=== PATIENT | male | born 1940 | race African-American/Black ===

== ENCOUNTER 2019-12-08 10:40 | Inpatient (IN) | payer MEDICARE, MEDICAID ==
[~2019-12-08] VITALS: Ht 175.3 cm; Wt 87.6 kg
[~2019-12-08 10:40] MED LIST: ACETAMINOPHEN325 M1 ORAL; ASPIR 8181 MG ORAL; CATAPRES0.2 MG ORAL; CYMBALTA60 MG ORAL; DOCUSATE SODIU100 MG ORAL; FUROSEMIDE20 M1 ORAL; GABAPENTIN300 MG ORAL; HYDRALAZINE HCL50 MG ORAL; LACTULOSE20 GM/301 ORAL; LISINOPRIL5 MG ORAL; LOSARTAN POTASS50 MG ORAL; PANTOPRAZOLE SO40 MG ORAL; TRAMADOL HCL50 MG ORAL
[2019-12-08 10:55] VITALS: BP 180/94
--- NOTE | 2019-12-08 11:00 | NUR ---
ED Nurse Note: Pt BIBA from assisted living d/t vomiting of blood started couple of days ago. Pt is AOx3, GCS 15, calm and cooperative. Per report pt has hx of kidney failure. Placed on bed and gown, will continue to monitor. VSS, on 2 liters of O2 via NC. No signs of acute distress noted as of now. Will continue to monitor.
--- NOTE | 2019-12-08 11:03 | Emergency Room Report ---
History of Present Illness General Chief Complaint: Vomiting Source: Patient Present Illness HPI Disclaimer: Please note that this report is being documented using DRAGON technology. This can lead to erroneous entry secondary to incorrect interpretation by the dictating instrument. HPI: 79-year-old male presents for evaluation of hematemesis. The patient was recently discharged after an extensive work-up of hematemesis including an EGD. He was sent in for after one episode of coffee-ground emesis witnessed by staff at his nursing facility this morning. The patient himself feels well. Denies nausea, vomiting, abdominal distention or pain. Denies diarrhea or constipation. He denies pain or discomfort of any kind at this time aside from some nonproductive cough over the past few days. Denies fevers or chills. His paperwork states he has been taking Protonix. EGD report showed gastritis and diverticulosis but no evidence of varices or other significant lesions. Presents with a Jaquez for obstructive uropathy PMH: PAULINE, hematemesis, gastritis, diverticulosis, hernia, obstructive uropathy PSH: Reviewed Allergies: Reviewed Social Hx: Reviewed Allergies: Coded Allergies: PROCHLORPERAZINE (Verified Allergy, Unknown, 11/30/19) Nursing Documentation-PMH Past Medical History: No History, Except For Hx Hypertension: Yes - GERD, ANEMIA Hx Cancer: No Hx Gastrointestinal Problems: No Hx Neurological Problems: Yes Hx Dementia: Yes Review of Systems All Other Systems: negative except mentioned in HPI Physical Exam Vital Signs Date Time Temp Pulse Resp B/P (MAP) Pulse Ox O2 Delivery O2 Flow Rate FiO2 12/08/19 10:35 84 16 180/94 (122) 94 Nasal Cannula 2.0 General: Awake and alert, no acute distress HEENT: NC/AT. EOMI. Neck: Supple, trachea midline Chest Wall: No tenderness, no deformity Cardiovascular: RRR. S1 and S2 normal. No murmur appreciated Resp: Normal work of breathing. No cough, wheezing or crackles appreciated Abdomen: Abdomen is soft, nondistended. Nontender Skin: Intact. No abrasions, laceration or rash over the exposed skin MSK: Normal tone and bulk. Moving all extremities. No obvious deformity. Neuro: Awake and alert. Mentating appropriately. Procedures Critical Care Time Critical Care Time Total critical care time: Approximately 45 minutes Due to a high probability of clinically significant, life threatening deterioration, the patient required the highest level of preparedness to intervene emergently and I personally spent this critical care time directly and personally managing the patient. This critical care time included obtaining a history, examining the patient, pulse oximetry, ordering and reviewing studies , ordering treatments, evaluating response to treatment and updating management plan as needed, frequent reassessment and discussion with other providers as well as arranging for ultimate disposition. This critical to care time was performed to assess and manage the high probability of life-threatening deterioration that could result in multiorgan failure. This critical care time is separate from the separately billable procedures and treating other patients. Medical Decision Making Diagnostic Impression: Primary Impression: Elevated troponin Additional Impressions: Upper GI bleed Anemia Prolonged QT interval Intraventricular conduction delay ER Course 79-year-old male recently discharged after evaluation of upper GI bleed presents for evaluation of coffee-ground emesis. Patient has no active complaints at this time. Belly is slightly distended though nontender. No evidence of emesis and he denies any nausea or vomiting recently. We will start broad work-up with labs, type and screen in preparation for possible transfusion, start IV fluids and antiemetics. Laboratory Tests Test 12/08/19 11:00 White Blood Count 11.0 K/UL (4.8-10.8) H Red Blood Count 3.29 M/UL (4.70-6.10) L Hemoglobin 9.9 G/DL (14.2-18.0) L Hematocrit 30.6 % (42.0-52.0) L Mean Corpuscular Volume 93 FL (80-99) Mean Corpuscular Hemoglobin 30.2 PG (27.0-31.0) Mean Corpuscular Hemoglobin Concent 32.5 G/DL (32.0-36.0) Red Cell Distribution Width 13.7 % (11.6-14.8) Platelet Count 292 K/UL (150-450) Mean Platelet Volume 5.0 FL (6.5-10.1) L Neutrophils (%) (Auto) % (45.0-75.0) Lymphocytes (%) (Auto) % (20.0-45.0) Monocytes (%) (Auto) % (1.0-10.0) Eosinophils (%) (Auto) % (0.0-3.0) Basophils (%) (Auto) % (0.0-2.0) Differential Total Cells Counted 100 Neutrophils % (Manual) 89 % (45-75) H Lymphocytes % (Manual) 4 % (20-45) L Monocytes % (Manual) 7 % (1-10) Eosinophils % (Manual) 0 % (0-3) Basophils % (Manual) 0 % (0-2) Band Neutrophils 0 % (0-8) Platelet Estimate Adequate Platelet Morphology Normal Hypochromasia 1+ Prothrombin Time 10.9 SEC (9.30-11.50) Prothrombin Time INR 1.0 (0.9-1.1) Activated Partial Thromboplast Time 30 SEC (23-33) Sodium Level 148 MMOL/L (136-145) H Potassium Level 5.0 MMOL/L (3.5-5.1) Chloride Level 112 MMOL/L (98-107) H Carbon Dioxide Level 22 MMOL/L (21-32) Anion Gap 14 mmol/L (5-15) Blood Urea Nitrogen 17 mg/dL (7-18) Creatinine 1.4 MG/DL (0.55-1.30) H Estimate Glomerular Filtration Rate mL/min (>60) Glucose Level 147 MG/DL (74-106) H Calcium Level 8.5 MG/DL (8.5-10.1) Total Bilirubin 0.3 MG/DL (0.2-1.0) Aspartate Amino Transferase (AST) 29 U/L (15-37) Alanine Aminotransferase (ALT) 17 U/L (12-78) Alkaline Phosphatase 135 U/L (46-116) H Troponin I 2.290 ng/mL (0.000-0.056) Total Protein 6.8 G/DL (6.4-8.2) Albumin 2.2 G/DL (3.4-5.0) L Globulin 4.6 g/dL Albumin/Globulin Ratio 0.5 (1.0-2.7) L Lipase 179 U/L (73-393) EKG Diagnostic Results EKG Time: 12:30 Rate: normal Rhythm: NSR Other Impression Wide QRS, right axis deviation, nonspecific ST and T wave changes. Irregular make baseline makes it difficult to interpret. Prolonged QTC Rhythm Strip Diag. Results Rhythm Strip Time: 12:30 EP Interpretation: yes Rate: 90s Rhythm: NSR Other X-Ray Diagnostic Results Other X-Ray Diagnostic Results : X-Ray ordered: Abdomen # of Views/Limited Vs Complete: 1 View Indication: Pain Interpretation: nonspecific bowel gas, no sbo, other - Nephrostomy tube Impression: No acute disease Electronically Signed by: Electronically signed by Dr. Michael Zapien Reevaluation Time: 14:14 Last Vital Signs Date Time Temp Pulse Resp B/P (MAP) Pulse Ox O2 Delivery O2 Flow Rate FiO2 12/08/19 10:35 84 16 180/94 (122) 94 Nasal Cannula 2.0 Reevaluation Impression Labs show hemoglobin of 9.9 with an MCV of 93 and largely unchanged from the patient's discharge labs. Slight elevation in white count at 11.0 with a neutrophil predominance of 89%. Chemistry shows an elevated creatinine of 1.4 with a normal BUN of 17. Potassium within normal limits though on the upper end at 5.0. Sodium slightly elevated 148. Troponin returned significantly elevated at 2.290. The patient does denies any complaints at this time. His EKG is nonspecific though shows a right axis with a intraventricular conduction delay nonspecific ST wave changes. Given the patient's recent admission for upper GI bleed and complaints of coffee-ground emesis earlier today we will not anticoagulate the patient at this time. I discussed this with his admitting team who agrees. He will be admitted to the stepdown unit for close monitoring and further management. Disposition: ADMITTED INPATIENT Condition: Serious Michael Zapien MD Dec 08, 2019 11:03
[2019-12-08 11:23] LABS: HEMATOCRIT 30.6 % (42.0-52.0); HEMOGLOBIN 9.9 G/DL (14.2-18.0); MEAN CORPUSCULAR VOLUME 93 FL (80-99); PLATELET COUNT 292 K/UL (150-450); RED BLOOD COUNT 3.29 M/UL (4.70-6.10); RED CELL DISTRIBUTION WIDTH 13.7 % (11.6-14.8)
--- NOTE | 2019-12-08 11:58 | Diagnostic Imaging Report ---
Indication: Abdominal distention, abdominal pain Technique: Supine view of the abdomen Comparison: [employer] image from CT scan dated 11/29/2019 Findings: Large amount of gas is seen in upper limits of normal caliber ascending and transverse colon, similar to the prior study. The remainder the bowel gas is unremarkable. There is a right nephroureteral stent in apparent good position, new since previous CT scan. Surgical clips are seen in the epigastric region. Impression: Nonspecific prominent colon gas No definite acute process Nephroureteral stent in place
[2019-12-08 12:24] LABS: ANION GAP 14 mmol/L (5-15); BLOOD UREA NITROGEN 17 mg/dL (7-18); CALCIUM 8.5 MG/DL (8.5-10.1); CARBON DIOXIDE 22 MMOL/L (21-32); CHLORIDE 112 MMOL/L (98-107); CREATININE 1.4 MG/DL (0.55-1.30); SODIUM 148 MMOL/L (136-145)
[2019-12-08 12:29] LABS: ALANINE AMINOTRANSFERASE 17 U/L (12-78); ALBUMIN 2.2 G/DL (3.4-5.0); ALBUMIN/GLOBULIN RATIO 0.5 (1.0-2.7); ALKALINE PHOSPHATASE 135 U/L (46-116); ASPARTATE AMINO TRANSFERASE 29 U/L (15-37); BILIRUBIN,TOTAL 0.3 MG/DL (0.2-1.0)
[2019-12-08 13:00] VITALS: BP 139/70
--- NOTE | 2019-12-08 14:00 | NUR ---
ED Nurse Note: Son on bedside.
--- NOTE | 2019-12-08 15:00 | NUR ---
ED Nurse Note: Noted skin tear on LT ankle and foot. Per son (on bedside) pt had an injury at the facility, he stated: "my dad had that because he was placed down, he was on a cast certain period of time too."
--- NOTE | 2019-12-08 15:07 | Diagnostic Imaging Report ---
Indication: Chest pain Technique: One view of the chest Comparison: 12/06/2019 Findings: There is a right infrahilar infiltrate. There is increased retrocardiac infiltrate and likely pleural fluid on the left. There is generalized mild interstitial congestion, slightly increased from the prior exam. The heart is enlarged Impression: Increased retrocardiac consolidation and likely pleural fluid New/increased right infrahilar infiltrate
[2019-12-08 15:41] LABS: APPEARANCE,URINE VERY CLOUDY; BILIRUBIN, URINE NEGATIVE (NEGATIVE); GLUCOSE, URINE (UA) NEGATIVE (NEGATIVE); KETONES,URINE 2+ (NEGATIVE); LEUKOCYTE ESTERASE ,URINE 3+ (NEGATIVE); NITRITE,URINE NEGATIVE (NEGATIVE); PH,URINE 5 (4.5-8.0); PROTEIN,URINE 3+ (NEGATIVE); UROBILINOGEN,URINE NORMAL MG/DL (0.0-1.0)
[2019-12-08 15:47] LABS: COLOR,URINE YELLOW
--- NOTE | 2019-12-08 16:00 | NUR ---
ED Nurse Note: Obtained another specimen for repeat troponin.
--- NOTE | 2019-12-08 18:05 | NUR ---
TRANSFER TO [facility]: Patient transferred to [facility] as ordered, per Dr. Sharma. Report given to WANDER Velasquez. Belongings and medications given to primary RN. Family and or S/O informed of transfer.
--- NOTE | 2019-12-08 18:06 | NUR ---
NURSE NOTES: Received patient from ER with RN Moira, patient alert oriented,conversant,thankful,on 2 liters nasal cannula,occasional short of breath,when repositioned,with diaper,with BM, cleaned skin care done,repositioned to comfort head elevated,made comfortable
[2019-12-08 18:30] VITALS: BP 146/74
--- NOTE | 2019-12-08 19:28 | NUR ---
NURSE NOTES: Received pt from WANDER Velasquez. pt is observed resting in bed. Pt is alert and oriented x4 and able to follow simple commands. Pt denies pain and SOB at this time. Pt is currently on 2L NC, tolerating well with an O2 saturation of 96% noted; no s/sx of respiratory distress noted at this time. cat sitter shows ST with HR of 102 noted; No acute cardiac distress noted. F/C is patent and intact, draining lakeisha urine to gravity. Skin alterations noted. LH 22g and LAC 20g IV catheter sites patent, intact and asymptomatic. Bed remains in lowest position and locked, side rails up X3, call light within reach and bed alarm activated. Will continue to monitor.
--- NOTE | 2019-12-08 19:30 | NUR ---
NURSE NOTES: Dr Bowers present at bedside to assess pt. Dr Samuel present at bedside to assess patient. Will continue to monitor and implement orders.
--- NOTE | 2019-12-08 19:30 | NUR ---
HAND-OFF: Report given to RN Thereasa at bedside,comfortable on 2 liters nasal cannula,head elevated,mcgowan dark lakeisha urine
--- NOTE | 2019-12-08 19:42 | NUR ---
NURSE NOTES: Pt had large soft/liquid BM. Pt provided with bed bath, linen change and oral care. Pt tolerated care well. Pt remains resting in bed; bed remains in lowest position with safety wheels engaged, side rails up x3, bed alarm activated and call light within reach. Will continue to monitor. Family remains present at bedside.
--- NOTE | 2019-12-08 19:43 | Cardiology Progress Note ---
Assessment/Plan Assessment/Plan [id number] repeat ekg echo trop dc ivf will need kirill bx per pulm / med Ecotrin for mi diuretics lwo sdoe bp meds repeat echo for tamponade surveillance Objective Last 24 Hour Vital Signs Date Time Temp Pulse Resp B/P (MAP) Pulse Ox O2 Delivery O2 Flow Rate FiO2 12/08/19 18:05 98.2 100 22 139/70 100 Nasal Cannula 2.0 12/08/19 13:00 98.2 100 22 139/70 100 Nasal Cannula 2.0 12/08/19 10:55 84 16 Nasal Cannula 2.0 12/08/19 10:55 98.2 68 16 180/94 94 Nasal Cannula 2.0 12/08/19 10:35 84 16 180/94 (122) 94 Nasal Cannula 2.0 Laboratory Tests Test 12/08/19 10:42 12/08/19 11:00 12/08/19 16:00 Urine Color Yellow Urine Appearance Very cloudy Urine pH 5 (4.5-8.0) Urine Specific [place] 1.020 (1.005-1.035) Urine Protein 3+ (NEGATIVE) H Urine Glucose (UA) Negative (NEGATIVE) Urine Ketones 2+ (NEGATIVE) H Urine Blood 5+ (NEGATIVE) H Urine Nitrite Negative (NEGATIVE) Urine Bilirubin Negative (NEGATIVE) Urine Urobilinogen Normal MG/DL (0.0-1.0) Urine Leukocyte Esterase 3+ (NEGATIVE) H Urine RBC Tntc /HPF (0 - 0) H Urine WBC 60-80 /HPF (0 - 0) H Urine Squamous Epithelial Cells None /LPF (NONE/OCC) Urine Bacteria Moderate /HPF (NONE) H White Blood Count 11.0 K/UL (4.8-10.8) H Red Blood Count 3.29 M/UL (4.70-6.10) L Hemoglobin 9.9 G/DL (14.2-18.0) L Hematocrit 30.6 % (42.0-52.0) L Mean Corpuscular Volume 93 FL (80-99) Mean Corpuscular Hemoglobin 30.2 PG (27.0-31.0) Mean Corpuscular Hemoglobin Concent 32.5 G/DL (32.0-36.0) Red Cell Distribution Width 13.7 % (11.6-14.8) Platelet Count 292 K/UL (150-450) Mean Platelet Volume 5.0 FL (6.5-10.1) L Neutrophils (%) (Auto) % (45.0-75.0) Lymphocytes (%) (Auto) % (20.0-45.0) Monocytes (%) (Auto) % (1.0-10.0) Eosinophils (%) (Auto) % (0.0-3.0) Basophils (%) (Auto) % (0.0-2.0) Differential Total Cells Counted 100 Neutrophils % (Manual) 89 % (45-75) H Lymphocytes % (Manual) 4 % (20-45) L Monocytes % (Manual) 7 % (1-10) Eosinophils % (Manual) 0 % (0-3) Basophils % (Manual) 0 % (0-2) Band Neutrophils 0 % (0-8) Platelet Estimate Adequate Platelet Morphology Normal Hypochromasia 1+ Prothrombin Time 10.9 SEC (9.30-11.50) Prothromb Time International Ratio 1.0 (0.9-1.1) Activated Partial Thromboplast Time 30 SEC (23-33) Sodium Level 148 MMOL/L (136-145) H Potassium Level 5.0 MMOL/L (3.5-5.1) Chloride Level 112 MMOL/L (98-107) H Carbon Dioxide Level 22 MMOL/L (21-32) Anion Gap 14 mmol/L (5-15) Blood Urea Nitrogen 17 mg/dL (7-18) Creatinine 1.4 MG/DL (0.55-1.30) H Estimat Glomerular Filtration Rate mL/min (>60) Glucose Level 147 MG/DL (74-106) H Calcium Level 8.5 MG/DL (8.5-10.1) Total Bilirubin 0.3 MG/DL (0.2-1.0) Aspartate Amino Transf (AST/SGOT) 29 U/L (15-37) Alanine Aminotransferase (ALT/SGPT) 17 U/L (12-78) Alkaline Phosphatase 135 U/L (46-116) H Troponin I 2.290 ng/mL (0.000-0.056) 2.322 ng/mL (0.000-0.056) Total Protein 6.8 G/DL (6.4-8.2) Albumin 2.2 G/DL (3.4-5.0) L Globulin 4.6 g/dL Albumin/Globulin Ratio 0.5 (1.0-2.7) L Lipase 179 U/L (73-393) Bob Samuel MD Dec 08, 2019 19:43
[2019-12-08 20:00] VITALS: BP 167/96
[2019-12-08] MEDS: HydrALAZINE 50mg tab ORAL SCH (21:32)
[2019-12-09] VITALS: BP 105/61
--- NOTE | 2019-12-09 00:30 | Consultation ---
DATE OF CONSULTATION: 12/08/2019 CARDIOLOGY CONSULTATION CONSULTING PHYSICIAN: Bob Samuel M.D. REFERRING PHYSICIAN: Chris Bowers M.D. REASON FOR REFERRAL: Abnormal cardiac enzymes. HISTORY OF PRESENT ILLNESS: This is an 79-year-old gentleman, who was recently hospitalized and discharged from this facility. He has had some renal insufficiency secondary to obstructive uropathy, underwent urological procedure by Dr. Flores. Renal function improved. In the interim, the patient had a CT scan that showed some pericardial effusion. Echocardiogram was performed, a large pericardial effusion was noted. The patient was ordered to have a repeat echocardiogram several days later to evaluate the size of the pericardial effusion. Unfortunately, he was discharged back to the convalescent facility and that never occurred. He presented to the hospital again because of cough and congestion and wheezing and shortness of breath, but absolutely denies any pain in the chest. No discomfort of any kind in the chest except for what he experienced when he coughs. His cough is productive of brown sputum. He is really not ambulatory. He is not very active. He is basically most of the time in the bed and very minimal time in the chair if he is put in a chair. PAST MEDICAL HISTORY: Positive for history of pericardial effusion as mentioned in the past hospitalization, acute on chronic renal failure, hydroureteronephrosis, GI bleeding, leukemoid reaction, urinary tract infection, obstructive uropathy, osteoarthritis, hypertension, deep venous thromboses, anemia, coronary artery disease unknown nature, history of heart failure, major depression, gastroesophageal reflux disease, and leg fracture. ALLERGIES: To Compazine. 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 No drug use. He is a resident of convalescent facility. REVIEW OF SYSTEMS: GASTROINTESTINAL: He does have some nausea, but no vomiting. No diarrhea or constipation. GENITOURINARY: He has a Jaquez catheter in place. PULMONARY: Coughing and wheezing. CONSTITUTIONAL: Denies any fever, chills, or night sweats. NEUROLOGIC: Denies any numbness or tingling in his arms or his legs or face. PHYSICAL EXAMINATION: GENERAL: Shows to be elderly gentleman, lying down with head of bed elevation. NECK: Supple. There is some jugular venous distention noted. LUNGS: Show expiratory wheezes and some rhonchi. CARDIAC: Regular rate and rhythm. No heaves or thrills are noted. There is no pericardial or friction rub noted. ABDOMEN: Soft, nontender. Positive bowel sounds. EXTREMITIES: There is 1+ to 2+ edema of the lower extremities bilaterally. DIAGNOSTIC AND LABORATORY DATA: The patient's electrocardiogram shows what appears to be sinus. The quality of the EKG is very poor. Intraventricular conduction delay is noted, possibly left bundle. There is delay in R-wave progression. White blood cell count is 11,000 up from 7.3, hemoglobin 9.9, and platelet count of 292. Sodium is 148, potassium is 5.0, chloride 112, bicarb of 22, BUN 17, creatinine 1.4, glucose of 147. Calcium is 8.5. Alkaline phosphatase is 133. Troponin of 2.29 and subsequent 2.33. Albumin of 2.2. Lipase of 179. Coags INR of 1, PTT of 30. Urinalysis, too numerous to count wbc's and rbc's. A chest x-ray performed in the emergency room is interpreted by the radiologist as showing there is right infrahilar infiltrate. There is increased retrocardiac infiltrate and likely pleural fluid on the left side. There is increased mild interstitial congestion, slightly increased from the prior examination. ASSESSMENT AND PLAN: 1. Non ST-elevation myocardial infarction. 2. Pericardial effusion noted on prior echocardiography. 3. Renal failure. 4. Coughing and congestion, possible pneumonia. 5. Occult positive stools. 6. Hypernatremia. 7. GI bleed. 8. Obstructive uropathy. Dr. Bowers, this patient was seen in cardiac consultation. The patient's cardiac enzymes are abnormal. They seemed to be flat. It is possible that whatever injury happened occurred a few days ago. The patient was discharged on 12/07/2019 and it is possible that whatever happened in that hospitalization, but at least became evident at this time. The patient's EKG is unchanged since the prior EKG that was performed here, conduction delay was present on the older EKG. He does have some vascular congestion. His blood pressure is somewhat high. His medications were increased during the last hospitalization with addition of hydralazine with increasing doses as well as Norvasc 5 mg twice a day as well as clonidine 0.2 mg p.r.n. He was receiving hydralazine 50 mg every 8 hours as well as Flomax. An echocardiogram will be ordered to evaluate the size of the pericardial effusion as clinically . He has got significant elevated blood pressure in the 130s to 180s over 70s to 94. He is not that tachycardic 84 to 100. He does have a cough and congestion and should be treated for possibly underlying pneumonia as well as possible likely underlying urinary tract infection although that may be because of the stents and the Jaquez catheter that he has indwelling. I will follow the patient along with you and repeat echo will be ordered. He should be on some aspirin if he is able to tolerate and we will discontinue the IV fluids if possible because of the vascular congestion noted on the chest x-ray. In fact, he may require some diuretics down the line. Bob Samuel M.D. DR: REBECCA JOB#: [id number] CC:
[2019-12-09] MEDS: Albuterol/Ipratropium 3ml neb HHN PRN ×3 (02:47→14:37)
--- NOTE | 2019-12-09 03:02 | History and Physical Report ---
DATE OF ADMISSION: 12/08/2019 HISTORY OF PRESENT ILLNESS: This is an elderly 79-year-old male, came to the emergency room where he was found to have episodes of nausea, vomiting, and was found to have positive troponin in the ER. Also, has swelling on both legs. The patient is alert, awake, mild short of breath, and looks congested. PAST MEDICAL HISTORY: Significant for obstructive uropathy, hypertension, history of pericardial effusion, and upper GI bleed. MEDICATIONS: See the list. ALLERGIES: NKA. FAMILY HISTORY: Noncontributory. SOCIAL HISTORY: Lives at halfway. Mostly bedbound. REVIEW OF SYSTEMS: Generalized weakness, tired, fatigue. PHYSICAL EXAMINATION: VITAL SIGNS: Blood pressure 139/70, pulse 100, respirations 22, temperature 98.2. HEENT: Eyes are open. NECK: Supple. CHEST: Bilateral few crackles. CARDIOVASCULAR: Regular rhythm. ABDOMEN: Soft. EXTREMITIES: Trace edema. GENITOURINARY: Deferred. LABORATORY AND DIAGNOSTIC DATA: White counts are 11,000, hemoglobin 10, hematocrit 31, platelets are 292,000. Chemistry panel, sodium 148, potassium 5, BUN 17, creatinine 1.4. Troponins are 2.290 to 2.322. His alkaline phosphate is 135. Albumin is 2.2. His chest x-ray is showing increased retrocardiac consolidation likely pleural fluid, new increased right infrahilar infiltrate. His abdomen x-ray, nonspecific prominent colon gas. No definite acute process. ASSESSMENT: 1. Nausea, vomiting. 2. Positive . 3. History of obstructive uropathy. 4. Leg edema. PLAN: We will admit on telemetry bed, oxygen, IV fluid, IV Lasix. Consider Cardiology consult and we will order echo tomorrow to rule out pericardial effusion or pericardial tamponade. Discussed with Dr. Samuel, Cardiology consult. Jacky Bowers M.D. DR: ARNOLDO JOB#: [id number] CC:
[2019-12-09 04:00] VITALS: BP 150/72
--- NOTE | 2019-12-09 04:21 | NUR ---
NURSE NOTES: Unable to upload wound care pictures due to IT issues; called IT and placed work order, spoke with Lamonte. Photos taken and remain in workstation camera as backup. Will await call back and notified primer charger
[2019-12-09] MEDS: HydrALAZINE 50mg tab ORAL SCH ×3 (05:07→21:02)
[2019-12-09 05:40] LABS: HEMATOCRIT 28.8 % (42.0-52.0); HEMOGLOBIN 9.7 G/DL (14.2-18.0); MEAN CORPUSCULAR VOLUME 93 FL (80-99); PLATELET COUNT 253 K/UL (150-450); RED BLOOD COUNT 3.09 M/UL (4.70-6.10); RED CELL DISTRIBUTION WIDTH 14.1 % (11.6-14.8); WHITE BLOOD COUNT 14.3 K/UL (4.8-10.8)
[2019-12-09] MEDS: cloNIDine 0.2mg Tab ORAL SCH ×4 (05:55→18:36)
[2019-12-09 06:33] LABS: ANION GAP 13 mmol/L (5-15); BLOOD UREA NITROGEN 17 mg/dL (7-18); CALCIUM 8.3 MG/DL (8.5-10.1); CARBON DIOXIDE 21 MMOL/L (21-32); CHLORIDE 112 MMOL/L (98-107); CHOLESTEROL 101 MG/DL (< 200); CREATININE 1.4 MG/DL (0.55-1.30); HDL CHOLESTEROL 42 MG/DL (40-60); POTASSIUM 4.4 MMOL/L (3.5-5.1); SODIUM 146 MMOL/L (136-145); TRIGLYCERIDES 56 MG/DL (30-150)
--- NOTE | 2019-12-09 06:49 | NUR ---
NURSE NOTES: Called Dr Quiñones regarding elevated Trop and Mag 1.7 Replace 1gm Mag IV X1, no further orders at this time.
--- NOTE | 2019-12-09 07:18 | NUR ---
HAND-OFF: Report given to WANDER Ramey. Pt remains stable at this time.
--- NOTE | 2019-12-09 07:19 | NUR ---
NURSE NOTES: Received patient from Barry VIRAMONTES. Patient is asleep, receiving oxygen via nasal cannula at 2L/min. IV site is Right AC 20g, receiving 1/2NS at 75cc/hr. Jaquez catheter is intact and draining. Bed is locked, placed in lowest position, side rails up x3, bed alarm on, head of bed elevated, call light within reach. Will continue to monitor.
[2019-12-09 08:00] VITALS: BP 131/65
[2019-12-09] MEDS: Aspirin EC 81mg tab ORAL SCH (08:16)
[2019-12-09] MEDS ORDERED: Pantoprazole Inj IVP SCH (09:00)
--- NOTE | 2019-12-09 10:13 | NUR ---
NURSE NOTES: Patient complained of respiratory distress, O2 Saturation 100%. Called RT for breathing treatment. Will continue to monitor.
--- NOTE | 2019-12-09 11:35 | GI Initial Consult Note ---
History of Present Illness General Date patient seen: Dec 09, 2019 Time patient seen: 11:29 Reason for Hospitalization: Vomiting Referring physician: TERI Reason for Consultation: COFFEE GROUND EMESIS Present Illness HPI 79-year-old male presents for evaluation of hematemesis. The patient was recently discharged after an extensive work-up of hematemesis including an EGD. He was sent in for after one episode of coffee-ground emesis witnessed by staff at his nursing facility this morning. The patient himself feels well. Denies nausea, vomiting, abdominal distention or pain. Denies diarrhea or constipation. He denies pain or discomfort of any kind at this time aside from some nonproductive cough over the past few days. Denies fevers or chills. His paperwork states he has been taking Protonix. EGD report showed gastritis and diverticulosis but no evidence of varices or other significant lesions. Presents with a Jaquez for obstructive uropathy. GI consulted for reported episode of coffee-ground emesis. Patient was seen, awake alert oriented x4 no apparent distress. The patient did not initially recall of his episode of coffee-ground emesis, states that it has resolved at this time and has had no recurrent episode. The patient denies any nausea, abdominal pain, diarrhea or constipation. The patient recalls having a history of endoscopy done, but unsure of the exact time. Laboratory reviewed, hemoglobin 9.7, hematocrit 28.8, INR 1.0, magnesium 1.7, troponin 2.348. The patient was recently admitted here at [facility] approximately 1 week ago noted with some constipation and moderate pericardial effusion based on the CT scan. During that time admission, fecal occult blood stool was positive. Home Meds Reported Medications Acetaminophen* (ACETAMINOPHEN 325MG TABLET*) 325 Mg Tablet, 650 MG ORAL Q4H PRN for For Pain, TAB 12/08/19 Pantoprazole* (PANTOPRAZOLE*) 40 Mg Tablet.dr, 40 MG ORAL DAILY for GERD, TAB 11/29/19 Lisinopril (LISINOPRIL*) 5 Mg Tablet, 10 MG ORAL DAILY for hypertension, TAB 11/29/19 Lactulose (LACTULOSE*) 20 Gm/30 Ml Solution, 45 ML ORAL BID for constipation, ML 0 Refills 11/29/19 Hydralazine Hcl* (HYDRALAZINE HCL*) 50 Mg Tablet, 50 MG ORAL EVERY 8 HOURS for hypertension, TAB 11/29/19 Gabapentin* (GABAPENTIN*) 300 Mg Capsule, 300 MG ORAL BID for joint pain, CAP 11/29/19 Furosemide* (LASIX*) 20 Mg Tablet, 20 MG ORAL DAILY for hypertension, TAB 11/29/19 Docusate Sodium* (DOCUSATE SODIUM*) 100 Mg Capsule, 200 MG ORAL DAILY for BM management, CAP 11/29/19 Duloxetine Hcl* (CYMBALTA*) 60 Mg Capsule.dr, 60 MG ORAL DAILY for depression, CAP 11/29/19 Losartan Potassium* (LOSARTAN POTASSIUM*) 50 Mg Tablet, 100 MG ORAL DAILY for hypertension, TAB 11/29/19 Clonidine Hcl* (CATAPRES*) 0.2 Mg Tablet, 0.2 MG ORAL Q6HR for hypertension, TAB 11/28/19 Aspirin* (ASPIR 81*) 81 Mg Tablet.dr, 81 MG ORAL DAILY for CVA PPX, TAB 11/28/19 Acetaminophen* (ACETAMINOPHEN 325MG TABLET*) 325 Mg Tablet, 650 MG ORAL Q4H PRN for For Pain, TAB 11/28/19 Discontinued Reported Medications Tramadol Hcl* (ULTRAM*) 50 Mg Tablet, 50 MG ORAL Q4HR PRN for For Pain, #12 TAB 0 Refills 11/29/19 Med list reviewed/reconciled: Yes Allergies: Coded Allergies: PROCHLORPERAZINE (Verified Allergy, Unknown, 11/30/19) Patient History Limited by: medical condition History Provided By: Patient, Medical Record PMH Narrative PMH: PAULINE, hematemesis, gastritis, diverticulosis, hernia, obstructive uropathy PSH: Reviewed Allergies: Reviewed Social Hx: Reviewed Allergies: Coded Allergies: PROCHLORPERAZINE (Verified Allergy, Unknown, 11/30/19) Nursing Documentation-PMH Past Medical History: No History, Except For Hx Hypertension: Yes - GERD, ANEMIA Hx Cancer: No Hx Gastrointestinal Problems: No Hx Neurological Problems: Yes Hx Dementia: Yes Social History: Denies: smoking, alcohol use, drug use, other Review of Systems All Other Systems: negative except mentioned in HPI Physical Exam Vital Signs Date Time Temp Pulse Resp B/P (MAP) Pulse Ox O2 Delivery O2 Flow Rate FiO2 12/08/19 10:35 84 16 180/94 (122) 94 Nasal Cannula 2.0 12/08/19 10:55 98.2 12/09/19 02:49 28 Sp02 EP Interpretation: reviewed, normal Labs Laboratory Tests Test 12/08/19 16:00 12/09/19 05:00 Troponin I 2.322 ng/mL (0.000-0.056) 2.348 ng/mL (0.000-0.056) White Blood Count 14.3 K/UL (4.8-10.8) H Red Blood Count 3.09 M/UL (4.70-6.10) L Hemoglobin 9.7 G/DL (14.2-18.0) L Hematocrit 28.8 % (42.0-52.0) L Mean Corpuscular Volume 93 FL (80-99) Mean Corpuscular Hemoglobin 31.3 PG (27.0-31.0) H Mean Corpuscular Hemoglobin Concent 33.5 G/DL (32.0-36.0) Red Cell Distribution Width 14.1 % (11.6-14.8) Platelet Count 253 K/UL (150-450) Mean Platelet Volume 4.8 FL (6.5-10.1) L Neutrophils (%) (Auto) % (45.0-75.0) Lymphocytes (%) (Auto) % (20.0-45.0) Monocytes (%) (Auto) % (1.0-10.0) Eosinophils (%) (Auto) % (0.0-3.0) Basophils (%) (Auto) % (0.0-2.0) Differential Total Cells Counted 100 Neutrophils % (Manual) 88 % (45-75) H Lymphocytes % (Manual) 5 % (20-45) L Monocytes % (Manual) 6 % (1-10) Eosinophils % (Manual) 1 % (0-3) Basophils % (Manual) 0 % (0-2) Band Neutrophils 0 % (0-8) Platelet Estimate Adequate Platelet Morphology Normal Hypochromasia 2+ Anisocytosis 1+ Sodium Level 146 MMOL/L (136-145) H Potassium Level 4.4 MMOL/L (3.5-5.1) Chloride Level 112 MMOL/L (98-107) H Carbon Dioxide Level 21 MMOL/L (21-32) Anion Gap 13 mmol/L (5-15) Blood Urea Nitrogen 17 mg/dL (7-18) Creatinine 1.4 MG/DL (0.55-1.30) H Estimat Glomerular Filtration Rate mL/min (>60) Glucose Level 106 MG/DL (74-106) Calcium Level 8.3 MG/DL (8.5-10.1) L Magnesium Level 1.7 MG/DL (1.8-2.4) L Pro-B-Type Natriuretic Peptide > 48809 pg/mL (0-125) H Triglycerides Level 56 MG/DL (30-150) Cholesterol Level 101 MG/DL (< 200) LDL Cholesterol 42 mg/dL (<100) HDL Cholesterol 42 MG/DL (40-60) Cholesterol/HDL Ratio 2.4 (3.3-4.4) L General Appearance: well appearing, no apparent distress, alert Head: normocephalic EENT: PERRL/EOMI, normal ENT inspection Neck: supple Respiratory: normal breath sounds, no respiratory distress Cardiovascular: normal rate Gastrointestinal: normal inspection, non tender, soft, normal bowel sounds, non -distended Rectal: deferred Genitourinary: deferred Musculoskeletal: other - Decreased range of motion to left lower extremity Neurologic: alert, oriented x3, responsive, normal inspection Psychiatric: normal inspection, judgement/insight normal, memory normal Skin: normal inspection, normal color, no rash, warm/dry, palpation normal, well hydrated Lymphatic: normal inspection, no adenopathy Current Medications Current Medications Medications (Trade) Dose Ordered Sig/En Route PRN Reason Start Time Stop Time Status Last Admin Dose Admin Acetaminophen (Tylenol) 650 mg Q4H PRN ORAL Mild Pain/Temp > 100.5 12/08/19 20:00 01/07/20 19:59 12/08/19 20:40 Albuterol/ Ipratropium (Albuterol/ Ipratropium) 3 ml Q4H PRN HHN Shortness of Breath 12/08/19 20:00 12/13/19 19:59 12/09/19 10:12 Amlodipine Besylate (Norvasc) 5 mg Q12H PRN ORAL sbp greater tahtn 160 12/08/19 19:45 01/07/20 19:44 Aspirin (Ecotrin) 81 mg DAILY ORAL 12/09/19 09:00 01/08/20 08:59 12/09/19 08:16 Clonidine HCl (Catapres tab) 0.2 mg Q6HR ORAL 12/09/19 00:00 01/08/20 00:00 12/09/19 05:55 Finasteride (Proscar) 5 mg DAILY ORAL 12/09/19 09:00 01/08/20 08:59 12/09/19 10:05 Furosemide (Lasix) 20 mg DAILY IV 12/09/19 09:00 01/08/20 08:59 12/09/19 08:16 Hydralazine HCl (Apresoline) 50 mg EVERY 8 HOURS ORAL 12/08/19 22:00 01/07/20 21:59 12/09/19 05:07 Pantoprazole (Protonix) 40 mg DAILY IVP 12/09/19 09:00 01/08/20 08:59 12/09/19 08:16 Sodium Chloride 1,000 ml @ 75 mls/hr [id number] IV 12/08/19 20:00 01/07/20 19:59 12/09/19 10:07 Tamsulosin HCl (Flomax) 0.4 mg BEDTIME ORAL 12/09/19 21:00 01/08/20 20:59 GI: Plan Problems: (1) Upper GI bleed (2) Anemia (3) Elevated troponin Plan Recent EGD/Colonoscopy SUMMARY OF FINDINGS: 1. Gastritis, status post biopsy. 2. Small hiatal hernia with a small ulceration in the hernia sac. 3. Poor colonic prep and incomplete, only up to ascending colon was examined. 4. Diverticulosis. 5. One colonic polyp removed. 6. Internal hemorrhoids. H. Pylori negative No plans for GI procedures given recent history We will place patient on PPI twice daily Clear liquid, advance as tolerated Monitor H&H, as needed transfusions to maintain hemoglobin above 7 Bowel regimen We will follow along on a daily basis with any additional recommendations Discussed with Dr. Fitzgerald. Thank you for this patient referral, we will follow. The patient was seen and examined at bedside and all new and available data was reviewed in the patients chart. I agree with the above findings, impression and plan. (Patient seen earlier today. Signature stamp does not reflect patient encounter time.). - MD Trang [facility]Di[facility] Dec 09, 2019 11:35
--- NOTE | 2019-12-09 11:44 | NUR ---
NURSE NOTES: Patient is resting comfortably in bed, denies any pain, two visitors currently in the room. 1200 prescribed clonidine was given, blood pressure was 151/74. Will continue to monitor.
[2019-12-09 12:00] VITALS: BP 138/77
--- NOTE | 2019-12-09 12:04 | NUR ---
CASE MANAGEMENT:INITIAL REVIEW 79 YR OLD MALE BIBA FROM [facility] CC;VOMITING SI;ELEVATED TROPONIN. UPPER GI BLEED. ANEMIA 98.4 102 22 180/94 94% 2L NC WBC 11.0 H/H 9.9/30.6 NA 145 CL 112 CR 1.4 TROP 1 2.290 ABD XRAY - No definite acute process CXR - Increased retrocardiac consolidation and likely pleural fluid IS;IVF BOLUS X2 ZOFRAN IV X1 ADMITTED TO SDU SDU STATUS DCP;FROM [facility]
--- NOTE | 2019-12-09 15:15 | Consultation ---
DATE OF CONSULTATION: 12/09/2019 CONSULTING PHYSICIAN: Neil Flores M.D. REFERRING PHYSICIAN: Bob Samuel M.D. REASON FOR EVALUATION: For evaluation and followup of multiple urology issues. HISTORY OF PRESENT ILLNESS: This is an 79-year-old gentleman. He is known to me from recent evaluation. I saw the patient last week on an urgent basis when he was found to be in acute kidney injury and sepsis secondary to multiple obstructive stones of the right kidney. He has an atrophic left kidney. The patient was taken to the operating room on an urgent basis for stent placement after which, his acute kidney injury did improve and he also had improvement of his leukocytosis. He has had a Jaquez catheter indwelling. He was subsequently sent back to alf and then came back to the emergency room yesterday because of nausea and vomiting and was noted to have elevated troponins. Followup urology evaluation is requested. PAST MEDICAL HISTORY: Significant for above. Also history of coronary artery disease, chronic kidney disease, history of osteoarthritis, hypertension, DVT, gastroesophageal reflux disease. PAST SURGICAL HISTORY: As above. CURRENT MEDICATIONS: Here in the hospital, the patient is on aspirin, Protonix, Lasix, Catapres, Apresoline, Tylenol, Norvasc. ALLERGIES: To prochlorperazine. SOCIAL HISTORY: He is from a alf. REVIEW OF SYSTEMS: As above. FAMILY HISTORY: Noncontributory. PHYSICAL EXAMINATION: GENERAL: Elderly male, no acute distress. VITAL SIGNS: Temperature is 97.2, blood pressure is 145/74. HEENT: Normocephalic. NECK: Supple. ABDOMEN: Soft. GENITOURINARY: No CVA tenderness. Jaquez catheter is in place, 20-Slovak. Urine is yellowish lakeisha. LABORATORY DATA: BUN 70, creatinine 1.4, potassium 4.4. He did again have acute kidney injury during the last visit, which is better. His white blood cell count is 14.3, hemoglobin 9.7, platelets of 253. INR is 1.0. UA showed 3+ protein, too numerous to count rbc's, 6 to 8 wbc's, moderate bacteria. Urine culture from yesterday is negative so far. DIAGNOSTIC IMAGING STUDIES: The patient had an abdominal x-ray, which showed right ureteral stent in good position. Old imaging reviewed. IMPRESSION: 1. History of right-sided renal and ureteral calculi. 2. Hydronephrosis history, status post stent placement. 3. History of renal insufficiency, acute on chronic, which is better. 4. BPH. 5. Urinary retention. 6. Neurogenic bladder. 7. Pyuria. 8. Hematuria. 9. Proteinuria. 10. Renal atrophy. 11. Renal cyst. PLAN AND DISCUSSION: Again as noted above, the patient has an indwelling ureteral stent on the right side, which was placed last week. His renal function is currently at baseline. He does have a positive UA, which is presumably secondary to the stent and Jaquez. He is currently not on any antibiotics. At this time, I will resume his Flomax and Proscar and his renal function will be monitored as well as his white count and we can consider voiding trial soon. At some point once he is medically stabilized, electively he can have the stones treated. Thank you, Dr. Samuel, for asking me to see this patient in consultation. Neil Flores M.D. DR: BEVERLEY JOB#: [id number] CC: Jacky Bowers M.D.; Fax#: [phone]
[2019-12-09 16:00] VITALS: BP 112/59
--- NOTE | 2019-12-09 16:45 | Progress Note ---
DATE: 12/09/2019 SUBJECTIVE: This is an elderly male. Currently in the bed. Mild short of breath and he is in a step-down unit. OBJECTIVE: GENERAL: The patient is awake, alert, oriented x3. VITAL SIGNS: Blood pressure 131/65, pulse 82, no fever. HEENT: NAD. CHEST: Bilateral decreased breath sounds. CARDIOVASCULAR: Regular rhythm. ABDOMEN: Soft. Positive bowel sounds. Nontender. EXTREMITIES: No edema. LABORATORY DATA: White counts are 14,000, hemoglobin 9.7, hematocrit 28, platelets are 253. Chemistry panel, BUN 17, creatinine 1.4. His BNP was 35,000. Troponin is 2348. ASSESSMENT: 1. Acute coronary syndrome. 2. CHF. 3. Hypertension. 4. History of obstructive uropathy. PLAN: 1. Cardiology is on consult. Discussed with Dr. Samuel. 2. We will continue Flomax, aspirin. 3. Continue finasteride, Lasix, clonidine, hydralazine, bronchodilator treatments. 4. Pulmonary, Cardiology is on consult. 5. We are ordering 2D echo. Jacky Bowers M.D. DR: LORIE JOB#: [id number] CC:
--- NOTE | 2019-12-09 18:09 | Cardiology Progress Note ---
Assessment/Plan Assessment/Plan 1. Non ST-elevation myocardial infarction. 2. Pericardial effusion mod to large 3. Renal failure. 4. pneumonia. 5. Occult positive stools. 6. Hypernatremia. 7. GI bleed. 8. Obstructive uropathy. echo personally reviewed no pericardial tamponade he has sig rhonchi need hhn abx pulm eval the effusion is not any smaller will likey need pericardiocentesis adn cardiac cath at a a cath facility but in light of renal insuf is at risk for contrast induced renal failure will also need gi clearance to get dapt if needed Ecotrin (if ok wih gi) bb statin watch on tlel will have tamp surveillance echo in a few days Subjective Cardiovascular: Denies: chest pain, lightheadedness, palpitations Respiratory: Reports: cough, shortness of breath, wheezing; Denies: sputum Gastrointestinal/Abdominal: Denies: abdominal pain Genitourinary: Denies: burning Objective Last 24 Hour Vital Signs Date Time Temp Pulse Resp B/P (MAP) Pulse Ox O2 Delivery O2 Flow Rate FiO2 12/09/19 16:00 Nasal Cannula 2.0 12/09/19 16:00 98.6 70 19 112/59 (76) 99 12/09/19 16:00 2.0 12/09/19 15:26 72 12/09/19 14:37 88 22 99 Nasal Cannula 2.0 28 74 20 98 12/09/19 14:10 142/75 12/09/19 12:00 97.8 94 19 138/77 (97) 95 12/09/19 12:00 2.0 12/09/19 12:00 Nasal Cannula 2.0 12/09/19 11:42 87 12/09/19 11:35 151/74 12/09/19 10:12 96 22 100 Nasal Cannula 2.0 28 91 22 98 12/09/19 09:00 Nasal Cannula 2.0 12/09/19 08:00 97.5 82 18 131/65 (87) 100 12/09/19 08:00 2.0 12/09/19 07:55 100 Nasal Cannula 2.0 28 12/09/19 07:48 93 12/09/19 05:55 145/74 12/09/19 05:07 150/72 12/09/19 04:00 97.3 94 20 150/72 (98) 100 1/30/20 04:00 Nasal Cannula 2.0 12/09/19 04:00 2.0 12/09/19 03:41 90 12/09/19 02:49 99 18 99 Nasal Cannula 2.0 28 95 18 97 12/09/19 00:00 Nasal Cannula 2.0 12/09/19 00:00 97.5 84 22 105/61 (76) 97 12/09/19 00:00 2.0 12/08/19 23:23 92 12/08/19 21:32 167/95 12/08/19 21:20 Nasal Cannula 2.0 12/08/19 20:00 Nasal Cannula 2.0 12/08/19 20:00 98.4 102 20 167/96 (119) 96 12/08/19 19:05 95 12/08/19 18:30 97.5 91 22 146/74 (98) 97 12/08/19 18:05 98.2 100 22 139/70 100 Nasal Cannula 2.0 General Appearance: no apparent distress, alert Neck: supple Cardiovascular: normal rate, regular rhythm Respiratory/Chest: rhonchi - bilaterally, expiratory wheezing Abdomen: normal bowel sounds, non tender, soft Extremities: moderate edema Intake and Output 12/08/19 12/09/19 19:00 07:00 Intake Total 500 ml 1077.5 ml Output Total 1 ml 600 ml Balance 499 ml 477.5 ml Intake Oral 300 ml IV Total 500 ml 777.5 ml Output Urine Total 600 ml Stool Total 1 ml # Bowel Movements 4 Laboratory Tests Test 12/09/19 05:00 White Blood Count 14.3 K/UL (4.8-10.8) H Red Blood Count 3.09 M/UL (4.70-6.10) L Hemoglobin 9.7 G/DL (14.2-18.0) L Hematocrit 28.8 % (42.0-52.0) L Mean Corpuscular Volume 93 FL (80-99) Mean Corpuscular Hemoglobin 31.3 PG (27.0-31.0) H Mean Corpuscular Hemoglobin Concent 33.5 G/DL (32.0-36.0) Red Cell Distribution Width 14.1 % (11.6-14.8) Platelet Count 253 K/UL (150-450) Mean Platelet Volume 4.8 FL (6.5-10.1) L Neutrophils (%) (Auto) % (45.0-75.0) Lymphocytes (%) (Auto) % (20.0-45.0) Monocytes (%) (Auto) % (1.0-10.0) Eosinophils (%) (Auto) % (0.0-3.0) Basophils (%) (Auto) % (0.0-2.0) Differential Total Cells Counted 100 Neutrophils % (Manual) 88 % (45-75) H Lymphocytes % (Manual) 5 % (20-45) L Monocytes % (Manual) 6 % (1-10) Eosinophils % (Manual) 1 % (0-3) Basophils % (Manual) 0 % (0-2) Band Neutrophils 0 % (0-8) Platelet Estimate Adequate Platelet Morphology Normal Hypochromasia 2+ Anisocytosis 1+ Sodium Level 146 MMOL/L (136-145) H Potassium Level 4.4 MMOL/L (3.5-5.1) Chloride Level 112 MMOL/L (98-107) H Carbon Dioxide Level 21 MMOL/L (21-32) Anion Gap 13 mmol/L (5-15) Blood Urea Nitrogen 17 mg/dL (7-18) Creatinine 1.4 MG/DL (0.55-1.30) H Estimat Glomerular Filtration Rate mL/min (>60) Glucose Level 106 MG/DL (74-106) Calcium Level 8.3 MG/DL (8.5-10.1) L Magnesium Level 1.7 MG/DL (1.8-2.4) L Troponin I 2.348 ng/mL (0.000-0.056) Pro-B-Type Natriuretic Peptide > 98797 pg/mL (0-125) H Triglycerides Level 56 MG/DL (30-150) Cholesterol Level 101 MG/DL (< 200) LDL Cholesterol 42 mg/dL (<100) HDL Cholesterol 42 MG/DL (40-60) Cholesterol/HDL Ratio 2.4 (3.3-4.4) L Microbiology Date/Time Source Procedure Growth Status 12/08/19 10:42 Urine,Clean Catch Urine Culture - Preliminary NO GROWTH Resulted Bob Samuel MD Dec 09, 2019 18:09
--- NOTE | 2019-12-09 19:11 | NUR ---
HAND-OFF: Report given to Michael VIRAMONTES.
--- NOTE | 2019-12-09 19:25 | NUR ---
NURSE NOTES: Received report from WANDER Byrd, pt. in bed awake- A/O x's 3-4- able to make needs known, no signs or symptoms of acute cardiac or respiratory distress noted, bed alarm on, side rails up x's3 and safety brakes engaged,Jaquez intact and draining to gravity, pt. appears to be resting comfortably watching television, pt. appears to be tolerating 2L NC- no distress noted, Left AC 20G IV intact and patent- saline locked, safety measures continued, will continue with plan of care. Addendum: 12/09/19 at 1949 by IRMA CRAWFORD RN RN call light within easy reach and bed in lowest position
[2019-12-09 20:00] VITALS: BP 154/75
[2019-12-09] MEDS: Pantoprazole Inj IVP SCH (20:07)
[2019-12-09] MEDS: Tamsulosin 0.4mg cap ORAL SCH (20:07)
[2019-12-10] VITALS (7 sets, daily range): BP systolic 100–151; BP diastolic 59–72
[2019-12-10 04:50] LABS: HEMATOCRIT 22.7 % (42.0-52.0); HEMOGLOBIN 7.5 G/DL (14.2-18.0); MEAN CORPUSCULAR VOLUME 93 FL (80-99); PLATELET COUNT 253 K/UL (150-450); RED BLOOD COUNT 2.43 M/UL (4.70-6.10); RED CELL DISTRIBUTION WIDTH 13.9 % (11.6-14.8); WHITE BLOOD COUNT 12.8 K/UL (4.8-10.8)
[2019-12-10] MEDS: HydrALAZINE 50mg tab ORAL SCH ×3 (05:00→21:00)
[2019-12-10 05:04] LABS: ANION GAP 11 mmol/L (5-15); BLOOD UREA NITROGEN 16 mg/dL (7-18); CARBON DIOXIDE 23 MMOL/L (21-32); CHLORIDE 110 MMOL/L (98-107); CREATININE 1.3 MG/DL (0.55-1.30); POTASSIUM 4.2 MMOL/L (3.5-5.1); SODIUM 144 MMOL/L (136-145)
[2019-12-10] MEDS: cloNIDine 0.2mg Tab ORAL SCH ×5 (06:08→23:08)
--- NOTE | 2019-12-10 06:59 | NUR ---
NURSE NOTES: left message with DR. Bowers's exchange with Michelle- regarding hgb trending down now 7.5- she will have doctor f/u- awaiting for call back from doctor.
--- NOTE | 2019-12-10 07:00 | NUR ---
HAND-OFF: Report given to quinton Barreto, pt. remains stable and no signs of distress noted- aware to f/u on hgb trending down.
--- NOTE | 2019-12-10 07:40 | NUR ---
NURSE NOTES: LATE ENTRY: RECEIVED REPORT FROM DHARMITA. Delatorre PT IN BED. A/OX3-4. PUPILS RADHA. ABLE TO MAKE NEEDS KNOWN. VS HR 85, RR 20, 117/59, 02 SAT 100%, AX TEMP 98.6. ABDOMEN SOFT ROUND, DISTENDED, NO BM AT THIS TIME. PT OLGUIN, DRAINING DARK SANDRA URINE. PITTING EDEMA OF LOWER EXTREMITIES. SKIN- SEE ASSESSMENT. CONTACT PRECAUTIONS IN PLACE. BED LOCKED IN LOW POSITION. CALL LIGHT IN REACH. EDUCATION PROVIDED ABOUT PLAN OF CARE.
[2019-12-10] MEDS: Aspirin EC 81mg tab ORAL SCH (09:34)
[2019-12-10] MEDS: Pantoprazole Inj IVP SCH ×2 (09:34→20:00)
--- NOTE | 2019-12-10 11:23 | GI Progress Note ---
Assessment/Plan Problems: (1) Upper GI bleed ICD Codes: K92.2 - Gastrointestinal hemorrhage, unspecified SNOMED: 91441839 (2) Anemia ICD Codes: D64.9 - Anemia, unspecified SNOMED: 531563286 (3) Elevated troponin ICD Codes: R79.89 - Other specified abnormal findings of blood chemistry SNOMED: 738381407, 986261576, 860313624 Status: unchanged Status Narrative Discussed with Dr. Fitzgerald. Assessment/Plan Recent EGD/Colonoscopy 12/06/19 SUMMARY OF FINDINGS: 1. Gastritis, status post biopsy. 2. Small hiatal hernia with a small ulceration in the hernia sac. 3. Poor colonic prep and incomplete, only up to ascending colon was examined. 4. Diverticulosis. 5. One colonic polyp removed. 6. Internal hemorrhoids. H. Pylori negative No plans for GI procedures given recent history We will place patient on PPI twice daily Clear liquid, advance as tolerated Monitor H&H, as needed transfusions to maintain hemoglobin above 7 Occult Blood stool evaluate GI bleed, if positive will need capsule endoscopy given todays Hgb drop. check iron and ferritin Bowel regimen We will follow along on a daily basis with any additional recommendations The patient was seen and examined at bedside and all new and available data was reviewed in the patients chart. I agree with the above findings, impression and plan. (Patient seen earlier today. Signature stamp does not reflect patient encounter time.). - Alo Fitzgerald MD Subjective Gastrointestinal/Abdominal: Reports: no symptoms Objective Last 24 Hour Vital Signs Date Time Temp Pulse Resp B/P (MAP) Pulse Ox O2 Delivery O2 Flow Rate FiO2 12/10/19 06:08 153/70 12/10/19 05:31 97.5 12/10/19 05:00 149/77 12/10/19 04:00 2.0 12/10/19 04:00 97.9 81 20 141/72 (95) 99 12/10/19 04:00 Nasal Cannula 2.0 12/10/19 03:37 64 12/10/19 00:00 97.5 67 22 100/60 (73) 99 12/10/19 00:00 Nasal Cannula 2.0 12/10/19 00:00 100/60 12/10/19 00:00 2.0 12/09/19 23:58 76 12/09/19 21:02 154/75 12/09/19 20:00 2.0 12/09/19 20:00 Nasal Cannula 2.0 12/09/19 20:00 97.6 66 20 154/75 (101) 97 12/09/19 19:58 97 Nasal Cannula 2.0 28 12/09/19 19:43 77 12/09/19 18:36 131/63 12/09/19 16:00 Nasal Cannula 2.0 12/09/19 16:00 98.6 70 19 112/59 (76) 99 12/09/19 16:00 2.0 12/09/19 15:26 72 12/09/19 14:37 88 22 99 Nasal Cannula 2.0 28 74 20 98 12/09/19 14:10 142/75 12/09/19 12:00 97.8 94 19 138/77 (97) 95 12/09/19 12:00 2.0 12/09/19 12:00 Nasal Cannula 2.0 12/09/19 11:42 87 12/09/19 11:35 151/74 Intake and Output 12/09/19 12/10/19 18:59 06:59 Intake Total 1153.75 ml Output Total 500 ml 600 ml Balance 653.75 ml -600 ml Intake Oral 240 ml IV Total 913.75 ml Output Urine Total 500 ml 600 ml # Bowel Movements 1 Laboratory Tests Test 12/10/19 03:10 White Blood Count 12.8 K/UL (4.8-10.8) H Red Blood Count 2.43 M/UL (4.70-6.10) L Hemoglobin 7.5 G/DL (14.2-18.0) L Hematocrit 22.7 % (42.0-52.0) L Mean Corpuscular Volume 93 FL (80-99) Mean Corpuscular Hemoglobin 31.0 PG (27.0-31.0) Mean Corpuscular Hemoglobin Concent 33.3 G/DL (32.0-36.0) Red Cell Distribution Width 13.9 % (11.6-14.8) Platelet Count 253 K/UL (150-450) Mean Platelet Volume 4.7 FL (6.5-10.1) L Neutrophils (%) (Auto) % (45.0-75.0) Lymphocytes (%) (Auto) % (20.0-45.0) Monocytes (%) (Auto) % (1.0-10.0) Eosinophils (%) (Auto) % (0.0-3.0) Basophils (%) (Auto) % (0.0-2.0) Differential Total Cells Counted 100 Neutrophils % (Manual) 83 % (45-75) H Lymphocytes % (Manual) 9 % (20-45) L Monocytes % (Manual) 7 % (1-10) Eosinophils % (Manual) 1 % (0-3) Basophils % (Manual) 0 % (0-2) Band Neutrophils 0 % (0-8) Platelet Estimate Adequate Platelet Morphology Normal Polychromasia 1+ Hypochromasia 1+ Sodium Level 144 MMOL/L (136-145) Potassium Level 4.2 MMOL/L (3.5-5.1) Chloride Level 110 MMOL/L (98-107) H Carbon Dioxide Level 23 MMOL/L (21-32) Anion Gap 11 mmol/L (5-15) Blood Urea Nitrogen 16 mg/dL (7-18) Creatinine 1.3 MG/DL (0.55-1.30) Estimat Glomerular Filtration Rate mL/min (>60) Glucose Level 105 MG/DL (74-106) Calcium Level 8.0 MG/DL (8.5-10.1) L Troponin I 2.461 ng/mL (0.000-0.056) Height (Feet): 5 Height (Inches): 9.00 Weight (Pounds): 198 General Appearance: WD/WN, no apparent distress, alert Cardiovascular: normal rate Respiratory/Chest: normal breath sounds, no respiratory distress Abdominal Exam: normal bowel sounds, non tender, soft Extremities: normal range of motion, non-tender Hany Costello FI[employer]ATE Dec 10, 2019 11:23
--- NOTE | 2019-12-10 11:51 | Urology Progress Note ---
Assessment/Plan Status: unchanged Assessment/Plan: 1. History of right-sided renal and ureteral calculi. 2. Hydronephrosis history, status post stent placement. 3. History of renal insufficiency, acute on chronic, which is better. 4. BPH. 5. Urinary retention. 6. Neurogenic bladder. 7. Pyuria. 8. Hematuria. 9. Proteinuria. 10. Renal atrophy. 11. Renal cyst. 12. POD # 8 right ureteral stent. monitor clinically maintain mcgowan for now cath hand irrigated and do PRN flomax and proscar f/u on urine cx tx of stones later Subjective Allergies: Coded Allergies: PROCHLORPERAZINE (Verified Allergy, Unknown, 11/30/19) Subjective all noted, feels fair Objective Last 24 Hour Vital Signs Date Time Temp Pulse Resp B/P (MAP) Pulse Ox O2 Delivery O2 Flow Rate FiO2 12/10/19 06:08 153/70 12/10/19 05:31 97.5 12/10/19 05:00 149/77 12/10/19 04:00 2.0 12/10/19 04:00 97.9 81 20 141/72 (95) 99 12/10/19 04:00 Nasal Cannula 2.0 12/10/19 03:37 64 12/10/19 00:00 97.5 67 22 100/60 (73) 99 12/10/19 00:00 Nasal Cannula 2.0 12/10/19 00:00 100/60 12/10/19 00:00 2.0 12/09/19 23:58 76 12/09/19 21:02 154/75 12/09/19 20:00 2.0 12/09/19 20:00 Nasal Cannula 2.0 12/09/19 20:00 97.6 66 20 154/75 (101) 97 12/09/19 19:58 97 Nasal Cannula 2.0 28 12/09/19 19:43 77 12/09/19 18:36 131/63 12/09/19 16:00 Nasal Cannula 2.0 12/09/19 16:00 98.6 70 19 112/59 (76) 99 12/09/19 16:00 2.0 12/09/19 15:26 72 12/09/19 14:37 88 22 99 Nasal Cannula 2.0 28 74 20 98 12/09/19 14:10 142/75 12/09/19 12:00 97.8 94 19 138/77 (97) 95 12/09/19 12:00 2.0 12/09/19 12:00 Nasal Cannula 2.0 Intake and Output 12/09/19 12/10/19 19:00 07:00 Intake Total 1078.75 ml Output Total 500 ml 600 ml Balance 578.75 ml -600 ml Intake Oral 240 ml IV Total 838.75 ml Output Urine Total 500 ml 600 ml # Bowel Movements 1 Microbiology Date/Time Source Procedure Growth Status 12/08/19 17:00 Nasal Nares MRSA Culture - Final NO METHICILLIN RESISTANT STAPH AUREUS... Complete 12/08/19 10:42 Urine,Clean Catch Urine Culture - Preliminary NO GROWTH AFTER 24 HOURS Resulted 12/08/19 17:00 Rectum VRE Culture - Final NO VANCOMYCIN RESISTANT ENTEROCOCCUS ... Complete Current Medications Medications (Trade) Dose Ordered Sig/En Route PRN Reason Start Time Stop Time Status Last Admin Dose Admin Acetaminophen (Tylenol) 650 mg Q4H PRN ORAL Mild Pain/Temp > 100.5 12/08/19 20:00 01/07/20 19:59 12/10/19 05:01 Albuterol/ Ipratropium (Albuterol/ Ipratropium) 3 ml Q4H PRN HHN Shortness of Breath 12/08/19 20:00 12/13/19 19:59 12/09/19 14:37 Amlodipine Besylate (Norvasc) 5 mg Q12H PRN ORAL sbp greater tahtn 160 12/08/19 19:45 01/07/20 19:44 Aspirin (Ecotrin) 81 mg DAILY ORAL 12/09/19 09:00 01/08/20 08:59 12/10/19 09:34 Clonidine HCl (Catapres tab) 0.2 mg Q6HR ORAL 12/09/19 00:00 01/08/20 00:00 12/10/19 06:08 Finasteride (Proscar) 5 mg DAILY ORAL 12/09/19 09:00 01/08/20 08:59 12/10/19 09:34 Folic Acid (Folate) 1 mg DAILY ORAL 12/11/19 09:00 01/10/20 08:59 Furosemide (Lasix) 20 mg DAILY IV 12/09/19 09:00 01/08/20 08:59 12/10/19 09:34 Hydralazine HCl (Apresoline) 50 mg EVERY 8 HOURS ORAL 12/08/19 22:00 01/07/20 21:59 12/10/19 05:00 Pantoprazole (Protonix) 40 mg EVERY 12 HOURS IVP 12/09/19 21:00 01/08/20 20:59 12/10/19 09:34 Tamsulosin HCl (Flomax) 0.4 mg BEDTIME ORAL 12/09/19 21:00 01/08/20 20:59 12/09/19 20:07 Laboratory Tests 12/10/19 03:10: White Blood Count 12.8H, Red Blood Count 2.43L, Hemoglobin 7.5L, Hematocrit 22.7L, Mean Corpuscular Volume 93, Mean Corpuscular Hemoglobin 31.0, Mean Corpuscular Hemoglobin Concent 33.3, Red Cell Distribution Width 13.9, Platelet Count 253, Mean Platelet Volume 4.7L, Neutrophils (%) (Auto) , Lymphocytes (%) ( Auto) , Monocytes (%) (Auto) , Eosinophils (%) (Auto) , Basophils (%) (Auto) , Differential Total Cells Counted 100, Neutrophils % (Manual) 83H, Lymphocytes % (Manual) 9L, Monocytes % (Manual) 7, Eosinophils % (Manual) 1, Basophils % ( Manual) 0, Band Neutrophils 0, Platelet Estimate Adequate, Platelet Morphology Normal, Polychromasia 1+, Hypochromasia 1+, Sodium Level 144, Potassium Level 4.2, Chloride Level 110H, Carbon Dioxide Level 23, Anion Gap 11, Blood Urea Nitrogen 16, Creatinine 1.3, Estimat Glomerular Filtration Rate , Glucose Level 105, Calcium Level 8.0L, Troponin I 2.461H Height (Feet): 5 Height (Inches): 9.00 Weight (Pounds): 198 Objective exam stable mcgowan indwelling urine lakeisha with some debris Neil Flores MD Dec 10, 2019 11:51
--- NOTE | 2019-12-10 12:02 | NUR ---
NURSE NOTES: LATE ENTRY: PT IN BED. EATING LUNCH, WATCHING TV. NO C/O PAIN OR SOB. SATING 100% 2L NC. PT WILL NOT CONSENT TO 1 UNIT OF PRBC'S. H/H 7.5. AWARE.
--- NOTE | 2019-12-10 12:14 | Consultation ---
History of Present Illness General Chief Complaint: Vomiting Referring physician: TERI Reason for Consultation: COFFEE GROUND EMESIS Present Illness Allergies: Coded Allergies: PROCHLORPERAZINE (Verified Allergy, Unknown, 11/30/19) Medication History Scheduled Aspirin* (Aspir 81*), 81 MG ORAL DAILY, (Reported) Clonidine Hcl* (Catapres*), 0.2 MG ORAL Q6HR, (Reported) Docusate Sodium* (Docusate Sodium*), 100 MG ORAL DAILY, (Reported) Duloxetine Hcl* (Cymbalta*), 60 MG ORAL DAILY, (Reported) Furosemide* (Lasix*), 20 MG ORAL DAILY, (Reported) Gabapentin* (Gabapentin*), 300 MG ORAL DAILY, (Reported) Hydralazine Hcl* (Hydralazine Hcl*), 50 MG ORAL EVERY 8 HOURS, (Reported) Lactulose (Lactulose*), 45 ML ORAL BID, (Reported) Lisinopril (Lisinopril*), 10 MG ORAL DAILY, (Reported) Losartan Potassium* (Losartan Potassium*), 100 MG ORAL DAILY, (Reported) Pantoprazole* (Pantoprazole*), 40 MG ORAL DAILY, (Reported) Scheduled PRN Acetaminophen* (Acetaminophen 325MG Tablet*), 650 MG ORAL Q4H PRN for For Pain, (Reported) Discontinued Medications Tramadol Hcl* (Ultram*), 50 MG ORAL Q4HR PRN for For Pain, (Reported) Discontinued Reason: Pt stopped taking med Patient History Healthcare decision maker Bryan Resuscitation status Full Code Advanced Directive on File No Physical Exam Last 24 Hour Vital Signs Date Time Temp Pulse Resp B/P (MAP) Pulse Ox O2 Delivery O2 Flow Rate FiO2 12/10/19 12:00 Nasal Cannula 2.0 12/10/19 12:00 2.0 12/10/19 08:06 62 12/10/19 08:00 Nasal Cannula 2.0 12/10/19 08:00 2.0 12/10/19 06:08 153/70 12/10/19 05:31 97.5 12/10/19 05:00 149/77 12/10/19 04:00 2.0 12/10/19 04:00 97.9 81 20 141/72 (95) 99 12/10/19 04:00 Nasal Cannula 2.0 12/10/19 03:37 64 12/10/19 00:00 97.5 67 22 100/60 (73) 99 12/10/19 00:00 Nasal Cannula 2.0 12/10/19 00:00 100/60 12/10/19 00:00 2.0 12/09/19 23:58 76 12/09/19 21:02 154/75 12/09/19 20:00 2.0 12/09/19 20:00 Nasal Cannula 2.0 12/09/19 20:00 97.6 66 20 154/75 (101) 97 12/09/19 19:58 97 Nasal Cannula 2.0 28 12/09/19 19:43 77 12/09/19 18:36 131/63 12/09/19 16:00 Nasal Cannula 2.0 12/09/19 16:00 98.6 70 19 112/59 (76) 99 12/09/19 16:00 2.0 12/09/19 15:26 72 12/09/19 14:37 88 22 99 Nasal Cannula 2.0 28 74 20 98 12/09/19 14:10 142/75 Intake and Output 12/09/19 12/10/19 18:59 06:59 Intake Total 1153.75 ml Output Total 500 ml 600 ml Balance 653.75 ml -600 ml Intake Oral 240 ml IV Total 913.75 ml Output Urine Total 500 ml 600 ml # Bowel Movements 1 Laboratory Tests Test 12/10/19 03:10 White Blood Count 12.8 K/UL (4.8-10.8) H Red Blood Count 2.43 M/UL (4.70-6.10) L Hemoglobin 7.5 G/DL (14.2-18.0) L Hematocrit 22.7 % (42.0-52.0) L Mean Corpuscular Volume 93 FL (80-99) Mean Corpuscular Hemoglobin 31.0 PG (27.0-31.0) Mean Corpuscular Hemoglobin Concent 33.3 G/DL (32.0-36.0) Red Cell Distribution Width 13.9 % (11.6-14.8) Platelet Count 253 K/UL (150-450) Mean Platelet Volume 4.7 FL (6.5-10.1) L Neutrophils (%) (Auto) % (45.0-75.0) Lymphocytes (%) (Auto) % (20.0-45.0) Monocytes (%) (Auto) % (1.0-10.0) Eosinophils (%) (Auto) % (0.0-3.0) Basophils (%) (Auto) % (0.0-2.0) Differential Total Cells Counted 100 Neutrophils % (Manual) 83 % (45-75) H Lymphocytes % (Manual) 9 % (20-45) L Monocytes % (Manual) 7 % (1-10) Eosinophils % (Manual) 1 % (0-3) Basophils % (Manual) 0 % (0-2) Band Neutrophils 0 % (0-8) Platelet Estimate Adequate Platelet Morphology Normal Polychromasia 1+ Hypochromasia 1+ Sodium Level 144 MMOL/L (136-145) Potassium Level 4.2 MMOL/L (3.5-5.1) Chloride Level 110 MMOL/L (98-107) H Carbon Dioxide Level 23 MMOL/L (21-32) Anion Gap 11 mmol/L (5-15) Blood Urea Nitrogen 16 mg/dL (7-18) Creatinine 1.3 MG/DL (0.55-1.30) Estimat Glomerular Filtration Rate mL/min (>60) Glucose Level 105 MG/DL (74-106) Calcium Level 8.0 MG/DL (8.5-10.1) L Troponin I 2.461 ng/mL (0.000-0.056) Height (Feet): 5 Height (Inches): 9.00 Weight (Pounds): 198 Medications Current Medications Medications (Trade) Dose Ordered Sig/En Route PRN Reason Start Time Stop Time Status Last Admin Dose Admin Acetaminophen (Tylenol) 650 mg Q4H PRN ORAL Mild Pain/Temp > 100.5 12/08/19 20:00 01/07/20 19:59 12/10/19 05:01 Albuterol/ Ipratropium (Albuterol/ Ipratropium) 3 ml Q4H PRN HHN Shortness of Breath 12/08/19 20:00 12/13/19 19:59 12/09/19 14:37 Amlodipine Besylate (Norvasc) 5 mg Q12H PRN ORAL sbp greater tahtn 160 12/08/19 19:45 01/07/20 19:44 Aspirin (Ecotrin) 81 mg DAILY ORAL 12/09/19 09:00 01/08/20 08:59 12/10/19 09:34 Clonidine HCl (Catapres tab) 0.2 mg Q6HR ORAL 12/09/19 00:00 01/08/20 00:00 12/10/19 06:08 Finasteride (Proscar) 5 mg DAILY ORAL 12/09/19 09:00 01/08/20 08:59 12/10/19 09:34 Folic Acid (Folate) 1 mg DAILY ORAL 12/11/19 09:00 01/10/20 08:59 Furosemide (Lasix) 20 mg DAILY IV 12/09/19 09:00 01/08/20 08:59 12/10/19 09:34 Hydralazine HCl (Apresoline) 50 mg EVERY 8 HOURS ORAL 12/08/19 22:00 01/07/20 21:59 12/10/19 05:00 Pantoprazole (Protonix) 40 mg EVERY 12 HOURS IVP 12/09/19 21:00 01/08/20 20:59 12/10/19 09:34 Tamsulosin HCl (Flomax) 0.4 mg BEDTIME ORAL 12/09/19 21:00 01/08/20 20:59 12/09/19 20:07 Assessment/Plan Assessment/Plan: Hematology Consultation REQ : Mirosalva Bowers RFC: High WBC, Anemia eval DOS: 12/10/2019 HPI 79-year-old male well known to me, with a history of high blood pressure, dementia with psychosis, multiple other medical problems presents with complaint of nausea vomiting and possible upper GI bleed, has been seen by gi and uro, and cards, with nstemi. He has several episode of vomiting and initially it was very dark with questionable coffee-ground emesis. Later on it cleared up. He complaining of epigastric pain and chest pain after vomiting. No fever chills but no diarrhea. He felt better now. Denies any other complaint. Pain was 7 out of 10. No radiation. No diaphoresis. No shortness of breath. Seen by Gi and at this time s/p egd from 12/06/19. Allergies: Uncoded Allergies: COMPAXINE (Allergy, Unknown, 11/28/19) Patient History Past Medical History: see triage record, old chart reviewed, HTN Past Surgical History: other Pertinent Family History: none Social History: Denies: smoking Immunizations: other Reviewed Nursing Documentation: PMH: Agreed; PSxH: Agreed Nursing Documentation-PMH Hx Hypertension: Yes ROS General: Denies fatigue, fever, chills, weight loss; + weight gain as above HENT: Denies oral sores, neck masses, nasal d/c, hearing problems Vison: Denies change in vision, eye pain, redness, discharge Cardiac: As above Pulmonary: As above GI: Denies heart burn, swallowing difficulty, abdominal pain, diarrhea, constipation : As per HPI Neuro: Denies seizure, weakness, numbness Endo: Denies heat/cold intolerance, weight changes, polyuria, polydipsia Heme/Onc: Denies unusual bleeding, bruising, clotting MSK: Denies join pain, swelling, muscle aches Mental Health: Denies anxiety, depression, mood changes PE: Vitals: reviewed General Appearance: NAD HEENT: normocephalic, atraumatic Neck: non-tender, normal alignment Respiratory/Chest: normal breath sounds bilaterally Cardiovascular/Chest: normal peripheral pulses, normal rate Abdomen: normal bowel sounds, soft, nontender Extremities: normal range of motion Labs: noted Imaging: reviewed Assessment and Recs: # Anemia of upper gi bleed, with hematemesis prior to admission, with a decreased h/h --> Anemia workup has been ordered, rule out gi bleed --> No evidence of hemolysis is noted, peripheral smear has been reviewed. --> Hgb goal >7. Transfuse prn. --> IRON IV has been started x 5 days --> Medications have been reviewed --> low threshold for gi evaluation in case has occult + --> bone marrow biopsy is not indicated given the other more likely causes --> hgb trend 13-->10-->10.5-->8.3-->7.4 # Leukocytosis likely reactive due to bleed, acute hx of recent stent placement gu system --> trend as needed, r/o infection, id recs to be reviewed --> wbc 42k->14-->12 --> smear to be reviewed # Upper GI bleed --> as per gi --> may need pill endoscopy # NSTEMI and pericardial effusion --> recs noted by cards # Nausea/Vomiting --> zofran prn basis # UTI (urinary tract infection) -_> s/p abx # PAULINE (acute kidney injury) --> per renal care # Proteinuria --> r/o dm # Right ureteral calculus with hydronephrosis --> per uro has had a stent placement recently The timing of this note does not necessarily reflect the time of the patient was seen. Greatly appreciate consultation. Jason Simon MD Dec 10, 2019 12:14
--- NOTE | 2019-12-10 16:45 | Progress Note ---
DATE: 12/10/2019 SUBJECTIVE: The patient is sitting in the bed. Mild short of breath is improving. OBJECTIVE: VITAL SIGNS: Blood pressure 153/74, pulse 81. No fever. CHEST: Bilaterally clear. CARDIOVASCULAR: Regular rhythm. ABDOMEN: Soft. EXTREMITIES: CCE. NEUROLOGICAL: Generalized weakness. ASSESSMENT: 1. Anemia. 2. CHF. 3. Cardiomyopathy. 4. Hypertension. 5. Pericardial effusion. PLAN: Cardiology is on case. Thinking the patient may need to have angiogram at [facility]. The patient is currently unstable. We will also type and cross, transfuse 1 unit of PRBC. Continue current treatment. The patient is on Flomax. We will discontinue aspirin. Consider Hematology/Oncology consult and GI consult. Jacky Bowers M.D. DR: LORIE JOB#: [id number] CC:
--- NOTE | 2019-12-10 17:00 | NUR ---
NURSE NOTES: LATE ENTRY: MD MCKEON HERE TO SEE PT. WILL NEED TO TRANSFER TO [facility] FOR PERICARDIOCENTESIS. WILL FAX OVER PAPERWORK.. C.N AWARE.
--- NOTE | 2019-12-10 18:15 | Consultation ---
DATE OF CONSULTATION: 12/10/2019 CONSULTING PHYSICIAN: John Granados M.D. HISTORY OF PRESENT ILLNESS: This is an 79-year-old male with a history of multiple medical issues including hypertension, obstructive uropathy, GI bleed who has been admitted to the hospital for medical stabilization. The patient has been having episodes of confusion. Today, he is more with it and coherent. PAST PSYCHIATRIC HISTORY: Question depression as well as dementia, mild. PAST MEDICAL HISTORY: As above. ALLERGIES: No known drug allergies. SUBSTANCE ABUSE HISTORY: No known history of illicit drug use or alcohol. MENTAL STATUS EXAMINATION: The patient is alert, oriented times self, place. Mood is dysphoric. Affect is constricted, congruent with mood. Thought process is concrete. Thought content, no suicidal or homicidal ideation. Cognition is impaired. Insight and judgment is impaired. ASSESSMENT: [place] I Major depressive disorder. Cognitive impairment [place] II Deferred. [place] III As above. [place] IV Low. [place] V 20. PLAN: 1. We will restart his Cymbalta. 2. The patient is well known to me from [facility]. Discussed with his fci. John Granados M.D. DR: MICH JOB#: [id number] CC:
--- NOTE | 2019-12-10 18:37 | Cardiology Progress Note ---
Assessment/Plan Assessment/Plan 1. Non ST-elevation myocardial infarction. 2. Pericardial effusion mod to large 3. Renal failure. 4. pneumonia. 5. Occult positive stools. 6. Hypernatremia. 7. GI bleed. 8. Obstructive uropathy. echo personally reviewed no pericardial tamponade he has sig rhonchi need hhn abx pulm eval the effusion is not any smaller will likey need pericardiocentesis adn cardiac cath at a a cath facility but in light of renal insuf is at risk for contrast induced renal failure (i did discuss this with pt ) Ecotrin ok wih g bb statin watch on tlel will have tamp surveillance echo in a few days [facility] transfer for pericardiocentesis and cath Subjective Cardiovascular: Denies: chest pain, lightheadedness, palpitations Respiratory: Reports: cough, shortness of breath; Denies: sputum Gastrointestinal/Abdominal: Denies: abdominal pain Genitourinary: Reports: burning Objective Last 24 Hour Vital Signs Date Time Temp Pulse Resp B/P (MAP) Pulse Ox O2 Delivery O2 Flow Rate FiO2 12/10/19 17:29 144/67 12/10/19 16:00 Nasal Cannula 2.0 12/10/19 16:00 2.0 12/10/19 14:44 144/74 12/10/19 12:18 149/68 12/10/19 12:00 98.7 90 20 149/68 (95) 96 12/10/19 12:00 Nasal Cannula 2.0 12/10/19 12:00 90 12/10/19 12:00 2.0 12/10/19 12:00 97 Nasal Cannula 2.0 28 12/10/19 08:06 62 12/10/19 08:00 98.6 81 20 117/59 (78) 100 12/10/19 08:00 Nasal Cannula 2.0 12/10/19 08:00 2.0 12/10/19 06:08 153/70 12/10/19 05:31 97.5 12/10/19 05:00 149/77 12/10/19 04:00 2.0 12/10/19 04:00 97.9 81 20 141/72 (95) 99 12/10/19 04:00 Nasal Cannula 2.0 12/10/19 03:37 64 12/10/19 00:00 97.5 67 22 100/60 (73) 99 12/10/19 00:00 Nasal Cannula 2.0 12/10/19 00:00 100/60 12/10/19 00:00 2.0 12/09/19 23:58 76 12/09/19 21:02 154/75 12/09/19 20:00 2.0 12/09/19 20:00 Nasal Cannula 2.0 12/09/19 20:00 97.6 66 20 154/75 (101) 97 12/09/19 19:58 97 Nasal Cannula 2.0 28 12/09/19 19:43 77 12/09/19 18:36 131/63 General Appearance: no apparent distress, alert Neck: supple, JVD Cardiovascular: normal rate, regular rhythm Respiratory/Chest: rhonchi - bilaterally Abdomen: normal bowel sounds, non tender, soft Extremities: no swelling Intake and Output 12/09/19 12/10/19 19:00 07:00 Intake Total 1078.75 ml Output Total 500 ml 600 ml Balance 578.75 ml -600 ml Intake Oral 240 ml IV Total 838.75 ml Output Urine Total 500 ml 600 ml # Bowel Movements 1 Laboratory Tests Test 12/10/19 03:10 White Blood Count 12.8 K/UL (4.8-10.8) H Red Blood Count 2.43 M/UL (4.70-6.10) L Hemoglobin 7.5 G/DL (14.2-18.0) L Hematocrit 22.7 % (42.0-52.0) L Mean Corpuscular Volume 93 FL (80-99) Mean Corpuscular Hemoglobin 31.0 PG (27.0-31.0) Mean Corpuscular Hemoglobin Concent 33.3 G/DL (32.0-36.0) Red Cell Distribution Width 13.9 % (11.6-14.8) Platelet Count 253 K/UL (150-450) Mean Platelet Volume 4.7 FL (6.5-10.1) L Neutrophils (%) (Auto) % (45.0-75.0) Lymphocytes (%) (Auto) % (20.0-45.0) Monocytes (%) (Auto) % (1.0-10.0) Eosinophils (%) (Auto) % (0.0-3.0) Basophils (%) (Auto) % (0.0-2.0) Differential Total Cells Counted 100 Neutrophils % (Manual) 83 % (45-75) H Lymphocytes % (Manual) 9 % (20-45) L Monocytes % (Manual) 7 % (1-10) Eosinophils % (Manual) 1 % (0-3) Basophils % (Manual) 0 % (0-2) Band Neutrophils 0 % (0-8) Platelet Estimate Adequate Platelet Morphology Normal Polychromasia 1+ Hypochromasia 1+ Sodium Level 144 MMOL/L (136-145) Potassium Level 4.2 MMOL/L (3.5-5.1) Chloride Level 110 MMOL/L (98-107) H Carbon Dioxide Level 23 MMOL/L (21-32) Anion Gap 11 mmol/L (5-15) Blood Urea Nitrogen 16 mg/dL (7-18) Creatinine 1.3 MG/DL (0.55-1.30) Estimat Glomerular Filtration Rate mL/min (>60) Glucose Level 105 MG/DL (74-106) Calcium Level 8.0 MG/DL (8.5-10.1) L Troponin I 2.461 ng/mL (0.000-0.056) Microbiology Date/Time Source Procedure Growth Status 12/08/19 17:00 Nasal Nares MRSA Culture - Final NO METHICILLIN RESISTANT STAPH AUREUS... Complete 12/08/19 10:42 Urine,Clean Catch Urine Culture - Preliminary NO GROWTH AFTER 24 HOURS Resulted 12/08/19 17:00 Rectum VRE Culture - Final NO VANCOMYCIN RESISTANT ENTEROCOCCUS ... Complete Bob Samuel MD Dec 10, 2019 18:37
--- NOTE | 2019-12-10 19:23 | NUR ---
NURSE NOTES: Received report from WANDER Mckeon, pt. in bed awake- A/O x's 3-4- able to make needs known, no signs or symptoms of acute cardiac or respiratory distress noted, pt. on continuous pulse ox monitoring sating at 97%, bed alarm on, side rails up x's3 and safety brakes engaged, Jaquez intact and draining to gravity, pt. appears to be resting comfortably watching television, pt. appears to be tolerating 2L NC- no distress noted, right AC 20G IV intact and patent- saline locked, safety measures continued, will continue with plan of care.
[2019-12-10] MEDS: Tamsulosin 0.4mg cap ORAL SCH (20:00)
[2019-12-10] MEDS ORDERED: Iron Sucrose 100 MG in NS 55 ML IV SCH (21:00)
[2019-12-11] VITALS (8 sets, daily range): BP systolic 143–178; BP diastolic 69–93
[2019-12-11] MEDS: HydrALAZINE 50mg tab ORAL SCH ×2 (05:00→13:55)
[2019-12-11] MEDS: cloNIDine 0.2mg Tab ORAL SCH ×3 (05:00→17:17)
[2019-12-11 06:05] LABS: BASOPHILS % (AUTO) 0.6 % (0.0-2.0); HEMATOCRIT 27.1 % (42.0-52.0); HEMOGLOBIN 9.1 G/DL (14.2-18.0); LYMPHOCYTES % (AUTO) 9.7 % (20.0-45.0); MEAN CORPUSCULAR VOLUME 91 FL (80-99); MONOCYTES % (AUTO) 7.9 % (1.0-10.0); NEUTROPHILS % (AUTO) 80.8 % (45.0-75.0); PLATELET COUNT 244 K/UL (150-450); RED BLOOD COUNT 2.97 M/UL (4.70-6.10); RED CELL DISTRIBUTION WIDTH 13.6 % (11.6-14.8); WHITE BLOOD COUNT 11.7 K/UL (4.8-10.8)
[2019-12-11 06:24] LABS: % IRON SATURATION 91 % (15-50); IRON 143 ug/dL (50-175); TOTAL IRON BINDING CAPACITY 157 ug/dL (250-450)
[2019-12-11 06:35] LABS: ALANINE AMINOTRANSFERASE 14 U/L (12-78); ALBUMIN 2.2 G/DL (3.4-5.0); ALBUMIN/GLOBULIN RATIO 0.5 (1.0-2.7); ALKALINE PHOSPHATASE 118 U/L (46-116); ANION GAP 13 mmol/L (5-15); ASPARTATE AMINO TRANSFERASE 19 U/L (15-37); BILIRUBIN,TOTAL 0.4 MG/DL (0.2-1.0); BLOOD UREA NITROGEN 13 mg/dL (7-18); CALCIUM 8.3 MG/DL (8.5-10.1); CARBON DIOXIDE 24 MMOL/L (21-32); CHLORIDE 108 MMOL/L (98-107); CREATININE 1.3 MG/DL (0.55-1.30); FERRITIN 142 NG/ML (8-388); POTASSIUM 3.7 MMOL/L (3.5-5.1); SODIUM 145 MMOL/L (136-145)
--- NOTE | 2019-12-11 06:56 | NUR ---
HAND-OFF: Report given to WANDER Avalos, pt. remains stable and no signs of distress noted.
--- NOTE | 2019-12-11 08:00 | NUR ---
NURSE NOTES: Received change of shift report from Michael VIRAMONTES. Pt is awake, alert, oriented x3, on room air at 100% O2Sat. SR per Tele monitor. Pt is able to eat breakfast by himself. Denies any pain or discomfort. Jaquez catheter is in place, draining clear/yellow urine. Peripheral IV access is noted on right AC #20G, saline locked, patent/intact. Pt has sacral mild erythema and bilateral ankle skin abrasion. HOB at [facility] bed locked, in lowest position, three side rails up and call light is placed within reach. Will continue with plan of care.
[2019-12-11] MEDS: Aspirin EC 81mg tab ORAL SCH (08:49)
[2019-12-11] MEDS: Pantoprazole Inj IVP SCH ×2 (08:49→20:34)
--- NOTE | 2019-12-11 09:04 | Urology Progress Note ---
Assessment/Plan Status: unchanged Assessment/Plan: 1. History of right-sided renal and ureteral calculi. 2. Hydronephrosis history, status post stent placement. 3. History of renal insufficiency, acute on chronic, which is better. 4. BPH. 5. Urinary retention. 6. Neurogenic bladder. 7. Pyuria. 8. Hematuria. 9. Proteinuria. 10. Renal atrophy. 11. Renal cyst. 12. POD # 9, right ureteral stent. monitor clinically maintain mcgowan for now cath hand irrigated and do PRN flomax and proscar tx of stones later plan for voiding trial soon Subjective Allergies: Coded Allergies: PROCHLORPERAZINE (Verified Allergy, Unknown, 11/30/19) Subjective all noted, feels fair Objective Last 24 Hour Vital Signs Date Time Temp Pulse Resp B/P (MAP) Pulse Ox O2 Delivery O2 Flow Rate FiO2 12/11/19 05:00 178/86 12/11/19 05:00 178/86 12/11/19 04:56 90 178/86 (116) 12/11/19 04:00 2.0 12/11/19 04:00 97.7 84 20 155/79 (104) 100 12/11/19 04:00 Nasal Cannula 2.0 12/11/19 03:41 95 12/11/19 01:48 98.6 12/11/19 01:00 151/72 (98) 12/11/19 00:00 98.6 81 20 170/88 (115) 100 12/11/19 00:00 2.0 12/11/19 00:00 Nasal Cannula 2.0 12/10/19 23:45 81 12/10/19 23:08 170/83 12/10/19 23:05 98.9 89 20 151/69 (96) 97 12/10/19 21:00 151/69 12/10/19 20:00 Nasal Cannula 2.0 12/10/19 20:00 98.9 89 20 151/69 (96) 97 12/10/19 20:00 2.0 12/10/19 19:38 87 12/10/19 19:18 98 Nasal Cannula 2.0 28 12/10/19 17:29 144/67 12/10/19 16:00 Nasal Cannula 2.0 12/10/19 16:00 67 12/10/19 16:00 2.0 12/10/19 16:00 98.0 62 20 144/67 (92) 98 12/10/19 14:44 144/74 12/10/19 12:18 149/68 12/10/19 12:00 98.7 90 20 149/68 (95) 96 12/10/19 12:00 Nasal Cannula 2.0 12/10/19 12:00 90 12/10/19 12:00 2.0 12/10/19 12:00 97 Nasal Cannula 2.0 28 Intake and Output 12/10/19 12/11/19 19:00 07:00 Intake Total 135 ml 60 ml Output Total 500 ml 450 ml Balance -365 ml -390 ml Intake Oral 135 ml IV Total 60 ml Output Urine Total 500 ml 450 ml Microbiology Date/Time Source Procedure Growth Status 12/08/19 17:00 Nasal Nares MRSA Culture - Final NO METHICILLIN RESISTANT STAPH AUREUS... Complete 12/08/19 10:42 Urine,Clean Catch Urine Culture - Final NO GROWTH AFTER 48 HOURS Complete 12/08/19 17:00 Rectum VRE Culture - Final NO VANCOMYCIN RESISTANT ENTEROCOCCUS ... Complete Current Medications Medications (Trade) Dose Ordered Sig/En Route PRN Reason Start Time Stop Time Status Last Admin Dose Admin Acetaminophen (Tylenol) 650 mg Q4H PRN ORAL Mild Pain/Temp > 100.5 12/08/19 20:00 01/07/20 19:59 12/11/19 01:18 Albuterol/ Ipratropium (Albuterol/ Ipratropium) 3 ml Q4H PRN HHN Shortness of Breath 12/08/19 20:00 12/13/19 19:59 12/09/19 14:37 Amlodipine Besylate (Norvasc) 5 mg Q12H PRN ORAL sbp greater tahtn 160 12/08/19 19:45 01/07/20 19:44 Aspirin (Ecotrin) 81 mg DAILY ORAL 12/09/19 09:00 01/08/20 08:59 12/11/19 08:49 Clonidine HCl (Catapres tab) 0.2 mg Q6HR ORAL 12/09/19 00:00 01/08/20 00:00 12/11/19 05:00 Duloxetine HCl (Cymbalta) 60 mg DAILY ORAL 12/11/19 09:00 01/10/20 08:59 12/11/19 08:49 Finasteride (Proscar) 5 mg DAILY ORAL 12/09/19 09:00 01/08/20 08:59 12/11/19 08:50 Folic Acid (Folate) 1 mg DAILY ORAL 12/11/19 09:00 01/10/20 08:59 12/11/19 08:49 Furosemide (Lasix) 20 mg DAILY IV 12/09/19 09:00 01/08/20 08:59 12/11/19 08:50 Hydralazine HCl (Apresoline) 50 mg EVERY 8 HOURS ORAL 12/08/19 22:00 01/07/20 21:59 12/11/19 05:00 Iron Sucrose 100 mg/Sodium Chloride 60 ml @ 240 mls/hr BEDTIME IV 12/10/19 21:00 12/14/19 21:14 12/10/19 20:00 Pantoprazole (Protonix) 40 mg EVERY 12 HOURS IVP 12/09/19 21:00 01/08/20 20:59 12/11/19 08:49 Tamsulosin HCl (Flomax) 0.4 mg BEDTIME ORAL 12/09/19 21:00 01/08/20 20:59 12/10/19 20:00 Laboratory Tests 12/11/19 04:01: White Blood Count 11.7H, Red Blood Count 2.97L, Hemoglobin 9.1L, Hematocrit 27.1L, Mean Corpuscular Volume 91, Mean Corpuscular Hemoglobin 30.7, Mean Corpuscular Hemoglobin Concent 33.6, Red Cell Distribution Width 13.6, Platelet Count 244, Mean Platelet Volume 4.7L, Neutrophils (%) (Auto) 80.8H, Lymphocytes (%) (Auto) 9.7L, Monocytes (%) (Auto) 7.9, Eosinophils (%) (Auto) 1.0, Basophils (%) (Auto) 0.6, Sodium Level 145, Potassium Level 3.7, Chloride Level 108H, Carbon Dioxide Level 24, Anion Gap 13, Blood Urea Nitrogen 13, Creatinine 1.3, Estimat Glomerular Filtration Rate , Glucose Level 99, Calcium Level 8.3L, Iron Level 143, Total Iron Binding Capacity 157L, Percent Iron Saturation 91H, Unsaturated Iron Binding 14L, Ferritin 142, Total Bilirubin 0.4, Aspartate Amino Transf (AST/SGOT) 19, Alanine Aminotransferase (ALT/SGPT) 14, Alkaline Phosphatase 118H, Total Protein 6.9, Albumin 2.2L, Globulin 4.7, Albumin/ Globulin Ratio 0.5L Height (Feet): 5 Height (Inches): 9.00 Weight (Pounds): 198 Objective exam stable mcgowan indwelling urine lakeisha with some debris Neil Flores MD Dec 11, 2019 09:04
--- NOTE | 2019-12-11 10:00 | NUR ---
NURSE NOTES: AM meds were administered. VS remain stable. Pt was seen by Sandra. No new orders at this time.
--- NOTE | 2019-12-11 11:00 | NUR ---
NURSE NOTES: Pt was seen by Dr Bowers. Order was received to transfer pt to med surg. Per MD, ask Dr Samuel if pt can be dc'd back to SNF tomorrow.
[2019-12-11] MEDS ORDERED: 1/2 NS 1000ml IV ONE (14:11)
[2019-12-11] MEDS ORDERED: NS 275ml ONE (14:11)
[2019-12-11] MEDS ORDERED: Tubing IV Secondary IV ONE (14:11)
--- NOTE | 2019-12-11 14:30 | NUR ---
NURSE NOTES: Pt was cleaned, gown/bed linens were changed. Pt was seen by Dr Viera covering for Dr Samuel. Per Dr Viera, will speak with Dr Samuel regarding if ok to dc pt back to SNF tomorrow.
--- NOTE | 2019-12-11 15:45 | NUR ---
TRANSFER TO FLOOR: Patient transferred to [facility] via hospital bed, per Dr Bowers's order. Transfer/hand off report was given to Shital MOTOR EXPERT. Pt's belonging's list was checked and signed with the receiving nurse in front of the pt. Pt was transferred in stable condition. Tele box was returned back to monitor and storage bin tender. Endorsed plan of care.
[2019-12-11] MEDS ORDERED: Albuterol/Ipratropium 3ml neb HHN PRN (15:55)
--- NOTE | 2019-12-11 15:59 | NUR ---
NURSE NOTES: RECEIVED PATIENT A/A/OX4 IN BED. ABLE TO MAKE THINGS KNOWN. SKIN IS INTACT. DRY SCABS ON LEFT LE. OPEN TO AIR. OLGUIN CATH INTACT AND DRAINING WELL WITH YELLOW COLOR URINE. PERSONAL BELONGINGS NOTED. HOB ELEVATED. BED IS IN THE LOWEST POSITION, SIDERAILS ARE UPX3, BED ALARM ENGAGED AND LOCKED. WILL CONT TO MONITOR.
--- NOTE | 2019-12-11 19:57 | NUR ---
NURSE NOTES: RECEIVED PATIENT FROM ANDRES ABRAHAM. PT IS AWAKE, AAOX4, ON ROOM AIR, NO ACUTE DISTRESS NOTED. IV ON RIGHT AC IS INTACT AND PATENT. OLGUIN CATH NOTED INTACT AND DRAINING WELL. OLGUIN ANCHOR IN PLACE. BED IS LOCKED AND LOW, BED ALARMS ACTIVE, SIDE RAILS UP X2 AND CALL LIGHT IS WITHIN REACH. WILL CONTINUE TO MONITOR.
--- NOTE | 2019-12-11 20:29 | General Progress Note ---
Assessment/Plan Status: unchanged Assessment/Plan: Assessment/Plan Problems: (1) Upper GI bleed ICD Codes: K92.2 - Gastrointestinal hemorrhage, unspecified SNOMED: 41443316 (2) Anemia ICD Codes: D64.9 - Anemia, unspecified SNOMED: 193663478 (3) Elevated troponin ICD Codes: R79.89 - Other specified abnormal findings of blood chemistry SNOMED: 650607880, 957107142, 743004422 Status: unchanged Assessment/Plan EGD/Colonoscopy 12/06/19 SUMMARY OF FINDINGS: 1. Gastritis, status post biopsy. 2. Small hiatal hernia with a small ulceration in the hernia sac. 3. Poor colonic prep and incomplete, only up to ascending colon was examined. 4. Diverticulosis. 5. One colonic polyp removed. 6. Internal hemorrhoids. H. Pylori negative PPI twice daily PO as tolerated Monitor H&H, as needed transfusions to maintain hemoglobin above 7 Occult Blood stool evaluate GI bleed, if positive will need capsule endoscopy check iron and ferritin Bowel regimen We will follow along on a daily basis with any additional recommendation Subjective Allergies: Coded Allergies: PROCHLORPERAZINE (Verified Allergy, Unknown, 11/30/19) Subjective Feels "OK" no abdominal complaints Objective Last 24 Hour Vital Signs Date Time Temp Pulse Resp B/P (MAP) Pulse Ox O2 Delivery O2 Flow Rate FiO2 12/11/19 17:17 145/69 12/11/19 16:07 98.7 79 20 145/69 (94) 95 12/11/19 13:55 146/81 12/11/19 12:40 146/81 12/11/19 12:00 65 12/11/19 12:00 2.0 12/11/19 12:00 97.9 92 20 146/81 (102) 100 12/11/19 12:00 Nasal Cannula 2.0 12/11/19 08:00 93 12/11/19 08:00 98.1 93 22 158/93 (114) 96 12/11/19 08:00 Nasal Cannula 2.0 12/11/19 08:00 2.0 12/11/19 05:00 178/86 12/11/19 05:00 178/86 12/11/19 04:56 90 178/ (116) 12/11/19 04:00 2.0 12/11/19 04:00 97.7 84 20 155/79 (104) 100 12/11/19 04:00 Nasal Cannula 2.0 12/11/19 03:41 95 12/11/19 01:48 98.6 12/11/19 01:00 151/72 (98) 12/11/19 00:00 98.6 81 20 170/88 (115) 100 12/11/19 00:00 2.0 12/11/19 00:00 Nasal Cannula 2.0 12/10/19 23:45 81 12/10/19 23:08 170/83 12/10/19 23:05 98.9 89 20 151/69 (96) 97 12/10/19 21:00 151/69 Intake and Output 12/10/19 12/11/19 19:00 07:00 Intake Total 135 ml 60 ml Output Total 500 ml 450 ml Balance -365 ml -390 ml Intake Oral 135 ml IV Total 60 ml Output Urine Total 500 ml 450 ml Laboratory Tests 12/11/19 04:01: White Blood Count 11.7H, Red Blood Count 2.97L, Hemoglobin 9.1L, Hematocrit 27.1L, Mean Corpuscular Volume 91, Mean Corpuscular Hemoglobin 30.7, Mean Corpuscular Hemoglobin Concent 33.6, Red Cell Distribution Width 13.6, Platelet Count 244, Mean Platelet Volume 4.7L, Neutrophils (%) (Auto) 80.8H, Lymphocytes (%) (Auto) 9.7L, Monocytes (%) (Auto) 7.9, Eosinophils (%) (Auto) 1.0, Basophils (%) (Auto) 0.6, Sodium Level 145, Potassium Level 3.7, Chloride Level 108H, Carbon Dioxide Level 24, Anion Gap 13, Blood Urea Nitrogen 13, Creatinine 1.3, Estimat Glomerular Filtration Rate , Glucose Level 99, Calcium Level 8.3L, Iron Level 143, Total Iron Binding Capacity 157L, Percent Iron Saturation 91H, Unsaturated Iron Binding 14L, Ferritin 142, Total Bilirubin 0.4, Aspartate Amino Transf (AST/SGOT) 19, Alanine Aminotransferase (ALT/SGPT) 14, Alkaline Phosphatase 118H, Total Protein 6.9, Albumin 2.2L, Globulin 4.7, Albumin/ Globulin Ratio 0.5L Height (Feet): 5 Height (Inches): 9.00 Weight (Pounds): 198 Objective Elderly man NAD NCAT supple CTA RRR abd soft ND NT no edema non focal Rich Mcnulty MD Dec 11, 2019 20:29
[2019-12-11] MEDS ORDERED: Iron Sucrose 100 MG in NS 55 ML IV SCH (21:00)
[2019-12-11] MEDS ORDERED: Tamsulosin 0.4mg cap ORAL SCH (21:00)
[2019-12-11] MEDS ORDERED: HydrALAZINE 50mg tab ORAL SCH (22:00)
--- NOTE | 2019-12-11 22:17 | Cardiology Progress Note ---
Assessment/Plan Assessment/Plan paricardial effusion, elevated troponin acute IA needs pericardiocentesis, according to Dr Samuel, and cardiac cath, the plan is to transfer to [facility], keep on telemetry Subjective Subjective The patient is resting in bed, was seen on 2W, denies chest pain atpresent time Objective Last 24 Hour Vital Signs Date Time Temp Pulse Resp B/P (MAP) Pulse Ox O2 Delivery O2 Flow Rate FiO2 12/11/19 20:39 97 Nasal Cannula 2.0 28 12/11/19 20:34 71 143/69 12/11/19 20:00 98.5 71 20 143/69 (93) 94 12/11/19 20:00 Nasal Cannula 2.0 12/11/19 17:17 145/69 12/11/19 16:07 98.7 79 20 145/69 (94) 95 12/11/19 13:55 146/81 12/11/19 12:40 146/81 12/11/19 12:00 65 12/11/19 12:00 2.0 12/11/19 12:00 97.9 92 20 146/81 (102) 100 12/11/19 12:00 Nasal Cannula 2.0 12/11/19 08:00 93 12/11/19 08:00 98.1 93 22 158/93 (114) 96 12/11/19 08:00 Nasal Cannula 2.0 12/11/19 08:00 2.0 12/11/19 05:00 178/86 12/11/19 05:00 178/86 12/11/19 04:56 90 178/86 (116) 12/11/19 04:00 2.0 12/11/19 04:00 97.7 84 20 155/79 (104) 100 12/11/19 04:00 Nasal Cannula 2.0 12/11/19 03:41 95 12/11/19 01:48 98.6 12/11/19 01:00 151/72 (98) 12/11/19 00:00 98.6 81 20 170/88 (115) 100 12/11/19 00:00 2.0 12/11/19 00:00 Nasal Cannula 2.0 12/10/19 23:45 81 12/10/19 23:08 170/83 12/10/19 23:05 98.9 89 20 151/69 (96) 97 General Appearance: no apparent distress EENT: PERRL/EOMI Neck: JVD Rhythm: NSR Cardiovascular: normal rate, other - no rub, distant sounds Respiratory/Chest: crackles/rales Abdomen: soft Extremities: trace edema Intake and Output 12/10/19 12/11/19 19:00 07:00 Intake Total 135 ml 60 ml Output Total 500 ml 450 ml Balance -365 ml -390 ml Intake Oral 135 ml IV Total 60 ml Output Urine Total 500 ml 450 ml Laboratory Tests Test 12/11/19 04:01 White Blood Count 11.7 K/UL (4.8-10.8) H Red Blood Count 2.97 M/UL (4.70-6.10) L Hemoglobin 9.1 G/DL (14.2-18.0) L Hematocrit 27.1 % (42.0-52.0) L Mean Corpuscular Volume 91 FL (80-99) Mean Corpuscular Hemoglobin 30.7 PG (27.0-31.0) Mean Corpuscular Hemoglobin Concent 33.6 G/DL (32.0-36.0) Red Cell Distribution Width 13.6 % (11.6-14.8) Platelet Count 244 K/UL (150-450) Mean Platelet Volume 4.7 FL (6.5-10.1) L Neutrophils (%) (Auto) 80.8 % (45.0-75.0) H Lymphocytes (%) (Auto) 9.7 % (20.0-45.0) L Monocytes (%) (Auto) 7.9 % (1.0-10.0) Eosinophils (%) (Auto) 1.0 % (0.0-3.0) Basophils (%) (Auto) 0.6 % (0.0-2.0) Sodium Level 145 MMOL/L (136-145) Potassium Level 3.7 MMOL/L (3.5-5.1) Chloride Level 108 MMOL/L (98-107) H Carbon Dioxide Level 24 MMOL/L (21-32) Anion Gap 13 mmol/L (5-15) Blood Urea Nitrogen 13 mg/dL (7-18) Creatinine 1.3 MG/DL (0.55-1.30) Estimat Glomerular Filtration Rate mL/min (>60) Glucose Level 99 MG/DL (74-106) Calcium Level 8.3 MG/DL (8.5-10.1) L Iron Level 143 ug/dL (50-175) Total Iron Binding Capacity 157 ug/dL (250-450) L Percent Iron Saturation 91 % (15-50) H Unsaturated Iron Binding 14 ug/dL (112-346) L Ferritin 142 NG/ML (8-388) Total Bilirubin 0.4 MG/DL (0.2-1.0) Aspartate Amino Transf (AST/SGOT) 19 U/L (15-37) Alanine Aminotransferase (ALT/SGPT) 14 U/L (12-78) Alkaline Phosphatase 118 U/L (46-116) H Total Protein 6.9 G/DL (6.4-8.2) Albumin 2.2 G/DL (3.4-5.0) L Globulin 4.7 g/dL Albumin/Globulin Ratio 0.5 (1.0-2.7) L Sylvie Viera MD Dec 11, 2019 22:17
[2019-12-12] VITALS (7 sets, daily range): BP systolic 105–155; BP diastolic 59–72
[2019-12-12] MEDS: cloNIDine 0.2mg Tab ORAL SCH ×4 (00:26→17:18)
[2019-12-12] MEDS ORDERED: Zolpidem 5mg tab ORAL PRN ×3 (05:45→17:00)
--- NOTE | 2019-12-12 07:49 | NUR ---
HAND-OFF: Report given to WANDER Baker.
--- NOTE | 2019-12-12 07:50 | NUR ---
NURSE NOTES: Received patient in bed, awake, alert and oriented x3. Not in respiratory/cardiac distress. Breathing is even and unlabored. Denies any pain or discomfort @ this time. Bed is in lowest position and locked. Call light within reach. Will continue plan of care.
[2019-12-12] MEDS ORDERED: Aspirin EC 81mg tab ORAL SCH (09:00)
[2019-12-12] MEDS ORDERED: HydrALAZINE 50mg tab ORAL SCH ×2 (09:00→17:00)
[2019-12-12] MEDS: Pantoprazole Inj IVP SCH ×2 (09:15→20:28)
--- NOTE | 2019-12-12 09:45 | Urology Progress Note ---
Assessment/Plan Status: unchanged Assessment/Plan: 1. History of right-sided renal and ureteral calculi. 2. Hydronephrosis history, status post stent placement. 3. History of renal insufficiency, acute on chronic, which is better. 4. BPH. 5. Urinary retention. 6. Neurogenic bladder. 7. Pyuria. 8. Hematuria. 9. Proteinuria. 10. Renal atrophy. 11. Renal cyst. 12. POD # 10, right ureteral stent. monitor clinically maintain mcgowan for now cath hand irrigated and do PRN flomax and proscar tx of stones later plan for voiding trial soon Subjective Allergies: Coded Allergies: PROCHLORPERAZINE (Verified Allergy, Unknown, 11/30/19) Subjective all noted, feels fair Objective Last 24 Hour Vital Signs Date Time Temp Pulse Resp B/P (MAP) Pulse Ox O2 Delivery O2 Flow Rate FiO2 12/12/19 09:15 125/68 12/12/19 08:00 98.2 74 22 125/68 (87) 95 12/12/19 05:46 143/67 12/12/19 04:00 98.3 74 22 139/59 (85) 95 12/12/19 04:00 Room Air 12/12/19 00:26 140/63 12/12/19 00:00 Room Air 12/12/19 00:00 98.0 70 21 140/63 (88) 95 12/11/19 22:42 149/68 12/11/19 20:39 97 Nasal Cannula 2.0 28 12/11/19 20:34 71 143/69 12/11/19 20:00 98.5 71 20 143/69 (93) 94 12/11/19 20:00 Room Air 12/11/19 17:17 145/69 12/11/19 16:07 98.7 79 20 145/69 (94) 95 12/11/19 13:55 146/81 12/11/19 12:40 146/81 12/11/19 12:00 65 12/11/19 12:00 2.0 12/11/19 12:00 97.9 92 20 146/81 (102) 100 12/11/19 12:00 Nasal Cannula 2.0 Intake and Output 12/11/19 12/12/19 19:00 07:00 Intake Total 120 ml 360 ml Output Total 601 ml Balance 120 ml -241 ml Intake Oral 120 ml 120 ml IV Total 240 ml Output Urine Total 600 ml Stool Total 1 ml # Voids 2 # Bowel Movements 1 Microbiology Date/Time Source Procedure Growth Status 12/08/19 17:00 Nasal Nares MRSA Culture - Final NO METHICILLIN RESISTANT STAPH AUREUS... Complete 12/08/19 10:42 Urine,Clean Catch Urine Culture - Final NO GROWTH AFTER 48 HOURS Complete 12/08/19 17:00 Rectum VRE Culture - Final NO VANCOMYCIN RESISTANT ENTEROCOCCUS ... Complete Current Medications Medications (Trade) Dose Ordered Sig/En Route PRN Reason Start Time Stop Time Status Last Admin Dose Admin Acetaminophen (Tylenol) 650 mg Q4H PRN ORAL Mild Pain/Temp > 100.5 12/11/19 15:54 01/10/20 15:53 Albuterol/ Ipratropium (Albuterol/ Ipratropium) 3 ml Q4H PRN HHN Shortness of Breath 12/11/19 15:55 12/16/19 15:54 Amlodipine Besylate (Norvasc) 5 mg Q12H PRN ORAL sbp greater than 160 12/11/19 15:54 01/10/20 15:53 Amlodipine Besylate (Norvasc) 10 mg QHS ORAL 12/11/19 21:00 01/10/20 20:59 12/11/19 20:34 Aspirin (Ecotrin) 81 mg DAILY ORAL 12/12/19 09:00 01/08/20 08:59 12/12/19 09:14 Clonidine HCl (Catapres tab) 0.2 mg Q6HR ORAL 12/11/19 18:00 01/08/20 00:00 12/12/19 05:46 Duloxetine HCl (Cymbalta) 60 mg DAILY ORAL 12/12/19 09:00 01/10/20 08:59 12/12/19 09:15 Finasteride (Proscar) 5 mg DAILY ORAL 12/12/19 09:00 01/08/20 08:59 12/12/19 09:15 Folic Acid (Folate) 1 mg DAILY ORAL 12/12/19 09:00 01/10/20 08:59 12/12/19 09:15 Furosemide (Lasix) 20 mg DAILY IV 12/12/19 09:00 01/08/20 08:59 12/12/19 09:15 Hydralazine HCl (Apresoline) 50 mg Q8H ORAL 12/12/19 09:00 01/11/20 08:59 12/12/19 09:15 Iron Sucrose 100 mg/Sodium Chloride 60 ml @ 240 mls/hr BEDTIME IV 12/11/19 21:00 12/14/19 21:14 12/11/19 21:48 Pantoprazole (Protonix) 40 mg EVERY 12 HOURS IVP 12/11/19 21:00 01/08/20 20:59 12/12/19 09:15 Tamsulosin HCl (Flomax) 0.4 mg BEDTIME ORAL 12/11/19 21:00 01/08/20 20:59 12/11/19 20:34 Zolpidem Tartrate (Ambien) 5 mg HSPRN PRN ORAL Insomnia 12/12/19 05:45 12/19/19 05:44 Height (Feet): 5 Height (Inches): 9.00 Weight (Pounds): 198 Objective exam stable mcgowan indwelling urine lakeisha with some debris Neil Flores MD Dec 12, 2019 09:45
--- NOTE | 2019-12-12 14:39 | NUR ---
NURSE NOTES: Patient was seen by Dr. Viera. She told RN that she discussed with Dr. Samuel about patient and he wants patient needs to go to tele. RN made charge nurse aware.
--- NOTE | 2019-12-12 16:00 | NUR ---
NURSE NOTES: Received report from WANDER Baker. The patient transferred from [facility]1 to [address] Viera's order. The patient has NSTEMI and ACS with elevated Troponin and awaiting to be transferred to [facility] for pericardiocentesis and cardiac cath. No status update regarding [facility] transfer yet. The patient's bed in the lowest position, call light in reach, and fall and aspiration precaution reinforced. IV site intact and patent. Jaquez draining well. The patient is on continuous tele monitoring. Will continue plan of care.
--- NOTE | 2019-12-12 16:00 | NUR ---
NURSE NOTES: Transferred patient to tele room 203-2 and report given to Clarice. Endorsed plan of care. Prior to transfer,patient condition was stable. flushed IV on right AC, intact, no s/s of infiltration. Jaquez was draining well to gravity with yellowish urine, no blood, urine output was 800cc. No new skin issue, still with lower bilateral ex's edema. All belongings were checked by 2 RN's and accounted for.
--- NOTE | 2019-12-12 16:33 | General Progress Note ---
Assessment/Plan Status: unchanged Assessment/Plan: Assessment/Plan Problems: (1) Upper GI bleed ICD Codes: K92.2 - Gastrointestinal hemorrhage, unspecified SNOMED: 26344808 (2) Anemia ICD Codes: D64.9 - Anemia, unspecified SNOMED: 258513370 (3) Elevated troponin ICD Codes: R79.89 - Other specified abnormal findings of blood chemistry SNOMED: 214389959, 314920225, 862550584 Status: unchanged Assessment/Plan EGD/Colonoscopy 12/06/19 SUMMARY OF FINDINGS: 1. Gastritis, status post biopsy. 2. Small hiatal hernia with a small ulceration in the hernia sac. 3. Poor colonic prep and incomplete, only up to ascending colon was examined. 4. Diverticulosis. 5. One colonic polyp removed. 6. Internal hemorrhoids. H. Pylori negative PPI twice daily PO as tolerated Monitor H&H, as needed transfusions to maintain hemoglobin above 7 Occult Blood stool evaluate GI bleed, if positive will need capsule endoscopy check iron and ferritin Bowel regimen We will follow along on a daily basis with any additional recommendation Subjective Allergies: Coded Allergies: PROCHLORPERAZINE (Verified Allergy, Unknown, 11/30/19) Subjective Feels "OK" no abdominal complaints Objective Last 24 Hour Vital Signs Date Time Temp Pulse Resp B/P (MAP) Pulse Ox O2 Delivery O2 Flow Rate FiO2 12/12/19 16:00 98.9 88 20 148/72 (97) 95 12/12/19 12:00 98.8 76 22 119/66 (83) 95 12/12/19 12:00 119/66 12/12/19 09:15 125/68 12/12/19 09:00 Room Air 12/12/19 08:06 96 Nasal Cannula 2.0 28 12/12/19 08:00 98.2 74 22 125/68 (87) 12/12/19 05:46 143/67 12/12/19 04:00 98.3 74 22 139/59 (85) 95 12/12/19 04:00 Room Air 12/12/19 00:26 140/63 12/12/19 00:00 Room Air 12/12/19 00:00 98.0 70 21 140/63 (88) 95 12/11/19 22:42 149/68 12/11/19 20:39 97 Nasal Cannula 2.0 28 12/11/19 20:34 71 143/69 12/11/19 20:00 98.5 71 20 143/69 (93) 94 12/11/19 20:00 Room Air 12/11/19 17:17 145/69 Intake and Output 12/11/19 12/12/19 19:00 07:00 Intake Total 120 ml 360 ml Output Total 601 ml Balance 120 ml -241 ml Intake Oral 120 ml 120 ml IV Total 240 ml Output Urine Total 600 ml Stool Total 1 ml # Voids 2 # Bowel Movements 1 Height (Feet): 5 Height (Inches): 9.00 Weight (Pounds): 198 Objective Elderly man NAD NCAT supple CTA RRR abd soft ND NT no edema non focal Rich Mcnulty MD Dec 12, 2019 16:33
[2019-12-12] MEDS ORDERED: Albuterol/Ipratropium 3ml neb HHN PRN ×2 (16:45→17:00)
[2019-12-12] MEDS: HydrALAZINE 50mg tab ORAL SCH (17:18)
--- NOTE | 2019-12-12 17:48 | Cardiology Progress Note ---
Assessment/Plan Assessment/Plan d/w Dr Samuel, the patient is on the list for cardiac cath and pericardiocentesis, will transfer back to telemetry Subjective Subjective The patient is sleeping, he feels Ok, denies dyspnea or chest pain Objective Last 24 Hour Vital Signs Date Time Temp Pulse Resp B/P (MAP) Pulse Ox O2 Delivery O2 Flow Rate FiO2 12/12/19 17:18 150/72 12/12/19 17:18 150/72 12/12/19 16:05 98.4 85 20 150/72 (98) 95 12/12/19 16:00 98.9 88 20 148/72 (97) 95 12/12/19 12:00 98.8 76 22 119/66 (83) 95 12/12/19 12:00 119/66 12/12/19 09:15 125/68 12/12/19 09:00 Room Air 12/12/19 08:06 96 Nasal Cannula 2.0 28 12/12/19 08:00 98.2 74 22 125/68 (87) 95 12/12/19 05:46 143/67 12/12/19 04:00 98.3 74 22 139/59 (85) 95 12/12/19 04:00 Room Air 12/12/19 00:26 140/63 12/12/19 00:00 Room Air 12/12/19 00:00 98.0 70 21 140/63 (88) 95 12/11/19 22:42 149/68 12/11/19 20:39 97 Nasal Cannula 2.0 28 12/11/19 20:34 71 143/69 12/11/19 20:00 98.5 71 20 143/69 (93) 94 12/11/19 20:00 Room Air General Appearance: other - chronically ill apearing Neck: JVD Rhythm: NSR Cardiovascular: regular rhythm Respiratory/Chest: crackles/rales - at bases Abdomen: soft Extremities: normal range of motion Intake and Output 12/11/19 12/12/19 19:00 07:00 Intake Total 120 ml 360 ml Output Total 601 ml Balance 120 ml -241 ml Intake Oral 120 ml 120 ml IV Total 240 ml Output Urine Total 600 ml Stool Total 1 ml # Voids 2 # Bowel Movements 1 Sylvie Viera MD Dec 12, 2019 17:48
[2019-12-12] MEDS ORDERED: cloNIDine 0.2mg Tab ORAL SCH (18:00)
--- NOTE | 2019-12-12 18:00 | NUR ---
NURSE NOTES: The patient is stable without acute distress or shortness of breath. Will continue plan of care.
--- NOTE | 2019-12-12 19:20 | NUR ---
HAND-OFF: Report given to WANDER Alvarado. The patient is resting on the bed without acute distress or shortness of breath. The patient's bed in the lowest position, call light in reach, and fall and aspiration precaution reinforced. IV site intact and patent. Jaquez intact. Endorsed plan of care.
--- NOTE | 2019-12-12 19:32 | NUR ---
NURSE NOTES: Received report from WANDER Oneil. The patient has NSTEMI and ACS with very elevated Troponin and is awaiting to be transferred to [facility] for pericardiocentesis and cardiac cath there. Discharge planning to be arranged regarding [facility] transfer tomorrow 12/13. No notes written about transfer as of yet. The patient's bed is in the lowest position, call light within reach, and fall and aspiration precautions reinforced, bed alarm on. IV site intact, patent. Jaquez, patent, draining to gravity. Will continue plan of care.
[2019-12-12] MEDS: Tamsulosin 0.4mg cap ORAL SCH (20:28)
[2019-12-12] MEDS: Iron Sucrose 100 MG in NS 55 ML IV SCH (20:28)
--- NOTE | 2019-12-12 20:31 | Hematology/Onc Progress Note ---
Assessment/Plan Assessment/Plan Assessment and Recs: # Anemia of upper gi bleed, with hematemesis prior to admission, with a decreased h/h --> Anemia workup has been ordered, rule out gi bleed --> No evidence of hemolysis is noted, peripheral smear has been reviewed. --> Hgb goal >7. Transfuse prn. --> IRON IV has been started x 5 days --> Medications have been reviewed --> low threshold for gi evaluation in case has occult + --> bone marrow biopsy is not indicated given the other more likely causes --> hgb trend 13-->10-->10.5-->8.3-->7.4 # Leukocytosis likely reactive due to bleed, acute hx of recent stent placement gu system --> trend as needed, r/o infection, id recs to be reviewed --> wbc 42k->14-->12 --> smear to be reviewed # Upper GI bleed --> as per gi --> may need pill endoscopy # NSTEMI and pericardial effusion --> recs noted by cards # Nausea/Vomiting --> zofran prn basis # UTI (urinary tract infection) -_> s/p abx # PAULINE (acute kidney injury) --> per renal care # Proteinuria --> r/o dm # Right ureteral calculus with hydronephrosis --> per uro has had a stent placement recently The timing of this note does not necessarily reflect the time of the patient was seen. Greatly appreciate consultation. Subjective Allergies: Coded Allergies: PROCHLORPERAZINE (Verified Allergy, Unknown, 11/30/19) Subjective 2/2: awake and alert, no acute events, on iv iron Objective Objective Current Medications Medications (Trade) Dose Ordered Sig/En Route PRN Reason Start Time Stop Time Status Last Admin Dose Admin Acetaminophen (Tylenol) 650 mg Q4H PRN ORAL Mild Pain/Temp > 100.5 12/12/19 17:00 01/10/20 16:59 Albuterol/ Ipratropium (Albuterol/ Ipratropium) 3 ml Q4H PRN HHN Shortness of Breath 12/12/19 17:00 12/16/19 16:59 Amlodipine Besylate (Norvasc) 5 mg Q12H PRN ORAL sbp greater than 160 12/12/19 17:00 01/11/20 16:59 Amlodipine Besylate (Norvasc) 10 mg QHS ORAL 12/12/19 21:00 01/10/20 20:59 Aspirin (Ecotrin) 81 mg DAILY ORAL 12/13/19 09:00 01/08/20 08:59 Clonidine HCl (Catapres tab) 0.2 mg Q6HR ORAL 12/12/19 18:00 01/08/20 00:00 12/12/19 17:18 Duloxetine HCl (Cymbalta) 60 mg DAILY ORAL 12/13/19 09:00 01/10/20 08:59 Finasteride (Proscar) 5 mg DAILY ORAL 12/13/19 09:00 01/08/20 08:59 Folic Acid (Folate) 1 mg DAILY ORAL 12/13/19 09:00 01/10/20 08:59 Furosemide (Lasix) 20 mg DAILY IV 12/13/19 09:00 01/08/20 08:59 Hydralazine HCl (Apresoline) 50 mg Q8H ORAL 12/12/19 17:00 01/11/20 08:59 12/12/19 17:18 Iron Sucrose 100 mg/Sodium Chloride 60 ml @ 240 mls/hr BEDTIME IV 12/12/19 21:00 12/14/19 21:14 Pantoprazole (Protonix) 40 mg EVERY 12 HOURS IVP 12/12/19 21:00 01/08/20 20:59 Tamsulosin HCl (Flomax) 0.4 mg BEDTIME ORAL 12/12/19 21:00 01/08/20 20:59 Zolpidem Tartrate (Ambien) 5 mg HSPRN PRN ORAL Insomnia 12/12/19 17:00 12/19/19 16:59 Last 24 Hour Vital Signs Date Time Temp Pulse Resp B/P (MAP) Pulse Ox O2 Delivery O2 Flow Rate FiO2 12/12/19 17:18 150/72 12/12/19 17:18 150/72 12/12/19 16:05 98.4 85 20 150/72 (98) 95 12/12/19 16:00 98.9 88 20 148/72 (97) 95 12/12/19 16:00 Room Air 12/12/19 16:00 83 12/12/19 12:00 98.8 76 22 119/66 (83) 95 12/12/19 12:00 119/66 12/12/19 09:15 125/68 12/12/19 09:00 Room Air 12/12/19 08:06 96 Nasal Cannula 2.0 28 12/12/19 08:00 98.2 74 22 125/68 (87) 95 12/12/19 05:46 143/67 12/12/19 04:00 98.3 74 22 139/59 (85) 95 12/12/19 04:00 Room Air 12/12/19 00:26 140/63 12/12/19 00:00 Room Air 12/12/19 00:00 98.0 70 21 140/63 (88) 95 12/11/19 22:42 149/68 12/11/19 20:39 97 Nasal Cannula 2.0 28 12/11/19 20:34 71 143/69 12/11/19 20:00 98.5 71 20 143/69 (93) 94 12/11/19 20:00 Room Air 12/11/19 17:17 145/69 12/11/19 16:07 98.7 79 20 145/69 (94) 95 12/11/19 13:55 146/81 12/11/19 12:40 146/81 12/11/19 12:00 65 12/11/19 12:00 2.0 12/11/19 12:00 97.9 92 20 146/81 (102) 100 12/11/19 12:00 Nasal Cannula 2.0 12/11/19 08:00 93 12/11/19 08:00 98.1 93 22 158/93 (114) 96 12/11/19 08:00 Nasal Cannula 2.0 12/11/19 08:00 2.0 12/11/19 05:00 178/86 12/11/19 05:00 178/86 12/11/19 04:56 90 178/86 (116) 12/11/19 04:00 2.0 12/11/19 04:00 97.7 84 20 155/79 (104) 100 12/11/19 04:00 Nasal Cannula 2.0 12/11/19 03:41 95 12/11/19 01:48 98.6 12/11/19 01:00 151/72 (98) 12/11/19 00:00 98.6 81 20 170/88 (115) 100 12/11/19 00:00 2.0 12/11/19 00:00 Nasal Cannula 2.0 12/10/19 23:45 81 12/10/19 23:08 170/83 12/10/19 23:05 98.9 89 20 151/69 (96) 97 12/10/19 21:00 151/69 Intake and Output 12/11/19 12/12/19 19:00 07:00 Intake Total 120 ml 360 ml Output Total 601 ml Balance 120 ml -241 ml Intake Oral 120 ml 120 ml IV Total 240 ml Output Urine Total 600 ml Stool Total 1 ml # Voids 2 # Bowel Movements 1 Labs Test 12/10/19 03:10 12/11/19 04:01 White Blood Count 12.8 K/UL (4.8-10.8) 11.7 K/UL (4.8-10.8) Red Blood Count 2.43 M/UL (4.70-6.10) 2.97 M/UL (4.70-6.10) Hemoglobin 7.5 G/DL (14.2-18.0) 9.1 G/DL (14.2-18.0) Hematocrit 22.7 % (42.0-52.0) 27.1 % (42.0-52.0) Mean Corpuscular Volume 93 FL (80-99) 91 FL (80-99) Mean Corpuscular Hemoglobin 31.0 PG (27.0-31.0) 30.7 PG (27.0-31.0) Mean Corpuscular Hemoglobin Concent 33.3 G/DL (32.0-36.0) 33.6 G/DL (32.0-36.0) Red Cell Distribution Width 13.9 % (11.6-14.8) 13.6 % (11.6-14.8) Platelet Count 253 K/UL (150-450) 244 K/UL (150-450) Mean Platelet Volume 4.7 FL (6.5-10.1) 4.7 FL (6.5-10.1) Neutrophils (%) (Auto) % (45.0-75.0) 80.8 % (45.0-75.0) Lymphocytes (%) (Auto) % (20.0-45.0) 9.7 % (20.0-45.0) Monocytes (%) (Auto) % (1.0-10.0) 7.9 % (1.0-10.0) Eosinophils (%) (Auto) % (0.0-3.0) 1.0 % (0.0-3.0) Basophils (%) (Auto) % (0.0-2.0) 0.6 % (0.0-2.0) Differential Total Cells Counted 100 Neutrophils % (Manual) 83 % (45-75) Lymphocytes % (Manual) 9 % (20-45) Monocytes % (Manual) 7 % (1-10) Eosinophils % (Manual) 1 % (0-3) Basophils % (Manual) 0 % (0-2) Band Neutrophils 0 % (0-8) Platelet Estimate Adequate Platelet Morphology Normal Polychromasia 1+ Hypochromasia 1+ Sodium Level 144 MMOL/L (136-145) 145 MMOL/L (136-145) Potassium Level 4.2 MMOL/L (3.5-5.1) 3.7 MMOL/L (3.5-5.1) Chloride Level 110 MMOL/L (98-107) 108 MMOL/L (98-107) Carbon Dioxide Level 23 MMOL/L (21-32) 24 MMOL/L (21-32) Anion Gap 11 mmol/L (5-15) 13 mmol/L (5-15) Blood Urea Nitrogen 16 mg/dL (7-18) 13 mg/dL (7-18) Creatinine 1.3 MG/DL (0.55-1.30) 1.3 MG/DL (0.55-1.30) Estimat Glomerular Filtration Rate mL/min (>60) mL/min (>60) Glucose Level 105 MG/DL (74-106) 99 MG/DL (74-106) Calcium Level 8.0 MG/DL (8.5-10.1) 8.3 MG/DL (8.5-10.1) Troponin I 2.461 ng/mL (0.000-0.056) Iron Level 143 ug/dL (50-175) Total Iron Binding Capacity 157 ug/dL (250-450) Percent Iron Saturation 91 % (15-50) Unsaturated Iron Binding 14 ug/dL (112-346) Ferritin 142 NG/ML (8-388) Total Bilirubin 0.4 MG/DL (0.2-1.0) Aspartate Amino Transf (AST/SGOT) 19 U/L (15-37) Alanine Aminotransferase (ALT/SGPT) 14 U/L (12-78) Alkaline Phosphatase 118 U/L (46-116) Total Protein 6.9 G/DL (6.4-8.2) Albumin 2.2 G/DL (3.4-5.0) Globulin 4.7 g/dL Albumin/Globulin Ratio 0.5 (1.0-2.7) Height (Feet): 5 Height (Inches): 9.00 Weight (Pounds): 198 Objective PE: Vitals: reviewed General Appearance: NAD HEENT: normocephalic, atraumatic Neck: non-tender, normal alignment Respiratory/Chest: normal breath sounds bilaterally Cardiovascular/Chest: normal peripheral pulses, normal rate Abdomen: normal bowel sounds, soft, nontender Extremities: normal range of motion Jason Simon MD Dec 12, 2019 20:31
[2019-12-12] MEDS ORDERED: Iron Sucrose 100 MG in NS 55 ML IV SCH (21:00)
[2019-12-12] MEDS ORDERED: Tamsulosin 0.4mg cap ORAL SCH (21:00)
[2019-12-12] MEDS ORDERED: Pantoprazole Inj IVP SCH (21:00)
--- NOTE | 2019-12-12 23:15 | Progress Note ---
DATE: 12/12/2019 SUBJECTIVE: This is an elderly male, who came to the emergency room for shortness of breath and hypoxia, was found in CHF and pulmonary edema. Also, troponins are positive. He has pericardial effusion. The patient is waiting for transfer to [facility]. Physically, he is doing better. He was given treatment. He was given Lasix. Cardiology consult was obtained. Physically, the patient is improving. Waiting for transfer to [facility] for angiogram and angioplasty. Discussed with Dr. Samuel. Jacky Bowers M.D. DR: RISHI JOB#: [id number] CC:
[2019-12-13] VITALS: BP 149/71
[2019-12-13] MEDS: cloNIDine 0.2mg Tab ORAL SCH ×4 (00:42→17:07)
[2019-12-13] MEDS: HydrALAZINE 50mg tab ORAL SCH ×3 (00:42→17:07)
[2019-12-13 04:00] VITALS: BP 147/66
--- NOTE | 2019-12-13 07:30 | NUR ---
NURSE NOTES: Received pt from JAYA VIRAMONTES. Pt is alert and awake. Pt is in RA, No SOB or acute respiratory distress noted. Pt has intact iv acces RAC 20G SL. No complain of pain at this moment. pt is on continues heart monitoring. all needs attended, bed is locked and is in the lowest position, call light within easy reach. will continue to monitor. Addendum: 12/13/19 at 0844 by Bill Boyd RN ERROR: Received pt from JESSY VIRAMONTES.
--- NOTE | 2019-12-13 07:51 | NUR ---
HAND-OFF: Report given to WANDER Khan.
[2019-12-13 08:00] VITALS: BP 135/70
--- NOTE | 2019-12-13 08:33 | Hematology/Onc Progress Note ---
Assessment/Plan Assessment/Plan Assessment and Recs: # Anemia of upper gi bleed, with hematemesis prior to admission, with a decreased h/h --> Anemia workup has been ordered, rule out gi bleed --> No evidence of hemolysis is noted, peripheral smear has been reviewed. --> Hgb goal >7. Transfuse prn. --> IRON IV has been started x 5 days --> Medications have been reviewed --> low threshold for gi evaluation in case has occult + --> bone marrow biopsy is not indicated given the other more likely causes --> hgb trend 13-->10-->10.5-->8.3-->7.4-->9.1 # Leukocytosis likely reactive due to bleed, acute hx of recent stent placement gu system --> trend as needed, r/o infection, id recs to be reviewed --> wbc 42k->14-->12 --> smear to be reviewed # Upper GI bleed --> as per gi --> may need pill endoscopy # NSTEMI and pericardial effusion --> recs noted by cards # Nausea/Vomiting --> zofran prn basis --> monitor po intake # UTI (urinary tract infection) --> s/p abx # PAULINE (acute kidney injury) --> per renal care # Proteinuria --> r/o dm # Right ureteral calculus with hydronephrosis --> per uro has had a stent placement recently The timing of this note does not necessarily reflect the time of the patient was seen. Greatly appreciate consultation. Subjective Constitutional: Denies: no symptoms, chills, fever, malaise, weakness, other HEENT: Denies: no symptoms, eye pain, blurred vision, tearing, double vision, ear pain, ear discharge, nose pain, nose congestion, throat pain, throat swelling, mouth pain, mouth swelling, other Cardiovascular: Denies: no symptoms, chest pain, edema, irregular heart rate, lightheadedness, palpitations, syncope, other Respiratory: Denies: no symptoms, cough, shortness of breath, SOB with excertion, SOB at rest, sputum, wheezing, other Genitourinary: Denies: no symptoms, burning, discharge, frequency, flank pain, hematuria, incontinence, pain, urgency, other Neurologic/Psychiatric: Denies: no symptoms, anxiety, depressed, emotional problems, headache, numbness, paresthesia, pre-existing deficit, seizure, tingling, tremors, weakness, other Endocrine: Denies: no symptoms, excessive sweating, flushing, intolerance to cold, intolerance to heat, increased hunger, increased thirst, increased urine, unexplained weight gain, unexplained weight loss, other Hematologic/Lymphatic: Denies: no symptoms, anemia, easy bleeding, easy bruising, adenopathy, other Allergies: Coded Allergies: PROCHLORPERAZINE (Verified Allergy, Unknown, 11/30/19) Subjective 12/12: awake and alert, no acute events, on iv iron 12/13: no bleeding, no chills, labs reviewed, awaiting transf [facility] Objective Objective Current Medications Medications (Trade) Dose Ordered Sig/En Route PRN Reason Start Time Stop Time Status Last Admin Dose Admin Acetaminophen (Tylenol) 650 mg Q4H PRN ORAL Mild Pain/Temp > 100.5 12/12/19 17:00 01/10/20 16:59 12/13/19 00:43 Albuterol/ Ipratropium (Albuterol/ Ipratropium) 3 ml Q4H PRN HHN Shortness of Breath 12/12/19 17:00 12/16/19 16:59 Amlodipine Besylate (Norvasc) 5 mg Q12H PRN ORAL sbp greater than 160 12/12/19 17:00 01/11/20 16:59 Amlodipine Besylate (Norvasc) 10 mg QHS ORAL 12/12/19 21:00 01/10/20 20:59 12/12/19 20:29 Aspirin (Ecotrin) 81 mg DAILY ORAL 12/13/19 09:00 01/08/20 08:59 Clonidine HCl (Catapres tab) 0.2 mg Q6HR ORAL 12/12/19 18:00 01/08/20 00:00 12/13/19 06:09 Duloxetine HCl (Cymbalta) 60 mg DAILY ORAL 12/13/19 09:00 01/10/20 08:59 Finasteride (Proscar) 5 mg DAILY ORAL 12/13/19 09:00 01/08/20 08:59 Folic Acid (Folate) 1 mg DAILY ORAL 12/13/19 09:00 01/10/20 08:59 Furosemide (Lasix) 20 mg DAILY IV 12/13/19 09:00 01/08/20 08:59 Hydralazine HCl (Apresoline) 50 mg Q8H ORAL 12/12/19 17:00 01/11/20 08:59 12/13/19 00:42 Iron Sucrose 100 mg/Sodium Chloride 60 ml @ 240 mls/hr BEDTIME IV 12/12/19 21:00 12/14/19 21:14 12/12/19 20:28 Pantoprazole (Protonix) 40 mg EVERY 12 HOURS IVP 12/12/19 21:00 01/08/20 20:59 12/12/19 20:28 Tamsulosin HCl (Flomax) 0.4 mg BEDTIME ORAL 12/12/19 21:00 01/08/20 20:59 12/12/19 20:28 Zolpidem Tartrate (Ambien) 5 mg HSPRN PRN ORAL Insomnia 12/12/19 17:00 12/19/19 16:59 Last 24 Hour Vital Signs Date Time Temp Pulse Resp B/P (MAP) Pulse Ox O2 Delivery O2 Flow Rate FiO2 12/13/19 08:00 98.1 94 20 135/70 (91) 94 12/13/19 06:09 147/66 12/13/19 04:42 84 12/13/19 04:00 98.9 84 17 147/66 (93) 94 12/13/19 00:57 84 18 95 Room Air 12/13/19 00:42 149/71 12/13/19 00:42 149/71 12/13/19 00:00 98.8 86 18 149/71 (97) 93 12/13/19 00:00 80 12/12/19 21:00 Room Air 12/12/19 20:55 95 Room Air 21 12/12/19 20:29 81 140/74 12/12/19 20:00 77 12/12/19 20:00 99.4 79 17 155/60 (91) 94 12/12/19 17:18 150/72 12/12/19 17:18 150/72 12/12/19 16:05 98.4 85 20 150/72 (98) 95 12/12/19 16:00 98.9 88 20 148/72 (97) 95 12/12/19 16:00 Room Air 12/12/19 16:00 83 12/12/19 12:00 98.8 76 22 119/66 (83) 95 12/12/19 12:00 119/66 12/12/19 09:15 125/68 12/12/19 09:00 Room Air 12/12/19 08:06 96 Nasal Cannula 2.0 28 12/12/19 08:00 98.2 74 22 125/68 (87) 95 12/12/19 05:46 143/67 12/12/19 04:00 98.3 74 22 139/59 (85) 95 12/12/19 04:00 Room Air 12/12/19 00:26 140/63 12/12/19 00:00 Room Air 12/12/19 00:00 98.0 70 21 140/63 (88) 95 12/11/19 22:42 149/68 12/11/19 20:39 97 Nasal Cannula 2.0 28 12/11/19 20:34 71 143/69 12/11/19 20:00 98.5 71 20 143/69 (93) 94 12/11/19 20:00 Room Air 12/11/19 17:17 145/69 12/11/19 16:07 98.7 79 20 145/69 (94) 95 12/11/19 13:55 146/81 12/11/19 12:40 146/81 12/11/19 12:00 65 12/11/19 12:00 2.0 12/11/19 12:00 97.9 92 20 146/81 (102) 100 12/11/19 12:00 Nasal Cannula 2.0 Intake and Output 12/12/19 12/13/19 19:00 07:00 Intake Total 400 ml Output Total 1200 ml 650 ml Balance -800 ml -650 ml Intake Oral 400 ml Output Urine Total 1200 ml 650 ml # Voids 1 Labs Test 12/11/19 04:01 White Blood Count 11.7 K/UL (4.8-10.8) Red Blood Count 2.97 M/UL (4.70-6.10) Hemoglobin 9.1 G/DL (14.2-18.0) Hematocrit 27.1 % (42.0-52.0) Mean Corpuscular Volume 91 FL (80-99) Mean Corpuscular Hemoglobin 30.7 PG (27.0-31.0) Mean Corpuscular Hemoglobin Concent 33.6 G/DL (32.0-36.0) Red Cell Distribution Width 13.6 % (11.6-14.8) Platelet Count 244 K/UL (150-450) Mean Platelet Volume 4.7 FL (6.5-10.1) Neutrophils (%) (Auto) 80.8 % (45.0-75.0) Lymphocytes (%) (Auto) 9.7 % (20.0-45.0) Monocytes (%) (Auto) 7.9 % (1.0-10.0) Eosinophils (%) (Auto) 1.0 % (0.0-3.0) Basophils (%) (Auto) 0.6 % (0.0-2.0) Sodium Level 145 MMOL/L (136-145) Potassium Level 3.7 MMOL/L (3.5-5.1) Chloride Level 108 MMOL/L (98-107) Carbon Dioxide Level 24 MMOL/L (21-32) Anion Gap 13 mmol/L (5-15) Blood Urea Nitrogen 13 mg/dL (7-18) Creatinine 1.3 MG/DL (0.55-1.30) Estimat Glomerular Filtration Rate mL/min (>60) Glucose Level 99 MG/DL (74-106) Calcium Level 8.3 MG/DL (8.5-10.1) Iron Level 143 ug/dL (50-175) Total Iron Binding Capacity 157 ug/dL (250-450) Percent Iron Saturation 91 % (15-50) Unsaturated Iron Binding 14 ug/dL (112-346) Ferritin 142 NG/ML (8-388) Total Bilirubin 0.4 MG/DL (0.2-1.0) Aspartate Amino Transf (AST/SGOT) 19 U/L (15-37) Alanine Aminotransferase (ALT/SGPT) 14 U/L (12-78) Alkaline Phosphatase 118 U/L (46-116) Total Protein 6.9 G/DL (6.4-8.2) Albumin 2.2 G/DL (3.4-5.0) Globulin 4.7 g/dL Albumin/Globulin Ratio 0.5 (1.0-2.7) Height (Feet): 5 Height (Inches): 9.00 Weight (Pounds): 198 Objective PE: Vitals: reviewed General Appearance: NAD HEENT: normocephalic, atraumatic Neck: non-tender, normal alignment Respiratory/Chest: normal breath sounds bilaterally Cardiovascular/Chest: normal peripheral pulses, normal rate Abdomen: normal bowel sounds, soft, nontender Extremities: normal range of motion Jason Simon MD Dec 13, 2019 08:33
--- NOTE | 2019-12-13 08:38 | NUR ---
TRANSFER UPDATE TRANSFER TO [facility] ORDER NOTED CALLED [facility] AND SPOKE WITH MAKENZIE MORAN, PATIENT IS ON THE LIST TO TRANSFER, PATIENT HAS CLEARED FINANCIALLY, THEY ARE JUST WAITING FOR A BED SHOAIB MORAN ~ SOON BED IS AVAILABLE THEY WILL CALL US TO TRANSFER
--- NOTE | 2019-12-13 08:48 | NUR ---
CASE MANAGEMENT:REVIEW 12/13/19 SI: PNA. NSTEMI AND PERICARDIAL EFFUSION 98.1 94 20 135/70 94% ON RA IS: ASA PO QD IV LASIX QD IV VENOFER QHS NORVASC PO QHS FLOMAX PO QHS HYDRALAZINE PO Q8HRS : TELEMETRY STATUS DCP: FROM [facility] PLAN: TRANSFER TO [facility] FOR PERICARDIOCENTESIS
[2019-12-13] MEDS ORDERED: Aspirin EC 81mg tab ORAL SCH (09:00)
[2019-12-13] MEDS: Pantoprazole Inj IVP SCH ×2 (09:56→21:04)
[2019-12-13] MEDS: Aspirin EC 81mg tab ORAL SCH (09:57)
--- NOTE | 2019-12-13 10:25 | GI Progress Note ---
Assessment/Plan Problems: (1) Upper GI bleed ICD Codes: K92.2 - Gastrointestinal hemorrhage, unspecified SNOMED: 30015487 (2) Anemia ICD Codes: D64.9 - Anemia, unspecified SNOMED: 574819653 (3) Elevated troponin ICD Codes: R79.89 - Other specified abnormal findings of blood chemistry SNOMED: 737226934, 698374707, 817859710 Status: stable, unchanged Status Narrative Discussed with Dr. Fitzgerald. Assessment/Plan EGD/Colonoscopy 12/06/19 SUMMARY OF FINDINGS: 1. Gastritis, status post biopsy. 2. Small hiatal hernia with a small ulceration in the hernia sac. 3. Poor colonic prep and incomplete, only up to ascending colon was examined. 4. Diverticulosis. 5. One colonic polyp removed. 6. Internal hemorrhoids. H. Pylori negative PPI twice daily PO as tolerated Monitor H&H, as needed transfusions to maintain hemoglobin above 7 Occult Blood stool evaluate GI bleed, if positive will need capsule endoscopy check iron and ferritin Bowel regimen We will follow along on a daily basis with any additional recommendation The patient was seen and examined at bedside and all new and available data was reviewed in the patients chart. I agree with the above findings, impression and plan. (Patient seen earlier today. Signature stamp does not reflect patient encounter time.). - Alo Fitzgerald MD Subjective Gastrointestinal/Abdominal: Reports: no symptoms Objective Last 24 Hour Vital Signs Date Time Temp Pulse Resp B/P (MAP) Pulse Ox O2 Delivery O2 Flow Rate FiO2 12/13/19 09:57 135/70 12/13/19 08:00 98.1 94 20 135/70 (91) 94 12/13/19 07:00 84 18 94 Room Air 21 12/13/19 07:00 94 Room Air 21 12/13/19 06:09 147/66 12/13/19 04:42 84 12/13/19 04:00 98.9 84 17 147/66 (93) 94 12/13/19 00:57 84 18 95 Room Air 21 12/13/19 00:42 149/71 12/13/19 00:42 149/71 12/13/19 00:00 98.8 86 18 149/71 (97) 93 12/13/19 00:00 80 12/12/19 21:00 Room Air 12/12/19 20:55 95 Room Air 21 12/12/19 20:29 81 140/74 12/12/19 20:00 77 12/12/19 20:00 99.4 79 17 155/60 (91) 94 12/12/19 17:18 150/72 12/12/19 17:18 150/72 12/12/19 16:05 98.4 85 20 150/72 (98) 95 12/12/19 16:00 98.9 88 20 148/72 (97) 95 12/12/19 16:00 Room Air 12/12/19 16:00 83 12/12/19 12:00 98.8 76 22 119/66 (83) 95 12/12/19 12:00 119/66 Intake and Output 12/12/19 12/13/19 19:00 07:00 Intake Total 400 ml Output Total 1200 ml 650 ml Balance -800 ml -650 ml Intake Oral 400 ml Output Urine Total 1200 ml 650 ml # Voids 1 Height (Feet): 5 Height (Inches): 9.00 Weight (Pounds): 198 General Appearance: WD/WN, no apparent distress, alert Cardiovascular: normal rate Respiratory/Chest: normal breath sounds, no respiratory distress Abdominal Exam: normal bowel sounds, non tender, soft Extremities: normal range of motion, non-tender Hany Costello [employer] Dec 13, 2019 10:25
[2019-12-13 12:00] VITALS: BP 151/73
--- NOTE | 2019-12-13 12:59 | Urology Progress Note ---
Assessment/Plan Status: stable, unchanged Assessment/Plan: 1. History of right-sided renal and ureteral calculi. 2. Hydronephrosis history, status post stent placement. 3. History of renal insufficiency, acute on chronic, which is better. 4. BPH. 5. Urinary retention. 6. Neurogenic bladder. 7. Pyuria. 8. Hematuria. 9. Proteinuria. 10. Renal atrophy. 11. Renal cyst. 12. POD # 11, right ureteral stent. monitor clinically maintain mcgowan for now hand irrigate PRN flomax and proscar tx of stones later, once medically cleared plan for voiding trial soon, hopefully this week check urine cx/abx PRN Subjective Allergies: Coded Allergies: PROCHLORPERAZINE (Verified Allergy, Unknown, 11/30/19) Subjective all noted, feels fair Objective Last 24 Hour Vital Signs Date Time Temp Pulse Resp B/P (MAP) Pulse Ox O2 Delivery O2 Flow Rate FiO2 12/13/19 12:56 151/73 12/13/19 12:00 98.2 87 20 151/73 (99) 100 12/13/19 09:57 135/70 12/13/19 09:00 Room Air 12/13/19 08:09 86 12/13/19 08:00 98.1 94 20 135/70 (91) 94 12/13/19 07:00 84 18 94 Room Air 21 12/13/19 07:00 94 Room Air 21 12/13/19 06:09 147/66 12/13/19 04:42 84 12/13/19 04:00 98.9 84 17 147/66 (93) 94 12/13/19 00:57 84 18 95 Room Air 21 12/13/19 00:42 149/71 12/13/19 00:42 149/71 12/13/19 00:00 98.8 86 18 149/71 (97) 93 12/13/19 00:00 80 12/12/19 21:00 Room Air 12/12/19 20:55 95 Room Air 21 12/12/19 20:29 81 140/74 12/12/19 20:00 77 12/12/19 20:00 99.4 79 17 155/60 (91) 94 12/12/19 17:18 150/72 12/12/19 17:18 150/72 12/12/19 16:05 98.4 85 20 150/72 (98) 95 12/12/19 16:00 98.9 88 20 148/72 (97) 95 12/12/19 16:00 Room Air 12/12/19 16:00 83 Intake and Output 12/12/19 12/13/19 19:00 07:00 Intake Total 400 ml Output Total 1200 ml 650 ml Balance -800 ml -650 ml Intake Oral 400 ml Output Urine Total 1200 ml 650 ml # Voids 1 Microbiology Date/Time Source Procedure Growth Status 12/08/19 17:00 Nasal Nares MRSA Culture - Final NO METHICILLIN RESISTANT STAPH AUREUS... Complete 12/08/19 10:42 Urine,Clean Catch Urine Culture - Final NO GROWTH AFTER 48 HOURS Complete 12/08/19 17:00 Rectum VRE Culture - Final NO VANCOMYCIN RESISTANT ENTEROCOCCUS ... Complete Current Medications Medications (Trade) Dose Ordered Sig/En Route PRN Reason Start Time Stop Time Status Last Admin Dose Admin Acetaminophen (Tylenol) 650 mg Q4H PRN ORAL Mild Pain/Temp > 100.5 12/12/19 17:00 01/10/20 16:59 12/13/19 00:43 Albuterol/ Ipratropium (Albuterol/ Ipratropium) 3 ml Q4H PRN HHN Shortness of Breath 12/12/19 17:00 12/16/19 16:59 Amlodipine Besylate (Norvasc) 5 mg Q12H PRN ORAL sbp greater than 160 12/12/19 17:00 01/11/20 16:59 Amlodipine Besylate (Norvasc) 10 mg QHS ORAL 12/12/19 21:00 01/10/20 20:59 12/12/19 20:29 Aspirin (Ecotrin) 81 mg DAILY ORAL 12/13/19 09:00 01/08/20 08:59 12/13/19 09:57 Clonidine HCl (Catapres tab) 0.2 mg Q6HR ORAL 12/12/19 18:00 01/08/20 00:00 12/13/19 12:56 Duloxetine HCl (Cymbalta) 60 mg DAILY ORAL 12/13/19 09:00 01/10/20 08:59 12/13/19 09:56 Finasteride (Proscar) 5 mg DAILY ORAL 12/13/19 09:00 01/08/20 08:59 12/13/19 09:57 Folic Acid (Folate) 1 mg DAILY ORAL 12/13/19 09:00 01/10/20 08:59 12/13/19 09:57 Furosemide (Lasix) 20 mg DAILY IV 12/13/19 09:00 01/08/20 08:59 12/13/19 09:56 Hydralazine HCl (Apresoline) 50 mg Q8H ORAL 12/12/19 17:00 01/11/20 08:59 12/13/19 09:57 Iron Sucrose 100 mg/Sodium Chloride 60 ml @ 240 mls/hr BEDTIME IV 12/12/19 21:00 12/14/19 21:14 12/12/19 20:28 Pantoprazole (Protonix) 40 mg EVERY 12 HOURS IVP 12/12/19 21:00 01/08/20 20:59 12/13/19 09:56 Tamsulosin HCl (Flomax) 0.4 mg BEDTIME ORAL 12/12/19 21:00 01/08/20 20:59 12/12/19 20:28 Zolpidem Tartrate (Ambien) 5 mg HSPRN PRN ORAL Insomnia 12/12/19 17:00 12/19/19 16:59 Height (Feet): 5 Height (Inches): 9.00 Weight (Pounds): 198 Objective exam stable mcgowan indwelling urine lakeisha with some debris Neil Flores MD Dec 13, 2019 12:59
[2019-12-13 16:00] VITALS: BP 154/72
--- NOTE | 2019-12-13 18:42 | NUR ---
NURSE NOTES: Dr WILLIAMSON is aware about constipation, order noted and carried out. will continue to monitor.
[2019-12-13] MEDS ORDERED: Milk of Magnesia 30ml Ud ORAL PRN (18:45)
--- NOTE | 2019-12-13 19:30 | Progress Note ---
DATE: 12/13/2019 SUBJECTIVE: This is an elderly 79 years old male, currently awake, comfortable, doing better. Son is on bedside. Discussed with the son and father. Both are doing okay. The son requesting to transfer him another retirement. I gave a choice to the patient and family. OBJECTIVE: VITAL SIGNS: His blood pressure 154/72, pulse 86, no fever. No short of breath. HEENT: NAD. CHEST: Bilateral decreased breath sounds. CARDIOVASCULAR: Regular rhythm. ABDOMEN: Soft. Positive bowel sounds. Nontender. EXTREMITIES: No edema. GENITOURINARY: Deferred. LABORATORY DATA: The patient has no labs today. ASSESSMENT AND PLAN: 1. Congestive heart failure. 2. Coronary artery disease. 3. Pericardial effusion. 4. History of renal failure. We will currently continue current treatment. Continue and continue medical treatment. Waiting for [facility] transferred for a cardiac workup. Jacky Bowers M.D. DR: EREN JOB#: [id number] CC:
--- NOTE | 2019-12-13 19:31 | NUR ---
HAND-OFF: Report given to JESSY VIRAMONTES. Pt is awake and stable. No BM during shift, endorsed to F/U for OB.
--- NOTE | 2019-12-13 19:33 | NUR ---
NURSE NOTES: The patient has NSTEMI and ACS with very elevated Troponin and is awaiting to be transferred to [facility] for pericardiocentesis and cardiac cath there. Discharge planning to be arranged regarding [facility] transfer - discharge planning in process- on transfer list and awaiting a bed at [facility].The patient's bed is in the lowest position, call light within reach, and fall and aspiration precautions reinforced, bed alarm on. IV site intact, patent. Jaquez, patent, draining to gravity. Will continue plan of care.
[2019-12-13 20:00] VITALS: BP 134/71
--- NOTE | 2019-12-13 20:39 | Cardiology Progress Note ---
Assessment/Plan Assessment/Plan 1. Non ST-elevation myocardial infarction. 2. Pericardial effusion mod to large 3. Renal failure. 4. pneumonia. 5. Occult positive stools. 6. Hypernatremia. 7. GI bleed. 8. Obstructive uropathy. echo personally reviewed no pericardial tamponade he has sig rhonchi need hhn abx pulm eval the effusion is not any smaller will likey need pericardiocentesis adn cardiac cath at a a cath facility but in light of renal insuf is at risk for contrast induced renal failure (i did discuss this with pt ) Ecotrin ok wih g bb statin watch on tele will have tamp surveillance echo in a few days [facility] Subjective Cardiovascular: Denies: chest pain, lightheadedness, palpitations Respiratory: Denies: shortness of breath Gastrointestinal/Abdominal: Denies: abdominal pain Genitourinary: Denies: burning Objective Last 24 Hour Vital Signs Date Time Temp Pulse Resp B/P (MAP) Pulse Ox O2 Delivery O2 Flow Rate FiO2 12/13/19 20:08 95 Room Air 21 12/13/19 20:08 82 18 95 Room Air 21 12/13/19 20:00 98.2 82 18 134/71 (92) 93 12/13/19 17:07 154/72 12/13/19 17:07 154/72 12/13/19 16:00 98.1 86 20 154/72 (99) 95 12/13/19 15:20 82 12/13/19 12:56 151/73 12/13/19 12:00 98.2 87 20 151/73 (99) 100 12/13/19 11:36 87 12/13/19 09:57 135/70 12/13/19 09:00 Room Air 12/13/19 08:09 86 12/13/19 08:00 98.1 94 20 135/70 (91) 94 12/13/19 07:00 84 18 94 Room Air 12/13/19 07:00 94 Room Air 12/13/19 06:09 147/66 12/13/19 04:42 84 12/13/19 04:00 98.9 84 17 147/66 (93) 94 12/13/19 00:57 84 18 95 Room Air 12/13/19 00:42 149/71 12/13/19 00:42 149/71 12/13/19 00:00 98.8 86 18 149/71 (97) 93 12/13/19 00:00 80 12/12/19 21:00 Room Air 12/12/19 20:55 95 Room Air 21 General Appearance: no apparent distress, alert Neck: supple Cardiovascular: normal rate Respiratory/Chest: chest wall non-tender, lungs clear Abdomen: normal bowel sounds, non tender, soft Extremities: trace edema Intake and Output 12/12/19 12/13/19 19:00 07:00 Intake Total 400 ml Output Total 1200 ml 650 ml Balance -800 ml -650 ml Intake Oral 400 ml Output Urine Total 1200 ml 650 ml # Voids 1 Bob Samuel MD Dec 13, 2019 20:39
[2019-12-13] MEDS: Tamsulosin 0.4mg cap ORAL SCH (21:04)
[2019-12-13] MEDS: Iron Sucrose 100 MG in NS 55 ML IV SCH (21:05)
[2019-12-14] VITALS: BP 130/70
[2019-12-14] MEDS: HydrALAZINE 50mg tab ORAL SCH ×3 (00:33→17:03)
[2019-12-14] MEDS: cloNIDine 0.2mg Tab ORAL SCH ×4 (00:33→17:03)
--- NOTE | 2019-12-14 03:07 | NUR ---
NURSE NOTES: Nasra from [facility] called and said they do not have a bed yet and will update as soon as a bed is available
[2019-12-14 04:00] VITALS: BP 114/63
--- NOTE | 2019-12-14 06:30 | Progress Note ---
DATE: 12/13/2019 SUBJECTIVE: The patient is awake, able to answer questions. Much improved, less agitated. Answering simple questions. MENTAL STATUS EXAMINATION: Alert and oriented times self, place. Did not know the date. Mood is anxious. Affect is flat. Thought process is concrete. Thought content, no suicidal or homicidal ideation. Cognition is impaired . Insight and judgment is fair. ASSESSMENT: 1. Major depressive disorder. 2. Cognitive impairment. PLAN: 1. Cymbalta. 2. Provide the patient with reality orientation and supportive therapy. John Granados M.D. DR: OZZIE JOB#: [id number] CC:
--- NOTE | 2019-12-14 06:37 | Hematology/Onc Progress Note ---
Assessment/Plan Assessment/Plan Assessment and Recs: # Anemia of upper gi bleed, with hematemesis prior to admission, with a decreased h/h --> Anemia workup has been ordered, rule out gi bleed --> No evidence of hemolysis is noted, peripheral smear has been reviewed. --> Hgb goal >7. Transfuse prn. --> IRON IV has been started x 5 days --> Medications have been reviewed --> low threshold for gi evaluation in case has occult + --> bone marrow biopsy is not indicated given the other more likely causes --> hgb trend 13-->10-->10.5-->8.3-->7.4-->9.1 --> FOLIC ACID 1mg po daily started # Leukocytosis likely reactive due to bleed, acute hx of recent stent placement gu system --> trend as needed, r/o infection, id recs to be reviewed --> wbc 42k->14-->12 --> smear to be reviewed # Upper GI bleed --> as per gi --> may need pill endoscopy # NSTEMI and pericardial effusion --> recs noted by cards --> may need transfer for potential pericardiocentesis # Nausea/Vomiting --> zofran prn basis --> monitor po intake # UTI (urinary tract infection) --> s/p abx # PAULINE (acute kidney injury) --> per renal care # Proteinuria --> r/o dm # Right ureteral calculus with hydronephrosis --> per uro has had a stent placement recently The timing of this note does not necessarily reflect the time of the patient was seen. Greatly appreciate consultation. Subjective Constitutional: Denies: no symptoms, chills, fever, malaise, weakness, other Cardiovascular: Denies: no symptoms, chest pain, edema, irregular heart rate, lightheadedness, palpitations, syncope, other Respiratory: Denies: no symptoms, cough, shortness of breath, SOB with excertion, SOB at rest, sputum, wheezing, other Gastrointestinal/Abdominal: Denies: no symptoms, abdomen distended, abdominal pain, black stools, tarry stools, blood in stool, constipated, diarrhea, difficulty swallowing, nausea, poor appetite, poor fluid intake, rectal bleeding , vomiting, other Genitourinary: Denies: no symptoms, burning, discharge, frequency, flank pain, hematuria, incontinence, pain, urgency, other Endocrine: Denies: no symptoms, excessive sweating, flushing, intolerance to cold, intolerance to heat, increased hunger, increased thirst, increased urine, unexplained weight gain, unexplained weight loss, other Hematologic/Lymphatic: Denies: no symptoms, anemia, easy bleeding, easy bruising, adenopathy, other Allergies: Coded Allergies: PROCHLORPERAZINE (Verified Allergy, Unknown, 11/30/19) Subjective 12/12: awake and alert, no acute events, on iv iron 12/13: no bleeding, no chills, labs reviewed, awaiting transf [facility] 12/14: still awaiting potential tx to higher level of care for pericardiocentesis , no bleeding or chills Objective Objective Current Medications Medications (Trade) Dose Ordered Sig/En Route PRN Reason Start Time Stop Time Status Last Admin Dose Admin Acetaminophen (Tylenol) 650 mg Q4H PRN ORAL Mild Pain/Temp > 100.5 12/12/19 17:00 01/10/20 16:59 12/13/19 00:43 Albuterol/ Ipratropium (Albuterol/ Ipratropium) 3 ml Q4H PRN HHN Shortness of Breath 12/12/19 17:00 12/16/19 16:59 Amlodipine Besylate (Norvasc) 5 mg Q12H PRN ORAL sbp greater than 160 12/12/19 17:00 01/11/20 16:59 Amlodipine Besylate (Norvasc) 10 mg QHS ORAL 12/12/19 21:00 01/10/20 20:59 12/13/19 21:05 Aspirin (Ecotrin) 81 mg DAILY ORAL 12/13/19 09:00 01/08/20 08:59 12/13/19 09:57 Clonidine HCl (Catapres tab) 0.2 mg Q6HR ORAL 12/12/19 18:00 01/08/20 00:00 12/14/19 05:37 Docusate Sodium (Colace) 100 mg TWICE A DAY ORAL 12/14/19 09:00 01/13/20 08:59 Duloxetine HCl (Cymbalta) 60 mg DAILY ORAL 12/13/19 09:00 01/10/20 08:59 12/13/19 09:56 Finasteride (Proscar) 5 mg DAILY ORAL 12/13/19 09:00 01/08/20 08:59 12/13/19 09:57 Folic Acid (Folate) 1 mg DAILY ORAL 12/13/19 09:00 01/10/20 08:59 12/13/19 09:57 Furosemide (Lasix) 20 mg DAILY IV 12/13/19 09:00 01/08/20 08:59 12/13/19 09:56 Hydralazine HCl (Apresoline) 50 mg Q8H ORAL 12/12/19 17:00 01/11/20 08:59 12/14/19 00:33 Iron Sucrose 100 mg/Sodium Chloride 60 ml @ 240 mls/hr BEDTIME IV 12/12/19 21:00 12/14/19 21:14 12/13/19 21:05 Magnesium Hydroxide (Mom) 30 ml BIDPRN PRN ORAL Constipation 12/13/19 18:45 01/12/20 18:44 12/13/19 18:48 Pantoprazole (Protonix) 40 mg EVERY 12 HOURS IVP 12/12/19 21:00 01/08/20 20:59 12/13/19 21:04 Tamsulosin HCl (Flomax) 0.4 mg BEDTIME ORAL 12/12/19 21:00 01/08/20 20:59 12/13/19 21:04 Zolpidem Tartrate (Ambien) 5 mg HSPRN PRN ORAL Insomnia 12/12/19 17:00 12/19/19 16:59 Last 24 Hour Vital Signs Date Time Temp Pulse Resp B/P (MAP) Pulse Ox O2 Delivery O2 Flow Rate FiO2 12/14/19 05:37 120/63 12/14/19 04:05 83 12/14/19 04:00 97.7 85 18 114/63 (80) 94 12/14/19 00:33 130/70 12/14/19 00:33 130/70 12/14/19 00:00 98.0 86 18 130/70 (90) 94 12/14/19 00:00 79 12/13/19 21:05 82 134/71 12/13/19 21:00 Room Air 12/13/19 20:08 95 Room Air 21 12/13/19 20:08 82 18 95 Room Air 21 12/13/19 20:00 81 12/13/19 20:00 98.2 82 18 134/71 (92) 93 12/13/19 17:07 154/72 12/13/19 17:07 154/72 12/13/19 16:00 98.1 86 20 154/72 (99) 95 12/13/19 15:20 82 12/13/19 12:56 151/73 12/13/19 12:00 98.2 87 20 151/73 (99) 100 12/13/19 11:36 87 12/13/19 09:57 135/70 12/13/19 09:00 Room Air 12/13/19 08:09 86 12/13/19 08:00 98.1 94 20 135/70 (91) 94 12/13/19 07:00 84 18 94 Room Air 12/13/19 07:00 94 Room Air 12/13/19 06:09 147/66 12/13/19 04:42 84 12/13/19 04:00 98.9 84 17 147/66 (93) 94 12/13/19 00:57 84 18 95 Room Air 12/13/19 00:42 149/71 12/13/19 00:42 149/71 12/13/19 00:00 98.8 86 18 149/71 (97) 93 12/13/19 00:00 80 12/12/19 21:00 Room Air 12/12/19 20:55 95 Room Air 12/12/19 20:29 81 140/74 12/12/19 20:00 77 12/12/19 20:00 99.4 79 17 155/60 (91) 94 12/12/19 17:18 150/72 12/12/19 17:18 150/72 12/12/19 16:05 98.4 85 20 150/72 (98) 95 12/12/19 16:00 98.9 88 20 148/72 (97) 95 12/12/19 16:00 Room Air 12/12/19 16:00 83 12/12/19 12:00 98.8 76 22 119/66 (83) 95 12/12/19 12:00 119/66 12/12/19 09:15 125/68 12/12/19 09:00 Room Air 12/12/19 08:06 96 Nasal Cannula 2.0 28 12/12/19 08:00 98.2 74 22 125/68 (87) 95 Intake and Output 12/13/19 12/14/19 19:00 07:00 Intake Total 390 ml 200 ml Output Total 1400 ml 400 ml Balance -1010 ml -200 ml Intake Oral 390 ml 200 ml Output Urine Total 1400 ml 400 ml Height (Feet): 5 Height (Inches): 9.00 Weight (Pounds): 198 Objective PE: Vitals: reviewed General Appearance: NAD HEENT: normocephalic, atraumatic Neck: non-tender, normal alignment Respiratory/Chest: normal breath sounds bilaterally Cardiovascular/Chest: normal peripheral pulses, normal rate Abdomen: normal bowel sounds, soft, nontender Extremities: normal range of motion Jason Simon MD Dec 14, 2019 06:37
[2019-12-14 07:20] LABS: BASOPHILS % (AUTO) 0.5 % (0.0-2.0); EOSINOPHILS % (AUTO) 1.9 % (0.0-3.0); HEMATOCRIT 25.7 % (42.0-52.0); HEMOGLOBIN 8.9 G/DL (14.2-18.0); LYMPHOCYTES % (AUTO) 19.2 % (20.0-45.0); MEAN CORPUSCULAR VOLUME 88 FL (80-99); MONOCYTES % (AUTO) 11.5 % (1.0-10.0); NEUTROPHILS % (AUTO) 66.8 % (45.0-75.0); PLATELET COUNT 280 K/UL (150-450); RED BLOOD COUNT 2.92 M/UL (4.70-6.10); RED CELL DISTRIBUTION WIDTH 13.4 % (11.6-14.8); WHITE BLOOD COUNT 7.3 K/UL (4.8-10.8)
--- NOTE | 2019-12-14 07:29 | NUR ---
HAND-OFF: Report given to WANDER Zamora.
--- NOTE | 2019-12-14 07:44 | NUR ---
NURSE NOTES: Received report from WANDER Jacinto. Pt in bed, awake, talkative, eating breakfast, no c/o pain, no apparent distress noted, discussed plan of care, Jaquez in place and draining, bed in lowest position, call light within reach.
[2019-12-14 07:57] LABS: ANION GAP 9 mmol/L (5-15); BLOOD UREA NITROGEN 8 mg/dL (7-18); CARBON DIOXIDE 31 MMOL/L (21-32); CHLORIDE 107 MMOL/L (98-107); CREATININE 1.1 MG/DL (0.55-1.30); PHOSPHORUS 2.9 MG/DL (2.5-4.9); POTASSIUM 2.9 MMOL/L (3.5-5.1); SODIUM 146 MMOL/L (136-145)
--- NOTE | 2019-12-14 07:57 | Urology Progress Note ---
Assessment/Plan Status: stable, unchanged Assessment/Plan: 1. History of right-sided renal and ureteral calculi. 2. Hydronephrosis history, status post stent placement. 3. History of renal insufficiency, acute on chronic, which is better. 4. BPH. 5. Urinary retention. 6. Neurogenic bladder. 7. Pyuria. 8. Hematuria. 9. Proteinuria. 10. Renal atrophy. 11. Renal cyst. 12. POD # 12, right ureteral stent. monitor clinically maintain mcgowan for now hand irrigate PRN flomax and proscar tx of stones later, once medically cleared check urine cx/abx PRN voiding trial today reinsert mcgoawn PRN Subjective Allergies: Coded Allergies: PROCHLORPERAZINE (Verified Allergy, Unknown, 11/30/19) Subjective all noted, feels fair Objective Last 24 Hour Vital Signs Date Time Temp Pulse Resp B/P (MAP) Pulse Ox O2 Delivery O2 Flow Rate FiO2 12/14/19 05:37 120/63 12/14/19 04:05 83 12/14/19 04:00 97.7 85 18 114/63 (80) 94 12/14/19 00:33 130/70 12/14/19 00:33 130/70 12/14/19 00:00 98.0 86 18 130/70 (90) 94 12/14/19 00:00 79 12/13/19 21:05 82 134/71 12/13/19 21:00 Room Air 12/13/19 20:08 95 Room Air 21 12/13/19 20:08 82 18 95 Room Air 21 12/13/19 20:00 81 12/13/19 20:00 98.2 82 18 134/71 (92) 93 12/13/19 17:07 154/72 12/13/19 17:07 154/72 12/13/19 16:00 98.1 86 20 154/72 (99) 95 12/13/19 15:20 82 12/13/19 12:56 151/73 12/13/19 12:00 98.2 87 20 151/73 (99) 100 12/13/19 11:36 87 12/13/19 09:57 135/70 12/13/19 09:00 Room Air 12/13/19 08:09 86 12/13/19 08:00 98.1 94 20 135/70 (91) 94 Intake and Output 12/13/19 12/14/19 19:00 07:00 Intake Total 390 ml 200 ml Output Total 1400 ml 400 ml Balance -1010 ml -200 ml Intake Oral 390 ml 200 ml Output Urine Total 1400 ml 400 ml Microbiology Date/Time Source Procedure Growth Status 12/08/19 17:00 Nasal Nares MRSA Culture - Final NO METHICILLIN RESISTANT STAPH AUREUS... Complete 12/08/19 10:42 Urine,Clean Catch Urine Culture - Final NO GROWTH AFTER 48 HOURS Complete 12/08/19 17:00 Rectum VRE Culture - Final NO VANCOMYCIN RESISTANT ENTEROCOCCUS ... Complete Current Medications Medications (Trade) Dose Ordered Sig/En Route PRN Reason Start Time Stop Time Status Last Admin Dose Admin Acetaminophen (Tylenol) 650 mg Q4H PRN ORAL Mild Pain/Temp > 100.5 12/12/19 17:00 01/10/20 16:59 12/13/19 00:43 Albuterol/ Ipratropium (Albuterol/ Ipratropium) 3 ml Q4H PRN HHN Shortness of Breath 12/12/19 17:00 12/16/19 16:59 Amlodipine Besylate (Norvasc) 5 mg Q12H PRN ORAL sbp greater than 160 12/12/19 17:00 01/11/20 16:59 Amlodipine Besylate (Norvasc) 10 mg QHS ORAL 12/12/19 21:00 01/10/20 20:59 12/13/19 21:05 Aspirin (Ecotrin) 81 mg DAILY ORAL 12/13/19 09:00 01/08/20 08:59 12/13/19 09:57 Clonidine HCl (Catapres tab) 0.2 mg Q6HR ORAL 12/12/19 18:00 01/08/20 00:00 12/14/19 05:37 Docusate Sodium (Colace) 100 mg TWICE A DAY ORAL 12/14/19 09:00 01/13/20 08:59 Duloxetine HCl (Cymbalta) 60 mg DAILY ORAL 12/13/19 09:00 01/10/20 08:59 12/13/19 09:56 Finasteride (Proscar) 5 mg DAILY ORAL 12/13/19 09:00 01/08/20 08:59 12/13/19 09:57 Folic Acid (Folate) 1 mg DAILY ORAL 12/13/19 09:00 01/10/20 08:59 12/13/19 09:57 Furosemide (Lasix) 20 mg DAILY IV 12/13/19 09:00 01/08/20 08:59 12/13/19 09:56 Hydralazine HCl (Apresoline) 50 mg Q8H ORAL 12/12/19 17:00 01/11/20 08:59 12/14/19 00:33 Iron Sucrose 100 mg/Sodium Chloride 60 ml @ 240 mls/hr BEDTIME IV 12/12/19 21:00 12/14/19 21:14 12/13/19 21:05 Magnesium Hydroxide (Mom) 30 ml BIDPRN PRN ORAL Constipation 12/13/19 18:45 01/12/20 18:44 12/13/19 18:48 Pantoprazole (Protonix) 40 mg EVERY 12 HOURS IVP 12/12/19 21:00 01/08/20 20:59 12/13/19 21:04 Tamsulosin HCl (Flomax) 0.4 mg BEDTIME ORAL 12/12/19 21:00 01/08/20 20:59 12/13/19 21:04 Zolpidem Tartrate (Ambien) 5 mg HSPRN PRN ORAL Insomnia 12/12/19 17:00 12/19/19 16:59 Laboratory Tests 12/14/19 05:33: White Blood Count 7.3, Red Blood Count 2.92L, Hemoglobin 8.9L, Hematocrit 25.7L , Mean Corpuscular Volume 88, Mean Corpuscular Hemoglobin 30.5, Mean Corpuscular Hemoglobin Concent 34.7, Red Cell Distribution Width 13.4, Platelet Count 280, Mean Platelet Volume 5.3L, Neutrophils (%) (Auto) 66.8, Lymphocytes ( %) (Auto) 19.2L, Monocytes (%) (Auto) 11.5H, Eosinophils (%) (Auto) 1.9, Basophils (%) (Auto) 0.5, Sodium Level [Pending], Potassium Level [Pending], Chloride Level [Pending], Carbon Dioxide Level [Pending], Blood Urea Nitrogen [ Pending], Creatinine [Pending], Estimat Glomerular Filtration Rate [Pending], Glucose Level [Pending], Calcium Level [Pending], Phosphorus Level [Pending], Magnesium Level [Pending] Height (Feet): 5 Height (Inches): 9.00 Weight (Pounds): 198 Objective exam stable mcgowan indwelling urine lakeisha with some debris Neil Flores MD Dec 14, 2019 07:57
[2019-12-14 08:00] VITALS: BP 128/66
--- NOTE | 2019-12-14 08:01 | NUR ---
NURSE NOTES: RN notified Dr. Robinson Campuzano 2.9 and mag 1.4
--- NOTE | 2019-12-14 08:52 | General Progress Note ---
Assessment/Plan Status: stable, unchanged Assessment/Plan: Assessment/Plan Problems: (1) Upper GI bleed ICD Codes: K92.2 - Gastrointestinal hemorrhage, unspecified SNOMED: 24359510 (2) Anemia ICD Codes: D64.9 - Anemia, unspecified SNOMED: 590493611 (3) Elevated troponin ICD Codes: R79.89 - Other specified abnormal findings of blood chemistry SNOMED: 739042022, 589715712, 673666640 Status: stable, unchanged Status Narrative Discussed with Dr. Fitzgerald. Assessment/Plan EGD/Colonoscopy 12/06/19 SUMMARY OF FINDINGS: 1. Gastritis, status post biopsy. 2. Small hiatal hernia with a small ulceration in the hernia sac. 3. Poor colonic prep and incomplete, only up to ascending colon was examined. 4. Diverticulosis. 5. One colonic polyp removed. 6. Internal hemorrhoids. H. Pylori negative PPI twice daily PO as tolerated Monitor H&H, as needed transfusions to maintain hemoglobin above 7 Occult Blood stool evaluate GI bleed, if positive will need capsule endoscopy IV iron Bowel regimen, add miralax and dulcolax We will follow along on a daily basis with any additional recommendation Subjective ROS Limited/Unobtainable: Yes Allergies: Coded Allergies: PROCHLORPERAZINE (Verified Allergy, Unknown, 11/30/19) Objective Last 24 Hour Vital Signs Date Time Temp Pulse Resp B/P (MAP) Pulse Ox O2 Delivery O2 Flow Rate FiO2 12/14/19 08:25 Room Air 12/14/19 08:00 98.2 80 20 128/66 (86) 92 12/14/19 05:37 120/63 12/14/19 04:05 83 12/14/19 04:00 97.7 85 18 114/63 (80) 94 12/14/19 00:33 130/70 12/14/19 00:33 130/70 12/14/19 00:00 98.0 86 18 130/70 (90) 94 12/14/19 00:00 79 12/13/19 21:05 82 134/71 12/13/19 21:00 Room Air 12/13/19 20:08 95 Room Air 21 12/13/19 20:08 82 18 95 Room Air 21 12/13/19 20:00 81 12/13/19 20:00 98.2 82 18 134/71 (92) 93 12/13/19 17:07 154/72 12/13/19 17:07 154/72 12/13/19 16:00 98.1 86 20 154/72 (99) 95 12/13/19 15:20 82 12/13/19 12:56 151/73 12/13/19 12:00 98.2 87 20 151/73 (99) 100 12/13/19 11:36 87 12/13/19 09:57 135/70 12/13/19 09:00 Room Air Intake and Output 12/13/19 12/14/19 19:00 07:00 Intake Total 390 ml 200 ml Output Total 1400 ml 400 ml Balance -1010 ml -200 ml Intake Oral 390 ml 200 ml Output Urine Total 1400 ml 400 ml Laboratory Tests 12/14/19 05:33: White Blood Count 7.3, Red Blood Count 2.92L, Hemoglobin 8.9L, Hematocrit 25.7L , Mean Corpuscular Volume 88, Mean Corpuscular Hemoglobin 30.5, Mean Corpuscular Hemoglobin Concent 34.7, Red Cell Distribution Width 13.4, Platelet Count 280, Mean Platelet Volume 5.3L, Neutrophils (%) (Auto) 66.8, Lymphocytes ( %) (Auto) 19.2L, Monocytes (%) (Auto) 11.5H, Eosinophils (%) (Auto) 1.9, Basophils (%) (Auto) 0.5, Sodium Level 146H, Potassium Level 2.9L, Chloride Level 107, Carbon Dioxide Level 31, Anion Gap 9, Blood Urea Nitrogen 8, Creatinine 1.1, Estimat Glomerular Filtration Rate , Glucose Level 121H, Calcium Level 8.0L, Phosphorus Level 2.9, Magnesium Level 1.4L Height (Feet): 5 Height (Inches): 9.00 Weight (Pounds): 198 General Appearance: alert EENT: normal ENT inspection Neck: supple Cardiovascular: normal rate Respiratory/Chest: lungs clear Abdomen: normal bowel sounds, non tender, soft Extremities: non-tender Alo Fitzgerald MD Dec 14, 2019 08:52
[2019-12-14] MEDS ORDERED: Sodium Chloride for KCL Premix x 2hrs IV SCH ×3 (09:00→11:00)
[2019-12-14] MEDS: Docusate 100mg cap ORAL SCH ×2 (09:15→17:03)
[2019-12-14] MEDS: Aspirin EC 81mg tab ORAL SCH (09:15)
[2019-12-14] MEDS: Pantoprazole Inj IVP SCH ×2 (09:16→21:06)
--- NOTE | 2019-12-14 09:41 | NUR ---
TRANSFER UPDATE CALLED [facility] AND SPOKE WITH MALCOLM. PATIENT IS ON THE LIST FOR TRANSFER PER MALCOLM THEY EXPECT A BED TO BECOME AVAILABLE IN THE NEXT DAY OR 2 DR MCKEON CALLED TRANSFER CENTER THIS MORNING IN AN ATTEMPT TO PLACE PATIENT ON THE CATH LIST [facility] T: [phone]
--- NOTE | 2019-12-14 11:23 | NUR ---
NURSE NOTES: Jaquez removed intact, well tolerated by pt
[2019-12-14 12:00] VITALS: BP 145/71
--- NOTE | 2019-12-14 14:11 | Cardiology Progress Note ---
Assessment/Plan Assessment/Plan 1. Non ST-elevation myocardial infarction. 2. Pericardial effusion mod to large 3. Renal failure. 4. pneumonia. 5. Occult positive stools. 6. Hypernatremia. 7. GI bleed. 8. Obstructive uropathy. echo personally reviewed on admission no pericardial tamponade no longer has any rhonchi abx may need pericardiocentesis and will need cardiac cath at a a cath facility but in light of renal insuf is at risk for contrast induced renal failure (i did discuss this with pt ) Ecotrin ok wih g bb statin watch on tele tamp surveillance echo in a few days d/w tranfer center they donot think they have a bed today they may have to see about tomorrow in am , i have asked them to call me early in am with that info so he can be transferred to another facility for cath if [facility] cannot accept he is on [facility] operator sched for today and tomorrow at [facility] cr now the lower k and mg supplement Subjective Cardiovascular: Denies: chest pain, lightheadedness, palpitations Respiratory: Denies: shortness of breath Gastrointestinal/Abdominal: Denies: abdominal pain Genitourinary: Denies: burning Objective Last 24 Hour Vital Signs Date Time Temp Pulse Resp B/P (MAP) Pulse Ox O2 Delivery O2 Flow Rate FiO2 12/14/19 12:10 145/71 12/14/19 12:01 71 12/14/19 12:00 98.3 80 20 145/71 (95) 94 12/14/19 09:30 79 20 92 Room Air 21 12/14/19 09:30 92 Room Air 21 12/14/19 09:15 128/66 12/14/19 08:25 Room Air 12/14/19 08:00 98.2 80 20 128/66 (86) 92 12/14/19 07:30 86 12/14/19 05:37 120/63 12/14/19 04:05 83 12/14/19 04:00 97.7 85 18 114/63 (80) 94 12/14/19 00:33 130/70 12/14/19 00:33 130/70 12/14/19 00:00 98.0 86 18 130/70 (90) 94 12/14/19 00:00 79 12/13/19 21:05 82 134/71 12/13/19 21:00 Room Air 12/13/19 20:08 95 Room Air 21 12/13/19 20:08 82 18 95 Room Air 21 12/13/19 20:00 81 12/13/19 20:00 98.2 82 18 134/71 (92) 93 12/13/19 17:07 154/72 12/13/19 17:07 154/72 12/13/19 16:00 98.1 86 20 154/72 (99) 95 12/13/19 15:20 82 General Appearance: no apparent distress, alert Neck: supple Cardiovascular: normal rate Respiratory/Chest: lungs clear Abdomen: normal bowel sounds, non tender, soft Extremities: no swelling Intake and Output 12/13/19 12/14/19 19:00 07:00 Intake Total 390 ml 200 ml Output Total 1400 ml 400 ml Balance -1010 ml -200 ml Intake Oral 390 ml 200 ml Output Urine Total 1400 ml 400 ml Laboratory Tests Test 12/14/19 05:33 12/14/19 11:15 White Blood Count 7.3 K/UL (4.8-10.8) Red Blood Count 2.92 M/UL (4.70-6.10) L Hemoglobin 8.9 G/DL (14.2-18.0) L Hematocrit 25.7 % (42.0-52.0) L Mean Corpuscular Volume 88 FL (80-99) Mean Corpuscular Hemoglobin 30.5 PG (27.0-31.0) Mean Corpuscular Hemoglobin Concent 34.7 G/DL (32.0-36.0) Red Cell Distribution Width 13.4 % (11.6-14.8) Platelet Count 280 K/UL (150-450) Mean Platelet Volume 5.3 FL (6.5-10.1) L Neutrophils (%) (Auto) 66.8 % (45.0-75.0) Lymphocytes (%) (Auto) 19.2 % (20.0-45.0) L Monocytes (%) (Auto) 11.5 % (1.0-10.0) H Eosinophils (%) (Auto) 1.9 % (0.0-3.0) Basophils (%) (Auto) 0.5 % (0.0-2.0) Sodium Level 146 MMOL/L (136-145) H Potassium Level 2.9 MMOL/L (3.5-5.1) L Chloride Level 107 MMOL/L (98-107) Carbon Dioxide Level 31 MMOL/L (21-32) Anion Gap 9 mmol/L (5-15) Blood Urea Nitrogen 8 mg/dL (7-18) Creatinine 1.1 MG/DL (0.55-1.30) Estimat Glomerular Filtration Rate mL/min (>60) Glucose Level 121 MG/DL (74-106) H Calcium Level 8.0 MG/DL (8.5-10.1) L Phosphorus Level 2.9 MG/DL (2.5-4.9) Magnesium Level 1.4 MG/DL (1.8-2.4) L Stool Occult Blood Pending Bob Samuel MD Dec 14, 2019 14:11
[2019-12-14 16:00] VITALS: BP 121/61
--- NOTE | 2019-12-14 19:30 | NUR ---
NURSE NOTES: Received report from WANDER Zamora. Patient is in bed, asleep. Responsive to tactile stimuli. Breathing regular and unlabored with no s/s of SOB noted at this time. IV site is on the RAC 20G, intact, and saline locked. No s/s of discomfort noted at this time. Bed is in lowest position, breaks engaged, and call light is within reach at all times. All other needs attended to, patient is in a stable condition, will continue to monitor.
--- NOTE | 2019-12-14 19:34 | NUR ---
HAND-OFF: Report given to WANDER Sosa.
[2019-12-14 20:00] VITALS: BP 140/96
[2019-12-14] MEDS ORDERED: Miralax 17gm pkt ORAL SCH (21:00)
[2019-12-14] MEDS: Tamsulosin 0.4mg cap ORAL SCH (21:06)
[2019-12-14] MEDS: Iron Sucrose 100 MG in NS 55 ML IV SCH (21:06)
--- NOTE | 2019-12-14 22:45 | Progress Note ---
DATE: 12/14/2019 SUBJECTIVE: This is elderly male sitting in the bed comfortable, waiting for [facility] room for cardiac cath. The patient denies any fever or chills. Short of breath is improving. OBJECTIVE: VITAL SIGNS: Blood pressure is 130/70, pulse 84, respirations 18, no fever. SKIN: Good skin turgor. HEENT: AT/NC. EOMI. PERRLA. NECK: Supple. No JVD. CHEST: Bilateral few crackles. CARDIOVASCULAR: Regular rhythm. No gallop. No murmur. ABDOMEN: Soft. EXTREMITIES: CCE. NEUROLOGICAL: The patient has generalized weakness. ASSESSMENT: 1. CHF. 2. Acute SD. 3. Pericardial effusion. 4. Hypertension. 5. History of renal insufficiency. PLAN: We will admit on medical floor. The patient is on telemetry bed. Rule out of SD. Waiting for cardiac angiogram tomorrow. Jacky Bowers M.D. DR: LORIE JOB#: [id number] CC:
--- NOTE | 2019-12-14 23:45 | NUR ---
NURSE NOTES: Received a call from [facility], spoke to Kathryn in regards to the patient's scheduled appointment for a stent-placement for 12/15/19. Kathryn from transfer line informed this RN that there is still no bed available at this time, but there should be one available in the morning possibly past 7AM. Will inform the morning RN.
[2019-12-15] VITALS: BP 126/64
[2019-12-15] MEDS ORDERED: cloNIDine 0.2mg Tab ORAL PRN (00:45)
[2019-12-15] MEDS: HydrALAZINE 50mg tab ORAL SCH ×2 (01:06→09:07)
[2019-12-15] MEDS: cloNIDine 0.2mg Tab ORAL SCH ×3 (01:06→13:32)
[2019-12-15 04:00] VITALS: BP 119/59
[2019-12-15 06:59] LABS: BASOPHILS % (AUTO) 0.4 % (0.0-2.0); EOSINOPHILS % (AUTO) 1.5 % (0.0-3.0); HEMATOCRIT 27.1 % (42.0-52.0); HEMOGLOBIN 9.4 G/DL (14.2-18.0); LYMPHOCYTES % (AUTO) 17.2 % (20.0-45.0); MEAN CORPUSCULAR VOLUME 89 FL (80-99); MONOCYTES % (AUTO) 11.9 % (1.0-10.0); NEUTROPHILS % (AUTO) 68.9 % (45.0-75.0); PLATELET COUNT 276 K/UL (150-450); RED BLOOD COUNT 3.03 M/UL (4.70-6.10); WHITE BLOOD COUNT 8.8 K/UL (4.8-10.8)
--- NOTE | 2019-12-15 07:16 | NUR ---
HAND-OFF: Report given to Sera, plan of care endorsed, patient remains stable.
--- NOTE | 2019-12-15 07:22 | NUR ---
NURSE NOTES: Received report from WANDER Sosa. Pt in bed, asleep, respirations regular and unlabored, no apparent distress noted, pt has R AC 20g IV site, patent and intact, bed in lowest position, call light within reach, pt has bilateral heel DTI, condom cath on, plan for pt to be transferred to [facility] today for cardiac cath procedure
[2019-12-15 07:42] LABS: ANION GAP 11 mmol/L (5-15); BLOOD UREA NITROGEN 8 mg/dL (7-18); CALCIUM 8.3 MG/DL (8.5-10.1); CARBON DIOXIDE 28 MMOL/L (21-32); CHLORIDE 106 MMOL/L (98-107); POTASSIUM 3.4 MMOL/L (3.5-5.1); SODIUM 145 MMOL/L (136-145)
--- NOTE | 2019-12-15 07:48 | Urology Progress Note ---
Assessment/Plan Status: stable, unchanged Assessment/Plan: 1. History of right-sided renal and ureteral calculi. 2. Hydronephrosis history, status post stent placement. 3. History of renal insufficiency, acute on chronic, which is better. 4. BPH. 5. Urinary retention. 6. Neurogenic bladder. 7. Pyuria. 8. Hematuria. 9. Proteinuria. 10. Renal atrophy. 11. Renal cyst. 12. POD # 13, right ureteral stent. monitor clinically mcgowan out and voiding flomax and proscar tx of stones later, once medically cleared check urine cx/abx PRN reinsert mcgowan PRN check PVR Subjective Allergies: Coded Allergies: PROCHLORPERAZINE (Verified Allergy, Unknown, 11/30/19) Subjective all noted, feels fair, mcgowan removed yest, voiding, condom cath placed Objective Last 24 Hour Vital Signs Date Time Temp Pulse Resp B/P (MAP) Pulse Ox O2 Delivery O2 Flow Rate FiO2 12/15/19 05:39 131/68 12/15/19 04:00 98.1 82 16 119/59 (79) 94 12/15/19 04:00 65 12/15/19 01:06 126/64 12/15/19 01:06 126/64 12/15/19 00:00 98.0 78 16 126/64 (84) 95 12/15/19 00:00 69 12/14/19 21:06 84 140/96 12/14/19 21:00 Room Air 12/14/19 20:00 94 Room Air 21 12/14/19 20:00 68 18 94 Room Air 21 12/14/19 20:00 98.2 84 16 140/96 (111) 95 12/14/19 20:00 72 12/14/19 17:03 121/61 12/14/19 17:03 121/61 12/14/19 16:05 67 12/14/19 16:00 97.5 79 20 121/61 (81) 94 12/14/19 12:10 145/71 12/14/19 12:01 71 12/14/19 12:00 98.3 80 20 145/71 (95) 94 12/14/19 09:30 79 20 92 Room Air 21 12/14/19 09:30 92 Room Air 21 12/14/19 09:15 128/66 12/14/19 08:25 Room Air 12/14/19 08:00 98.2 80 20 128/66 (86) 92 Intake and Output 12/14/19 12/15/19 19:00 07:00 Intake Total 150 ml Output Total 600 ml 400 ml Balance -450 ml -400 ml Intake Oral 150 ml Output Urine Total 600 ml 400 ml Stool Total 0 ml # Voids 1 # Bowel Movements 1 Microbiology Date/Time Source Procedure Growth Status 12/08/19 17:00 Nasal Nares MRSA Culture - Final NO METHICILLIN RESISTANT STAPH AUREUS... Complete 12/08/19 10:42 Urine,Clean Catch Urine Culture - Final NO GROWTH AFTER 48 HOURS Complete 12/08/19 17:00 Rectum VRE Culture - Final NO VANCOMYCIN RESISTANT ENTEROCOCCUS ... Complete Current Medications Medications (Trade) Dose Ordered Sig/En Route PRN Reason Start Time Stop Time Status Last Admin Dose Admin Acetaminophen (Tylenol) 650 mg Q4H PRN ORAL Mild Pain/Temp > 100.5 12/12/19 17:00 01/10/20 16:59 12/15/19 05:44 Albuterol/ Ipratropium (Albuterol/ Ipratropium) 3 ml Q4H PRN HHN Shortness of Breath 12/12/19 17:00 12/16/19 16:59 Amlodipine Besylate (Norvasc) 5 mg Q12H PRN ORAL sbp greater than 160 12/12/19 17:00 01/11/20 16:59 Amlodipine Besylate (Norvasc) 10 mg QHS ORAL 12/12/19 21:00 01/10/20 20:59 12/14/19 21:06 Aspirin (Ecotrin) 81 mg DAILY ORAL 12/13/19 09:00 01/08/20 08:59 12/14/19 09:15 Clonidine HCl (Catapres tab) 0.2 mg EVERY 6 HOURS ORAL 12/15/19 00:45 01/14/20 00:44 12/15/19 05:39 Docusate Sodium (Colace) 100 mg TWICE A DAY ORAL 12/14/19 09:00 01/13/20 08:59 12/14/19 17:03 Duloxetine HCl (Cymbalta) 60 mg DAILY ORAL 12/13/19 09:00 01/10/20 08:59 12/14/19 09:15 Finasteride (Proscar) 5 mg DAILY ORAL 12/13/19 09:00 01/08/20 08:59 12/14/19 09:15 Folic Acid (Folate) 1 mg DAILY ORAL 12/13/19 09:00 01/10/20 08:59 12/14/19 09:15 Furosemide (Lasix) 20 mg DAILY IV 12/13/19 09:00 01/08/20 08:59 12/14/19 09:16 Hydralazine HCl (Apresoline) 50 mg Q8H ORAL 12/12/19 17:00 01/11/20 08:59 12/15/19 01:06 Magnesium Hydroxide (Mom) 30 ml BIDPRN PRN ORAL Constipation 12/13/19 18:45 01/12/20 18:44 12/13/19 18:48 Pantoprazole (Protonix) 40 mg EVERY 12 HOURS IVP 12/12/19 21:00 01/08/20 20:59 12/14/19 21:06 Polyethylene Glycol (Miralax) 17 gm BEDTIME ORAL 12/14/19 21:00 01/13/20 20:59 Tamsulosin HCl (Flomax) 0.4 mg BEDTIME ORAL 12/12/19 21:00 01/08/20 20:59 12/14/19 21:06 Zolpidem Tartrate (Ambien) 5 mg HSPRN PRN ORAL Insomnia 12/12/19 17:00 12/19/19 16:59 Laboratory Tests 12/14/19 11:15: Stool Occult Blood [Pending] 12/14/19 14:45: Troponin I 1.206H 12/15/19 05:31: White Blood Count 8.8, Red Blood Count 3.03L, Hemoglobin 9.4L, Hematocrit 27.1L , Mean Corpuscular Volume 89, Mean Corpuscular Hemoglobin 31.1H, Mean Corpuscular Hemoglobin Concent 34.9, Red Cell Distribution Width 15.0H, Platelet Count 276, Mean Platelet Volume 5.4L, Neutrophils (%) (Auto) 68.9, Lymphocytes (%) (Auto) 17.2L, Monocytes (%) (Auto) 11.9H, Eosinophils (%) (Auto ) 1.5, Basophils (%) (Auto) 0.4, Sodium Level 145, Potassium Level 3.4L, Chloride Level 106, Carbon Dioxide Level 28, Anion Gap 11, Blood Urea Nitrogen 8 , Creatinine 1.0, Estimat Glomerular Filtration Rate , Glucose Level 114H, Calcium Level 8.3L Height (Feet): 5 Height (Inches): 9.00 Weight (Pounds): 193 Objective exam stable mcgowan indwelling urine lakeisha with some debris Neil Flores MD Dec 15, 2019 07:48
[2019-12-15 08:00] VITALS: BP 135/69
--- NOTE | 2019-12-15 08:17 | NUR ---
NURSE NOTES: Notified Dr. Robinson Campuzano 3.4 today, ordered KCL 20 mEq PO QD, order entered
--- NOTE | 2019-12-15 08:54 | General Progress Note ---
Assessment/Plan Status: stable, unchanged Assessment/Plan: Assessment/Plan Problems: (1) Upper GI bleed ICD Codes: K92.2 - Gastrointestinal hemorrhage, unspecified SNOMED: 83226172 (2) Anemia ICD Codes: D64.9 - Anemia, unspecified SNOMED: 193428535 (3) Elevated troponin ICD Codes: R79.89 - Other specified abnormal findings of blood chemistry SNOMED: 786180418, 021661126, 859618864 Status: stable, unchanged Status Narrative Discussed with Dr. Fitzgerald. Assessment/Plan EGD/Colonoscopy 12/06/19 SUMMARY OF FINDINGS: 1. Gastritis, status post biopsy. 2. Small hiatal hernia with a small ulceration in the hernia sac. 3. Poor colonic prep and incomplete, only up to ascending colon was examined. 4. Diverticulosis. 5. One colonic polyp removed. 6. Internal hemorrhoids. H. Pylori negative PPI twice daily PO as tolerated Monitor H&H, as needed transfusions to maintain hemoglobin above 7 Occult Blood stool evaluate GI bleed, if positive will need capsule endoscopy IV iron Bowel regimen, miralax ,dulcolax, will add lactulose pending transfer to [facility] We will follow along on a daily basis with any additional recommendation Subjective ROS Limited/Unobtainable: Yes Allergies: Coded Allergies: PROCHLORPERAZINE (Verified Allergy, Unknown, 11/30/19) Objective Last 24 Hour Vital Signs Date Time Temp Pulse Resp B/P (MAP) Pulse Ox O2 Delivery O2 Flow Rate FiO2 12/15/19 08:32 Room Air 12/15/19 08:00 100.0 77 20 135/69 (91) 95 12/15/19 05:39 131/68 12/15/19 04:00 98.1 82 16 119/59 (79) 94 12/15/19 04:00 65 12/15/19 01:06 126/64 12/15/19 01:06 126/64 12/15/19 00:00 98.0 78 16 126/64 (84) 95 12/15/19 00:00 69 12/14/19 21:06 84 140/96 12/14/19 21:00 Room Air 12/14/19 20:00 94 Room Air 21 12/14/19 20:00 68 18 94 Room Air 21 12/14/19 20:00 98.2 84 16 140/96 (111) 95 12/14/19 20:00 72 12/14/19 17:03 121/61 12/14/19 17:03 121/61 12/14/19 16:05 67 12/14/19 16:00 97.5 79 20 121/61 (81) 94 12/14/19 12:10 145/71 12/14/19 12:01 71 12/14/19 12:00 98.3 80 20 145/71 (95) 94 12/14/19 09:30 79 20 92 Room Air 21 12/14/19 09:30 92 Room Air 21 12/14/19 09:15 128/66 Intake and Output 12/14/19 12/15/19 19:00 07:00 Intake Total 150 ml Output Total 600 ml 400 ml Balance -450 ml -400 ml Intake Oral 150 ml Output Urine Total 600 ml 400 ml Stool Total 0 ml # Voids 1 # Bowel Movements 1 Laboratory Tests 12/14/19 11:15: Stool Occult Blood [Pending] 12/14/19 14:45: Troponin I 1.206H 12/15/19 05:31: White Blood Count 8.8, Red Blood Count 3.03L, Hemoglobin 9.4L, Hematocrit 27.1L , Mean Corpuscular Volume 89, Mean Corpuscular Hemoglobin 31.1H, Mean Corpuscular Hemoglobin Concent 34.9, Red Cell Distribution Width 15.0H, Platelet Count 276, Mean Platelet Volume 5.4L, Neutrophils (%) (Auto) 68.9, Lymphocytes (%) (Auto) 17.2L, Monocytes (%) (Auto) 11.9H, Eosinophils (%) (Auto ) 1.5, Basophils (%) (Auto) 0.4, Sodium Level 145, Potassium Level 3.4L, Chloride Level 106, Carbon Dioxide Level 28, Anion Gap 11, Blood Urea Nitrogen 8 , Creatinine 1.0, Estimat Glomerular Filtration Rate , Glucose Level 114H, Calcium Level 8.3L Height (Feet): 5 Height (Inches): 9.00 Weight (Pounds): 193 General Appearance: alert EENT: PERRL/EOMI Neck: supple Cardiovascular: normal rate Respiratory/Chest: decreased breath sounds Abdomen: non tender, soft Extremities: non-tender Alo Fitzgerald MD Dec 15, 2019 08:54
[2019-12-15] MEDS: Docusate 100mg cap ORAL SCH (09:07)
[2019-12-15] MEDS: Lactulose 20gm/30ml UDC ORAL SCH ×2 (09:07→13:32)
[2019-12-15] MEDS: Pantoprazole Inj IVP SCH (09:07)
[2019-12-15] MEDS: Aspirin EC 81mg tab ORAL SCH (09:07)
--- NOTE | 2019-12-15 09:17 | NUR ---
CASE MANAGEMENT:REVIEW 12/15/19 SI: PNA. NSTEMI AND PERICARDIAL EFFUSION 100.0 77 20 135/69 95% ON RA 3.4 IS: K-DUR PO QD CLONIDINE PO Q6 ASA PO QD IV LASIX QD IV VENOFER QHS NORVASC PO QHS FLOMAX PO QHS HYDRALAZINE PO Q8HRS : TELEMETRY STATUS DCP: FROM [facility] PLAN: TRANSFER FOR PERICARDIOCENTESIS
--- NOTE | 2019-12-15 09:19 | NUR ---
TRANSFER UPDATE CALLED [facility] AND SPOKE WITH KALI. EVEN THOUGH PATIENT IS ON THE LIST FOR RELATIONSHIP EXECUTIVE FOR TODAY, THEY STILL CANNOT ACCEPT BECAUSE THEY DON'T HAVE ANY AVAILABLE BEDS PATIENT HAS BEEN REFERRED TO [facility]. SPOKE WITH [employer] SEWING MACHINE OPERATOR, THOMPSON. WE NEED ACCEPTING [employer] MESSAGE LEFT FOR DR WILLIAMSON REGARDING [employer]
[2019-12-15 12:00] VITALS: BP 132/67
--- NOTE | 2019-12-15 12:43 | NUR ---
NURSE NOTES: Notified Dr. Fitzgerald, OB stool sent 12/15 is positive
--- NOTE | 2019-12-15 13:19 | NUR ---
TRANSFER UPDATE PATIENT IS TRANSFERRING TO [facility] FOR PERICARDIOCENTESIS AND CARDIAC CATH ROOM [address] [facility] HAS BEEN ARRANGED FOR [address] [employer] APPLICATION SUPPORT SPECIALIST NURSE TO CALL T: [phone] FOR REPORT WHICH IS TO BE GIVEN 30 MINUTES PRIOR TO TRANSPORT ALL FILM NEED TO BE PLACED ON DISC AND CHART COPIED Addendum: 12/15/19 at 1336 by SUNITA DERAS LVN LVN SPOKE WITH PATIENT'S SON REGARDING TRANSFER AND HE IS IN AGREEMENT WITH THE PLAN
[2019-12-15] MEDS ORDERED: AMLODIPINE BESY10 MG ORAL (13:31)
[2019-12-15 13:32] VITALS: BP 132/67
[2019-12-15] MEDS ORDERED: FUROSEMIDE40 MG/4 ML IV (13:32)
[2019-12-15] MEDS ORDERED: COLACE100 MG ORAL (13:33)
[2019-12-15] MEDS ORDERED: POTASSIUM CHLO20 ME2 ORAL (13:34)
[2019-12-15] MEDS ORDERED: FLOMAX0.4 MG ORAL (13:35)
[2019-12-15] MEDS ORDERED: PROTONIX IV40 MG IV (13:36)
[2019-12-15] MEDS ORDERED: PROSCAR5 MG ORAL (13:42)
--- NOTE | 2019-12-15 14:01 | NUR ---
NURSE NOTES: Called Report to WANDER Barreto at [facility]
--- NOTE | 2019-12-15 14:01 | Hematology/Onc Progress Note ---
Assessment/Plan Assessment/Plan Assessment and Recs: # Anemia of upper gi bleed, with hematemesis prior to admission, with a decreased h/h --> Anemia workup has been ordered, rule out gi bleed --> No evidence of hemolysis is noted, peripheral smear has been reviewed. --> Hgb goal >7. Transfuse prn. --> IRON IV has been started x 5 days --> Medications have been reviewed --> low threshold for gi evaluation in case has occult + --> bone marrow biopsy is not indicated given the other more likely causes --> hgb trend 13-->10-->10.5-->8.3-->7.4-->9.1->9.4 --> FOLIC ACID 1mg po daily started # Leukocytosis likely reactive due to bleed, acute hx of recent stent placement gu system --> trend as needed, r/o infection, id recs to be reviewed --> wbc 42k->14-->12 --> smear to be reviewed # Upper GI bleed --> as per gi --> may need pill endoscopy # NSTEMI and pericardial effusion --> recs noted by cards --> may need transfer for potential pericardiocentesis # Nausea/Vomiting --> zofran prn basis --> monitor po intake # UTI (urinary tract infection) --> s/p abx # PAULINE (acute kidney injury) --> per renal care # Proteinuria --> r/o dm # Right ureteral calculus with hydronephrosis --> per uro has had a stent placement recently The timing of this note does not necessarily reflect the time of the patient was seen. Greatly appreciate consultation. Subjective Constitutional: Denies: no symptoms, chills, fever, malaise, weakness, other HEENT: Denies: no symptoms, eye pain, blurred vision, tearing, double vision, ear pain, ear discharge, nose pain, nose congestion, throat pain, throat swelling, mouth pain, mouth swelling, other Cardiovascular: Denies: no symptoms, chest pain, edema, irregular heart rate, lightheadedness, palpitations, syncope, other Respiratory: Denies: no symptoms, cough, shortness of breath, SOB with excertion, SOB at rest, sputum, wheezing, other Gastrointestinal/Abdominal: Denies: no symptoms, abdomen distended, abdominal pain, black stools, tarry stools, blood in stool, constipated, diarrhea, difficulty swallowing, nausea, poor appetite, poor fluid intake, rectal bleeding , vomiting, other Genitourinary: Denies: no symptoms, burning, discharge, frequency, flank pain, hematuria, incontinence, pain, urgency, other Neurologic/Psychiatric: Denies: no symptoms, anxiety, depressed, emotional problems, headache, numbness, paresthesia, pre-existing deficit, seizure, tingling, tremors, weakness, other Allergies: Coded Allergies: PROCHLORPERAZINE (Verified Allergy, Unknown, 11/30/19) Subjective 12/12: awake and alert, no acute events, on iv iron 12/13: no bleeding, no chills, labs reviewed, awaiting transf [place] 12/14: still awaiting potential tx to higher level of care for pericardiocentesis , no bleeding or chills 12/15: no major changes, no bleeding or chills, labs noted, pending tx to oc Objective Objective Current Medications Medications (Trade) Dose Ordered Sig/En Route PRN Reason Start Time Stop Time Status Last Admin Dose Admin Acetaminophen (Tylenol) 650 mg Q4H PRN ORAL Mild Pain/Temp > 100.5 12/12/19 17:00 01/10/20 16:59 12/15/19 05:44 Albuterol/ Ipratropium (Albuterol/ Ipratropium) 3 ml Q4H PRN HHN Shortness of Breath 12/12/19 17:00 12/16/19 16:59 Amlodipine Besylate (Norvasc) 5 mg Q12H PRN ORAL sbp greater than 160 12/12/19 17:00 01/11/20 16:59 Amlodipine Besylate (Norvasc) 10 mg QHS ORAL 12/12/19 21:00 01/10/20 20:59 12/14/19 21:06 Aspirin (Ecotrin) 81 mg DAILY ORAL 12/13/19 09:00 01/08/20 08:59 12/15/19 09:07 Clonidine HCl (Catapres tab) 0.2 mg EVERY 6 HOURS ORAL 12/15/19 00:45 01/14/20 00:44 12/15/19 13:32 Docusate Sodium (Colace) 100 mg TWICE A DAY ORAL 12/14/19 09:00 01/13/20 08:59 12/15/19 09:07 Duloxetine HCl (Cymbalta) 60 mg DAILY ORAL 12/13/19 09:00 01/10/20 08:59 12/15/19 09:07 Finasteride (Proscar) 5 mg DAILY ORAL 12/13/19 09:00 01/08/20 08:59 12/15/19 09:07 Folic Acid (Folate) 1 mg DAILY ORAL 12/13/19 09:00 01/10/20 08:59 12/15/19 09:07 Furosemide (Lasix) 20 mg DAILY IV 12/13/19 09:00 01/08/20 08:59 12/15/19 09:06 Hydralazine HCl (Apresoline) 50 mg Q8H ORAL 12/12/19 17:00 01/11/20 08:59 12/15/19 09:07 Lactulose (Cephulac) 20 gm THREE TIMES A DAY ORAL 12/15/19 09:00 01/14/20 08:59 12/15/19 13:32 Magnesium Hydroxide (Mom) 30 ml BIDPRN PRN ORAL Constipation 12/13/19 18:45 01/12/20 18:44 12/13/19 18:48 Pantoprazole (Protonix) 40 mg EVERY 12 HOURS IVP 12/12/19 21:00 01/08/20 20:59 12/15/19 09:07 Polyethylene Glycol (Miralax) 17 gm BEDTIME ORAL 12/14/19 21:00 01/13/20 20:59 Potassium Chloride (K-Dur) 20 meq DAILY ORAL 12/15/19 09:00 01/14/20 08:59 12/15/19 09:06 Tamsulosin HCl (Flomax) 0.4 mg BEDTIME ORAL 12/12/19 21:00 01/08/20 20:59 12/14/19 21:06 Zolpidem Tartrate (Ambien) 5 mg HSPRN PRN ORAL Insomnia 12/12/19 17:00 12/19/19 16:59 Last 24 Hour Vital Signs Date Time Temp Pulse Resp B/P (MAP) Pulse Ox O2 Delivery O2 Flow Rate FiO2 12/15/19 13:32 132/67 12/15/19 12:01 74 12/15/19 12:00 98.2 79 20 132/67 (88) 96 12/15/19 09:07 135/69 12/15/19 08:32 Room Air 12/15/19 08:00 100.0 77 20 135/69 (91) 95 12/15/19 07:43 84 12/15/19 05:39 131/68 12/15/19 04:00 98.1 82 16 119/59 (79) 94 12/15/19 04:00 65 12/15/19 01:06 126/64 12/15/19 01:06 126/64 12/15/19 00:00 98.0 78 16 126/64 (84) 95 12/15/19 00:00 69 12/14/19 21:06 84 140/96 12/14/19 21:00 Room Air 12/14/19 20:00 94 Room Air 21 12/14/19 20:00 68 18 94 Room Air 21 12/14/19 20:00 98.2 84 16 140/96 (111) 95 12/14/19 20:00 72 12/14/19 17:03 121/61 12/14/19 17:03 121/61 12/14/19 16:05 67 12/14/19 16:00 97.5 79 20 121/61 (81) 94 12/14/19 12:10 145/71 12/14/19 12:01 71 12/14/19 12:00 98.3 80 20 145/71 (95) 94 12/14/19 09:30 79 20 92 Room Air 21 12/14/19 09:30 92 Room Air 21 12/14/19 09:15 128/66 12/14/19 08:25 Room Air 12/14/19 08:00 98.2 80 20 128/66 (86) 92 12/14/19 07:30 86 12/14/19 05:37 120/63 12/14/19 04:05 83 12/14/19 04:00 97.7 85 18 114/63 (80) 94 12/14/19 00:33 130/70 12/14/19 00:33 130/70 12/14/19 00:00 98.0 86 18 130/70 (90) 94 12/14/19 00:00 79 2/3/20 21:05 82 134/71 12/13/19 21:00 Room Air 12/13/19 20:08 95 Room Air 21 12/13/19 20:08 82 18 95 Room Air 21 12/13/19 20:00 81 12/13/19 20:00 98.2 82 18 134/71 (92) 93 12/13/19 17:07 154/72 12/13/19 17:07 154/72 12/13/19 16:00 98.1 86 20 154/72 (99) 95 12/13/19 15:20 82 Intake and Output 12/14/19 12/15/19 19:00 07:00 Intake Total 150 ml Output Total 600 ml 400 ml Balance -450 ml -400 ml Intake Oral 150 ml Output Urine Total 600 ml 400 ml Stool Total 0 ml # Voids 1 # Bowel Movements 1 Labs Test 12/14/19 05:33 12/14/19 11:15 12/14/19 14:45 12/15/19 05:31 White Blood Count 7.3 K/UL (4.8-10.8) 8.8 K/UL (4.8-10.8) Red Blood Count 2.92 M/UL (4.70-6.10) 3.03 M/UL (4.70-6.10) Hemoglobin 8.9 G/DL (14.2-18.0) 9.4 G/DL (14.2-18.0) Hematocrit 25.7 % (42.0-52.0) 27.1 % (42.0-52.0) Mean Corpuscular Volume 88 FL (80-99) 89 FL (80-99) Mean Corpuscular Hemoglobin 30.5 PG (27.0-31.0) 31.1 PG (27.0-31.0) Mean Corpuscular Hemoglobin Concent 34.7 G/DL (32.0-36.0) 34.9 G/DL (32.0-36.0) Red Cell Distribution Width 13.4 % (11.6-14.8) 15.0 % (11.6-14.8) Platelet Count 280 K/UL (150-450) 276 K/UL (150-450) Mean Platelet Volume 5.3 FL (6.5-10.1) 5.4 FL (6.5-10.1) Neutrophils (%) (Auto) 66.8 % (45.0-75.0) 68.9 % (45.0-75.0) Lymphocytes (%) (Auto) 19.2 % (20.0-45.0) 17.2 % (20.0-45.0) Monocytes (%) (Auto) 11.5 % (1.0-10.0) 11.9 % (1.0-10.0) Eosinophils (%) (Auto) 1.9 % (0.0-3.0) 1.5 % (0.0-3.0) Basophils (%) (Auto) 0.5 % (0.0-2.0) 0.4 % (0.0-2.0) Sodium Level 146 MMOL/L (136-145) 145 MMOL/L (136-145) Potassium Level 2.9 MMOL/L (3.5-5.1) 3.4 MMOL/L (3.5-5.1) Chloride Level 107 MMOL/L (98-107) 106 MMOL/L (98-107) Carbon Dioxide Level 31 MMOL/L (21-32) 28 MMOL/L (21-32) Anion Gap 9 mmol/L (5-15) 11 mmol/L (5-15) Blood Urea Nitrogen 8 mg/dL (7-18) 8 mg/dL (7-18) Creatinine 1.1 MG/DL (0.55-1.30) 1.0 MG/DL (0.55-1.30) Estimat Glomerular Filtration Rate mL/min (>60) mL/min (>60) Glucose Level 121 MG/DL (74-106) 114 MG/DL (74-106) Calcium Level 8.0 MG/DL (8.5-10.1) 8.3 MG/DL (8.5-10.1) Phosphorus Level 2.9 MG/DL (2.5-4.9) Magnesium Level 1.4 MG/DL (1.8-2.4) Stool Occult Blood Positive (NEGATIVE) Troponin I 1.206 ng/mL (0.000-0.056) Height (Feet): 5 Height (Inches): 9.00 Weight (Pounds): 193 Objective PE: Vitals: reviewed General Appearance: NAD HEENT: normocephalic, atraumatic Neck: non-tender, normal alignment Respiratory/Chest: normal breath sounds bilaterally Cardiovascular/Chest: normal peripheral pulses, normal rate Abdomen: normal bowel sounds, soft, nontender Extremities: normal range of motion Jason Simon MD Dec 15, 2019 14:01
--- NOTE | 2019-12-15 14:39 | NUR ---
NURSE NOTES: Pt discharged to [facility] for cardiac cath and pericardiocentesis, pt left via [facility] ambulance with all belongings, IV R AC 20g SL, ID band removed, tele box removed, pt stable for transfer
--- NOTE | 2019-12-15 17:52 | NUR ---
NURSE NOTES:WOUND CARE FOLLOW-UP NOTES:.Non-blanching erythema sacrum resolving . Moisture denudement resolving. Loose dry skin noted to sacral cleft. Non-tender when palpated.(L)9cm x (W)2cm. Stable dry eschar noted to L heel (L)1.5cm x (W)2.5cm. Periwound is boggy but blanchable and non-tender when palpated. R heel is soft but blanchable. Small ulcer dorsal L foot . Base of wound is gildardo but dry . Edges adherent . Periwound skin is very dry and flaky. No other skin concerns noted. Wound Tx are effective and continued as ordered.
--- NOTE | 2019-12-16 01:45 | Progress Note ---
DATE: 12/15/2019 SUBJECTIVE: The patient is in bed, manageable. No agitation noted. Compliant with care. MENTAL STATUS EXAMINATION: The patient is alert and oriented times self. Mood is neutral to anxious. Affect is flat. Thought process is concrete. Thought content, no suicidal or homicidal ideation. Cognition is impaired. Insight and judgment non-existent. ASSESSMENT: 1. Major depressive disorder. 2. Cognitive impairment. PLAN: 1. Cymbalta will be continued. 2. Provide the patient with reality orientation and supportive therapy. John Granados M.D. DR: EBONIE JOB#: [id number] CC:
--- NOTE | 2019-12-16 04:30 | Discharge Summary ---
DATE OF ADMISSION: 12/08/2019 DATE OF DISCHARGE: 12/15/2019 HOSPITAL COURSE: This is an elderly male, who was admitted for short of breath, CHF, and pericardial effusion. The patient had a cardiac workup and was recommended that the patient need a cardiac cath. He is going to be transferred to [facility]. The patient was given this treatment. He had a 2D echo, chest x-ray, IV Lasix, and bronchodilator treatments. Cardiology, Dr. Samuel was on the case. The patient physically did very well. He is going to go [facility] for cardiac cath. DISCHARGE DIAGNOSES: 1. Coronary artery disease. 2. Hypertension. 3. CHF. 4. History of obstructive uropathy. The patient is going to go [facility] for cardiac cath. Discussed with Dr. Samuel to continue current medications. Jacky Bowers M.D. DR: EREN JOB#: [id number] CC:
--- NOTE | 2019-12-21 21:41 | Coder Physician Query ---
Clarification is required for compliance, coding accuracy, and to reflect severity of illness for this patient. Dear Dr. WILLIAMSON Date: 12/21/19 Eeler: Sirena, CCS Admitted for short of breath, CHF, and pericardial effusion chest x-ray is showing increased retrocardiac consolidation likely pleural fluid , new increased right infrahilar infiltrate. DR MCKEON STATES IN CONSULT:He does have a cough and congestion and should be treated for possibly underlying pneumonia as well as possible likely underlying urinary tract infection A posssible diagnois of PNEUMONIA (Coughing and congestion, possible pneumonia.) was made in the medical record by Investigation Division Sergeant ( CARIOLOGY). Upon review, it is difficult to determine whether this diagnosis has been ruled in, ruled out,or is still being worked up. Please indicate below the status of the PNEUMONIA diagnosis. [] Treated and resolve [] Presumed and treated [] Currently under treatment [] Still being worked-up [] Ruled out Present on Admission: [] Yes [] No [] Clinically Undetermined Jacky Williamson M.D. Date Please also document in your Progress Notes and/or Discharge Summary and indicate if the condition was present on admission. MTDD
== END 2019-12-15 14:39 | disposition short-term general hospital (02) | DRG 280 ==
LOC: EDBD 10:40 → EMR 11:20 → 2W 13:10 → EDBEDREQ 17:14 → 4E 12-11 15:52 → 2E 12-12 16:30
DX: I21.4 Non-ST elevation (NSTEMI) myocardial infarction (principal); J18.9 Pneumonia, unspecified organism; K29.71 Gastritis, unspecified, with bleeding; N17.9 Acute kidney failure, unspecified; N13.2 Hydronephrosis with renal and ureteral calculous obstruction; I31.3 Pericardial effusion (noninflammatory); E87.0 Hyperosmolality and hypernatremia; I13.0 Hypertensive heart and chronic kidney disease with heart failure and stage 1 through stage 4 chronic kidney disease, or unspecified chronic kidney disease; D64.9 Anemia, unspecified; I25.10 Atherosclerotic heart disease of native coronary artery without angina pectoris; N18.9 Chronic kidney disease, unspecified; M19.90 Unspecified osteoarthritis, unspecified site; Z86.718 Personal history of other venous thrombosis and embolism; K21.9 Gastro-esophageal reflux disease without esophagitis; N40.1 Benign prostatic hyperplasia with lower urinary tract symptoms; R33.8 Other retention of urine; N28.1 Cyst of kidney, acquired; Z88.8 Allergy status to other drugs, medicaments and biological substances; Z79.82 Long term (current) use of aspirin; D50.0 Iron deficiency anemia secondary to blood loss (chronic); F32.9 Major depressive disorder, single episode, unspecified; K44.9 Diaphragmatic hernia without obstruction or gangrene; K57.90 Diverticulosis of intestine, part unspecified, without perforation or abscess without bleeding; Z86.010 Personal history of colon polyps; K64.8 Other hemorrhoids; N31.9 Neuromuscular dysfunction of bladder, unspecified; I50.9 Heart failure, unspecified
CPT/HCPCS: 36415; 71045; 74018; 80048; 80053; 80061; 81003; 82270; 82728; 83540; 83550; 83690; 83735; 83880; 84100; 84484; 85007; 85025; 85610; 85730; 86850; 86900; 86901; 87081; 87086; 93005; 93306; 94640; 94664; 96361; 96374; 99291; J2405; J7030; J7620; J8499

== ENCOUNTER 2020-06-09 11:00 | Inpatient (IN) | payer MEDICARE, MEDICAID ==
[~2020-06-09] VITALS: Ht 172.7 cm; Wt 71.7 kg
[~2020-06-09 11:00] MED LIST changes: +AMLODIPINE BESY10 MG ORAL; +COLACE100 MG ORAL; +FLOMAX0.4 MG ORAL; +FUROSEMIDE40 MG/4 ML IV; +POTASSIUM CHLO20 ME2 ORAL; +PROSCAR5 MG ORAL; +PROTONIX IV40 MG IV
--- NOTE | 2020-06-09 11:05 | NUR ---
ED Nurse Note: Pt brought in by ambulance from [facility] c/o n/v with coffee ground emesis today x 2. Pt denies pain/SOB at this time. Respirations even and unlabored on room air. BP elevated in the 160s systolic. All other vitals stable as documented. A+Ox4, calm, cooperative, cheerful, speaking in full sentences. Pt denies diarrhea.
[2020-06-09] MEDS ORDERED: CRESTOR10 M2 ORAL (11:13)
[2020-06-09] MEDS ORDERED: POLYETHYLENE GL17 GM ORAL (11:13)
[2020-06-09] MEDS ORDERED: COLCHICINE0.6 M1 PO (11:13)
[2020-06-09] MEDS ORDERED: MAGNESIUM OXID400 M1 ORAL (11:13)
[2020-06-09] MEDS ORDERED: VITAMIN D32400 UNIT/ MC (11:13)
[2020-06-09] MEDS ORDERED: AMBIEN5 MG ORAL (11:13)
[2020-06-09] MEDS ORDERED: MILK OF MA400 MG/51 ORAL (11:13)
[2020-06-09] MEDS ORDERED: METOPROLOL TART25 MG ORAL (11:13)
[2020-06-09] MEDS ORDERED: MELATONIN3 MG ORAL (11:13)
[2020-06-09] MEDS ORDERED: SENNA8.6 M2 PO (11:13)
--- NOTE | 2020-06-09 11:22 | NUR ---
ED Nurse Note: blood sent to lab
[2020-06-09] MEDS ORDERED: Pantoprazole Inj IV ONE (11:30)
[2020-06-09] MEDS ORDERED: cefTRIAXone 1 GM in NS 55 ML IVPB ONE (11:30)
[2020-06-09 11:34] VITALS: BP 163/84
[2020-06-09 11:45] LABS: HEMOGLOBIN 10.7 G/DL (14.2-18.0); MEAN CORPUSCULAR VOLUME 97 FL (80-99); PLATELET COUNT 273 K/UL (150-450); RED BLOOD COUNT 3.41 M/UL (4.70-6.10); RED CELL DISTRIBUTION WIDTH 13.8 % (11.6-14.8); WHITE BLOOD COUNT 12.1 K/UL (4.8-10.8)
[2020-06-09 11:57] LABS: ANION GAP 14 mmol/L (5-15); BLOOD UREA NITROGEN 86 mg/dL (7-18); CARBON DIOXIDE 18 MMOL/L (21-32); CHLORIDE 106 MMOL/L (98-107); CREATININE 2.9 MG/DL (0.55-1.30); POTASSIUM 5.2 MMOL/L (3.5-5.1); SODIUM 138 MMOL/L (136-145)
[2020-06-09 12:02] LABS: ALANINE AMINOTRANSFERASE 34 U/L (12-78); ALBUMIN/GLOBULIN RATIO 0.5 (1.0-2.7); ALKALINE PHOSPHATASE 119 U/L (46-116); ASPARTATE AMINO TRANSFERASE 31 U/L (15-37); BILIRUBIN,TOTAL 0.3 MG/DL (0.2-1.0)
[2020-06-09 12:10] LABS: APPEARANCE,URINE SLIGHTLY CLOUDY; BILIRUBIN, URINE NEGATIVE (NEGATIVE); COLOR,URINE PALE YELLOW; GLUCOSE, URINE (UA) NEGATIVE (NEGATIVE); KETONES,URINE NEGATIVE (NEGATIVE); LEUKOCYTE ESTERASE ,URINE 3+ (NEGATIVE); NITRITE,URINE NEGATIVE (NEGATIVE); PH,URINE 5 (4.5-8.0); PROTEIN,URINE 2+ (NEGATIVE); UROBILINOGEN,URINE NORMAL MG/DL (0.0-1.0)
--- NOTE | 2020-06-09 12:11 | NUR ---
ED Nurse Note: patient able to use urinal by himself. patient voided using urinal.
--- NOTE | 2020-06-09 12:20 | Diagnostic Imaging Report ---
Procedure: XRAY Chest 1v Reason for study: Cough Comparison films: 12/08/2019. FINDINGS: A single one view chest is obtained. Vascularity is normal. The lung martinez are clear bilaterally. Cardiac and mediastinal silhouette are within normal limits. CP angles are sharp. There is colonic interposition noted in the right upper quadrant. IMPRESSION: NO ACUTE CARDIOPULMONARY DISEASE.
--- NOTE | 2020-06-09 13:52 | NUR ---
ED Nurse Note: Report given to Uday VIRAMONTES, endorsed all plan of care.
--- NOTE | 2020-06-09 14:06 | Emergency Room Report ---
History of Present Illness General Chief Complaint: Vomiting Source: Patient Present Illness HPI 80-year-old male with past medical history of previous EtOH abuse, ruptured peptic ulcer status post exploratory laparotomy, hypertension brought in by ambulance for coffee-ground emesis x1 prior to arrival. Last bowel movement was yesterday and nonbloody. Last oral intake was also yesterday. Patient states that he had a recent colonoscopy that found nonmalignant polyps but is unsure of his last EGD. He states his last alcoholic beverage was 10 years ago. He denies chest pain, cough, shortness of breath, nausea, fever, dysuria, trauma or falls. The patient's symptoms were gradual onset, severity was moderate, duration since 1 day. Quality: Bleeding Severity: Mod Past medical history: etoh abuse in remission Past surgical history: ex lap for bleeding ulcer Smoking: denies Alcohol use: previous Drug use: Denies Review of systems: CONST: No fevers or chills, No night sweats PULMONARY: No productive cough, No shortness of breath CARDIAC: No chest pain, No palpitations GI: + vomiting, No diarrhea , No melena_or_BRBPR : No dysuria, No hematuria, No discharge NEURO: No new_focal_weakness_or_numbness, No confusion, No vision changes 14 point Review of Systems is otherwise negative except per HPI Physical Exam: GENERAL: Awake_alert_ nontoxic, no acute distress Spo2 98% on RA -normal EYES: Extraocular muscles are intact. Conjunctivae clear. Lids without swelling ENT: External nose and ear normal_in_appearance. Oropharynx clear. Head_ atraumatic, Moist_oral_mucosa NECK: No JVD. No meningismus. No thyromegaly. Supple. Trachea midline RESP: Normal respiratory effort. Symmetric rise. No stridor. Clear_to_ auscultation_No_rales_No_wheezes CARDIAC: Regular rate and regular rhythm on_auscultation No_significant pedal edema. ABDOMEN: Soft. Nondistended. Nontender_No_rebound_or_guarding. Non- peritoneal. No Thanh sign Old well-healing surgical incision site (ex lap) is clean, dry, intact. MSK: Normal muscle tone, without rigidity. Extremities without asymmetric deformity or swelling. SKIN: Warm and dry. No visible cyanosis or pallor NEUROLOGIC: Alert, oriented x3. Motor_and_sensation_grossly_intact. No truncal ataxia. Gait_normal Psych: Normal mood and affect, normal judgment and insight - COORDINATION OF CARE Case was discussed with: Patient , Patient's Physician Any labs and imaging that were ordered were interpreted as part of the medical decision making: Medical Decision Making/Plan: Differential diagnosis includes upper GI bleed from bleeding peptic ulcer, bleeding duodenal ulcer, gastritis, esophageal varices, gastric varices, among others. Initial vital signs are unremarkable. Abdominal examination demonstrates old exploratory laparotomy which is apparently from a previous ruptured peptic ulcer. Today however patient is hemodynamically stable. Abdominal examination is non-peritoneal. He has not vomited while here in the emergency department. Given the possibility of a bleeding peptic ulcer, Protonix IV was immediately started. No known history of varices. Will hold off on octreotide drip. Also started and Ceftriaxone IV also given. The patient does not require any emergent anticoagulation reversal at this time point, although it was considered. Because the patients hemoglobin is stable, emergent transfusion was not started ; however, the patient will need to be admitted for serial hemoglobin checks, and if downtrending, transfusion may be indicated at a later time. Patient is protecting their airway, no active vomiting, no need for NG tube or intubation at this time. The patient is currently hemodynamically stable, and stable for transfer to the floor at this time. I spoke with Dr. Bowers, and reviewed the patients presentation, workup, results, and treatment. They will admit the patient for further care and evaluation, and assume care of the patient at this time. Allergies: Coded Allergies: PROCHLORPERAZINE (Verified Allergy, Unknown, 06/09/20) COVID-19 Screening Contact w/high risk pt: No Experienced COVID-19 symptoms?: No COVID-19 Testing performed ASSISTANT TO THE CEO: No Nursing Documentation-PMH Past Medical History: No History, Except For Hx Hypertension: Yes - GERD, BPH, MDD Hx COPD: Yes Hx Cancer: No Hx Gastrointestinal Problems: Yes Hx Neurological Problems: Yes Hx Dementia: Yes Physical Exam Vital Signs Date Time Temp Pulse Resp B/P (MAP) Pulse Ox O2 Delivery O2 Flow Rate FiO2 06/09/20 11:00 98.4 70 18 162/80 (107) 97 Room Air Sp02 EP Interpretation: reviewed, normal Medical Decision Making Diagnostic Impression: Primary Impression: Upper GI bleed Additional Impressions: Hypertension Anemia PAULINE (acute kidney injury) UTI (urinary tract infection) EKG Diagnostic Results ASA given to the pt in ED: No Rhythm Strip Diag. Results Rhythm Strip Time: 11:25 EP Interpretation: yes Rate: 76 Rhythm: NSR, no PVC's, no ectopy Chest X-Ray Diagnostic Results Chest X-Ray Diagnostic Results : PA Scribe Text Chest X-Ray: Views: 1 view(s) Indication: Coronavirus Findings: Normal heart size. Mediastinum normal. No infiltrate. Impression: No acute disease The X-ray(s) were independently viewed and interpreted contemporaneously Electronically signed by Priscila miller DO Last Vital Signs Date Time Temp Pulse Resp B/P (MAP) Pulse Ox O2 Delivery O2 Flow Rate FiO2 06/09/20 11:34 72 20 Room Air 06/09/20 11:34 98.2 163/84 98 Disposition: ADMITTED INPATIENT Admit Decision Time: 12:30 Condition: Stable Referrals: Chris Bowers MD (PCP) Priscila Dejesus D.O. Jun 09, 2020 14:06
--- NOTE | 2020-06-09 14:14 | NUR ---
ED Nurse Note: patient transferred to with all of his belongings, endorsed all plan of care to Uday VIRAMONTES. patient is alert awake x3 stable vital signs.
--- NOTE | 2020-06-09 14:15 | NUR ---
NURSE NOTES: Received report from WANDER Laura of ED. Received patient from ED via gurney transport. Patient came from [facility]. Pt reported with coffee ground emesis x 2 today. Assessed patient from head to toe. Patient is AAO x 4, nonambulatory, on bedrest. VS P 69 T 97.0 P 69 R 24 BP 185-89 with no c/o pain. Pt denies dizziness or nausea at this time. Pt states he is transported via wheelchair at [facility]. Pt is on RA, lung sounds CTA, in no apparent respiratory distress. Pt is continent x 2 and was able to use urinal during assessment independently. Pt has contracture to LLE, unable to straighten leg. Skin intact, pIV to L FA 20g with no s/s of infection or infiltration. Patient made comfortable in bed. Bed in lowest position, bed alarm on, side rails up x 3, with call light within reach. Patient oriented to unit and room. Reconciled belongings with patient. Provided bedside teaching re disease process and to notify if needing assistance to ensure fall prevention. Dr. Bowers notified of admission. Awaiting orders. Will continue to f/u.
[2020-06-09] MEDS ORDERED: Pantoprazole Inj IVP SCH (15:00)
[2020-06-09 16:00] VITALS: BP 156/76
--- NOTE | 2020-06-09 18:10 | Consultation ---
Consult Note Consult Note I am asked to evaluate the patient at the request of Dr. Bowers for renal failure Patient seen in room 403. According to the nurse patient is cold with positive Patient interviewed Patient examined Data reviewed ER note: Chief Complaint: Vomiting Source: Patient 80-year-old male with past medical history of previous EtOH abuse, ruptured peptic ulcer status post exploratory laparotomy, hypertension brought in by ambulance for coffee-ground emesis x1 prior to arrival. Last bowel movement was yesterday and nonbloody. Last oral intake was also yesterday. Patient states that he had a recent colonoscopy that found nonmalignant polyps but is unsure of his last EGD. He states his last alcoholic beverage was 10 years ago. He denies chest pain, cough, shortness of breath, nausea, fever, dysuria, trauma or falls. The patient's symptoms were gradual onset, severity was moderate, duration since 1 day. Quality: Bleeding Severity: Mod Past medical history: etoh abuse in remission Past surgical history: ex lap for bleeding ulcer Smoking: denies Alcohol use: previous Drug use: Denies COVID-19 Screening Contact w/high risk pt: No Experienced COVID-19 symptoms?: No COVID-19 Testing performed MANAGER FRONT: No Past Medical History: No History, Except For Hx Hypertension: Yes - GERD, BPH, MDD Hx COPD: Yes Hx Gastrointestinal Problems: Yes Hx Neurological Problems: Yes Hx Dementia: Yes Review of systems: CONST: No fevers or chills, No night sweats PULMONARY: No productive cough, No shortness of breath CARDIAC: No chest pain, No palpitations GI: + vomiting, No diarrhea , No melena_or_BRBPR : No dysuria, No hematuria, No discharge NEURO: No new_focal_weakness_or_numbness, No confusion, No vision changes Vital Signs Date Time Temp Pulse Resp B/P (MAP) Pulse Ox O2 Delivery O2 Flow Rate FiO2 06/09/20 11:00 98.4 70 18 162/80 (107) 97 Room Air . PHYSICAL EXAMINATION: VITAL SIGNS: Temperature 98.2, pulse 64, blood pressure 150/69. GENERAL APPEARANCE: No acute distress. Seems to have normal weight. HEAD AND NECK: No oral lesion. HEART: Normal rate. LUNGS: Clear. ABDOMEN: Abdominal examination demonstrates old exploratory laparotomy which is apparently from a previous ruptured peptic ulcer. Today however patient is hemodynamically stable. Abdominal examination is non-peritoneal. He has not vomited while here in 4E according to the nurse EXTREMITIES: No edema. LABORATORY AND DIAGNOSTIC DATA: WBC at the time of admission was 12.1, now currently 8.1, hemoglobin 10.7, the latest one is 8.4, platelets 223. Sodium 139, potassium 5.4, chloride 109, bicarb 22, BUN 68, creatinine 2.5. Serum iron is low 22, iron saturation is also low. Albumin is 2.4. Urine culture is growing yeast. Nasal MRSA is positive. COVID test is positive. Chest x-ray was done and showed no acute cardiopulmonary disease. Abdominal examination demonstrates old exploratory laparotomy which is apparently from a previous ruptured peptic ulcer. Today however patient is hemodynamically stable. Abdominal examination is non-peritoneal. He has not vomited while here in 4E according to the nurse Assessment/Plan Acute renal failure most likely acute superimposed on chronic Presents with coffee-ground vomiting and GI bleed BUN is disproportionately higher than creatinine compatible with GI bleed Anemia Evidence of UTI COVID positive as per RN Remote history of alcohol abuse Previous laparotomy x2 for bleeding peptic ulcer Hypertension Suggestions: Slow hydration Monitor renal parameters Avoid nephrotoxic's Antibiotics IV Protonix Monitor hemoglobin and hematocrit Monitor intake and output Flomax nightly Per orders GI consult Patient had 2 other admissions at [facility] previously. This is his third admission. I spent an additional 36 minutes on review of medical records including prior hospital records,consult notes, progress notes, procedures ,imaging labs, hemodynamics, and other clinical documentation. Over 35 min Vineet Matthews MD Jun 09, 2020 18:10
--- NOTE | 2020-06-09 18:30 | History and Physical Report ---
DATE OF ADMISSION: 06/09/2020 HISTORY OF PRESENT ILLNESS: This is a 80-year-old male who came to the emergency room for having recurrent nausea, vomiting, coffee-ground emesis. The patient was also found to have COVID-19 positive and has urinary tract infection and renal insufficiency. The patient alert and oriented x 2, sitting in the bed, enjoying his soft diet. The patient has no short of breath. No cough. No fever. PAST MEDICAL HISTORY: Significant for CHF, cardiomyopathy, hypertension, coronary artery disease, history of gout. MEDICATIONS: He was taking aspirin, vitamin D, colchicine, Proscar, hydralazine, metoprolol, Protonix, Flomax, Ambien. ALLERGIES: Prochlorperazine. FAMILY HISTORY: Noncontributory. PHYSICAL EXAMINATION: VITAL SIGNS: Blood pressure 156/76, pulse 64, respirations 18, temperature 97.7. SKIN: Good skin turgor. HEENT: NAD. CHEST: Bilaterally clear. CARDIOVASCULAR: Regular rhythm. ABDOMEN: Soft. No tenderness. GENITOURINARY: Deferred. LABORATORY AND DIAGNOSTIC DATA: White counts are 12,000, hemoglobin 11, hematocrit 33, platelets are 273. Chemistry panel, BUN 86, creatinine 2.9, glucose 146. Urine 3+ leukocyte esterase, wbc's 40 to 60. Coagulation, INR is 1. Imaging, chest x-ray shows no acute cardiopulmonary disease. ASSESSMENT: 1. Recurrent nausea and vomiting. 2. Acute renal failure. 3. CHF. 4. Coronary artery disease. 5. Hypertension. 6. History of fracture of the ankle, which is healing. PLAN: We will currently continue IV fluid, PPI, clonidine. Consider Protonix. Ceftriaxone for UTI. Consider GI consult and Nephrology consult. Monitor BUN and creatinine and advance the diet as tolerated. The patient also has COVID-19 positive. We are keeping him in isolation. We will discuss with the son prognosis and diagnoses. Jacky Bowers M.D. DR: Yuki JOB#: [id number] CC:
--- NOTE | 2020-06-09 19:20 | NUR ---
HAND-OFF: Report given to WANDER Hodges. Endorsed POC.
--- NOTE | 2020-06-09 19:30 | NUR ---
NURSE NOTES: Received patient in no apparent distress. A&OX4. IV site patent and intact. Bed in lowest position. Call light within reach. Will continue to monitor.
[2020-06-09 20:00] VITALS: BP 128/60
[2020-06-09] MEDS: Pantoprazole Inj IVP SCH (20:19)
[2020-06-09] MEDS: Sucralfate 1gm tab ORAL SCH (20:19)
[2020-06-09] MEDS: Tamsulosin 0.4mg cap ORAL SCH (20:19)
[2020-06-09] MEDS: HydrALAZINE 50mg tab ORAL SCH (21:57)
[2020-06-09] MEDS ORDERED: HydrALAZINE 50mg tab ORAL SCH (22:00)
[2020-06-10] VITALS: BP 100/52
[2020-06-10 04:00] VITALS: BP 107/53
[2020-06-10] MEDS: HydrALAZINE 50mg tab ORAL SCH (05:47)
[2020-06-10 06:27] LABS: BASOPHILS % (AUTO) 0.7 % (0.0-2.0); EOSINOPHILS % (AUTO) 1.6 % (0.0-3.0); HEMATOCRIT 26.3 % (42.0-52.0); HEMOGLOBIN 8.4 G/DL (14.2-18.0); LYMPHOCYTES % (AUTO) 25.1 % (20.0-45.0); MEAN CORPUSCULAR VOLUME 97 FL (80-99); MONOCYTES % (AUTO) 14.7 % (1.0-10.0); NEUTROPHILS % (AUTO) 57.9 % (45.0-75.0); PLATELET COUNT 223 K/UL (150-450); RED BLOOD COUNT 2.71 M/UL (4.70-6.10); RED CELL DISTRIBUTION WIDTH 13.6 % (11.6-14.8); WHITE BLOOD COUNT 8.1 K/UL (4.8-10.8)
[2020-06-10 06:55] LABS: % IRON SATURATION 13 % (15-50); IRON 22 ug/dL (50-175); TOTAL IRON BINDING CAPACITY 165 ug/dL (250-450)
[2020-06-10 06:58] LABS: AMMONIA 11 umol/L (11-32)
[2020-06-10 07:04] LABS: GAMMA GLUTAMYL TRANSPEPTIDASE 52 U/L (5-85); PHOSPHORUS 4.2 MG/DL (2.5-4.9)
--- NOTE | 2020-06-10 07:15 | NUR ---
HAND-OFF: Report given to Uday VIRAMONTES. VS stable. Bed in lowest position. Call light within reach. Will continue to monitor.
--- NOTE | 2020-06-10 07:15 | NUR ---
HAND-OFF: Report given to WANDER Mercer. Endorsed POC.
--- NOTE | 2020-06-10 07:15 | NUR ---
NURSE NOTES: Received report from WANDER Hodges. Patient is AAO x 4, nonambulatory, on bedrest. Pt is on RA, lung sounds CTA, in no apparent respiratory distress. Pt is continent x 2 and able to use urinal independently. Pt has contracture to LLE, unable to straighten leg. Skin intact, pIV to L FA 20g with no s/s of infection or infiltration with IVF of NS at 75ml/hr. Patient made comfortable in bed. Bed in lowest position, bed alarm on, side rails up x 3, with call light within reach. Will continue to POC.
[2020-06-10 07:20] LABS: ALANINE AMINOTRANSFERASE 26 U/L (12-78); ALBUMIN 2.4 G/DL (3.4-5.0); ALBUMIN/GLOBULIN RATIO 0.5 (1.0-2.7); ALKALINE PHOSPHATASE 94 U/L (46-116); ANION GAP 8 mmol/L (5-15); ASPARTATE AMINO TRANSFERASE 18 U/L (15-37); BILIRUBIN,TOTAL 0.3 MG/DL (0.2-1.0); BLOOD UREA NITROGEN 68 mg/dL (7-18); CARBON DIOXIDE 22 MMOL/L (21-32); CHLORIDE 109 MMOL/L (98-107); CHOLESTEROL 76 MG/DL (< 200); CREATININE 2.5 MG/DL (0.55-1.30); FERRITIN 65 NG/ML (8-388); HDL CHOLESTEROL 50 MG/DL (40-60); POTASSIUM 5.4 MMOL/L (3.5-5.1); SODIUM 139 MMOL/L (136-145); TRIGLYCERIDES 57 MG/DL (30-150)
[2020-06-10 08:00] VITALS: BP 128/61
[2020-06-10] MEDS: cefTRIAXone 1 GM in D5W 55 ML IVPB SCH (08:28)
[2020-06-10] MEDS: Sucralfate 1gm tab ORAL SCH ×4 (08:29→20:34)
[2020-06-10] MEDS: Pantoprazole Inj IVP SCH ×2 (08:29→20:35)
[2020-06-10] MEDS ORDERED: Docusate 100mg cap ORAL SCH (09:00)
[2020-06-10] MEDS ORDERED: Sodium Polystyrene Sulfonate 15gm Powder ORAL SCH (10:15)
--- NOTE | 2020-06-10 11:25 | NUR ---
NURSE NOTES: Patient transferred to SDU. Report given to WANDER Ceballos. Endorsed POC. Addendum: 06/10/20 at 1145 by Uday Perez RN Error in documentation. Please disregard.
[2020-06-10 12:00] VITALS: BP 120/53
[2020-06-10] MEDS ORDERED: Iron Sucrose 200 MG in NS 110 ML IV ONE (12:00)
[2020-06-10] MEDS ORDERED: Potassium Chloride 10 MEQ in D5 1/2NS 1,000 ML IV SCH (12:45)
--- NOTE | 2020-06-10 12:45 | Nephrology Progress Note ---
Assessment/Plan Problem List: (1) PAULINE (acute kidney injury) (2) Upper GI bleed (3) Hypertension (4) UTI (urinary tract infection) (5) Anemia (6) COVID-19 Assessment Acute renal failure most likely acute superimposed on chronic Presents with coffee-ground vomiting and GI bleed BUN is disproportionately higher than creatinine compatible with GI bleed Anemia Evidence of UTI COVID positive Remote history of alcohol abuse Previous laparotomy x2 for bleeding peptic ulcer Hypertension Plan Start p.o. folic acid Slow hydration, change IV to D5 one half normal saline IV iron Kayexalate for hyperkalemia as needed Monitor renal parameters, serum creatinine is lowering Avoid nephrotoxic's Antibiotics IV Protonix Monitor hemoglobin and hematocrit Monitor intake and output Flomax nightly Per orders GI consult Subjective ROS Limited/Unobtainable: No Constitutional: Reports: malaise Objective Objective Last 24 Hour Vital Signs Date Time Temp Pulse Resp B/P (MAP) Pulse Ox O2 Delivery O2 Flow Rate FiO2 06/10/20 12:00 98.4 58 18 120/53 (75) 97 06/10/20 09:00 Room Air 06/10/20 08:43 60 128/61 06/10/20 08:00 98.1 60 18 128/61 (83) 96 06/10/20 05:47 107/53 06/10/20 04:00 98.7 90 18 107/53 (71) 96 06/10/20 00:00 99.0 82 18 100/52 (68) 95 06/09/20 21:57 128/60 06/09/20 21:00 Room Air 06/09/20 20:18 78 128/60 06/09/20 20:00 98.4 78 18 128/60 (82) 96 06/09/20 16:00 97.7 64 18 156/76 (102) 96 06/09/20 15:00 185/89 06/09/20 14:32 Room Air 06/09/20 14:10 98.2 72 18 163/84 98 Room Air Intake and Output 06/09/20 06/10/20 19:00 07:00 Intake Total 780 ml 825 ml Output Total 300 ml 700 ml Balance 480 ml 125 ml Intake Oral 480 ml IV Total 300 ml 825 ml Output Urine Total 300 ml 700 ml # Voids 2 Laboratory Tests 06/09/20 12:50: Stool Occult Blood [Pending] 06/09/20 19:30: Urine Random Sodium 82 06/10/20 05:22: White Blood Count 8.1, Red Blood Count 2.71L, Hemoglobin 8.4L, Hematocrit 26.3L , Mean Corpuscular Volume 97, Mean Corpuscular Hemoglobin 31.1H, Mean Corpuscular Hemoglobin Concent 32.1, Red Cell Distribution Width 13.6, Platelet Count 223, Mean Platelet Volume 5.4L, Neutrophils (%) (Auto) 57.9, Lymphocytes ( %) (Auto) 25.1, Monocytes (%) (Auto) 14.7H, Eosinophils (%) (Auto) 1.6, Basophils (%) (Auto) 0.7, Sodium Level 139, Potassium Level 5.4H, Chloride Level 109H, Carbon Dioxide Level 22, Anion Gap 8, Blood Urea Nitrogen 68H, Creatinine 2.5H, Estimat Glomerular Filtration Rate 30.1, Glucose Level 97, Hemoglobin A1c 5.5, Uric Acid 6.0, Calcium Level 8.0L, Phosphorus Level 4.2, Magnesium Level 2.1, Iron Level 22L, Total Iron Binding Capacity 165L, Percent Iron Saturation 13L, Unsaturated Iron Binding 143, Ferritin 65, Total Bilirubin 0.3, Gamma Glutamyl Transpeptidase 52, Aspartate Amino Transf (AST/SGOT) 18, Alanine Aminotransferase (ALT/SGPT) 26, Alkaline Phosphatase 94, Ammonia 11, Troponin I 0.000, C-Reactive Protein, Quantitative 11.9H, Pro-B-Type Natriuretic Peptide 2825H, Total Protein 6.8, Albumin 2.4L, Globulin 4.4, Albumin/Globulin Ratio 0.5L, Triglycerides Level 57, Cholesterol Level 76, LDL Cholesterol 18, HDL Cholesterol 50, Cholesterol/HDL Ratio 1.5L, Vitamin B12 Level 481, Folate 6.2L, Thyroid Stimulating Hormone (TSH) 1.139 Height (Feet): 5 Height (Inches): 8.00 Weight (Pounds): 160 General Appearance: no apparent distress, lethargic Cardiovascular: normal rate Respiratory/Chest: decreased breath sounds Abdomen: soft, distended Vineet Matthews MD Jun 10, 2020 12:45
[2020-06-10] MEDS: D5 1/2NS w/KCL 10meq 1,000 ML IV SCH (13:33)
[2020-06-10] MEDS: HydrALAZINE 25mg tab ORAL SCH ×2 (13:34→22:00)
[2020-06-10] MEDS: Docusate 100mg cap ORAL SCH ×2 (13:34→17:55)
--- NOTE | 2020-06-10 14:44 | NUR ---
CASE MANAGEMENT: INITIAL REVIEW 80 YO M [facility] FROM [facility] CC: COFFEE GROUND EMESIS PMHx: EtOH abuse, ruptured peptic ulcer status post exploratory laparotomy, hypertension SI:UPPER GIB. COVID (+) T 98.4 HR 70 RR 18 B/P 162/80 SATS 97% ON RA LABS: WBC 12.1 K 5.2 CO2 18 BUN 86 CR 2.9 GLU 146 ALP 119 STOOL OB: PENDING IS: CXR Impression: No acute disease PATIENT ADMITTED TO MED/SURG 06/09/2020 @ 1236 DCP: SNF PLAN OF CARE: GI consult and Nephrology consult continue IV fluid, PPI, clonidine
[2020-06-10 16:00] VITALS: BP 143/64
--- NOTE | 2020-06-10 16:30 | Consultation ---
DATE OF CONSULTATION: 06/10/2020 HISTORY OF PRESENT ILLNESS: This is an 80-year-old male with history of previous alcohol abuse, history of peptic ulcer disease, who was brought to the hospital with upper GI bleed. He was having coffee-ground emesis. The patient was admitted to the hospital. He has been seen by Nephrology, and GI has been consulted. The patient has been noted to be normoxemia on room air and his x-ray chest, which was obtained yesterday, has shown clear lung martinez bilaterally. The patient was transiently hypotensive, but this has resolved. At this time, the patient denies any new complaints. PAST HISTORY: History of alcohol abuse, previous laparotomy for peptic ulcer disease, previous colonoscopy, GERD, history of COPD, bipolar disorder. REVIEW OF SYSTEMS: Denies any headache, hematemesis, melena, hematochezia, night sweats, or weight loss, although there is a history of coffee-ground emesis. PHYSICAL EXAMINATION: GENERAL: An 80-year-old male. HEENT: Unremarkable. LUNGS: Clear breath sounds. ABDOMEN: Soft. EXTREMITIES: There is no edema. NEUROLOGIC: Nonfocal. VITAL SIGNS: Blood pressure 120/80, heart rate 84, respirations 18, afebrile. LABORATORY DATA: Lab testing discussed above are normal except for hemoglobin of 10.7, now 8.4. Creatinine 2.9, now 2.5. Troponin negative x2. Coags are negative. Urinalysis shows a few pus cells. Stool occult blood is pending. X-ray chest, clear lung martinez bilaterally. IMPRESSION: 1. COPD, stable. 2. Upper GI bleed. 3. GERD. 4. Bipolar disorder. 5. Previous alcohol abuse. DISCUSSION: Admit to the hospital. GI evaluation is pending. We will order oxygen and pulmonary hygiene as needed. 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 We will follow carefully. Prabhakar Gamez M.D. DR: MARCK JOB#: [id number] CC:
--- NOTE | 2020-06-10 17:30 | Progress Note ---
DATE: 06/10/2020 This is an 80-year-old male who came to the emergency room for having recurrent nausea, vomiting, and possible rule out GI bleed. The patient was found to have acute renal failure. The patient is currently doing better. The patient has some abnormal labs this morning. PHYSICAL EXAMINATION: GENERAL: He is doing better. He also was found COVID positive. He is in isolation. VITAL SIGNS: His current blood pressure is 120/70. No fever. Temperature 98.4. CHEST: Bilaterally clear. CARDIOVASCULAR: Regular rhythm. ABDOMEN: Soft. Positive bowel sounds. EXTREMITIES: No edema. LABORATORY DATA: His K was 5.7, BUN 60, creatinine 2.5. His hemoglobin is 8.4. ASSESSMENT: 1. Acute renal failure. 2. Hyperkalemia. 3. Anemia, rule out GI bleed. 4. History of CHF. 5. History of coronary artery disease. 6. COVID-19 positive. 7. History of left trimalleolar fracture, which is resolving. PLAN: We will currently continue IV fluid. He was given Kayexalate by Nephrology and repeating his BMP. We will currently continue soft diet. GI consult was obtained, but has not seen the patient at this point. Called again Dr. Fitzgerald as well as Dr. Mcnulty. Discussed with the son. Discussed with Dr. Matthews, and we will monitor BUN and creatinine. Jacky Bowers M.D. DR: AMILCAR JOB#: [id number] CC:
--- NOTE | 2020-06-10 17:56 | Consultation ---
Consult Note Consult Note HPI 80-year-old male with past medical history of previous EtOH abuse, ruptured peptic ulcer status post exploratory laparotomy, hypertension brought in by ambulance for coffee-ground emesis x1 prior to arrival. Last bowel movement was yesterday and nonbloody. Last oral intake was also yesterday. Patient states that he had a recent colonoscopy that found nonmalignant polyps but is unsure of his last EGD. He states his last alcoholic beverage was 10 years ago. He denies chest pain, cough, shortness of breath, nausea, fever, dysuria, trauma or falls. The patient's symptoms were gradual onset, severity was moderate, duration since 1 day. Quality: Bleeding Severity: Mod PAST MEDICAL HISTORY: history of chronic renal insufficiency with an acute component of obstructive uropathy secondary to hydroureteronephrosis. ~He has history of GI bleed, leukemoid reaction, urinary tract infection, obstructive uropathy, osteoarthritis, hypertension, deep venous thrombosis, anemia, coronary artery disease of unknown nature, history of heart failure, major depression, ~ gastroesophageal reflux disease, and leg fracture. Non-ST myocardial infarction, status post percutaneous coronary intervention to the right coronary artery. ~ Large pericardial effusion, status post pericardiocentesis of 1100 mL. Renal insufficiency. Occult-positive stool. Hyponatremia. History of gastrointestinal bleeding. Obstructive uropathy. Hypertension. ALLERGIES: ~He is allergic to Compazine. SOCIAL: ~He does indicate he is a recovering alcoholic, but denies any smoking. ~No drug use. ~He is a resident of a convalescent facility and really not ambulatory. Past surgical history: ex lap for bleeding ulcer Smoking: denies Alcohol use: previous Drug use: Denies Review of systems: CONST: No fevers or chills, No night sweats PULMONARY: No productive cough, No shortness of breath CARDIAC: No chest pain, No palpitations GI: + vomiting, No diarrhea , No melena_or_BRBPR : No dysuria, No hematuria, No discharge NEURO: No new_focal_weakness_or_numbness, No confusion, No vision changes 14 point Review of Systems is otherwise negative except per HPI Physical Exam: GENERAL: Awake_alert_ nontoxic, no acute distress Spo2 98% on RA -normal EYES: Extraocular muscles are intact. Conjunctivae clear. Lids without swelling ENT: External nose and ear normal_in_appearance. Oropharynx clear. Head_ atraumatic, Moist_oral_mucosa NECK: No JVD. No meningismus. No thyromegaly. Supple. Trachea midline RESP: Normal respiratory effort. Symmetric rise. No stridor. Clear_to_ auscultation_No_rales_No_wheezes CARDIAC: Regular rate and regular rhythm on_auscultation No_significant pedal edema. ABDOMEN: Soft. Nondistended. Nontender_No_rebound_or_guarding. Non- peritoneal. No Bruner sign Old well-healing surgical incision site (ex lap) is clean, dry, intact. MSK: Normal muscle tone, without rigidity. Extremities without asymmetric deformity or swelling. SKIN: Warm and dry. No visible cyanosis or pallor NEUROLOGIC: Alert, oriented x3. Motor_and_sensation_grossly_intact. No truncal ataxia. Gait_normal Psych: Normal mood and affect, normal judgment and insight Assessment/Plan 1.cad status post percutaneous coronary intervention to the right coronary artery. ~ 2.history of Large pericardial effusion, status post pericardiocentesis of 1100 mL. 3.Renal insufficiency. 4.covid + 5.GI bleed / coffee ground emesis pt with covid + was not personally seen to avoid risk of unnecessary exposure information and exam was reviewed form er / other md notation dapt agents on hold await gi eval his stent was placed 12/2019 now 6mon old may be safe to hold dapt for now lipids seem ok Bob Samuel MD Jun 10, 2020 17:56
--- NOTE | 2020-06-10 19:20 | NUR ---
NURSE NOTES: received report from haydee dyer. patient is awake, alert and verbally responsive. denies pain and discomfort. uses urinal. with iv line on the left wrist running d5 1/2 ns + 10 meq at 75ml/hr. covid + with left lower extremity contracture. needs to have stool sample, patient is aware. reiterated to call and ask for assistance. bed locked and in lowest position. call light and light button. will continue plan of care.
[2020-06-10 20:00] VITALS: BP 129/76
[2020-06-10] MEDS: Tamsulosin 0.4mg cap ORAL SCH (20:35)
--- NOTE | 2020-06-10 21:30 | NUR ---
NURSE NOTES: received an order from dr. langford. noted and carried out.
[2020-06-11] VITALS (7 sets, daily range): BP systolic 127–170; BP diastolic 66–78
[2020-06-11] MEDS: D5 1/2NS w/KCL 10meq 1,000 ML IV SCH ×2 (02:49→16:55)
[2020-06-11] MEDS: HydrALAZINE 25mg tab ORAL SCH ×2 (05:47→14:17)
--- NOTE | 2020-06-11 07:20 | NUR ---
NURSE NOTES: Patient awake, alert x4; on room air, no sing of distress and shortness of breath; no sing of chest pain; IV Left-Wrist D51/2NS+20mEq running at 75cc; side rails up x2, breaks engaged, bed at lowest position, Urinal within reach; bed alarm on; patient isolation for COVID-19, contact and droplet percussion in place; call light within reach; will keep monitoring.
--- NOTE | 2020-06-11 07:28 | NUR ---
HAND-OFF: Report given to haydee james.POC endorsed
[2020-06-11] MEDS: Sucralfate 1gm tab ORAL SCH ×4 (08:17→21:26)
[2020-06-11] MEDS: Docusate 100mg cap ORAL SCH ×3 (08:17→17:08)
[2020-06-11] MEDS: Pantoprazole Inj IVP SCH ×2 (08:18→21:26)
[2020-06-11] MEDS: cefTRIAXone 1 GM in D5W 55 ML IVPB SCH (08:19)
--- NOTE | 2020-06-11 09:03 | Pulmonology Progress Note ---
Subjective ROS Limited/Unobtainable: No Interval Events: None new Constitutional: Reports: no symptoms HEENT: Repors: no symptoms Respiratory: Reports: no symptoms Cardiovascular: Reports: no symptoms Gastrointestinal/Abdominal: Reports: no symptoms Genitourinary: Reports: no symptoms Allergies: Coded Allergies: PROCHLORPERAZINE (Verified Allergy, Unknown, 06/09/20) Objective Last 24 Hour Vital Signs Date Time Temp Pulse Resp B/P (MAP) Pulse Ox O2 Delivery O2 Flow Rate FiO2 06/11/20 08:18 64 150/69 06/11/20 08:00 98.2 64 18 150/69 (96) 98 06/11/20 05:47 150/71 06/11/20 04:00 98.7 62 18 132/76 (94) 98 06/11/20 00:00 98.5 60 18 127/75 (92) 99 06/10/20 22:00 119/76 06/10/20 21:00 Room Air 06/10/20 20:35 61 129/76 06/10/20 20:00 98.7 59 18 129/76 (93) 98 06/10/20 16:00 98.6 60 18 143/64 (90) 100 06/10/20 13:34 120/53 06/10/20 12:00 98.4 58 18 120/53 (75) 97 Intake and Output 06/10/20 06/11/20 19:00 07:00 Intake Total 1450 ml 1350 ml Output Total 1200 ml 950 ml Balance 250 ml 400 ml Intake Oral 720 ml 600 ml IV Total 730 ml 750 ml Output Urine Total 1200 ml 950 ml # Voids 5 HEENT: normocephalic Respiratory: chest wall non-tender Cardiovascular: normal peripheral pulses Abdomen: normal bowel sounds Microbiology Date/Time Source Procedure Growth Status 06/09/20 12:49 Nasopharynx SARS-CoV-2 RdRp Gene Assay - Final Complete 06/09/20 12:25 Nasal Nares MRSA Culture - Final Staphylococcus Aureus - Mrsa Complete 06/09/20 12:03 Urine,Clean Catch Urine Culture - Preliminary YEAST Resulted 06/09/20 12:50 Rectum VRE Culture - Final NO VANCOMYCIN RESISTANT ENTEROCOCCUS ... Complete 06/09/20 12:50 Rectum - Final NO CARBAPENEM-RESISTANT ENTEROBACTERI... Complete Current Medications Medications (Trade) Dose Ordered Sig/Ne Route PRN Reason Start Time Stop Time Status Last Admin Dose Admin Acetaminophen (Tylenol) 650 mg Q6H PRN ORAL Temp >100.5 06/10/20 23:00 07/10/20 22:59 Ceftriaxone Sodium 1 gm/ Dextrose 55 ml @ 110 mls/hr Q24H IVPB 06/10/20 09:00 06/17/20 08:59 06/11/20 08:19 Clonidine HCl (Catapres Tab) 0.1 mg Q6H PRN ORAL For High Blood Pressure 06/09/20 14:45 09/07/20 14:44 06/09/20 15:00 Dextrose/ Electrolytes 1,000 ml @ 75 mls/hr [id number] IV 06/10/20 14:00 07/10/20 13:59 06/11/20 02:49 Docusate Sodium (Colace) 100 mg TID ORAL 06/10/20 13:00 07/10/20 08:59 06/11/20 08:17 Finasteride (Proscar) 5 mg DAILY ORAL 06/10/20 09:00 09/08/20 08:59 06/11/20 08:18 Folic Acid (Folate) 5 mg DAILY ORAL 06/10/20 12:45 07/10/20 12:44 06/11/20 08:18 Hydralazine HCl (Apresoline) 25 mg Q8HR ORAL 06/10/20 14:00 09/07/20 21:59 06/11/20 05:47 Iron Sucrose 100 mg/Sodium Chloride 60 ml @ 240 mls/hr BEDTIME IV 06/11/20 21:00 06/15/20 21:14 Metoprolol Tartrate (Lopressor) 25 mg Q12HR ORAL 06/09/20 21:00 09/07/20 20:59 06/11/20 08:18 Pantoprazole (Protonix) 40 mg Q12HR IVP 06/09/20 21:00 07/09/20 14:59 06/11/20 08:18 Sucralfate (Carafate) 1 gm FOUR TIMES A DAY ORAL 06/09/20 21:00 09/07/20 20:59 06/11/20 08:17 Tamsulosin HCl (Flomax) 0.4 mg BEDTIME ORAL 7/31/20 21:00 07/09/20 20:59 06/10/20 20:35 Assessment/Plan Assessment/Plan IMPRESSION: 1. COPD, stable. 2. Upper GI bleed. 3. GERD. 4. Bipolar disorder. 5. Previous alcohol abuse. DISCUSSION: Continue order oxygen and pulmonary hygiene as needed. 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 Hernandez Dillon Omar Syed MD Jun 11, 2020 09:02
--- NOTE | 2020-06-11 13:00 | NUR ---
NURSE NOTES: OB Stool x1 collected; waiting for result;
--- NOTE | 2020-06-11 13:17 | NUR ---
NURSE NOTES: There is a stat order for CMP & CBC; tried to draw blood, however couldn't succeed; I called lab and spoke with Jacob to send laborer golf course to draw this patient's blood draw; charge nurse, Samuel is aware;
--- NOTE | 2020-06-11 13:36 | Cardiology Progress Note ---
Assessment/Plan Assessment/Plan 1.cad status post percutaneous coronary intervention to the right coronary artery. ~ 2.history of Large pericardial effusion, status post pericardiocentesis of 1100 mL. 3.Renal insufficiency. 4.covid + 5.GI bleed / coffee ground emesis dapt agents on hold pending stool ob eval await gi eval his stent was placed 12/2019 now 6 mon old may be safe to hold dapt for now lipids seem ok no ekg available will order for am Subjective Subjective in covid isolation i did not see pt persoanlly to avoid unnecessary exposure to covid 19 but reviwed record from rn and other md notations per rn NURSE NOTES: Patient awake, alert x4; on room air, no sing of distress and shortness of breath; no sing of chest pain; Objective Last 24 Hour Vital Signs Date Time Temp Pulse Resp B/P (MAP) Pulse Ox O2 Delivery O2 Flow Rate FiO2 06/11/20 12:00 98.6 66 18 157/76 (103) 96 06/11/20 09:00 Room Air 06/11/20 08:18 64 150/69 06/11/20 08:00 98.2 64 18 150/69 (96) 98 06/11/20 05:47 150/71 06/11/20 04:00 98.7 62 18 132/76 (94) 98 06/11/20 00:00 98.5 60 18 127/75 (92) 99 06/10/20 22:00 119/76 06/10/20 21:00 Room Air 06/10/20 20:35 61 129/76 06/10/20 20:00 98.7 59 18 129/76 (93) 98 06/10/20 16:00 98.6 60 18 143/64 (90) 100 Intake and Output 06/10/20 06/11/20 19:00 07:00 Intake Total 1450 ml 1425 ml Output Total 1200 ml 950 ml Balance 250 ml 475 ml Intake Oral 720 ml 600 ml IV Total 730 ml 825 ml Output Urine Total 1200 ml 950 ml # Voids 5 Laboratory Tests Test 06/11/20 12:40 Stool Occult Blood Pending Microbiology Date/Time Source Procedure Growth Status 06/09/20 12:49 Nasopharynx SARS-CoV-2 RdRp Gene Assay - Final Complete 06/09/20 12:25 Nasal Nares MRSA Culture - Final Staphylococcus Aureus - Mrsa Complete 06/09/20 12:03 Urine,Clean Catch Urine Culture - Preliminary YEAST Resulted 06/09/20 12:50 Rectum VRE Culture - Final NO VANCOMYCIN RESISTANT ENTEROCOCCUS ... Complete 06/09/20 12:50 Rectum - Final NO CARBAPENEM-RESISTANT ENTEROBACTERI... Complete Objective per dr simmons notation HEENT: normocephalic Respiratory: chest wall non-tender Cardiovascular: normal peripheral pulses Abdomen: normal bowel sounds Bob Samuel MD Jun 11, 2020 13:36
[2020-06-11] MEDS: Fluconazole 100mg tab ORAL SCH (14:17)
--- NOTE | 2020-06-11 14:20 | NUR ---
NURSE NOTES: die cut operator rui the blood for CBC and CMP and sent it to lab.
[2020-06-11 14:25] LABS: ANION GAP 9 mmol/L (5-15); BLOOD UREA NITROGEN 46 mg/dL (7-18); CALCIUM 8.9 MG/DL (8.5-10.1); CARBON DIOXIDE 24 MMOL/L (21-32); CHLORIDE 108 MMOL/L (98-107); POTASSIUM 4.8 MMOL/L (3.5-5.1); SODIUM 141 MMOL/L (136-145)
[2020-06-11 14:28] LABS: BASOPHILS % (AUTO) 0.4 % (0.0-2.0); EOSINOPHILS % (AUTO) 1.2 % (0.0-3.0); LYMPHOCYTES % (AUTO) 23.6 % (20.0-45.0); MEAN CORPUSCULAR VOLUME 97 FL (80-99); MONOCYTES % (AUTO) 10.5 % (1.0-10.0); NEUTROPHILS % (AUTO) 64.3 % (45.0-75.0); PLATELET COUNT 224 K/UL (150-450); RED BLOOD COUNT 2.89 M/UL (4.70-6.10); RED CELL DISTRIBUTION WIDTH 13.7 % (11.6-14.8); WHITE BLOOD COUNT 6.1 K/UL (4.8-10.8)
[2020-06-11 14:30] LABS: ALANINE AMINOTRANSFERASE 21 U/L (12-78); ALBUMIN 2.7 G/DL (3.4-5.0); ALBUMIN/GLOBULIN RATIO 0.6 (1.0-2.7); ALKALINE PHOSPHATASE 102 U/L (46-116); ASPARTATE AMINO TRANSFERASE 17 U/L (15-37); BILIRUBIN,TOTAL 0.2 MG/DL (0.2-1.0)
--- NOTE | 2020-06-11 15:00 | Nephrology Progress Note ---
Assessment/Plan Problem List: (1) PAULINE (acute kidney injury) (2) Upper GI bleed (3) Hypertension (4) UTI (urinary tract infection) (5) Anemia (6) COVID-19 Assessment Acute renal failure most likely acute superimposed on chronic Presents with coffee-ground vomiting and GI bleed BUN is disproportionately higher than creatinine compatible with GI bleed Anemia Evidence of UTI COVID positive Remote history of alcohol abuse Previous laparotomy x2 for bleeding peptic ulcer Hypertension Plan June 11: Serum creatinine lowering. Hemoglobin stable. Patient on soft diet. Continue per consultants. Continue to monitor renal parameters and CBC. BP medication adjusted Start p.o. folic acid Slow hydration, change IV to D5 one half normal saline IV iron Kayexalate for hyperkalemia as needed Monitor renal parameters, serum creatinine is lowering Avoid nephrotoxic's Antibiotics IV Protonix Monitor hemoglobin and hematocrit Monitor intake and output Flomax nightly Per orders GI consult Subjective ROS Limited/Unobtainable: No Constitutional: Reports: malaise Objective Objective Last 24 Hour Vital Signs Date Time Temp Pulse Resp B/P (MAP) Pulse Ox O2 Delivery O2 Flow Rate FiO2 06/11/20 14:17 157/76 06/11/20 12:00 98.6 66 18 157/76 (103) 96 06/11/20 09:00 Room Air 06/11/20 08:18 64 150/69 06/11/20 08:00 98.2 64 18 150/69 (96) 98 06/11/20 05:47 150/71 06/11/20 04:00 98.7 62 18 132/76 (94) 98 06/11/20 00:00 98.5 60 18 127/75 (92) 99 06/10/20 22:00 119/76 06/10/20 21:00 Room Air 06/10/20 20:35 61 129/76 06/10/20 20:00 98.7 59 18 129/76 (93) 98 06/10/20 16:00 98.6 60 18 143/64 (90) 100 Intake and Output 06/10/20 06/11/20 19:00 07:00 Intake Total 1450 ml 1425 ml Output Total 1200 ml 950 ml Balance 250 ml 475 ml Intake Oral 720 ml 600 ml IV Total 730 ml 825 ml Output Urine Total 1200 ml 950 ml # Voids 5 Current Medications Medications (Trade) Dose Ordered Sig/En Route PRN Reason Start Time Stop Time Status Last Admin Dose Admin Acetaminophen (Tylenol) 650 mg Q6H PRN ORAL Temp >100.5 06/10/20 23:00 07/10/20 22:59 Clonidine HCl (Catapres Tab) 0.1 mg Q6H PRN ORAL For High Blood Pressure 06/09/20 14:45 09/07/20 14:44 06/09/20 15:00 Dextrose/ Electrolytes 1,000 ml @ 75 mls/hr [id number] IV 06/10/20 14:00 07/10/20 13:59 06/11/20 02:49 Docusate Sodium (Colace) 100 mg TID ORAL 06/10/20 13:00 07/10/20 08:59 06/11/20 12:16 Finasteride (Proscar) 5 mg DAILY ORAL 06/10/20 09:00 09/08/20 08:59 06/11/20 08:18 Fluconazole (Diflucan) 100 mg DAILY ORAL 06/11/20 13:00 06/18/20 12:59 06/11/20 14:17 Folic Acid (Folate) 5 mg DAILY ORAL 06/10/20 12:45 07/10/20 12:44 06/11/20 08:18 Hydralazine HCl (Apresoline) 25 mg Q8HR ORAL 06/10/20 14:00 09/07/20 21:59 06/11/20 14:17 Iron Sucrose 100 mg/Sodium Chloride 60 ml @ 240 mls/hr BEDTIME IV 06/11/20 21:00 06/15/20 21:14 Metoprolol Tartrate (Lopressor) 25 mg Q12HR ORAL 06/09/20 21:00 09/07/20 20:59 06/11/20 08:18 Pantoprazole (Protonix) 40 mg Q12HR IVP 06/09/20 21:00 07/09/20 14:59 06/11/20 08:18 Sucralfate (Carafate) 1 gm FOUR TIMES A DAY ORAL 06/09/20 21:00 09/07/20 20:59 06/11/20 12:17 Tamsulosin HCl (Flomax) 0.4 mg BEDTIME ORAL 06/09/20 21:00 07/09/20 20:59 06/10/20 20:35 Laboratory Tests 06/11/20 12:40: Stool Occult Blood [Pending] 06/11/20 14:05: Sodium Level 141, Potassium Level 4.8, Chloride Level 108H, Carbon Dioxide Level 24, Anion Gap 9, Blood Urea Nitrogen 46H, Creatinine 2.0H, Estimat Glomerular Filtration Rate 38.9, Glucose Level 131H, Calcium Level 8.9, Total Bilirubin 0.2, Aspartate Amino Transf (AST/SGOT) 17, Alanine Aminotransferase ( ALT/SGPT) 21, Alkaline Phosphatase 102, Total Protein 7.6, Albumin 2.7L, Globulin 4.9, Albumin/Globulin Ratio 0.6L 06/11/20 14:15: White Blood Count 6.1, Red Blood Count 2.89L, Hemoglobin 9.0L, Hematocrit 28.0L , Mean Corpuscular Volume 97, Mean Corpuscular Hemoglobin 31.3H, Mean Corpuscular Hemoglobin Concent 32.4, Red Cell Distribution Width 13.7, Platelet Count 224, Mean Platelet Volume 5.6L, Neutrophils (%) (Auto) 64.3, Lymphocytes ( %) (Auto) 23.6, Monocytes (%) (Auto) 10.5H, Eosinophils (%) (Auto) 1.2, Basophils (%) (Auto) 0.4 Height (Feet): 5 Height (Inches): 8.00 Weight (Pounds): 160 General Appearance: no apparent distress Cardiovascular: normal rate Respiratory/Chest: decreased breath sounds Abdomen: soft Vineet Matthews MD Jun 11, 2020 15:00
--- NOTE | 2020-06-11 17:00 | Progress Note ---
DATE: 06/11/2020 SUBJECTIVE: This is an elderly male who is currently in bed and comfortable. Tolerating diet. Patient had episodes of fever, but physically he is doing fine. OBJECTIVE: CHEST: Bilaterally clear. CARDIOVASCULAR: Regular rhythm. ABDOMEN: Soft. EXTREMITIES: CCE. ASSESSMENT: 1. Acute renal failure number. 2. Nausea, vomiting. 3. Hypertension. 4. CHF. 5. Pericardial effusion. 6. Generalized weakness. PLAN: 1. We will continue current treatment. 2. Cardiology, Pulmonary, and ID is on consult. 3. Discussed with charge nurse. Jacky Bowers M.D. DR: LORIE JOB#: [id number] CC:
--- NOTE | 2020-06-11 17:45 | Consultation ---
DATE OF CONSULTATION: 06/11/2020 INFECTIOUS DISEASE CONSULTATION This consult is for coverage of Dr. Rodriguez. CONSULTING PHYSICIAN: Glen Clifford MD. PRIMARY ATTENDING: Jacky Bowers MD. REASON FOR CONSULT: COVID-19 disease and UTI. HISTORY OF PRESENT ILLNESS: This is an 80-year-old male who is a senior living resident admitted on 06/09/2020 because of coffee-ground vomiting. Patient became positive for COVID test in the hospital. Also had pyuria, started on ceftriaxone empirically. PAST MEDICAL HISTORY: Significant for chronic kidney disease, COPD, dementia, anemia. Has history of exploratory laparotomy because of ruptured peptic ulcer. ALLERGIES: Allergic to prochlorperazine. MEDICATIONS: Getting IV iron, Tylenol, hydralazine, Colace, ceftriaxone, Flomax, metoprolol, Protonix, sucralfate, clonidine. SOCIAL HISTORY: , lives in a senior living. Has history of heavy drinking in the past, but stopped alcohol 10 years ago. REVIEW OF SYSTEMS: No fever. No coughing. No shortness of breath. No nausea. No vomiting today. No problem passing urine. PHYSICAL EXAMINATION: VITAL SIGNS: Temperature 98.2, pulse 64, blood pressure 150/69. GENERAL APPEARANCE: No acute distress. Seems to have normal weight. HEAD AND NECK: No oral lesion. HEART: Normal rate. LUNGS: Clear. ABDOMEN: Flat, soft, nontender. EXTREMITIES: No edema. LABORATORY AND DIAGNOSTIC DATA: WBC at the time of admission was 12.1, now currently 8.1, hemoglobin 10.7, the latest one is 8.4, platelets 223. Sodium 139, potassium 5.4, chloride 109, bicarb 22, BUN 68, creatinine 2.5. Serum iron is low 22, iron saturation is also low. Albumin is 2.4. Urine culture is growing yeast. Nasal MRSA is positive. COVID test is positive. Chest x-ray was done and showed no acute cardiopulmonary disease. IMPRESSION: 1. COVID-19 disease, likely mild disease. 2. Has fungal UTI. 3. Acute renal failure with chronic kidney disease. 4. GI bleeding. 5. Patient has history of hydronephrosis in the past. 6. COPD. 7. Anemia. 8. 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 RECOMMENDATION: Discontinue ceftriaxone and start on low-dose fluconazole. Repeat renal ultrasound. We will follow up the clinical course. At the end of my exam, I thank Dr. Bowers, for involving me in the care of this patient. Glen Clifford M.D. DR: TATIANA JOB#: [id number] CC: ALPESH
--- NOTE | 2020-06-11 18:00 | NUR ---
NURSE NOTES: Patient's Blood pressure elevated 167/66; Clonidine 0.1mg given; will keep monitoring;
--- NOTE | 2020-06-11 19:10 | NUR ---
HAND-OFF: Report given to WANDER Mederos. Endorsed to the incoming nurse that patient gonna be NPO at mid-night for US ABD for tomorow; patient resting and stabe at this time;
--- NOTE | 2020-06-11 20:05 | NUR ---
NURSE NOTES: Received patient awake, alert, verbal, resting in bed, no SOB noted.
[2020-06-11] MEDS: Tamsulosin 0.4mg cap ORAL SCH (21:26)
[2020-06-11] MEDS: Iron Sucrose 100 MG in NS 55 ML IV SCH (21:26)
[2020-06-11] MEDS: HydrALAZINE 50mg tab ORAL SCH (21:27)
[2020-06-12] VITALS (7 sets, daily range): BP systolic 137–185; BP diastolic 58–86
[2020-06-12] MEDS: D5 1/2NS w/KCL 10meq 1,000 ML IV SCH ×4 (05:23→21:29)
[2020-06-12] MEDS: HydrALAZINE 50mg tab ORAL SCH ×3 (05:24→21:08)
[2020-06-12 06:36] LABS: BASOPHILS % (AUTO) 0.5 % (0.0-2.0); EOSINOPHILS % (AUTO) 1.3 % (0.0-3.0); HEMATOCRIT 26.6 % (42.0-52.0); HEMOGLOBIN 8.5 G/DL (14.2-18.0); LYMPHOCYTES % (AUTO) 23.6 % (20.0-45.0); MEAN CORPUSCULAR VOLUME 97 FL (80-99); MONOCYTES % (AUTO) 9.9 % (1.0-10.0); NEUTROPHILS % (AUTO) 64.7 % (45.0-75.0); PLATELET COUNT 220 K/UL (150-450); RED BLOOD COUNT 2.74 M/UL (4.70-6.10); RED CELL DISTRIBUTION WIDTH 13.5 % (11.6-14.8); WHITE BLOOD COUNT 7.1 K/UL (4.8-10.8)
[2020-06-12 07:12] LABS: ALANINE AMINOTRANSFERASE 17 U/L (12-78); ALBUMIN 2.5 G/DL (3.4-5.0); ALBUMIN/GLOBULIN RATIO 0.6 (1.0-2.7); ALKALINE PHOSPHATASE 93 U/L (46-116); ANION GAP 9 mmol/L (5-15); BILIRUBIN,TOTAL 0.2 MG/DL (0.2-1.0); BLOOD UREA NITROGEN 37 mg/dL (7-18); CALCIUM 8.5 MG/DL (8.5-10.1); CARBON DIOXIDE 24 MMOL/L (21-32); CHLORIDE 109 MMOL/L (98-107); CREATININE 1.8 MG/DL (0.55-1.30); PHOSPHORUS 4.1 MG/DL (2.5-4.9); POTASSIUM 3.6 MMOL/L (3.5-5.1); SODIUM 142 MMOL/L (136-145)
--- NOTE | 2020-06-12 07:18 | NUR ---
HAND-OFF: Report given to WANDER Clay.
--- NOTE | 2020-06-12 07:30 | NUR ---
NURSE NOTES: Report received from Pina VIRAMONTES. Patient seen on rounds, AxOx4, not in distress, on room air. Pt has been NPO since 12MN for anticipated procedure. Education reinforced and pt verbalized understanding. PIV on left wrist patent and infusing IVF as ordered. Pt is continent and uses the urinal. Left and right heels off-loaded. Bed low and locked, siderails up x2, call light placed within reach and instructed to call nurse for assistance.
[2020-06-12 07:32] LABS: ASPARTATE AMINO TRANSFERASE 16 U/L (15-37)
[2020-06-12] MEDS: Sucralfate 1gm tab ORAL SCH ×4 (08:39→21:06)
[2020-06-12] MEDS: Docusate 100mg cap ORAL SCH ×3 (08:39→17:39)
[2020-06-12] MEDS: Fluconazole 100mg tab ORAL SCH (08:39)
[2020-06-12] MEDS: Pantoprazole Inj IVP SCH ×2 (08:39→21:06)
--- NOTE | 2020-06-12 09:50 | Pulmonology Progress Note ---
Subjective ROS Limited/Unobtainable: No Interval Events: None new Constitutional: Reports: no symptoms HEENT: Repors: no symptoms Respiratory: Reports: no symptoms Cardiovascular: Reports: no symptoms Gastrointestinal/Abdominal: Reports: no symptoms Genitourinary: Reports: no symptoms Allergies: Coded Allergies: PROCHLORPERAZINE (Verified Allergy, Unknown, 06/09/20) Objective Last 24 Hour Vital Signs Date Time Temp Pulse Resp B/P (MAP) Pulse Ox O2 Delivery O2 Flow Rate FiO2 06/12/20 08:40 60 152/69 06/12/20 05:24 152/69 06/12/20 04:00 97.9 57 18 152/69 (96) 95 06/12/20 00:52 98.6 06/12/20 00:28 180/86 06/12/20 00:27 98.6 70 18 180/86 (117) 94 06/11/20 21:27 170/78 06/11/20 21:27 61 170/78 06/11/20 20:20 Room Air 06/11/20 20:01 98.4 61 18 170/78 (108) 96 06/11/20 16:56 167/66 06/11/20 16:00 98.6 56 18 167/66 (99) 97 06/11/20 14:17 157/76 06/11/20 12:00 98.6 66 18 157/76 (103) 96 Intake and Output 06/11/20 06/12/20 19:00 07:00 Intake Total 2135 ml 1280 ml Balance 2135 ml 1280 ml Intake Oral 400 ml IV Total 935 ml 880 ml Other 1200 ml # Voids 4 HEENT: normocephalic Respiratory: chest wall non-tender Cardiovascular: normal peripheral pulses Abdomen: normal bowel sounds Microbiology Date/Time Source Procedure Growth Status 06/09/20 12:49 Nasopharynx SARS-CoV-2 RdRp Gene Assay - Final Complete 06/09/20 12:25 Nasal Nares MRSA Culture - Final Staphylococcus Aureus - Mrsa Complete 06/09/20 12:03 Urine,Clean Catch Urine Culture - Final Erin Albicans Complete 06/09/20 12:50 Rectum VRE Culture - Final NO VANCOMYCIN RESISTANT ENTEROCOCCUS ... Complete 06/09/20 12:50 Rectum - Final NO CARBAPENEM-RESISTANT ENTEROBACTERI... Complete Laboratory Tests 06/11/20 12:40: Stool Occult Blood [Pending] 06/11/20 14:05: Sodium Level 141, Potassium Level 4.8, Chloride Level 108H, Carbon Dioxide Level 24, Anion Gap 9, Blood Urea Nitrogen 46H, Creatinine 2.0H, Estimat Glomerular Filtration Rate 38.9, Glucose Level 131H, Calcium Level 8.9, Total Bilirubin 0.2, Aspartate Amino Transf (AST/SGOT) 17, Alanine Aminotransferase ( ALT/SGPT) 21, Alkaline Phosphatase 102, Total Protein 7.6, Albumin 2.7L, Globulin 4.9, Albumin/Globulin Ratio 0.6L 06/11/20 14:15: White Blood Count 6.1, Red Blood Count 2.89L, Hemoglobin 9.0L, Hematocrit 28.0L , Mean Corpuscular Volume 97, Mean Corpuscular Hemoglobin 31.3H, Mean Corpuscular Hemoglobin Concent 32.4, Red Cell Distribution Width 13.7, Platelet Count 224, Mean Platelet Volume 5.6L, Neutrophils (%) (Auto) 64.3, Lymphocytes ( %) (Auto) 23.6, Monocytes (%) (Auto) 10.5H, Eosinophils (%) (Auto) 1.2, Basophils (%) (Auto) 0.4 06/12/20 05:15: Sodium Level 142, Potassium Level 3.6, Chloride Level 109H, Carbon Dioxide Level 24, Anion Gap 9, Blood Urea Nitrogen 37H, Creatinine 1.8H, Estimat Glomerular Filtration Rate 44.0, Glucose Level 134H, Calcium Level 8.5, Total Bilirubin 0.2, Aspartate Amino Transf (AST/SGOT) 16, Alanine Aminotransferase ( ALT/SGPT) 17, Alkaline Phosphatase 93, Total Protein 6.9, Albumin 2.5L, Globulin 4.4, Albumin/Globulin Ratio 0.6L, White Blood Count 7.1, Red Blood Count 2.74L, Hemoglobin 8.5L, Hematocrit 26.6L, Mean Corpuscular Volume 97, Mean Corpuscular Hemoglobin 31.2H, Mean Corpuscular Hemoglobin Concent 32.1, Red Cell Distribution Width 13.5, Platelet Count 220, Mean Platelet Volume 6.0L , Neutrophils (%) (Auto) 64.7, Lymphocytes (%) (Auto) 23.6, Monocytes (%) (Auto ) 9.9, Eosinophils (%) (Auto) 1.3, Basophils (%) (Auto) 0.5, Uric Acid 6.7, Phosphorus Level 4.1, Magnesium Level 1.8, C-Reactive Protein, Quantitative 7.0H , Pro-B-Type Natriuretic Peptide 4076H Current Medications Medications (Trade) Dose Ordered Sig/En Route PRN Reason Start Time Stop Time Status Last Admin Dose Admin Acetaminophen (Tylenol) 650 mg Q6H PRN ORAL Temp >100.5 06/10/20 23:00 07/10/20 22:59 06/12/20 00:20 Clonidine HCl (Catapres Tab) 0.1 mg Q6H PRN ORAL For High Blood Pressure 06/09/20 14:45 09/07/20 14:44 06/12/20 00:28 Dextrose/ Electrolytes 1,000 ml @ 75 mls/hr [id number] IV 06/10/20 14:00 07/10/20 13:59 06/12/20 05:23 Docusate Sodium (Colace) 100 mg TID ORAL 06/10/20 13:00 07/10/20 08:59 06/12/20 08:39 Finasteride (Proscar) 5 mg DAILY ORAL 06/10/20 09:00 09/08/20 08:59 06/12/20 08:40 Fluconazole (Diflucan) 100 mg DAILY ORAL 06/11/20 13:00 06/18/20 12:59 06/12/20 08:39 Folic Acid (Folate) 5 mg DAILY ORAL 06/10/20 12:45 07/10/20 12:44 06/12/20 08:40 Hydralazine HCl (Apresoline) 50 mg Q8HR ORAL 06/11/20 22:00 09/07/20 21:59 06/12/20 05:24 Iron Sucrose 100 mg/Sodium Chloride 60 ml @ 240 mls/hr BEDTIME IV 06/11/20 21:00 06/15/20 21:14 06/11/20 21:26 Metoprolol Tartrate (Lopressor) 25 mg Q12HR ORAL 06/09/20 21:00 09/07/20 20:59 06/12/20 08:40 Pantoprazole (Protonix) 40 mg Q12HR IVP 06/09/20 21:00 07/09/20 14:59 06/12/20 08:39 Sucralfate (Carafate) 1 gm FOUR TIMES A DAY ORAL 06/09/20 21:00 09/07/20 20:59 06/12/20 08:39 Tamsulosin HCl (Flomax) 0.4 mg BEDTIME ORAL 06/09/20 21:00 07/09/20 20:59 06/11/20 21:26 Assessment/Plan Assessment/Plan IMPRESSION: 1. COPD, stable. 2. Upper GI bleed. 3. GERD. 4. Bipolar disorder. 5. Previous alcohol abuse. DISCUSSION: Continue order oxygen and pulmonary hygiene as needed. I will follow as sales promotion officer. Hernandez Dillon Omar Syed MD Jun 12, 2020 09:49
--- NOTE | 2020-06-12 10:39 | Nephrology Progress Note ---
Assessment/Plan Problem List: (1) PAULINE (acute kidney injury) (2) Upper GI bleed (3) Hypertension (4) UTI (urinary tract infection) (5) Anemia (6) COVID-19 Assessment Acute renal failure most likely acute superimposed on chronic Presents with coffee-ground vomiting and GI bleed BUN is disproportionately higher than creatinine compatible with GI bleed Anemia Evidence of UTI COVID positive Remote history of alcohol abuse Previous laparotomy x2 for bleeding peptic ulcer Hypertension Plan June 12: Serum creatinine lowering. Hemoglobin lowering but stable. Continue to monitor renal parameters. Continue treatment per ID. June 11: Serum creatinine lowering. Hemoglobin stable. Patient on soft diet. Continue per consultants. Continue to monitor renal parameters and CBC. BP medication adjusted Start p.o. folic acid Slow hydration, change IV to D5 one half normal saline IV iron Kayexalate for hyperkalemia as needed Monitor renal parameters, serum creatinine is lowering Avoid nephrotoxic's Antibiotics IV Protonix Monitor hemoglobin and hematocrit Monitor intake and output Flomax nightly Per orders GI consult Subjective ROS Limited/Unobtainable: No Constitutional: Reports: malaise Objective Objective Last 24 Hour Vital Signs Date Time Temp Pulse Resp B/P (MAP) Pulse Ox O2 Delivery O2 Flow Rate FiO2 06/12/20 08:40 60 152/69 06/12/20 05:24 152/69 06/12/20 04:00 97.9 57 18 152/69 (96) 95 06/12/20 00:52 98.6 06/12/20 00:28 180/86 06/12/20 00:27 98.6 70 18 180/86 (117) 94 06/11/20 21:27 170/78 06/11/20 21:27 61 170/78 06/11/20 20:20 Room Air 06/11/20 20:01 98.4 61 18 170/78 (108) 96 06/11/20 16:56 167/66 06/11/20 16:00 98.6 56 18 167/66 (99) 97 06/11/20 14:17 157/76 06/11/20 12:00 98.6 66 18 157/76 (103) 96 Intake and Output 06/11/20 06/12/20 19:00 07:00 Intake Total 2135 ml 1280 ml Balance 2135 ml 1280 ml Intake Oral 400 ml IV Total 935 ml 880 ml Other 1200 ml # Voids 4 Current Medications Medications (Trade) Dose Ordered Sig/En Route PRN Reason Start Time Stop Time Status Last Admin Dose Admin Acetaminophen (Tylenol) 650 mg Q6H PRN ORAL Temp >100.5 06/10/20 23:00 07/10/20 22:59 06/12/20 00:20 Clonidine HCl (Catapres Tab) 0.1 mg Q6H PRN ORAL For High Blood Pressure 06/09/20 14:45 09/07/20 14:44 06/12/20 00:28 Dextrose/ Electrolytes 1,000 ml @ 75 mls/hr [id number] IV 06/10/20 14:00 07/10/20 13:59 06/12/20 05:23 Docusate Sodium (Colace) 100 mg TID ORAL 06/10/20 13:00 07/10/20 08:59 06/12/20 08:39 Finasteride (Proscar) 5 mg DAILY ORAL 06/10/20 09:00 09/08/20 08:59 06/12/20 08:40 Fluconazole (Diflucan) 100 mg DAILY ORAL 06/11/20 13:00 06/18/20 12:59 06/12/20 08:39 Folic Acid (Folate) 5 mg DAILY ORAL 06/10/20 12:45 07/10/20 12:44 06/12/20 08:40 Hydralazine HCl (Apresoline) 50 mg Q8HR ORAL 06/11/20 22:00 09/07/20 21:59 06/12/20 05:24 Iron Sucrose 100 mg/Sodium Chloride 60 ml @ 240 mls/hr BEDTIME IV 06/11/20 21:00 06/15/20 21:14 06/11/20 21:26 Metoprolol Tartrate (Lopressor) 25 mg Q12HR ORAL 06/09/20 21:00 09/07/20 20:59 06/12/20 08:40 Pantoprazole (Protonix) 40 mg Q12HR IVP 06/09/20 21:00 07/09/20 14:59 06/12/20 08:39 Sucralfate (Carafate) 1 gm FOUR TIMES A DAY ORAL 06/09/20 21:00 09/07/20 20:59 06/12/20 08:39 Tamsulosin HCl (Flomax) 0.4 mg BEDTIME ORAL 06/09/20 21:00 07/09/20 20:59 06/11/20 21:26 Laboratory Tests 06/11/20 12:40: Stool Occult Blood [Pending] 06/11/20 14:05: Sodium Level 141, Potassium Level 4.8, Chloride Level 108H, Carbon Dioxide Level 24, Anion Gap 9, Blood Urea Nitrogen 46H, Creatinine 2.0H, Estimat Glomerular Filtration Rate 38.9, Glucose Level 131H, Calcium Level 8.9, Total Bilirubin 0.2, Aspartate Amino Transf (AST/SGOT) 17, Alanine Aminotransferase ( ALT/SGPT) 21, Alkaline Phosphatase 102, Total Protein 7.6, Albumin 2.7L, Globulin 4.9, Albumin/Globulin Ratio 0.6L 06/11/20 14:15: White Blood Count 6.1, Red Blood Count 2.89L, Hemoglobin 9.0L, Hematocrit 28.0L , Mean Corpuscular Volume 97, Mean Corpuscular Hemoglobin 31.3H, Mean Corpuscular Hemoglobin Concent 32.4, Red Cell Distribution Width 13.7, Platelet Count 224, Mean Platelet Volume 5.6L, Neutrophils (%) (Auto) 64.3, Lymphocytes ( %) (Auto) 23.6, Monocytes (%) (Auto) 10.5H, Eosinophils (%) (Auto) 1.2, Basophils (%) (Auto) 0.4 06/12/20 05:15: Sodium Level 142, Potassium Level 3.6, Chloride Level 109H, Carbon Dioxide Level 24, Anion Gap 9, Blood Urea Nitrogen 37H, Creatinine 1.8H, Estimat Glomerular Filtration Rate 44.0, Glucose Level 134H, Calcium Level 8.5, Total Bilirubin 0.2, Aspartate Amino Transf (AST/SGOT) 16, Alanine Aminotransferase ( ALT/SGPT) 17, Alkaline Phosphatase 93, Total Protein 6.9, Albumin 2.5L, Globulin 4.4, Albumin/Globulin Ratio 0.6L, White Blood Count 7.1, Red Blood Count 2.74L, Hemoglobin 8.5L, Hematocrit 26.6L, Mean Corpuscular Volume 97, Mean Corpuscular Hemoglobin 31.2H, Mean Corpuscular Hemoglobin Concent 32.1, Red Cell Distribution Width 13.5, Platelet Count 220, Mean Platelet Volume 6.0L , Neutrophils (%) (Auto) 64.7, Lymphocytes (%) (Auto) 23.6, Monocytes (%) (Auto ) 9.9, Eosinophils (%) (Auto) 1.3, Basophils (%) (Auto) 0.5, Uric Acid 6.7, Phosphorus Level 4.1, Magnesium Level 1.8, C-Reactive Protein, Quantitative 7.0H , Pro-B-Type Natriuretic Peptide 4076H Height (Feet): 5 Height (Inches): 8.00 Weight (Pounds): 160 General Appearance: no apparent distress Objective No change Vineet Matthews MD Jun 12, 2020 10:39
--- NOTE | 2020-06-12 11:06 | Infectious Diseases Prog Note ---
Assessment/Plan Assessment/Plan antibiotics : fluconazole 8..20 - A 1. fungal UTI 2. COVID 19 pneumonia on room air, 96 percent saturation 3. renal failure improving 4. COPD 5. MRSA nasal colonization P 1. continue fluconazole 5 more days 2, will follow up cultures 3. continue isolation Subjective Constitutional: Denies: fever, chills Respiratory: Denies: shortness of breath, dry cough Gastrointestinal/Abdominal: Denies: nausea, vomiting, diarrhea Musculoskeletal: Denies: pain Allergies: Coded Allergies: PROCHLORPERAZINE (Verified Allergy, Unknown, 06/09/20) Objective Last 24 Hour Vital Signs Date Time Temp Pulse Resp B/P (MAP) Pulse Ox O2 Delivery O2 Flow Rate FiO2 06/12/20 09:00 Room Air 06/12/20 08:40 60 152/69 06/12/20 08:00 97.9 53 18 159/67 (97) 97 06/12/20 05:24 152/69 06/12/20 04:00 97.9 57 18 152/69 (96) 95 06/12/20 00:52 98.6 06/12/20 00:28 180/86 06/12/20 00:27 98.6 70 18 180/86 (117) 94 06/11/20 21:27 170/78 06/11/20 21:27 61 170/78 06/11/20 20:20 Room Air 06/11/20 20:01 98.4 61 18 170/78 (108) 96 06/11/20 16:56 167/66 06/11/20 16:00 98.6 56 18 167/66 (99) 97 06/11/20 14:17 157/76 06/11/20 12:00 98.6 66 18 157/76 (103) 96 Height (Feet): 5 Height (Inches): 8.00 Weight (Pounds): 160 Microbiology Date/Time Source Procedure Growth Status 06/09/20 12:49 Nasopharynx SARS-CoV-2 RdRp Gene Assay - Final Complete 06/09/20 12:25 Nasal Nares MRSA Culture - Final Staphylococcus Aureus - Mrsa Complete 06/09/20 12:03 Urine,Clean Catch Urine Culture - Final Erin Albicans Complete 06/09/20 12:50 Rectum VRE Culture - Final NO VANCOMYCIN RESISTANT ENTEROCOCCUS ... Complete 06/09/20 12:50 Rectum - Final NO CARBAPENEM-RESISTANT ENTEROBACTERI... Complete Laboratory Tests Test 06/11/20 12:40 06/11/20 14:05 06/11/20 14:15 06/12/20 05:15 Stool Occult Blood Pending Sodium Level 141 MMOL/L (136-145) 142 MMOL/L (136-145) Potassium Level 4.8 MMOL/L (3.5-5.1) 3.6 MMOL/L (3.5-5.1) Chloride Level 108 MMOL/L (98-107) H 109 MMOL/L (98-107) H Carbon Dioxide Level 24 MMOL/L (21-32) 24 MMOL/L (21-32) Anion Gap 9 mmol/L (5-15) 9 mmol/L (5-15) Blood Urea Nitrogen 46 mg/dL (7-18) H 37 mg/dL (7-18) H Creatinine 2.0 MG/DL (0.55-1.30) H 1.8 MG/DL (0.55-1.30) H Estimat Glomerular Filtration Rate 38.9 mL/min (>60) 44.0 mL/min (>60) Glucose Level 131 MG/DL (74-106) H 134 MG/DL (74-106) H Calcium Level 8.9 MG/DL (8.5-10.1) 8.5 MG/DL (8.5-10.1) Total Bilirubin 0.2 MG/DL (0.2-1.0) 0.2 MG/DL (0.2-1.0) Aspartate Amino Transf (AST/SGOT) 17 U/L (15-37) 16 U/L (15-37) Alanine Aminotransferase (ALT/SGPT) 21 U/L (12-78) 17 U/L (12-78) Alkaline Phosphatase 102 U/L (46-116) 93 U/L (46-116) Total Protein 7.6 G/DL (6.4-8.2) 6.9 G/DL (6.4-8.2) Albumin 2.7 G/DL (3.4-5.0) L 2.5 G/DL (3.4-5.0) L Globulin 4.9 g/dL 4.4 g/dL Albumin/Globulin Ratio 0.6 (1.0-2.7) L 0.6 (1.0-2.7) L White Blood Count 6.1 K/UL (4.8-10.8) 7.1 K/UL (4.8-10.8) Red Blood Count 2.89 M/UL (4.70-6.10) L 2.74 M/UL (4.70-6.10) L Hemoglobin 9.0 G/DL (14.2-18.0) L 8.5 G/DL (14.2-18.0) L Hematocrit 28.0 % (42.0-52.0) L 26.6 % (42.0-52.0) L Mean Corpuscular Volume 97 FL (80-99) 97 FL (80-99) Mean Corpuscular Hemoglobin 31.3 PG (27.0-31.0) H 31.2 PG (27.0-31.0) H Mean Corpuscular Hemoglobin Concent 32.4 G/DL (32.0-36.0) 32.1 G/DL (32.0-36.0) Red Cell Distribution Width 13.7 % (11.6-14.8) 13.5 % (11.6-14.8) Platelet Count 224 K/UL (150-450) 220 K/UL (150-450) Mean Platelet Volume 5.6 FL (6.5-10.1) L 6.0 FL (6.5-10.1) L Neutrophils (%) (Auto) 64.3 % (45.0-75.0) 64.7 % (45.0-75.0) Lymphocytes (%) (Auto) 23.6 % (20.0-45.0) 23.6 % (20.0-45.0) Monocytes (%) (Auto) 10.5 % (1.0-10.0) H 9.9 % (1.0-10.0) Eosinophils (%) (Auto) 1.2 % (0.0-3.0) 1.3 % (0.0-3.0) Basophils (%) (Auto) 0.4 % (0.0-2.0) 0.5 % (0.0-2.0) Uric Acid 6.7 MG/DL (2.6-7.2) Phosphorus Level 4.1 MG/DL (2.5-4.9) Magnesium Level 1.8 MG/DL (1.8-2.4) C-Reactive Protein, Quantitative 7.0 mg/dL (0.00-0.90) H Pro-B-Type Natriuretic Peptide 4076 pg/mL (0-125) H Current Medications Medications (Trade) Dose Ordered Sig/En Route PRN Reason Start Time Stop Time Status Last Admin Dose Admin Acetaminophen (Tylenol) 650 mg Q6H PRN ORAL Temp >100.5 06/10/20 23:00 07/10/20 22:59 06/12/20 00:20 Clonidine HCl (Catapres Tab) 0.1 mg Q6H PRN ORAL For High Blood Pressure 06/09/20 14:45 09/07/20 14:44 06/12/20 00:28 Dextrose/ Electrolytes 1,000 ml @ 50 mls/hr Q20H IV 06/12/20 14:00 07/10/20 13:59 Docusate Sodium (Colace) 100 mg TID ORAL 06/10/20 13:00 07/10/20 08:59 06/12/20 08:39 Finasteride (Proscar) 5 mg DAILY ORAL 06/10/20 09:00 09/08/20 08:59 06/12/20 08:40 Fluconazole (Diflucan) 100 mg DAILY ORAL 06/11/20 13:00 06/18/20 12:59 06/12/20 08:39 Folic Acid (Folate) 5 mg DAILY ORAL 06/10/20 12:45 07/10/20 12:44 06/12/20 08:40 Hydralazine HCl (Apresoline) 50 mg Q8HR ORAL 06/11/20 22:00 09/07/20 21:59 06/12/20 05:24 Iron Sucrose 100 mg/Sodium Chloride 60 ml @ 240 mls/hr BEDTIME IV 06/11/20 21:00 06/15/20 21:14 06/11/20 21:26 Metoprolol Tartrate (Lopressor) 25 mg Q12HR ORAL 06/09/20 21:00 09/07/20 20:59 06/12/20 08:40 Pantoprazole (Protonix) 40 mg Q12HR IVP 06/09/20 21:00 07/09/20 14:59 06/12/20 08:39 Sucralfate (Carafate) 1 gm FOUR TIMES A DAY ORAL 06/09/20 21:00 09/07/20 20:59 06/12/20 08:39 Tamsulosin HCl (Flomax) 0.4 mg BEDTIME ORAL 06/09/20 21:00 07/09/20 20:59 06/11/20 21:26 Nelly Rodriguez MD Jun 12, 2020 11:06
--- NOTE | 2020-06-12 11:12 | NUR ---
NURSE NOTES: Spoke with Geovani to followup status of abdominal ultrasound. Said he will check schedule and call back.
--- NOTE | 2020-06-12 13:00 | Progress Note ---
DATE: 06/12/2020 SUBJECTIVE: This is an 80-year-old male currently physically doing better, sitting in the bed, in no distress. No complaints. Discussed with the pit shoveler who was here. He is going to also talk to the family. OBJECTIVE: VITAL SIGNS: His blood pressure is 152/69, pulse 60, respirations 18, temperature 97.9. GENERAL: The patient has no nausea or vomiting at this time. HEENT: NAD. CHEST: Bilaterally clear. CARDIOVASCULAR: Regular rhythm. ABDOMEN: Soft. Positive bowel sounds. EXTREMITIES: CCE. LABORATORY DATA: His white count 7.1, hemoglobin 8.5, hematocrit 26, platelets are 220. Chemistry is BUN 37, creatinine 1.8, sodium 142, potassium 3.6. Glucose is 134. The patient has no urine test. Chest x-ray is negative. ASSESSMENT: 1. Acute renal failure, improving. 2. Anemia is stable. 3. Hypertension. 4. Congestive heart failure. 5. Cardiomyopathy. 6. Pericardial effusion. PLAN: We will continue hydralazine. Continue fluconazole. Continue folic acid. The patient also is COVID positive. Continue PPI, finasteride, Protonix, Carafate. GI, Nephrology as well as Cardiology and Pulmonary is on case, and ID is also on case. We are going to repeat probably COVID before [facility] to the [facility]. Discussed with the patient also I am going to call social service to discuss with the family to change the placement or [facility] on son's request. Jacky Bowers M.D. DR: DANYEL JOB#: [id number] CC:
--- NOTE | 2020-06-12 14:26 | NUR ---
NURSE NOTES: Spoke with Kathryn from ultrasound; informed that they are unable to do routine ultrasound as pt is covid (+), asked to clarify with MD and if able to do limited study to area of concern. Dr. Allan Clifford and is aware. Agrees to reschedule procedure till pt is covid (-) and clarified ok to do renal ultrasound. Orders noted and carried out.
--- NOTE | 2020-06-12 15:26 | NUR ---
CASE MANAGEMENT:REVIEW SI;CHF. PERICARDIAL EFFUSION. AC RENAL FAILURE. 98.1 53 18 159/67 97% ON RA H/H 8.5/26.6 CL 109 BUN 37 CR 1.8 CRP 7 BNP 4076 ALB 2.5 IS;IVF D5W HYDRALAZINE PO Q8 IRON SUCROSE IV HS DIFLUCAN PO QD FLOMAX PO PROTONIX IV Q12 CARAFATE PO QID LOPRESSOR PO Q12 MED SURG STATUS DCP;FROM JOE JOHNSON Addendum: 06/13/20 at 1058 by ALVARO [employer] SI;COVID-19 PNEUMONIA
--- NOTE | 2020-06-12 17:02 | NUR ---
NURSE NOTES: Noted BP elevated 188/78, rechecked after 15 mins BP 185/74. PRN Clonidine given. Dr. Samuel made aware. Also notified of BNP lab results this morning (BNP= 4076) and that pt is receiving IV hydration as per Dr. Matthews at 50ml/hr. TORB to start Norvasc 2.5mg PO BID and hold if SBP<110. Also notified Dr. Samuel that pt had abnormal EKG results this am. says he will come and see patient. Orders noted and carried out.
--- NOTE | 2020-06-12 19:06 | NUR ---
HAND-OFF: Report given to Pina VIRAMONTES.
--- NOTE | 2020-06-12 19:07 | Cardiology Progress Note ---
Assessment/Plan Assessment/Plan 1.cad status post percutaneous coronary intervention to the right coronary artery. ~ 2.history of Large pericardial effusion, status post pericardiocentesis of 1100 mL. 3.Renal insufficiency. 4.covid + 5.GI bleed / coffee ground emesis dapt agents on hold pending stool ob eval stool ob neg his stent was placed 12/2019 now 6 mon old since stool ob neg will resume dapte lipids seem ok ekg noted d/w rn bp elevated today ivf decreased by dr diaz i added norvasc with hold parameters ekg noted inferolateral t iversion i have not been able to find older ekg here will try to reviwe form [facility] d/w rn Subjective ROS Limited/Unobtainable: Yes Subjective in covid isolation i did not see pt persoanlly to avoid unnecessary exposure to covid 19 but reviwed record from rn and other md notations per rn NURSE NOTES: AxOx4, not in distress, on room air. Pt has been NPO since 12MN Objective Last 24 Hour Vital Signs Date Time Temp Pulse Resp B/P (MAP) Pulse Ox O2 Delivery O2 Flow Rate FiO2 06/12/20 17:56 98.1 58 18 146/58 (87) 98 06/12/20 17:39 54 185/74 06/12/20 16:37 185/74 06/12/20 16:00 98.1 53 18 185/74 (111) 98 06/12/20 13:41 158/77 06/12/20 12:00 98.1 54 18 158/77 (104) 98 06/12/20 09:00 Room Air 06/12/20 08:40 60 152/69 06/12/20 08:00 97.9 53 18 159/67 (97) 97 06/12/20 05:24 152/69 06/12/20 04:00 97.9 57 18 152/69 (96) 95 06/12/20 00:52 98.6 06/12/20 00:28 180/86 06/12/20 00:27 98.6 70 18 180/86 (117) 94 06/11/20 21:27 170/78 06/11/20 21:27 61 170/78 06/11/20 20:20 Room Air 06/11/20 20:01 98.4 61 18 170/78 (108) 96 Intake and Output 06/11/20 06/12/20 19:00 07:00 Intake Total 2135 ml 1355 ml Balance 2135 ml 1355 ml Intake Oral 400 ml IV Total 935 ml 955 ml Other 1200 ml # Voids 4 Laboratory Tests Test 06/12/20 05:15 White Blood Count 7.1 K/UL (4.8-10.8) Red Blood Count 2.74 M/UL (4.70-6.10) L Hemoglobin 8.5 G/DL (14.2-18.0) L Hematocrit 26.6 % (42.0-52.0) L Mean Corpuscular Volume 97 FL (80-99) Mean Corpuscular Hemoglobin 31.2 PG (27.0-31.0) H Mean Corpuscular Hemoglobin Concent 32.1 G/DL (32.0-36.0) Red Cell Distribution Width 13.5 % (11.6-14.8) Platelet Count 220 K/UL (150-450) Mean Platelet Volume 6.0 FL (6.5-10.1) L Neutrophils (%) (Auto) 64.7 % (45.0-75.0) Lymphocytes (%) (Auto) 23.6 % (20.0-45.0) Monocytes (%) (Auto) 9.9 % (1.0-10.0) Eosinophils (%) (Auto) 1.3 % (0.0-3.0) Basophils (%) (Auto) 0.5 % (0.0-2.0) Sodium Level 142 MMOL/L (136-145) Potassium Level 3.6 MMOL/L (3.5-5.1) Chloride Level 109 MMOL/L (98-107) H Carbon Dioxide Level 24 MMOL/L (21-32) Anion Gap 9 mmol/L (5-15) Blood Urea Nitrogen 37 mg/dL (7-18) H Creatinine 1.8 MG/DL (0.55-1.30) H Estimat Glomerular Filtration Rate 44.0 mL/min (>60) Glucose Level 134 MG/DL (74-106) H Uric Acid 6.7 MG/DL (2.6-7.2) Calcium Level 8.5 MG/DL (8.5-10.1) Phosphorus Level 4.1 MG/DL (2.5-4.9) Magnesium Level 1.8 MG/DL (1.8-2.4) Total Bilirubin 0.2 MG/DL (0.2-1.0) Aspartate Amino Transf (AST/SGOT) 16 U/L (15-37) Alanine Aminotransferase (ALT/SGPT) 17 U/L (12-78) Alkaline Phosphatase 93 U/L (46-116) C-Reactive Protein, Quantitative 7.0 mg/dL (0.00-0.90) H Pro-B-Type Natriuretic Peptide 4076 pg/mL (0-125) H Total Protein 6.9 G/DL (6.4-8.2) Albumin 2.5 G/DL (3.4-5.0) L Globulin 4.4 g/dL Albumin/Globulin Ratio 0.6 (1.0-2.7) L Objective per dr longoria GENERAL APPEARANCE: No acute distress. Seems to have normal weight. HEAD AND NECK: No oral lesion. HEART: Normal rate. LUNGS: Clear. ABDOMEN: Flat, soft, nontender. EXTREMITIES: No edema. Bob Samuel MD Jun 12, 2020 19:07
[2020-06-12] MEDS: Aspirin EC 81mg tab ORAL SCH (19:43)
--- NOTE | 2020-06-12 19:59 | NUR ---
NURSE NOTES: Received patient awake, alert, verbal, no SOB, resting in bed, watching television.
--- NOTE | 2020-06-12 20:14 | Consultation ---
DATE OF CONSULTATION: 06/12/2020 CHIEF COMPLAINT: GI bleeding. 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 PAST MEDICAL HISTORY: 1. History of renal insufficiency. 2. History of obstructive uropathy. 3. Hydronephrosis. 4. UTI. 5. Osteoarthritis. 6. Hypertension. 7. DVT. 8. Anemia. 9. Coronary artery disease. 10. Depression. 11. GERD. 12. GI bleeding, requiring surgery. 13. Jar-CR-uimmawkrk myocardial infarction. 14. Large pericardial effusion. ALLERGIES: To Compazine. MEDICATIONS: Please see medication reconciliation list. SOCIAL HISTORY: The patient has history of remote alcohol use, quit about 10 years ago. Denies any tobacco or IV drug abuse. FAMILY HISTORY: Noncontributory. REVIEW OF SYSTEMS: A 10-point review of systems was performed and pertinent positives in HPI. PHYSICAL EXAMINATION: GENERAL: A well-developed male, in no acute distress. VITAL SIGNS: Temperature 97.9, pulse 82, respirations 18, blood pressure is 150/69. HEENT: Normocephalic and atraumatic. Sclerae are anicteric. NECK: Supple. No evidence of obvious lymphadenopathy. CARDIOVASCULAR: Regular rate and rhythm. Plus S1, S2. LUNGS: Decreased breath sounds bilaterally based on the supine exam. ABDOMEN: Soft. There is a scar in the middle of upper abdomen surgery. No rebound. No guarding. No peritoneal sign. EXTREMITIES: No cyanosis. No clubbing. No edema. LABORATORY DATA: White count 7.9, hemoglobin 8.5, hematocrit 26, platelet count is 220,000. Chem-7, BUN is 37, creatinine 1.8. ASSESSMENT: This is an 80-year-old male who is COVID-positive with pneumonia, coffee-ground emesis, anemia, renal insufficiency, and evidence of iron deficiency. PLAN: According to the patient, he had a colonoscopy that was recently. His hemoglobin is relatively stable and stool OB, first one came back negative. Given active COVID-positive pneumonia and no active GI bleeding, we are going to hold off doing endoscopy at this time. Plan to continue on PPI twice a day. Continue on Carafate and hopefully stop next week if the patient is stable. Monitor hemoglobin and hematocrit. Transfuse as needed to keep hemoglobin above 7. Consider GI procedure if the patient shows signs and symptoms of active bleeding. I want to thank Dr. Gamez for this kind referral. Alo Fitzgerald M.D. DR: ALEC JOB#: [id number] CC: Prabhakar Gamez M.D.; Fax#: [phone]
[2020-06-12] MEDS: Iron Sucrose 100 MG in NS 55 ML IV SCH (21:06)
[2020-06-12] MEDS: Tamsulosin 0.4mg cap ORAL SCH (21:07)
[2020-06-12] MEDS: Zolpidem 5mg tab ORAL PRN (21:09)
[2020-06-13 00:04] VITALS: BP 140/56
[2020-06-13 04:34] VITALS: BP 142/63
[2020-06-13] MEDS: HydrALAZINE 50mg tab ORAL SCH ×3 (05:45→21:02)
[2020-06-13 06:51] LABS: BASOPHILS % (AUTO) 0.6 % (0.0-2.0); EOSINOPHILS % (AUTO) 2.4 % (0.0-3.0); LYMPHOCYTES % (AUTO) 42.8 % (20.0-45.0); MEAN CORPUSCULAR VOLUME 96 FL (80-99); MONOCYTES % (AUTO) 8.6 % (1.0-10.0); NEUTROPHILS % (AUTO) 45.7 % (45.0-75.0); PLATELET COUNT 212 K/UL (150-450); RED CELL DISTRIBUTION WIDTH 12.9 % (11.6-14.8); WHITE BLOOD COUNT 6.7 K/UL (4.8-10.8)
--- NOTE | 2020-06-13 06:52 | NUR ---
HAND-OFF: Report given to WANDER Corrales.
[2020-06-13 07:08] LABS: ALANINE AMINOTRANSFERASE 20 U/L (12-78); ALBUMIN 2.6 G/DL (3.4-5.0); ALBUMIN/GLOBULIN RATIO 0.6 (1.0-2.7); ALKALINE PHOSPHATASE 91 U/L (46-116); ANION GAP 9 mmol/L (5-15); ASPARTATE AMINO TRANSFERASE 15 U/L (15-37); BILIRUBIN,TOTAL 0.3 MG/DL (0.2-1.0); BLOOD UREA NITROGEN 24 mg/dL (7-18); CALCIUM 8.6 MG/DL (8.5-10.1); CARBON DIOXIDE 24 MMOL/L (21-32); CHLORIDE 109 MMOL/L (98-107); CREATININE 1.7 MG/DL (0.55-1.30); PHOSPHORUS 3.2 MG/DL (2.5-4.9); POTASSIUM 3.5 MMOL/L (3.5-5.1); SODIUM 142 MMOL/L (136-145)
--- NOTE | 2020-06-13 07:35 | NUR ---
NURSE NOTES: Report received from WANDER Mederos. Patient seen in bed, AAOx4, , on bed rest, and on room air. IV site patent and intact. No distress noted at this time. Able to make needs known. Patient denies pain and SOB. Education reinforced and pt verbalized understanding. Patient is continent and uses the urinal and bed swann. Left and right heels off-loaded. Bed is locked and placed in lowest position with bed alarm on. Call light within reach. Will continue to monitor
[2020-06-13 07:45] VITALS: BP 157/68
[2020-06-13] MEDS: Aspirin EC 81mg tab ORAL SCH (08:16)
[2020-06-13] MEDS: Docusate 100mg cap ORAL SCH ×3 (08:17→17:02)
[2020-06-13] MEDS: Fluconazole 100mg tab ORAL SCH (08:17)
[2020-06-13] MEDS: Sucralfate 1gm tab ORAL SCH ×3 (08:17→17:02)
[2020-06-13] MEDS: Pantoprazole Inj IVP SCH (08:18)
--- NOTE | 2020-06-13 08:19 | Pulmonology Progress Note ---
Subjective ROS Limited/Unobtainable: Yes Interval Events: None new Constitutional: Denies: fever, chills HEENT: Repors: no symptoms Respiratory: Reports: no symptoms Cardiovascular: Reports: no symptoms Gastrointestinal/Abdominal: Denies: nausea, vomiting, diarrhea Genitourinary: Reports: no symptoms Musculoskeletal: Denies: pain Allergies: Coded Allergies: PROCHLORPERAZINE (Verified Allergy, Unknown, 06/09/20) Objective Last 24 Hour Vital Signs Date Time Temp Pulse Resp B/P (MAP) Pulse Ox O2 Delivery O2 Flow Rate FiO2 06/13/20 07:45 98.2 59 18 157/68 (97) 97 06/13/20 05:45 142/63 06/13/20 04:34 98.3 56 17 142/63 (89) 98 06/13/20 00:04 98.2 52 16 140/56 (84) 97 06/12/20 21:51 98.9 06/12/20 21:08 137/65 06/12/20 21:00 55 137/65 06/12/20 20:05 Room Air 06/12/20 20:00 100.6 55 17 137/65 (89) 98 06/12/20 17:56 98.1 58 18 146/58 (87) 98 06/12/20 17:39 54 185/74 06/12/20 16:37 185/74 06/12/20 16:00 98.1 53 18 185/74 (111) 98 06/12/20 13:41 158/77 06/12/20 12:00 98.1 54 18 158/77 (104) 98 06/12/20 09:00 Room Air 06/12/20 08:40 60 152/69 Intake and Output 06/12/20 06/13/20 19:00 07:00 Intake Total 925 ml 970 ml Output Total 1500 ml Balance -575 ml 970 ml Intake Oral 300 ml 360 ml IV Total 625 ml 610 ml Output Urine Total 1500 ml # Voids 2 HEENT: normocephalic Respiratory: chest wall non-tender Cardiovascular: normal peripheral pulses Abdomen: normal bowel sounds Laboratory Tests 06/13/20 05:10: White Blood Count 6.7, Red Blood Count 2.90L, Hemoglobin 9.0L, Hematocrit 28.0L , Mean Corpuscular Volume 96, Mean Corpuscular Hemoglobin 31.2H, Mean Corpuscular Hemoglobin Concent 32.3, Red Cell Distribution Width 12.9, Platelet Count 212, Mean Platelet Volume 5.2L, Neutrophils (%) (Auto) 45.7, Lymphocytes ( %) (Auto) 42.8, Monocytes (%) (Auto) 8.6, Eosinophils (%) (Auto) 2.4, Basophils (%) (Auto) 0.6, Sodium Level 142, Potassium Level 3.5, Chloride Level 109H, Carbon Dioxide Level 24, Anion Gap 9, Blood Urea Nitrogen 24H, Creatinine 1.7H, Estimat Glomerular Filtration Rate 47.0, Glucose Level 98, Calcium Level 8.6, Phosphorus Level 3.2, Magnesium Level 1.6L, Total Bilirubin 0.3, Aspartate Amino Transf (AST/SGOT) 15, Alanine Aminotransferase (ALT/SGPT) 20, Alkaline Phosphatase 91, Total Protein 7.3, Albumin 2.6L, Globulin 4.7, Albumin/Globulin Ratio 0.6L Current Medications Medications (Trade) Dose Ordered Sig/En Route PRN Reason Start Time Stop Time Status Last Admin Dose Admin Acetaminophen (Tylenol) 650 mg Q6H PRN ORAL Temp >100.5 06/10/20 23:00 07/10/20 22:59 06/12/20 21:09 Amlodipine Besylate (Norvasc) 2.5 mg BID ORAL 06/12/20 18:00 07/12/20 17:59 06/12/20 17:39 Aspirin (Ecotrin) 81 mg DAILY ORAL 06/12/20 19:15 07/27/20 19:14 06/12/20 19:43 Clonidine HCl (Catapres Tab) 0.1 mg Q6H PRN ORAL For High Blood Pressure 06/09/20 14:45 09/07/20 14:44 06/12/20 16:37 Clopidogrel Bisulfate (Plavix) 75 mg DAILY ORAL 06/13/20 09:00 07/13/20 08:59 Dextrose/ Electrolytes 1,000 ml @ 50 mls/hr Q20H IV 06/12/20 14:00 07/10/20 13:59 06/12/20 21:29 Docusate Sodium (Colace) 100 mg TID ORAL 06/10/20 13:00 8/31/20 08:59 06/12/20 17:39 Finasteride (Proscar) 5 mg DAILY ORAL 06/10/20 09:00 09/08/20 08:59 06/12/20 08:40 Fluconazole (Diflucan) 100 mg DAILY ORAL 06/11/20 13:00 06/18/20 12:59 06/12/20 08:39 Folic Acid (Folate) 5 mg DAILY ORAL 06/10/20 12:45 07/10/20 12:44 06/12/20 08:40 Hydralazine HCl (Apresoline) 50 mg Q8HR ORAL 06/11/20 22:00 09/07/20 21:59 06/13/20 05:45 Iron Sucrose 100 mg/Sodium Chloride 60 ml @ 240 mls/hr BEDTIME IV 06/11/20 21:00 06/15/20 21:14 06/12/20 21:06 Magnesium Sulfate 100 ml @ 100 mls/hr Q1H IVPB 06/13/20 08:00 06/13/20 09:59 Metoprolol Tartrate (Lopressor) 25 mg Q12HR ORAL 06/09/20 21:00 09/07/20 20:59 06/12/20 08:40 Pantoprazole (Protonix) 40 mg Q12HR IVP 06/09/20 21:00 07/09/20 14:59 06/12/20 21:06 Sucralfate (Carafate) 1 gm FOUR TIMES A DAY ORAL 06/09/20 21:00 09/07/20 20:59 06/12/20 21:06 Tamsulosin HCl (Flomax) 0.4 mg BEDTIME ORAL 06/09/20 21:00 07/09/20 20:59 06/12/20 21:07 Zolpidem Tartrate (Ambien) 5 mg HSPRN PRN ORAL Insomnia 06/12/20 20:15 06/19/20 20:14 06/12/20 21:09 Assessment/Plan Assessment/Plan IMPRESSION: 1. COPD, stable. 2. Upper GI bleed. 3. GERD. 4. Bipolar disorder. 5. Previous alcohol abuse. DISCUSSION: Continue order oxygen and pulmonary hygiene as needed. I will follow as support group manager. Hernandez Dillon Omar Syed MD Jun 13, 2020 08:19
--- NOTE | 2020-06-13 08:58 | Nephrology Progress Note ---
Assessment/Plan Problem List: (1) PAULINE (acute kidney injury) (2) Upper GI bleed (3) Hypertension (4) UTI (urinary tract infection) (5) Anemia (6) COVID-19 Assessment Acute renal failure most likely acute superimposed on chronic Presents with coffee-ground vomiting and GI bleed BUN is disproportionately higher than creatinine compatible with GI bleed Anemia Evidence of UTI COVID positive Remote history of alcohol abuse Previous laparotomy x2 for bleeding peptic ulcer Hypertension Plan June 13: Creatinine lower. Hemoglobin stable. Blood pressure medication adjusted. Magnesium supplement given. Stable from renal standpoint of view. June 12: Serum creatinine lowering. Hemoglobin lowering but stable. Continue to monitor renal parameters. Continue treatment per ID. Called the son and discussed improvement of kidney parameters with him. June 11: Serum creatinine lowering. Hemoglobin stable. Patient on soft diet. Continue per consultants. Continue to monitor renal parameters and CBC. BP medication adjusted Start p.o. folic acid Slow hydration, change IV to D5 one half normal saline IV iron Kayexalate for hyperkalemia as needed Monitor renal parameters, serum creatinine is lowering Avoid nephrotoxic's Antibiotics IV Protonix Monitor hemoglobin and hematocrit Monitor intake and output Flomax nightly Per orders GI consult Subjective ROS Limited/Unobtainable: No Constitutional: Reports: malaise Objective Objective Last 24 Hour Vital Signs Date Time Temp Pulse Resp B/P (MAP) Pulse Ox O2 Delivery O2 Flow Rate FiO2 06/13/20 08:18 59 157/68 06/13/20 08:16 59 157/68 06/13/20 07:45 98.2 59 18 157/68 (97) 97 06/13/20 05:45 142/63 06/13/20 04:34 98.3 56 17 142/63 (89) 98 06/13/20 00:04 98.2 52 16 140/56 (84) 97 06/12/20 21:51 98.9 06/12/20 21:08 137/65 06/12/20 21:00 55 137/65 06/12/20 20:05 Room Air 06/12/20 20:00 100.6 55 17 137/65 (89) 98 06/12/20 17:56 98.1 58 18 146/58 (87) 98 06/12/20 17:39 54 185/74 06/12/20 16:37 185/74 06/12/20 16:00 98.1 53 18 185/74 (111) 98 06/12/20 13:41 158/77 06/12/20 12:00 98.1 54 18 158/77 (104) 98 06/12/20 09:00 Room Air Intake and Output 06/12/20 06/13/20 19:00 07:00 Intake Total 925 ml 970 ml Output Total 1500 ml Balance -575 ml 970 ml Intake Oral 300 ml 360 ml IV Total 625 ml 610 ml Output Urine Total 1500 ml # Voids 2 Current Medications Medications (Trade) Dose Ordered Sig/En Route PRN Reason Start Time Stop Time Status Last Admin Dose Admin Acetaminophen (Tylenol) 650 mg Q6H PRN ORAL Temp >100.5 06/10/20 23:00 07/10/20 22:59 06/12/20 21:09 Amlodipine Besylate (Norvasc) 2.5 mg BID ORAL 06/12/20 18:00 07/12/20 17:59 06/13/20 08:16 Aspirin (Ecotrin) 81 mg DAILY ORAL 06/12/20 19:15 07/27/20 19:14 06/13/20 08:16 Clonidine HCl (Catapres Tab) 0.1 mg Q6H PRN ORAL For High Blood Pressure 06/09/20 14:45 09/07/20 14:44 06/12/20 16:37 Clopidogrel Bisulfate (Plavix) 75 mg DAILY ORAL 06/13/20 09:00 07/13/20 08:59 06/13/20 08:16 Dextrose/ Electrolytes 1,000 ml @ 50 mls/hr Q20H IV 06/12/20 14:00 07/10/20 13:59 06/12/20 21:29 Docusate Sodium (Colace) 100 mg TID ORAL 06/10/20 13:00 07/10/20 08:59 06/13/20 08:17 Finasteride (Proscar) 5 mg DAILY ORAL 06/10/20 09:00 09/08/20 08:59 06/13/20 08:17 Fluconazole (Diflucan) 100 mg DAILY ORAL 06/11/20 13:00 06/18/20 12:59 06/13/20 08:17 Folic Acid (Folate) 5 mg DAILY ORAL 06/10/20 12:45 07/10/20 12:44 06/13/20 08:20 Hydralazine HCl (Apresoline) 50 mg Q8HR ORAL 06/11/20 22:00 09/07/20 21:59 06/13/20 05:45 Iron Sucrose 100 mg/Sodium Chloride 60 ml @ 240 mls/hr BEDTIME IV 06/11/20 21:00 06/15/20 21:14 06/12/20 21:06 Magnesium Sulfate 100 ml @ 100 mls/hr Q1H IVPB 06/13/20 08:00 06/13/20 09:59 06/13/20 08:18 Metoprolol Tartrate (Lopressor) 25 mg Q12HR ORAL 06/09/20 21:00 09/07/20 20:59 06/12/20 08:40 Pantoprazole (Protonix) 40 mg Q12HR IVP 06/09/20 21:00 07/09/20 14:59 06/13/20 08:18 Sucralfate (Carafate) 1 gm FOUR TIMES A DAY ORAL 06/09/20 21:00 09/07/20 20:59 06/13/20 08:17 Tamsulosin HCl (Flomax) 0.4 mg BEDTIME ORAL 06/09/20 21:00 07/09/20 20:59 06/12/20 21:07 Zolpidem Tartrate (Ambien) 5 mg HSPRN PRN ORAL Insomnia 06/12/20 20:15 06/19/20 20:14 06/12/20 21:09 Laboratory Tests 06/13/20 05:10: White Blood Count 6.7, Red Blood Count 2.90L, Hemoglobin 9.0L, Hematocrit 28.0L , Mean Corpuscular Volume 96, Mean Corpuscular Hemoglobin 31.2H, Mean Corpuscular Hemoglobin Concent 32.3, Red Cell Distribution Width 12.9, Platelet Count 212, Mean Platelet Volume 5.2L, Neutrophils (%) (Auto) 45.7, Lymphocytes ( %) (Auto) 42.8, Monocytes (%) (Auto) 8.6, Eosinophils (%) (Auto) 2.4, Basophils (%) (Auto) 0.6, Sodium Level 142, Potassium Level 3.5, Chloride Level 109H, Carbon Dioxide Level 24, Anion Gap 9, Blood Urea Nitrogen 24H, Creatinine 1.7H, Estimat Glomerular Filtration Rate 47.0, Glucose Level 98, Calcium Level 8.6, Phosphorus Level 3.2, Magnesium Level 1.6L, Total Bilirubin 0.3, Aspartate Amino Transf (AST/SGOT) 15, Alanine Aminotransferase (ALT/SGPT) 20, Alkaline Phosphatase 91, Total Protein 7.3, Albumin 2.6L, Globulin 4.7, Albumin/Globulin Ratio 0.6L Height (Feet): 5 Height (Inches): 8.00 Weight (Pounds): 160 General Appearance: no apparent distress Cardiovascular: bradycardia Respiratory/Chest: lungs clear Abdomen: distended Objective No change Vineet Matthews MD Jun 13, 2020 08:58
--- NOTE | 2020-06-13 09:31 | NUR ---
RD ASSESSMENT & RECOMMENDATIONS SEE CARE ACTIVITY FOR COMPLETE ASSESSMENT DAILY ESTIMATED NEEDS: Needs based on cardiac, renal/ 72kg 25-30 kcals/kg 8016-3247 total kcals 1-1.2 g protein/kg 72-86 g total protein 20-25 mL/kg 5686-0650 total fluid mLs NUTRITION DIAGNOSIS: Altered nutrition related lab values R/T PAULINE, cardiac hx as evidenced by elev creat (2.9 -> 1.7 trend down), elev BNP (4076) CURRENT DIET:SOFT PO DIET RECOMMENDATIONS: LOW NA/ texture as tolerated ADDITIONAL RECOMMENDATIONS: 1) Calibrated bedscale wt 2) Monitor for continued good PO intake 3) MVI x 1 as supplement 4) Monitor renal fxn: improving 5) Monitor BGs, need for carb controlled diet (FBGS 98 134 131 97) . .
--- NOTE | 2020-06-13 09:57 | General Progress Note ---
Assessment/Plan Assessment/Plan: 1. History of renal insufficiency. 2. Hepatitis C with abnormal liver function tests. 3. Hypertension. 4. Diabetes. 5. COPD. 6. Schizophrenia. 7. Seizure disorder. 8. Pancreatitis. 9. Depression. ppi carafate stable H&H neg stool ob hold GI procedures for now Subjective Allergies: Coded Allergies: PROCHLORPERAZINE (Verified Allergy, Unknown, 06/09/20) Objective Last 24 Hour Vital Signs Date Time Temp Pulse Resp B/P (MAP) Pulse Ox O2 Delivery O2 Flow Rate FiO2 06/13/20 09:00 59 157/68 06/13/20 08:18 59 157/68 06/13/20 08:16 59 157/68 06/13/20 07:45 98.2 59 18 157/68 (97) 97 06/13/20 05:45 142/63 06/13/20 04:34 98.3 56 17 142/63 (89) 98 06/13/20 00:04 98.2 52 16 140/56 (84) 97 06/12/20 21:51 98.9 06/12/20 21:08 137/65 06/12/20 21:00 55 137/65 06/12/20 20:05 Room Air 06/12/20 20:00 100.6 55 17 137/65 (89) 98 06/12/20 17:56 98.1 58 18 146/58 (87) 98 06/12/20 17:39 54 185/74 06/12/20 16:37 185/74 06/12/20 16:00 98.1 53 18 185/74 (111) 98 06/12/20 13:41 158/77 06/12/20 12:00 98.1 54 18 158/77 (104) 98 Intake and Output 06/12/20 06/13/20 19:00 07:00 Intake Total 925 ml 970 ml Output Total 1500 ml Balance -575 ml 970 ml Intake Oral 300 ml 360 ml IV Total 625 ml 610 ml Output Urine Total 1500 ml # Voids 2 Laboratory Tests 06/13/20 05:10: White Blood Count 6.7, Red Blood Count 2.90L, Hemoglobin 9.0L, Hematocrit 28.0L , Mean Corpuscular Volume 96, Mean Corpuscular Hemoglobin 31.2H, Mean Corpuscular Hemoglobin Concent 32.3, Red Cell Distribution Width 12.9, Platelet Count 212, Mean Platelet Volume 5.2L, Neutrophils (%) (Auto) 45.7, Lymphocytes ( %) (Auto) 42.8, Monocytes (%) (Auto) 8.6, Eosinophils (%) (Auto) 2.4, Basophils (%) (Auto) 0.6, Sodium Level 142, Potassium Level 3.5, Chloride Level 109H, Carbon Dioxide Level 24, Anion Gap 9, Blood Urea Nitrogen 24H, Creatinine 1.7H, Estimat Glomerular Filtration Rate 47.0, Glucose Level 98, Calcium Level 8.6, Phosphorus Level 3.2, Magnesium Level 1.6L, Total Bilirubin 0.3, Aspartate Amino Transf (AST/SGOT) 15, Alanine Aminotransferase (ALT/SGPT) 20, Alkaline Phosphatase 91, Total Protein 7.3, Albumin 2.6L, Globulin 4.7, Albumin/Globulin Ratio 0.6L Height (Feet): 5 Height (Inches): 8.00 Weight (Pounds): 160 General Appearance: alert EENT: normal ENT inspection Neck: normal alignment Cardiovascular: normal rate Respiratory/Chest: decreased breath sounds Abdomen: hypoactive bowel sounds Extremities: non-tender Alo Fitzgerald MD Jun 13, 2020 09:57
--- NOTE | 2020-06-13 10:42 | Infectious Diseases Prog Note ---
Assessment/Plan Assessment/Plan antibiotics : fluconazole 8.2.20 - A 1. fungal UTI 2. COVID 19 pneumonia on room air, 97 percent saturation 3. renal failure improving 4. COPD 5. MRSA nasal colonization P 1. continue fluconazole 4 more days 2, will follow up cultures 3. continue isolation Subjective Constitutional: Denies: fever, chills Respiratory: Denies: shortness of breath, dry cough Gastrointestinal/Abdominal: Denies: nausea, vomiting, diarrhea Musculoskeletal: Denies: pain Allergies: Coded Allergies: PROCHLORPERAZINE (Verified Allergy, Unknown, 06/09/20) Objective Last 24 Hour Vital Signs Date Time Temp Pulse Resp B/P (MAP) Pulse Ox O2 Delivery O2 Flow Rate FiO2 06/13/20 09:00 59 157/68 06/13/20 09:00 Room Air 06/13/20 08:18 59 157/68 06/13/20 08:16 59 157/68 06/13/20 07:45 98.2 59 18 157/68 (97) 97 06/13/20 05:45 142/63 06/13/20 04:34 98.3 56 17 142/63 (89) 98 06/13/20 00:04 98.2 52 16 140/56 (84) 97 06/12/20 21:51 98.9 06/12/20 21:08 137/65 06/12/20 21:00 55 137/65 06/12/20 20:05 Room Air 06/12/20 20:00 100.6 55 17 137/65 (89) 98 06/12/20 17:56 98.1 58 18 146/58 (87) 98 06/12/20 17:39 54 185/74 06/12/20 16:37 185/74 06/12/20 16:00 98.1 53 18 185/74 (111) 98 06/12/20 13:41 158/77 06/12/20 12:00 98.1 54 18 158/77 (104) 98 Height (Feet): 5 Height (Inches): 8.00 Weight (Pounds): 160 Respiratory/Chest: lungs clear Cardiovascular: normal rate, regular rhythm, no gallop/murmur Abdomen: soft, non tender Extremities: no edema Laboratory Tests Test 06/13/20 05:10 White Blood Count 6.7 K/UL (4.8-10.8) Red Blood Count 2.90 M/UL (4.70-6.10) L Hemoglobin 9.0 G/DL (14.2-18.0) L Hematocrit 28.0 % (42.0-52.0) L Mean Corpuscular Volume 96 FL (80-99) Mean Corpuscular Hemoglobin 31.2 PG (27.0-31.0) H Mean Corpuscular Hemoglobin Concent 32.3 G/DL (32.0-36.0) Red Cell Distribution Width 12.9 % (11.6-14.8) Platelet Count 212 K/UL (150-450) Mean Platelet Volume 5.2 FL (6.5-10.1) L Neutrophils (%) (Auto) 45.7 % (45.0-75.0) Lymphocytes (%) (Auto) 42.8 % (20.0-45.0) Monocytes (%) (Auto) 8.6 % (1.0-10.0) Eosinophils (%) (Auto) 2.4 % (0.0-3.0) Basophils (%) (Auto) 0.6 % (0.0-2.0) Sodium Level 142 MMOL/L (136-145) Potassium Level 3.5 MMOL/L (3.5-5.1) Chloride Level 109 MMOL/L (98-107) H Carbon Dioxide Level 24 MMOL/L (21-32) Anion Gap 9 mmol/L (5-15) Blood Urea Nitrogen 24 mg/dL (7-18) H Creatinine 1.7 MG/DL (0.55-1.30) H Estimat Glomerular Filtration Rate 47.0 mL/min (>60) Glucose Level 98 MG/DL (74-106) Calcium Level 8.6 MG/DL (8.5-10.1) Phosphorus Level 3.2 MG/DL (2.5-4.9) Magnesium Level 1.6 MG/DL (1.8-2.4) L Total Bilirubin 0.3 MG/DL (0.2-1.0) Aspartate Amino Transf (AST/SGOT) 15 U/L (15-37) Alanine Aminotransferase (ALT/SGPT) 20 U/L (12-78) Alkaline Phosphatase 91 U/L (46-116) Total Protein 7.3 G/DL (6.4-8.2) Albumin 2.6 G/DL (3.4-5.0) L Globulin 4.7 g/dL Albumin/Globulin Ratio 0.6 (1.0-2.7) L Current Medications Medications (Trade) Dose Ordered Sig/En Route PRN Reason Start Time Stop Time Status Last Admin Dose Admin Acetaminophen (Tylenol) 650 mg Q6H PRN ORAL Temp >100.5 06/10/20 23:00 07/10/20 22:59 06/12/20 21:09 Amlodipine Besylate (Norvasc) 5 mg BID ORAL 06/13/20 18:00 07/13/20 17:59 Aspirin (Ecotrin) 81 mg DAILY ORAL 06/12/20 19:15 07/27/20 19:14 06/13/20 08:16 Clonidine HCl (Catapres Tab) 0.1 mg Q6H PRN ORAL For High Blood Pressure 06/09/20 14:45 09/07/20 14:44 06/12/20 16:37 Clopidogrel Bisulfate (Plavix) 75 mg DAILY ORAL 06/13/20 09:00 07/13/20 08:59 06/13/20 08:16 Dextrose/ Electrolytes 1,000 ml @ 50 mls/hr Q20H IV 06/12/20 14:00 07/10/20 13:59 06/12/20 21:29 Docusate Sodium (Colace) 100 mg TID ORAL 06/10/20 13:00 07/10/20 08:59 06/13/20 08:17 Finasteride (Proscar) 5 mg DAILY ORAL 06/10/20 09:00 09/08/20 08:59 06/13/20 08:17 Fluconazole (Diflucan) 100 mg DAILY ORAL 06/11/20 13:00 06/18/20 12:59 06/13/20 08:17 Folic Acid (Folate) 5 mg DAILY ORAL 06/10/20 12:45 07/10/20 12:44 06/13/20 08:20 Hydralazine HCl (Apresoline) 50 mg Q8HR ORAL 06/11/20 22:00 09/07/20 21:59 06/13/20 05:45 Iron Sucrose 100 mg/Sodium Chloride 60 ml @ 240 mls/hr BEDTIME IV 06/11/20 21:00 06/15/20 21:14 06/12/20 21:06 Metoprolol Tartrate (Lopressor) 12.5 mg Q12HR ORAL 06/13/20 21:00 09/11/20 20:59 Pantoprazole (Protonix) 40 mg EVERY 12 HOURS ORAL 06/13/20 09:00 07/13/20 08:59 Sucralfate (Carafate) 1 gm BID ORAL 06/13/20 09:00 09/07/20 20:59 Tamsulosin HCl (Flomax) 0.4 mg BEDTIME ORAL 06/09/20 21:00 07/09/20 20:59 06/12/20 21:07 Zolpidem Tartrate (Ambien) 5 mg HSPRN PRN ORAL Insomnia 06/12/20 20:15 06/19/20 20:14 06/12/20 21:09 Nelly Rodriguez MD Jun 13, 2020 10:41
[2020-06-13 11:55] VITALS: BP 176/76
--- NOTE | 2020-06-13 12:00 | NUR ---
NURSE NOTES: Patient's BP was 176/76. Clonidine given per order
[2020-06-13 16:00] VITALS: BP 146/68
--- NOTE | 2020-06-13 16:52 | Cardiology Progress Note ---
Assessment/Plan Assessment/Plan 1.cad status post percutaneous coronary intervention to the right coronary artery. ~ 2.history of Large pericardial effusion, status post pericardiocentesis of 1100 mL. 3.Renal insufficiency. 4.covid + 5.GI bleed / coffee ground emesis dapt agents on hold pending stool ob eval stool ob neg his stent was placed 12/2019 now 6 mon old since stool ob neg will resume dapte lipids seem ok ekg noted d/w rn bp elevated today ivf decreased by dr diaz i added norvasc with hold parameters ekg noted inferolateral t iversion i have not been able to find older ekg here will try to reviwe form [place] d/w rn Subjective Subjective in covid isolation i did not see pt persoanlly to avoid unnecessary exposure to covid 19 but reviwed record from rn and other md notations per rn NURSE NOTES: AxOx4, not in distress, on room air. Pt has been NPO since 12MN Objective Last 24 Hour Vital Signs Date Time Temp Pulse Resp B/P (MAP) Pulse Ox O2 Delivery O2 Flow Rate FiO2 06/13/20 16:00 98.1 58 17 146/68 (94) 97 06/13/20 13:23 149/68 06/13/20 12:00 176/76 06/13/20 11:55 97.3 56 17 176/76 (109) 97 06/13/20 09:00 59 157/68 06/13/20 09:00 Room Air 06/13/20 08:18 59 157/68 06/13/20 08:16 59 157/68 06/13/20 07:45 98.2 59 18 157/68 (97) 97 06/13/20 05:45 142/63 06/13/20 04:34 98.3 56 17 142/63 (89) 98 06/13/20 00:04 98.2 52 16 140/56 (84) 97 06/12/20 21:51 98.9 06/12/20 21:08 137/65 06/12/20 21:00 55 137/65 06/12/20 20:05 Room Air 06/12/20 20:00 100.6 55 17 137/65 (89) 98 06/12/20 17:56 98.1 58 18 146/58 (87) 98 06/12/20 17:39 54 185/74 Intake and Output 06/12/20 06/13/20 19:00 07:00 Intake Total 925 ml 970 ml Output Total 1500 ml Balance -575 ml 970 ml Intake Oral 300 ml 360 ml IV Total 625 ml 610 ml Output Urine Total 1500 ml # Voids 2 Laboratory Tests Test 06/13/20 05:10 White Blood Count 6.7 K/UL (4.8-10.8) Red Blood Count 2.90 M/UL (4.70-6.10) L Hemoglobin 9.0 G/DL (14.2-18.0) L Hematocrit 28.0 % (42.0-52.0) L Mean Corpuscular Volume 96 FL (80-99) Mean Corpuscular Hemoglobin 31.2 PG (27.0-31.0) H Mean Corpuscular Hemoglobin Concent 32.3 G/DL (32.0-36.0) Red Cell Distribution Width 12.9 % (11.6-14.8) Platelet Count 212 K/UL (150-450) Mean Platelet Volume 5.2 FL (6.5-10.1) L Neutrophils (%) (Auto) 45.7 % (45.0-75.0) Lymphocytes (%) (Auto) 42.8 % (20.0-45.0) Monocytes (%) (Auto) 8.6 % (1.0-10.0) Eosinophils (%) (Auto) 2.4 % (0.0-3.0) Basophils (%) (Auto) 0.6 % (0.0-2.0) Sodium Level 142 MMOL/L (136-145) Potassium Level 3.5 MMOL/L (3.5-5.1) Chloride Level 109 MMOL/L (98-107) H Carbon Dioxide Level 24 MMOL/L (21-32) Anion Gap 9 mmol/L (5-15) Blood Urea Nitrogen 24 mg/dL (7-18) H Creatinine 1.7 MG/DL (0.55-1.30) H Estimat Glomerular Filtration Rate 47.0 mL/min (>60) Glucose Level 98 MG/DL (74-106) Calcium Level 8.6 MG/DL (8.5-10.1) Phosphorus Level 3.2 MG/DL (2.5-4.9) Magnesium Level 1.6 MG/DL (1.8-2.4) L Total Bilirubin 0.3 MG/DL (0.2-1.0) Aspartate Amino Transf (AST/SGOT) 15 U/L (15-37) Alanine Aminotransferase (ALT/SGPT) 20 U/L (12-78) Alkaline Phosphatase 91 U/L (46-116) Total Protein 7.3 G/DL (6.4-8.2) Albumin 2.6 G/DL (3.4-5.0) L Globulin 4.7 g/dL Albumin/Globulin Ratio 0.6 (1.0-2.7) L Objective per dr longoria GENERAL APPEARANCE: No acute distress. Seems to have normal weight. HEAD AND NECK: No oral lesion. HEART: Normal rate. LUNGS: Clear. ABDOMEN: Flat, soft, nontender. EXTREMITIES: No edema. Bob Samuel MD Jun 13, 2020 16:52
--- NOTE | 2020-06-13 16:54 | Cardiology Progress Note ---
Assessment/Plan Assessment/Plan 1.cad status post percutaneous coronary intervention to the right coronary artery. ~ 2.history of Large pericardial effusion, status post pericardiocentesis of 1100 mL. 3.Renal insufficiency. 4.covid + 5.GI bleed / coffee ground emesis dapt agents resumed if bleed will dc again gin input noted no plan for invasive gi procedure yet stool ob neg his stent was placed 12/2019 now 6 mon old since stool ob neg will resume dapt lipids seem ok ekg noted d/w rn bp elevated today will increase Norvasc ivf decreased by dr diaz increase amlodipine to 10 mg daily his usual medication dose was on hydralazine 50 mg tid as weell before ekg noted inferolateral t inversion all trop neg no co of cp Subjective Subjective in covid isolation i did not see pt personally to avoid unnecessary exposure to covid 19 but reviewed record from rn and other md notations per id note Constitutional: Denies: fever, chills Respiratory: Denies: shortness of breath, dry cough Gastrointestinal/Abdominal: Denies: nausea, vomiting, diarrhea Musculoskeletal: Denies: pain Objective Last 24 Hour Vital Signs Date Time Temp Pulse Resp B/P (MAP) Pulse Ox O2 Delivery O2 Flow Rate FiO2 06/13/20 16:00 98.1 58 17 146/68 (94) 97 06/13/20 13:23 149/68 06/13/20 12:00 176/76 06/13/20 11:55 97.3 56 17 176/76 (109) 97 06/13/20 09:00 59 157/68 06/13/20 09:00 Room Air 06/13/20 08:18 59 157/68 06/13/20 08:16 59 157/68 06/13/20 07:45 98.2 59 18 157/68 (97) 97 06/13/20 05:45 142/63 06/13/20 04:34 98.3 56 17 142/63 (89) 98 06/13/20 00:04 98.2 52 16 140/56 (84) 97 06/12/20 21:51 98.9 06/12/20 21:08 137/65 06/12/20 21:00 55 137/65 06/12/20 20:05 Room Air 06/12/20 20:00 100.6 55 17 137/65 (89) 98 06/12/20 17:56 98.1 58 18 146/58 (87) 98 06/12/20 17:39 54 185/74 Intake and Output 06/12/20 06/13/20 19:00 07:00 Intake Total 925 ml 970 ml Output Total 1500 ml Balance -575 ml 970 ml Intake Oral 300 ml 360 ml IV Total 625 ml 610 ml Output Urine Total 1500 ml # Voids 2 Laboratory Tests Test 06/13/20 05:10 White Blood Count 6.7 K/UL (4.8-10.8) Red Blood Count 2.90 M/UL (4.70-6.10) L Hemoglobin 9.0 G/DL (14.2-18.0) L Hematocrit 28.0 % (42.0-52.0) L Mean Corpuscular Volume 96 FL (80-99) Mean Corpuscular Hemoglobin 31.2 PG (27.0-31.0) H Mean Corpuscular Hemoglobin Concent 32.3 G/DL (32.0-36.0) Red Cell Distribution Width 12.9 % (11.6-14.8) Platelet Count 212 K/UL (150-450) Mean Platelet Volume 5.2 FL (6.5-10.1) L Neutrophils (%) (Auto) 45.7 % (45.0-75.0) Lymphocytes (%) (Auto) 42.8 % (20.0-45.0) Monocytes (%) (Auto) 8.6 % (1.0-10.0) Eosinophils (%) (Auto) 2.4 % (0.0-3.0) Basophils (%) (Auto) 0.6 % (0.0-2.0) Sodium Level 142 MMOL/L (136-145) Potassium Level 3.5 MMOL/L (3.5-5.1) Chloride Level 109 MMOL/L (98-107) H Carbon Dioxide Level 24 MMOL/L (21-32) Anion Gap 9 mmol/L (5-15) Blood Urea Nitrogen 24 mg/dL (7-18) H Creatinine 1.7 MG/DL (0.55-1.30) H Estimat Glomerular Filtration Rate 47.0 mL/min (>60) Glucose Level 98 MG/DL (74-106) Calcium Level 8.6 MG/DL (8.5-10.1) Phosphorus Level 3.2 MG/DL (2.5-4.9) Magnesium Level 1.6 MG/DL (1.8-2.4) L Total Bilirubin 0.3 MG/DL (0.2-1.0) Aspartate Amino Transf (AST/SGOT) 15 U/L (15-37) Alanine Aminotransferase (ALT/SGPT) 20 U/L (12-78) Alkaline Phosphatase 91 U/L (46-116) Total Protein 7.3 G/DL (6.4-8.2) Albumin 2.6 G/DL (3.4-5.0) L Globulin 4.7 g/dL Albumin/Globulin Ratio 0.6 (1.0-2.7) L Objective per id note Respiratory/Chest: lungs clear Cardiovascular: normal rate, regular rhythm, no gallop/murmur Abdomen: soft, non tender Extremities: no edema Bob Samuel MD Jun 13, 2020 16:54
--- NOTE | 2020-06-13 19:04 | NUR ---
HAND-OFF: Report given to WANDER Mederos.
[2020-06-13 20:09] VITALS: BP 154/64
[2020-06-13] MEDS: Metoprolol Tartrate 12.5mg TAB ORAL SCH (21:00)
[2020-06-13] MEDS: Iron Sucrose 100 MG in NS 55 ML IV SCH (21:01)
[2020-06-13] MEDS: D5 1/2NS w/KCL 10meq 1,000 ML IV SCH (21:02)
[2020-06-13] MEDS: Zolpidem 5mg tab ORAL PRN (21:02)
[2020-06-13] MEDS: Tamsulosin 0.4mg cap ORAL SCH (21:02)
--- NOTE | 2020-06-13 21:14 | Progress Note ---
DATE: 06/13/2020 SUBJECTIVE: This is an elderly male, currently sitting in bed. He looks comfortable, in no distress. ___ symptomatic. We are repeating his COVID test. The patient is Full Code. PHYSICAL EXAMINATION: VITAL SIGNS: Blood pressure 146/68 and pulse 58. No fever. CHEST: Bilaterally clear. CARDIOVASCULAR: Regular rhythm. ABDOMEN: Soft. EXTREMITIES: CCE. NEUROLOGICAL: Generalized weakness. LABORATORY DATA: White count 6.7, hemoglobin 9, hematocrit 28, and platelets are 212. Chemistry panel, sodium 142, potassium 3.5, BUN 24, creatinine 1.7 is improved. Glucose is 98. ASSESSMENT: 1. Acute renal failure. 2. Recurrent nausea and vomiting, resolved. 3. COVID positive. 4. History of CHF. 5. Hypertension. 6. Coronary artery disease. 7. History of fracture of the ankle. 8. Anemia. PLAN: We will currently continue current treatment. We will continue metoprolol and Norvasc. Continue Plavix and Carafate. Continue Protonix and Ambien. Continue hydralazine. Left a message to the son Mr. Ortega ____. Also discussed with the veterinary technology instructor. Jacky Bowers M.D. DR: Radha JOB#: [id number] CC:
[2020-06-14] VITALS: BP 152/56
[2020-06-14 04:17] VITALS: BP 147/60
[2020-06-14] MEDS: HydrALAZINE 50mg tab ORAL SCH ×2 (05:00→13:12)
[2020-06-14 06:39] LABS: BASOPHILS % (AUTO) 0.9 % (0.0-2.0); EOSINOPHILS % (AUTO) 2.2 % (0.0-3.0); HEMATOCRIT 27.6 % (42.0-52.0); HEMOGLOBIN 9.1 G/DL (14.2-18.0); LYMPHOCYTES % (AUTO) 29.5 % (20.0-45.0); MEAN CORPUSCULAR VOLUME 96 FL (80-99); NEUTROPHILS % (AUTO) 58.5 % (45.0-75.0); PLATELET COUNT 224 K/UL (150-450); RED BLOOD COUNT 2.87 M/UL (4.70-6.10); RED CELL DISTRIBUTION WIDTH 12.9 % (11.6-14.8); WHITE BLOOD COUNT 6.9 K/UL (4.8-10.8)
[2020-06-14 06:41] LABS: ANION GAP 7 mmol/L (5-15); BLOOD UREA NITROGEN 21 mg/dL (7-18); CALCIUM 8.7 MG/DL (8.5-10.1); CARBON DIOXIDE 26 MMOL/L (21-32); CHLORIDE 108 MMOL/L (98-107); CREATININE 1.6 MG/DL (0.55-1.30); POTASSIUM 3.5 MMOL/L (3.5-5.1); SODIUM 141 MMOL/L (136-145)
--- NOTE | 2020-06-14 07:00 | NUR ---
NURSE NOTES: Received report from WANDER Heller. Patient seen awake, alert, and oriented x4. HOB elevated. No s/sx of SOB/Distress, no c/o any pain or gi/gu discomfort. IV site located on RFA gauge 24. Intact and inplace, asymptomatic, and patent. No s/sx of warmth, swelling or edema. Patient's call light placed within reach, bed placed in lowest and locked position. Will continue to monitor.
--- NOTE | 2020-06-14 07:20 | NUR ---
HAND-OFF: Report given to WANDER Morgan/Karla Ahmadi RN.
--- NOTE | 2020-06-14 07:59 | General Progress Note ---
Assessment/Plan Assessment/Plan: 1. History of renal insufficiency. 2. Hepatitis C with abnormal liver function tests. 3. Hypertension. 4. Diabetes. 5. COPD. 6. Schizophrenia. 7. Seizure disorder. 8. Pancreatitis. 9. Depression. ppi carafate stable H&H neg stool ob hold GI procedures for now Subjective ROS Limited/Unobtainable: Yes Allergies: Coded Allergies: PROCHLORPERAZINE (Verified Allergy, Unknown, 06/09/20) Objective Last 24 Hour Vital Signs Date Time Temp Pulse Resp B/P (MAP) Pulse Ox O2 Delivery O2 Flow Rate FiO2 06/14/20 05:00 147/60 06/14/20 04:17 98.2 55 17 147/60 (89) 97 06/14/20 00:00 98.4 45 16 152/56 (88) 96 06/13/20 21:02 154/64 06/13/20 21:00 52 154/64 06/13/20 20:09 98.2 52 18 154/64 (94) 97 06/13/20 20:04 Room Air 06/13/20 17:07 58 146/68 06/13/20 16:00 98.1 58 17 146/68 (94) 97 06/13/20 13:23 149/68 06/13/20 12:00 176/76 06/13/20 11:55 97.3 56 17 176/76 (109) 97 06/13/20 09:00 59 157/68 06/13/20 09:00 Room Air 06/13/20 08:18 59 157/68 06/13/20 08:16 59 157/68 Intake and Output 06/13/20 06/14/20 19:00 07:00 Intake Total 50 ml 850 ml Output Total 500 ml Balance 50 ml 350 ml Intake Oral 240 ml IV Total 50 ml 610 ml Output Urine Total 500 ml # Voids 2 Laboratory Tests 06/14/20 06:00: White Blood Count 6.9, Red Blood Count 2.87L, Hemoglobin 9.1L, Hematocrit 27.6L , Mean Corpuscular Volume 96, Mean Corpuscular Hemoglobin 31.7H, Mean Corpuscular Hemoglobin Concent 33.0, Red Cell Distribution Width 12.9, Platelet Count 224, Mean Platelet Volume 5.6L, Neutrophils (%) (Auto) 58.5, Lymphocytes ( %) (Auto) 29.5, Monocytes (%) (Auto) 9.0, Eosinophils (%) (Auto) 2.2, Basophils (%) (Auto) 0.9, Sodium Level 141, Potassium Level 3.5, Chloride Level 108H, Carbon Dioxide Level 26, Anion Gap 7, Blood Urea Nitrogen 21H, Creatinine 1.6H, Estimat Glomerular Filtration Rate 50.4, Glucose Level 108H, Calcium Level 8.7 Height (Feet): 5 Height (Inches): 8.00 Weight (Pounds): 158 General Appearance: alert EENT: normal ENT inspection Neck: supple Cardiovascular: normal rate Respiratory/Chest: decreased breath sounds Extremities: non-tender Alo Fitzgerald MD Jun 14, 2020 07:59
[2020-06-14 08:00] VITALS: BP 152/72
[2020-06-14] MEDS: Sucralfate 1gm tab ORAL SCH ×2 (08:24→17:37)
[2020-06-14] MEDS: Fluconazole 100mg tab ORAL SCH (08:24)
[2020-06-14] MEDS: Aspirin EC 81mg tab ORAL SCH (08:24)
[2020-06-14] MEDS: Docusate 100mg cap ORAL SCH ×3 (08:24→17:37)
[2020-06-14] MEDS: Metoprolol Tartrate 12.5mg TAB ORAL SCH ×2 (08:25→20:37)
[2020-06-14 08:33] LABS: PHOSPHORUS 3.5 MG/DL (2.5-4.9)
--- NOTE | 2020-06-14 09:04 | Pulmonology Progress Note ---
Subjective ROS Limited/Unobtainable: Yes Interval Events: None new Constitutional: Denies: fever, chills HEENT: Repors: no symptoms Respiratory: Reports: no symptoms Cardiovascular: Reports: no symptoms Gastrointestinal/Abdominal: Denies: nausea, vomiting, diarrhea Genitourinary: Reports: no symptoms Musculoskeletal: Denies: pain Allergies: Coded Allergies: PROCHLORPERAZINE (Verified Allergy, Unknown, 06/09/20) Objective Last 24 Hour Vital Signs Date Time Temp Pulse Resp B/P (MAP) Pulse Ox O2 Delivery O2 Flow Rate FiO2 06/14/20 08:25 56 152/72 06/14/20 08:25 56 152/72 06/14/20 08:00 98.1 56 19 152/72 (98) 96 06/14/20 05:00 147/60 06/14/20 04:17 98.2 55 17 147/60 (89) 97 06/14/20 00:00 98.4 45 16 152/56 (88) 96 06/13/20 21:02 154/64 06/13/20 21:00 52 154/64 06/13/20 20:09 98.2 52 18 154/64 (94) 97 06/13/20 20:04 Room Air 06/13/20 17:07 58 146/68 06/13/20 16:00 98.1 58 17 146/68 (94) 97 06/13/20 13:23 149/68 06/13/20 12:00 176/76 06/13/20 11:55 97.3 56 17 176/76 (109) 97 Intake and Output 06/13/20 06/14/20 19:00 07:00 Intake Total 50 ml 850 ml Output Total 500 ml Balance 50 ml 350 ml Intake Oral 240 ml IV Total 50 ml 610 ml Output Urine Total 500 ml # Voids 2 HEENT: normocephalic Respiratory: chest wall non-tender Cardiovascular: normal peripheral pulses Abdomen: normal bowel sounds Laboratory Tests 06/14/20 06:00: White Blood Count 6.9, Red Blood Count 2.87L, Hemoglobin 9.1L, Hematocrit 27.6L , Mean Corpuscular Volume 96, Mean Corpuscular Hemoglobin 31.7H, Mean Corpuscular Hemoglobin Concent 33.0, Red Cell Distribution Width 12.9, Platelet Count 224, Mean Platelet Volume 5.6L, Neutrophils (%) (Auto) 58.5, Lymphocytes ( %) (Auto) 29.5, Monocytes (%) (Auto) 9.0, Eosinophils (%) (Auto) 2.2, Basophils (%) (Auto) 0.9, Sodium Level 141, Potassium Level 3.5, Chloride Level 108H, Carbon Dioxide Level 26, Anion Gap 7, Blood Urea Nitrogen 21H, Creatinine 1.6H, Estimat Glomerular Filtration Rate 50.4, Glucose Level 108H, Calcium Level 8.7, Phosphorus Level 3.5, Magnesium Level 1.7L Current Medications Medications (Trade) Dose Ordered Sig/En Route PRN Reason Start Time Stop Time Status Last Admin Dose Admin Acetaminophen (Tylenol) 650 mg Q6H PRN ORAL Temp >100.5 06/10/20 23:00 07/10/20 22:59 06/12/20 21:09 Amlodipine Besylate (Norvasc) 5 mg BID ORAL 06/13/20 18:00 07/13/20 17:59 06/14/20 08:25 Aspirin (Ecotrin) 81 mg DAILY ORAL 06/12/20 19:15 07/27/20 19:14 06/14/20 08:24 Clonidine HCl (Catapres Tab) 0.1 mg Q6H PRN ORAL For High Blood Pressure 06/09/20 14:45 09/07/20 14:44 06/13/20 12:00 Clopidogrel Bisulfate (Plavix) 75 mg DAILY ORAL 06/13/20 09:00 07/13/20 08:59 06/14/20 08:23 Dextrose/ Electrolytes 1,000 ml @ 50 mls/hr Q20H IV 06/12/20 14:00 07/10/20 13:59 06/13/20 21:02 Docusate Sodium (Colace) 100 mg TID ORAL 06/10/20 13:00 07/10/20 08:59 06/14/20 08:24 Finasteride (Proscar) 5 mg DAILY ORAL 06/10/20 09:00 09/08/20 08:59 06/14/20 08:24 Fluconazole (Diflucan) 100 mg DAILY ORAL 06/11/20 13:00 06/18/20 12:59 06/14/20 08:24 Folic Acid (Folate) 5 mg DAILY ORAL 06/10/20 12:45 07/10/20 12:44 06/14/20 08:28 Hydralazine HCl (Apresoline) 50 mg Q8HR ORAL 06/11/20 22:00 09/07/20 21:59 06/14/20 05:00 Iron Sucrose 100 mg/Sodium Chloride 60 ml @ 240 mls/hr BEDTIME IV 06/11/20 21:00 06/15/20 21:14 06/13/20 21:01 Metoprolol Tartrate (Lopressor) 12.5 mg Q12HR ORAL 06/13/20 21:00 09/11/20 20:59 06/14/20 08:25 Pantoprazole (Protonix) 40 mg EVERY 12 HOURS ORAL 06/13/20 09:00 07/13/20 08:59 06/14/20 08:24 Sucralfate (Carafate) 1 gm BID ORAL 06/13/20 09:00 09/07/20 20:59 06/14/20 08:24 Tamsulosin HCl (Flomax) 0.4 mg BEDTIME ORAL 06/09/20 21:00 07/09/20 20:59 06/13/20 21:02 Zolpidem Tartrate (Ambien) 5 mg HSPRN PRN ORAL Insomnia 06/12/20 20:15 06/19/20 20:14 06/13/20 21:02 Assessment/Plan Assessment/Plan IMPRESSION: 1. COPD, stable. 2. Upper GI bleed. 3. GERD. 4. Bipolar disorder. 5. Previous alcohol abuse. DISCUSSION: Continue order oxygen and pulmonary hygiene as needed. I will follow as line analyst. Stool OB negative Hgb stable OK to dc Hernandez Dillon Omar Syed MD Jun 14, 2020 09:04
--- NOTE | 2020-06-14 10:11 | NUR ---
NURSE NOTES: Spoke to Daysi, School Bus Attendant. Was informed that son wanted a repeat covid exam. Notified Dr. Bowers and was able to get order for repeat covid exam. Noted and carried out.
--- NOTE | 2020-06-14 10:44 | Infectious Diseases Prog Note ---
Assessment/Plan Assessment/Plan antibiotics : fluconazole 8.2.20 - A 1. fungal UTI 2. COVID 19 pneumonia on room air, 97 percent saturation 3. renal failure improving 4. COPD 5. MRSA nasal colonization P 1. continue fluconazole 3 more days 2, will follow up cultures 3. continue isolation Subjective ROS Limited/Unobtainable: Yes Allergies: Coded Allergies: PROCHLORPERAZINE (Verified Allergy, Unknown, 06/09/20) Objective Last 24 Hour Vital Signs Date Time Temp Pulse Resp B/P (MAP) Pulse Ox O2 Delivery O2 Flow Rate FiO2 06/14/20 09:00 Room Air 06/14/20 08:25 56 152/72 06/14/20 08:25 56 152/72 06/14/20 08:00 98.1 56 19 152/72 (98) 96 06/14/20 05:00 147/60 06/14/20 04:17 98.2 55 17 147/60 (89) 97 06/14/20 00:00 98.4 45 16 152/56 (88) 96 06/13/20 21:02 154/64 06/13/20 21:00 52 154/64 06/13/20 20:09 98.2 52 18 154/64 (94) 97 06/13/20 20:04 Room Air 06/13/20 17:07 58 146/68 06/13/20 16:00 98.1 58 17 146/68 (94) 97 06/13/20 13:23 149/68 06/13/20 12:00 176/76 06/13/20 11:55 97.3 56 17 176/76 (109) 97 Height (Feet): 5 Height (Inches): 8.00 Weight (Pounds): 158 Laboratory Tests Test 06/14/20 06:00 White Blood Count 6.9 K/UL (4.8-10.8) Red Blood Count 2.87 M/UL (4.70-6.10) L Hemoglobin 9.1 G/DL (14.2-18.0) L Hematocrit 27.6 % (42.0-52.0) L Mean Corpuscular Volume 96 FL (80-99) Mean Corpuscular Hemoglobin 31.7 PG (27.0-31.0) H Mean Corpuscular Hemoglobin Concent 33.0 G/DL (32.0-36.0) Red Cell Distribution Width 12.9 % (11.6-14.8) Platelet Count 224 K/UL (150-450) Mean Platelet Volume 5.6 FL (6.5-10.1) L Neutrophils (%) (Auto) 58.5 % (45.0-75.0) Lymphocytes (%) (Auto) 29.5 % (20.0-45.0) Monocytes (%) (Auto) 9.0 % (1.0-10.0) Eosinophils (%) (Auto) 2.2 % (0.0-3.0) Basophils (%) (Auto) 0.9 % (0.0-2.0) Sodium Level 141 MMOL/L (136-145) Potassium Level 3.5 MMOL/L (3.5-5.1) Chloride Level 108 MMOL/L (98-107) H Carbon Dioxide Level 26 MMOL/L (21-32) Anion Gap 7 mmol/L (5-15) Blood Urea Nitrogen 21 mg/dL (7-18) H Creatinine 1.6 MG/DL (0.55-1.30) H Estimat Glomerular Filtration Rate 50.4 mL/min (>60) Glucose Level 108 MG/DL (74-106) H Calcium Level 8.7 MG/DL (8.5-10.1) Phosphorus Level 3.5 MG/DL (2.5-4.9) Magnesium Level 1.7 MG/DL (1.8-2.4) L Current Medications Medications (Trade) Dose Ordered Sig/En Route PRN Reason Start Time Stop Time Status Last Admin Dose Admin Acetaminophen (Tylenol) 650 mg Q6H PRN ORAL Temp >100.5 06/10/20 23:00 07/10/20 22:59 06/12/20 21:09 Amlodipine Besylate (Norvasc) 5 mg BID ORAL 06/13/20 18:00 07/13/20 17:59 06/14/20 08:25 Aspirin (Ecotrin) 81 mg DAILY ORAL 06/12/20 19:15 07/27/20 19:14 06/14/20 08:24 Clonidine HCl (Catapres Tab) 0.1 mg Q6H PRN ORAL For High Blood Pressure 06/09/20 14:45 09/07/20 14:44 06/13/20 12:00 Clopidogrel Bisulfate (Plavix) 75 mg DAILY ORAL 06/13/20 09:00 07/13/20 08:59 06/14/20 08:23 Dextrose/ Electrolytes 1,000 ml @ 50 mls/hr Q20H IV 06/12/20 14:00 07/10/20 13:59 06/13/20 21:02 Docusate Sodium (Colace) 100 mg TID ORAL 06/10/20 13:00 07/10/20 08:59 06/14/20 08:24 Finasteride (Proscar) 5 mg DAILY ORAL 06/10/20 09:00 09/08/20 08:59 06/14/20 08:24 Fluconazole (Diflucan) 100 mg DAILY ORAL 06/11/20 13:00 06/18/20 12:59 06/14/20 08:24 Folic Acid (Folate) 5 mg DAILY ORAL 06/10/20 12:45 07/10/20 12:44 06/14/20 08:28 Hydralazine HCl (Apresoline) 50 mg Q8HR ORAL 06/11/20 22:00 09/07/20 21:59 06/14/20 05:00 Iron Sucrose 100 mg/Sodium Chloride 60 ml @ 240 mls/hr BEDTIME IV 06/11/20 21:00 06/15/20 21:14 06/13/20 21:01 Metoprolol Tartrate (Lopressor) 12.5 mg Q12HR ORAL 06/13/20 21:00 09/11/20 20:59 06/14/20 08:25 Pantoprazole (Protonix) 40 mg EVERY 12 HOURS ORAL 06/13/20 09:00 07/13/20 08:59 06/14/20 08:24 Sucralfate (Carafate) 1 gm BID ORAL 06/13/20 09:00 09/07/20 20:59 06/14/20 08:24 Tamsulosin HCl (Flomax) 0.4 mg BEDTIME ORAL 06/09/20 21:00 07/09/20 20:59 06/13/20 21:02 Zolpidem Tartrate (Ambien) 5 mg HSPRN PRN ORAL Insomnia 06/12/20 20:15 06/19/20 20:14 06/13/20 21:02 Nelly Rodriguez MD Jun 14, 2020 10:44
[2020-06-14 12:00] VITALS: BP 145/60
--- NOTE | 2020-06-14 12:37 | Nephrology Progress Note ---
Assessment/Plan Problem List: (1) PAULINE (acute kidney injury) (2) Upper GI bleed (3) Hypertension (4) UTI (urinary tract infection) (5) Anemia (6) COVID-19 Assessment Acute renal failure most likely acute superimposed on chronic Presents with coffee-ground vomiting and GI bleed BUN is disproportionately higher than creatinine compatible with GI bleed Anemia Evidence of UTI COVID positive Remote history of alcohol abuse Previous laparotomy x2 for bleeding peptic ulcer Hypertension Plan June 14: Serum creatinine at its lowest in this admission to 1.6. Medication list reviewed. Remains stable from renal standpoint of view. Continue per consultants. Blood pressure medication adjusted. June 13: Creatinine lower. Hemoglobin stable. Blood pressure medication adjusted. Magnesium supplement given. Stable from renal standpoint of view. June 12: Serum creatinine lowering. Hemoglobin lowering but stable. Continue to monitor renal parameters. Continue treatment per ID. Called the son and discussed improvement of kidney parameters with him. June 11: Serum creatinine lowering. Hemoglobin stable. Patient on soft diet. Continue per consultants. Continue to monitor renal parameters and CBC. BP medication adjusted Start p.o. folic acid Slow hydration, change IV to D5 one half normal saline IV iron Kayexalate for hyperkalemia as needed Monitor renal parameters, serum creatinine is lowering Avoid nephrotoxic's Antibiotics IV Protonix Monitor hemoglobin and hematocrit Monitor intake and output Flomax nightly Per orders GI consult Subjective ROS Limited/Unobtainable: No Constitutional: Reports: malaise Objective Objective Last 24 Hour Vital Signs Date Time Temp Pulse Resp B/P (MAP) Pulse Ox O2 Delivery O2 Flow Rate FiO2 06/14/20 09:00 Room Air 06/14/20 08:25 56 152/72 06/14/20 08:25 56 152/72 06/14/20 08:00 98.1 56 19 152/72 (98) 96 06/14/20 05:00 147/60 06/14/20 04:17 98.2 55 17 147/60 (89) 97 06/14/20 00:00 98.4 45 16 152/56 (88) 96 06/13/20 21:02 154/64 06/13/20 21:00 52 154/64 06/13/20 20:09 98.2 52 18 154/64 (94) 97 06/13/20 20:04 Room Air 06/13/20 17:07 58 146/68 8/4/20 16:00 98.1 58 17 146/68 (94) 97 06/13/20 13:23 149/68 Intake and Output 06/13/20 06/14/20 19:00 07:00 Intake Total 50 ml 850 ml Output Total 500 ml Balance 50 ml 350 ml Intake Oral 240 ml IV Total 50 ml 610 ml Output Urine Total 500 ml # Voids 2 Current Medications Medications (Trade) Dose Ordered Sig/En Route PRN Reason Start Time Stop Time Status Last Admin Dose Admin Acetaminophen (Tylenol) 650 mg Q6H PRN ORAL Temp >100.5 06/10/20 23:00 07/10/20 22:59 06/12/20 21:09 Amlodipine Besylate (Norvasc) 5 mg BID ORAL 06/13/20 18:00 07/13/20 17:59 06/14/20 17:37 Aspirin (Ecotrin) 81 mg DAILY ORAL 06/12/20 19:15 07/27/20 19:14 06/14/20 08:24 Clonidine HCl (Catapres Tab) 0.1 mg Q6H PRN ORAL For High Blood Pressure 06/09/20 14:45 09/07/20 14:44 06/13/20 12:00 Clopidogrel Bisulfate (Plavix) 75 mg DAILY ORAL 06/13/20 09:00 07/13/20 08:59 06/14/20 08:23 Dextrose/ Electrolytes 1,000 ml @ 50 mls/hr Q20H IV 06/12/20 14:00 07/10/20 13:59 06/13/20 21:02 Docusate Sodium (Colace) 100 mg TID ORAL 06/10/20 13:00 07/10/20 08:59 06/14/20 17:37 Finasteride (Proscar) 5 mg DAILY ORAL 06/10/20 09:00 09/08/20 08:59 06/14/20 08:24 Fluconazole (Diflucan) 100 mg DAILY ORAL 06/11/20 13:00 06/18/20 12:59 06/14/20 08:24 Folic Acid (Folate) 5 mg DAILY ORAL 06/10/20 12:45 07/10/20 12:44 06/14/20 08:28 Hydralazine HCl (Apresoline) 50 mg Q8HR ORAL 06/11/20 22:00 09/07/20 21:59 06/14/20 13:12 Iron Sucrose 100 mg/Sodium Chloride 60 ml @ 240 mls/hr BEDTIME IV 06/11/20 21:00 06/15/20 21:14 06/13/20 21:01 Metoprolol Tartrate (Lopressor) 12.5 mg Q12HR ORAL 06/13/20 21:00 09/11/20 20:59 06/14/20 08:25 Pantoprazole (Protonix) 40 mg EVERY 12 HOURS ORAL 06/13/20 09:00 07/13/20 08:59 06/14/20 08:24 Sucralfate (Carafate) 1 gm BID ORAL 06/13/20 09:00 09/07/20 20:59 06/14/20 17:37 Tamsulosin HCl (Flomax) 0.4 mg BEDTIME ORAL 06/09/20 21:00 07/09/20 20:59 06/13/20 21:02 Zolpidem Tartrate (Ambien) 5 mg HSPRN PRN ORAL Insomnia 06/12/20 20:15 06/19/20 20:14 06/13/20 21:02 Laboratory Tests 06/14/20 06:00: White Blood Count 6.9, Red Blood Count 2.87L, Hemoglobin 9.1L, Hematocrit 27.6L , Mean Corpuscular Volume 96, Mean Corpuscular Hemoglobin 31.7H, Mean Corpuscular Hemoglobin Concent 33.0, Red Cell Distribution Width 12.9, Platelet Count 224, Mean Platelet Volume 5.6L, Neutrophils (%) (Auto) 58.5, Lymphocytes ( %) (Auto) 29.5, Monocytes (%) (Auto) 9.0, Eosinophils (%) (Auto) 2.2, Basophils (%) (Auto) 0.9, Sodium Level 141, Potassium Level 3.5, Chloride Level 108H, Carbon Dioxide Level 26, Anion Gap 7, Blood Urea Nitrogen 21H, Creatinine 1.6H, Estimat Glomerular Filtration Rate 50.4, Glucose Level 108H, Calcium Level 8.7, Phosphorus Level 3.5, Magnesium Level 1.7L Height (Feet): 5 Height (Inches): 8.00 Weight (Pounds): 158 General Appearance: no apparent distress Cardiovascular: normal rate Respiratory/Chest: decreased breath sounds Abdomen: soft, distended Objective No change Vineet Matthews MD Jun 14, 2020 12:37
[2020-06-14 16:00] VITALS: BP 155/65
--- NOTE | 2020-06-14 16:28 | NUR ---
CASE MANAGEMENT:REVIEW SI;AC RENAL FAILURE. FUNGAL UTI. COPD. 98.4 56 23 142/72 96% ON RA H/H 9.1/27.6 BUN 21 CR 1.6 MAG 1.7 COVID-19 PCR RAPID ~ NEGATIVE IS;IVF D5W @ 50 ML/HR NORVASC PO BID PROTONIX PO BID IRON SUCROSE IV DIFLUCAN PO FLOMAX PO CARAFATE PO LOPRESSOR PO MED SURG STATUS DCP;FROM [facility]
--- NOTE | 2020-06-14 17:20 | NUR ---
DISCHARGE PLANNING PATIENT HAS BEEN REFERRED BACK TO [facility] P: [phone] F: [phone] S/W GAGAN WHO STATED THAT INQUIRY WILL NEED TO BE FORWARDED TO THEIR DPH RN FOR REVIEW SINCE SNF WAS INITIALLY INFORMED THAT PATIENTS COVID RESULT UPON ADMISSION WAS POSITIVE. REPEAT COVID RAPID RESULT TODAY = NEGATIVE.
--- NOTE | 2020-06-14 18:00 | Progress Note ---
DATE: 06/14/2020 SUBJECTIVE: This is an 80-year-old male, currently in bed, comfortable, doing better. Nausea, vomiting is resolved. Renal failure is improved. OBJECTIVE: VITAL SIGNS: Current blood pressure is 145/60, pulse 57. No fever. CHEST: Bilaterally clear. CARDIOVASCULAR: Regular rhythm. ABDOMEN: Soft. EXTREMITIES: CCE. NEUROLOGICAL: Generalized weakness. LABORATORY DATA: White count 6.9, hemoglobin 9.1, hematocrit 28, platelets are 224. Chemistry panel, sodium 141, potassium 3.5, BUN 21, creatinine 1.6. His repeat COVID test on 06/14/2020 is negative rapid tests. ASSESSMENT: 1. Acute renal failure is resolved. 2. MRSA . 3. Anemia. 4. Hypertension. 5. History of coronary artery disease. PLAN: 1. We will continue PPIs. 2. Continue Plavix, amlodipine, fluconazole. 3. Discussed with patient case coordinator. 4. Discharge plan to SNF. 5. Discussed with also the patient case coordinator. Family requested another intermediate. Discussed with his son. Discharge plan to SNF probably whenever the bed available. Jacky Bowers M.D. DR: LORIE JOB#: [id number] CC:
[2020-06-14] MEDS: Tamsulosin 0.4mg cap ORAL SCH (18:22)
--- NOTE | 2020-06-14 19:02 | NUR ---
HAND-OFF: Report given to WANDER Mercer.
--- NOTE | 2020-06-14 19:20 | NUR ---
NURSE NOTES: received report from navin/ haydee chairez. patient is on bed, awake and verbally responsive. on room air. no sob. with urinal on the bedside. per navin hubbard, " patient is for discharge tomorrow back to snf". with iv line on the right forearm. reiterated to call and ask for assistance. bed locked and in lowest position. call light and light button within easy reach. will continue plan of care.
[2020-06-14 20:00] VITALS: BP 153/65
[2020-06-14] MEDS: D5 1/2NS w/KCL 10meq 1,000 ML IV SCH (20:37)
[2020-06-14] MEDS: Iron Sucrose 100 MG in NS 55 ML IV SCH (20:38)
[2020-06-14] MEDS: HydrALAZINE 25mg tab ORAL SCH (22:06)
[2020-06-15] VITALS (7 sets, daily range): BP systolic 134–146; BP diastolic 63–86
[2020-06-15] MEDS: Zolpidem 5mg tab ORAL PRN (00:51)
[2020-06-15] MEDS: HydrALAZINE 25mg tab ORAL SCH ×3 (05:14→21:09)
[2020-06-15 06:26] LABS: BASOPHILS % (AUTO) 0.5 % (0.0-2.0); EOSINOPHILS % (AUTO) 1.9 % (0.0-3.0); HEMOGLOBIN 9.1 G/DL (14.2-18.0); LYMPHOCYTES % (AUTO) 26.4 % (20.0-45.0); MEAN CORPUSCULAR VOLUME 96 FL (80-99); NEUTROPHILS % (AUTO) 62.2 % (45.0-75.0); PLATELET COUNT 229 K/UL (150-450); RED BLOOD COUNT 2.91 M/UL (4.70-6.10); RED CELL DISTRIBUTION WIDTH 13.1 % (11.6-14.8)
--- NOTE | 2020-06-15 06:49 | General Progress Note ---
Assessment/Plan Assessment/Plan: 1. History of renal insufficiency. 2. Hepatitis C with abnormal liver function tests. 3. Hypertension. 4. Diabetes. 5. COPD. 6. Schizophrenia. 7. Seizure disorder. 8. Pancreatitis. 9. Depression. ppi carafate stable H&H neg stool ob hold GI procedures for now Subjective ROS Limited/Unobtainable: Yes Allergies: Coded Allergies: PROCHLORPERAZINE (Verified Allergy, Unknown, 06/09/20) Objective Last 24 Hour Vital Signs Date Time Temp Pulse Resp B/P (MAP) Pulse Ox O2 Delivery O2 Flow Rate FiO2 06/15/20 05:14 145/75 06/15/20 04:00 98.2 58 22 141/67 (91) 98 06/15/20 00:00 98.6 59 22 135/63 (87) 99 06/14/20 22:06 156/69 06/14/20 21:00 Room Air 06/14/20 20:37 61 153/65 06/14/20 20:00 98.2 61 22 153/65 (94) 95 06/14/20 17:37 56 155/65 06/14/20 16:00 98.1 56 22 155/65 (95) 98 06/14/20 13:12 145/60 06/14/20 12:00 98.4 57 23 145/60 (88) 96 06/14/20 09:00 Room Air 06/14/20 08:25 56 152/72 06/14/20 08:25 56 152/72 06/14/20 08:00 98.1 56 19 152/72 (98) 96 Intake and Output 06/14/20 06/15/20 19:00 07:00 Intake Total 550 ml 1040 ml Output Total 350 ml 750 ml Balance 200 ml 290 ml Intake Oral 450 ml IV Total 550 ml 590 ml Output Urine Total 350 ml 750 ml Laboratory Tests 06/15/20 04:47: White Blood Count 7.0, Red Blood Count 2.91L, Hemoglobin 9.1L, Hematocrit 28.0L , Mean Corpuscular Volume 96, Mean Corpuscular Hemoglobin 31.4H, Mean Corpuscular Hemoglobin Concent 32.7, Red Cell Distribution Width 13.1, Platelet Count 229, Mean Platelet Volume 5.8L, Neutrophils (%) (Auto) 62.2, Lymphocytes ( %) (Auto) 26.4, Monocytes (%) (Auto) 9.0, Eosinophils (%) (Auto) 1.9, Basophils (%) (Auto) 0.5 Height (Feet): 5 Height (Inches): 8.00 Weight (Pounds): 158 General Appearance: no apparent distress EENT: normal ENT inspection Neck: supple Cardiovascular: normal rate Respiratory/Chest: decreased breath sounds Abdomen: hypoactive bowel sounds Extremities: non-tender Alo Fitzgerald MD Jun 15, 2020 06:49
--- NOTE | 2020-06-15 07:30 | NUR ---
HAND-OFF: Report given to haydee james. patient is awake, eating breakfast. POC endorsed. call light and light button within easy reach. bed locked and in lowest position.
--- NOTE | 2020-06-15 07:41 | NUR ---
NURSE NOTES: Patient awake, alert x4; on room air, no sing of distress and shortness of breath; no sing of chest pain; IV Right For-Arm D51/2NS + Kcl 10mEq at 50cc; Urinal within reach; SCD on; patient sitting high pradhan position and eating breakfast; side rails up x2, breaks engaged, bed at lowest position; call light within reach; will keep monitoring.
[2020-06-15] MEDS: Docusate 100mg cap ORAL SCH ×3 (08:26→17:15)
[2020-06-15] MEDS: Sucralfate 1gm tab ORAL SCH ×2 (08:26→17:14)
[2020-06-15] MEDS: Metoprolol Tartrate 12.5mg TAB ORAL SCH ×2 (08:26→21:10)
[2020-06-15] MEDS: Aspirin EC 81mg tab ORAL SCH (08:27)
[2020-06-15] MEDS: Fluconazole 100mg tab ORAL SCH (08:27)
[2020-06-15] MEDS: Tamsulosin 0.4mg cap ORAL SCH ×2 (08:27→17:14)
--- NOTE | 2020-06-15 10:14 | Nephrology Progress Note ---
Assessment/Plan Problem List: (1) PAULINE (acute kidney injury) (2) Upper GI bleed (3) Hypertension (4) UTI (urinary tract infection) (5) Anemia (6) COVID-19 Assessment Acute renal failure most likely acute superimposed on chronic Presents with coffee-ground vomiting and GI bleed BUN is disproportionately higher than creatinine compatible with GI bleed Anemia Evidence of UTI COVID positive Remote history of alcohol abuse Previous laparotomy x2 for bleeding peptic ulcer Hypertension Plan June 15: No can panel drawn today. Medication reviewed. Will order lab tomorrow. Stable from renal standpoint of view. June 14: Serum creatinine at its lowest in this admission to 1.6. Medication list reviewed. Remains stable from renal standpoint of view. Continue per consultants. Blood pressure medication adjusted. June 13: Creatinine lower. Hemoglobin stable. Blood pressure medication adjusted. Magnesium supplement given. Stable from renal standpoint of view. June 12: Serum creatinine lowering. Hemoglobin lowering but stable. Continue to monitor renal parameters. Continue treatment per ID. Called the son and discussed improvement of kidney parameters with him. June 11: Serum creatinine lowering. Hemoglobin stable. Patient on soft diet. Continue per consultants. Continue to monitor renal parameters and CBC. BP medication adjusted Start p.o. folic acid Slow hydration, change IV to D5 one half normal saline IV iron Kayexalate for hyperkalemia as needed Monitor renal parameters, serum creatinine is lowering Avoid nephrotoxic's Antibiotics IV Protonix Monitor hemoglobin and hematocrit Monitor intake and output Flomax nightly Per orders GI consult Subjective ROS Limited/Unobtainable: No Constitutional: Reports: malaise Objective Objective Last 24 Hour Vital Signs Date Time Temp Pulse Resp B/P (MAP) Pulse Ox O2 Delivery O2 Flow Rate FiO2 06/15/20 09:00 Room Air 06/15/20 08:27 69 137/86 06/15/20 08:26 69 137/86 06/15/20 08:00 98.1 69 19 137/86 (103) 96 06/15/20 05:14 145/75 06/15/20 04:00 98.2 58 22 141/67 (91) 98 06/15/20 00:00 98.6 59 22 135/63 (87) 99 06/14/20 22:06 156/69 06/14/20 21:00 Room Air 06/14/20 20:37 61 153/65 06/14/20 20:00 98.2 61 22 153/65 (94) 95 06/14/20 17:37 56 155/65 06/14/20 16:00 98.1 56 22 155/65 (95) 98 06/14/20 13:12 145/60 06/14/20 12:00 98.4 57 23 145/60 (88) 96 Intake and Output 06/14/20 06/15/20 19:00 07:00 Intake Total 550 ml 1090 ml Output Total 350 ml 750 ml Balance 200 ml 340 ml Intake Oral 450 ml IV Total 550 ml 640 ml Output Urine Total 350 ml 750 ml Laboratory Tests 06/15/20 04:47: White Blood Count 7.0, Red Blood Count 2.91L, Hemoglobin 9.1L, Hematocrit 28.0L , Mean Corpuscular Volume 96, Mean Corpuscular Hemoglobin 31.4H, Mean Corpuscular Hemoglobin Concent 32.7, Red Cell Distribution Width 13.1, Platelet Count 229, Mean Platelet Volume 5.8L, Neutrophils (%) (Auto) 62.2, Lymphocytes ( %) (Auto) 26.4, Monocytes (%) (Auto) 9.0, Eosinophils (%) (Auto) 1.9, Basophils (%) (Auto) 0.5 Height (Feet): 5 Height (Inches): 8.00 Weight (Pounds): 158 General Appearance: no apparent distress Cardiovascular: normal rate Respiratory/Chest: decreased breath sounds Abdomen: soft, distended Objective No change Vineet Matthews MD Jun 15, 2020 10:14
--- NOTE | 2020-06-15 12:17 | NUR ---
HAND-OFF: Report given to WANDER Mckeon. Patient is stable, watching TV; no sing of distress at this time;
--- NOTE | 2020-06-15 12:57 | NUR ---
DISCHARGE PLANNING FOLLOW UP CALL MADE TO [facility] IN RE TO PATIENTS DISCHARGE 06/14/20. ADMISSIONS NOT AVAILABLE AT TIME OF CALL. WILL FOLLOW UP. Addendum: 06/15/20 at 1632 by BERNY GARCÍA LVN LVN S/W KANCHAN AT [facility]. CONFIRMED RECEIPT OF INQUIRY. INFORMED CM THEY ARE UNABLE TO ACCEPT PATIENT D/T COVID POSITIVE RESULT ON PATIENTS DAY OF ADMISSION ON 06/09/20. PER KANCHAN, PATIENT WAS TESTED AT [facility] ON 05/19 & 06/09/20 WITH NEGATIVE RESULT. HOWEVER, PER KANCHAN, [facility] HAS DECLINED TO ACCEPT PATIENT AND HAS REFERRED TO [facility].
--- NOTE | 2020-06-15 14:18 | Infectious Diseases Prog Note ---
Assessment/Plan Assessment/Plan antibiotics : fluconazole 8.2.20 - A 1. fungal UTI 2. COVID 19 pneumonia on room air, 97 percent saturation 3. renal failure improving 4. COPD 5. MRSA nasal colonization P 1. continue fluconazole 2 more days 2, will follow up cultures 3. continue isolation Subjective Constitutional: Denies: fever, chills Respiratory: Denies: shortness of breath, dry cough Gastrointestinal/Abdominal: Denies: nausea, vomiting, diarrhea Musculoskeletal: Denies: pain Allergies: Coded Allergies: PROCHLORPERAZINE (Verified Allergy, Unknown, 06/09/20) Objective Last 24 Hour Vital Signs Date Time Temp Pulse Resp B/P (MAP) Pulse Ox O2 Delivery O2 Flow Rate FiO2 06/15/20 14:10 146/65 06/15/20 12:00 98.2 66 19 146/65 (92) 96 06/15/20 09:00 Room Air 06/15/20 08:27 69 137/86 06/15/20 08:26 69 137/86 06/15/20 08:00 98.1 69 19 137/86 (103) 96 06/15/20 05:14 145/75 06/15/20 04:00 98.2 58 22 141/67 (91) 98 06/15/20 00:00 98.6 59 22 135/63 (87) 99 06/14/20 22:06 156/69 06/14/20 21:00 Room Air 06/14/20 20:37 61 153/65 06/14/20 20:00 98.2 61 22 153/65 (94) 95 06/14/20 17:37 56 155/65 06/14/20 16:00 98.1 56 22 155/65 (95) 98 Height (Feet): 5 Height (Inches): 8.00 Weight (Pounds): 158 Microbiology Date/Time Source Procedure Growth Status 06/14/20 13:15 Nasopharynx SARS-CoV-2 RdRp Gene Assay - Final Complete Laboratory Tests Test 06/15/20 04:47 White Blood Count 7.0 K/UL (4.8-10.8) Red Blood Count 2.91 M/UL (4.70-6.10) L Hemoglobin 9.1 G/DL (14.2-18.0) L Hematocrit 28.0 % (42.0-52.0) L Mean Corpuscular Volume 96 FL (80-99) Mean Corpuscular Hemoglobin 31.4 PG (27.0-31.0) H Mean Corpuscular Hemoglobin Concent 32.7 G/DL (32.0-36.0) Red Cell Distribution Width 13.1 % (11.6-14.8) Platelet Count 229 K/UL (150-450) Mean Platelet Volume 5.8 FL (6.5-10.1) L Neutrophils (%) (Auto) 62.2 % (45.0-75.0) Lymphocytes (%) (Auto) 26.4 % (20.0-45.0) Monocytes (%) (Auto) 9.0 % (1.0-10.0) Eosinophils (%) (Auto) 1.9 % (0.0-3.0) Basophils (%) (Auto) 0.5 % (0.0-2.0) Current Medications Medications (Trade) Dose Ordered Sig/En Route PRN Reason Start Time Stop Time Status Last Admin Dose Admin Acetaminophen (Tylenol) 650 mg Q6H PRN ORAL Temp >100.5 06/10/20 23:00 07/10/20 22:59 06/12/20 21:09 Amlodipine Besylate (Norvasc) 5 mg BID ORAL 06/13/20 18:00 07/13/20 17:59 06/15/20 08:27 Aspirin (Ecotrin) 81 mg DAILY ORAL 06/12/20 19:15 07/27/20 19:14 06/15/20 08:27 Clonidine HCl (Catapres Tab) 0.1 mg Q6H PRN ORAL For High Blood Pressure 06/09/20 14:45 09/07/20 14:44 06/13/20 12:00 Clopidogrel Bisulfate (Plavix) 75 mg DAILY ORAL 06/13/20 09:00 07/13/20 08:59 06/15/20 08:26 Dextrose/ Electrolytes 1,000 ml @ 50 mls/hr Q20H IV 06/12/20 14:00 07/10/20 13:59 06/14/20 20:37 Docusate Sodium (Colace) 100 mg TID ORAL 06/10/20 13:00 07/10/20 08:59 06/15/20 14:12 Finasteride (Proscar) 5 mg DAILY ORAL 06/10/20 09:00 09/08/20 08:59 06/15/20 08:27 Fluconazole (Diflucan) 100 mg DAILY ORAL 06/11/20 13:00 06/18/20 12:59 06/15/20 08:27 Folic Acid (Folate) 5 mg DAILY ORAL 06/10/20 12:45 07/10/20 12:44 06/15/20 08:27 Hydralazine HCl (Apresoline) 75 mg Q8HR ORAL 06/14/20 22:00 09/07/20 21:59 06/15/20 14:10 Iron Sucrose 100 mg/Sodium Chloride 60 ml @ 240 mls/hr BEDTIME IV 06/11/20 21:00 06/15/20 21:14 06/14/20 20:38 Metoprolol Tartrate (Lopressor) 12.5 mg Q12HR ORAL 06/13/20 21:00 09/11/20 20:59 06/15/20 08:26 Pantoprazole (Protonix) 40 mg EVERY 12 HOURS ORAL 06/13/20 09:00 07/13/20 08:59 06/15/20 08:27 Sucralfate (Carafate) 1 gm BID ORAL 06/13/20 09:00 09/07/20 20:59 06/15/20 08:26 Tamsulosin HCl (Flomax) 0.4 mg BID ORAL 06/14/20 18:00 07/09/20 20:59 06/15/20 08:27 Zolpidem Tartrate (Ambien) 5 mg HSPRN PRN ORAL Insomnia 06/12/20 20:15 06/19/20 20:14 06/15/20 00:51 Nelly Rodriguez MD Jun 15, 2020 14:18
--- NOTE | 2020-06-15 15:04 | Pulmonology Progress Note ---
Subjective ROS Limited/Unobtainable: No Interval Events: None new Constitutional: Denies: fever, chills HEENT: Repors: no symptoms Respiratory: Reports: no symptoms Cardiovascular: Reports: no symptoms Gastrointestinal/Abdominal: Denies: nausea, vomiting, diarrhea Genitourinary: Reports: no symptoms Musculoskeletal: Denies: pain Allergies: Coded Allergies: PROCHLORPERAZINE (Verified Allergy, Unknown, 06/09/20) Objective Last 24 Hour Vital Signs Date Time Temp Pulse Resp B/P (MAP) Pulse Ox O2 Delivery O2 Flow Rate FiO2 06/15/20 14:10 146/65 06/15/20 12:00 98.2 66 19 146/65 (92) 96 06/15/20 09:00 Room Air 06/15/20 08:27 69 137/86 06/15/20 08:26 69 137/86 06/15/20 08:00 98.1 69 19 137/86 (103) 96 06/15/20 05:14 145/75 06/15/20 04:00 98.2 58 22 141/67 (91) 98 06/15/20 00:00 98.6 59 22 135/63 (87) 99 06/14/20 22:06 156/69 06/14/20 21:00 Room Air 06/14/20 20:37 61 153/65 06/14/20 20:00 98.2 61 22 153/65 (94) 95 06/14/20 17:37 56 155/65 06/14/20 16:00 98.1 56 22 155/65 (95) 98 Intake and Output 06/14/20 06/15/20 19:00 07:00 Intake Total 550 ml 1090 ml Output Total 350 ml 750 ml Balance 200 ml 340 ml Intake Oral 450 ml IV Total 550 ml 640 ml Output Urine Total 350 ml 750 ml HEENT: normocephalic Respiratory: chest wall non-tender Cardiovascular: normal peripheral pulses Abdomen: normal bowel sounds Microbiology Date/Time Source Procedure Growth Status 06/14/20 13:15 Nasopharynx SARS-CoV-2 RdRp Gene Assay - Final Complete Laboratory Tests 06/15/20 04:47: White Blood Count 7.0, Red Blood Count 2.91L, Hemoglobin 9.1L, Hematocrit 28.0L , Mean Corpuscular Volume 96, Mean Corpuscular Hemoglobin 31.4H, Mean Corpuscular Hemoglobin Concent 32.7, Red Cell Distribution Width 13.1, Platelet Count 229, Mean Platelet Volume 5.8L, Neutrophils (%) (Auto) 62.2, Lymphocytes ( %) (Auto) 26.4, Monocytes (%) (Auto) 9.0, Eosinophils (%) (Auto) 1.9, Basophils (%) (Auto) 0.5 Current Medications Medications (Trade) Dose Ordered Sig/En Route PRN Reason Start Time Stop Time Status Last Admin Dose Admin Acetaminophen (Tylenol) 650 mg Q6H PRN ORAL Temp >100.5 06/10/20 23:00 07/10/20 22:59 06/12/20 21:09 Amlodipine Besylate (Norvasc) 5 mg BID ORAL 06/13/20 18:00 07/13/20 17:59 06/15/20 08:27 Aspirin (Ecotrin) 81 mg DAILY ORAL 06/12/20 19:15 07/27/20 19:14 06/15/20 08:27 Clonidine HCl (Catapres Tab) 0.1 mg Q6H PRN ORAL For High Blood Pressure 06/09/20 14:45 09/07/20 14:44 06/13/20 12:00 Clopidogrel Bisulfate (Plavix) 75 mg DAILY ORAL 06/13/20 09:00 07/13/20 08:59 06/15/20 08:26 Dextrose/ Electrolytes 1,000 ml @ 50 mls/hr Q20H IV 06/12/20 14:00 07/10/20 13:59 06/14/20 20:37 Docusate Sodium (Colace) 100 mg TID ORAL 06/10/20 13:00 07/10/20 08:59 06/15/20 14:12 Finasteride (Proscar) 5 mg DAILY ORAL 06/10/20 09:00 09/08/20 08:59 06/15/20 08:27 Fluconazole (Diflucan) 100 mg DAILY ORAL 06/11/20 13:00 06/18/20 12:59 06/15/20 08:27 Folic Acid (Folate) 5 mg DAILY ORAL 06/10/20 12:45 07/10/20 12:44 06/15/20 08:27 Hydralazine HCl (Apresoline) 75 mg Q8HR ORAL 06/14/20 22:00 09/07/20 21:59 06/15/20 14:10 Iron Sucrose 100 mg/Sodium Chloride 60 ml @ 240 mls/hr BEDTIME IV 06/11/20 21:00 06/15/20 21:14 06/14/20 20:38 Metoprolol Tartrate (Lopressor) 12.5 mg Q12HR ORAL 06/13/20 21:00 09/11/20 20:59 06/15/20 08:26 Pantoprazole (Protonix) 40 mg EVERY 12 HOURS ORAL 06/13/20 09:00 07/13/20 08:59 06/15/20 08:27 Sucralfate (Carafate) 1 gm BID ORAL 06/13/20 09:00 09/07/20 20:59 06/15/20 08:26 Tamsulosin HCl (Flomax) 0.4 mg BID ORAL 06/14/20 18:00 07/09/20 20:59 06/15/20 08:27 Zolpidem Tartrate (Ambien) 5 mg HSPRN PRN ORAL Insomnia 06/12/20 20:15 06/19/20 20:14 06/15/20 00:51 Assessment/Plan Assessment/Plan IMPRESSION: 1. COPD, stable. 2. Upper GI bleed. 3. GERD. 4. Bipolar disorder. 5. Previous alcohol abuse. DISCUSSION: Continue order oxygen and pulmonary hygiene as needed. I will follow as press puller. Stool OB negative Hgb stable OK to dc Hernandez Dillon Omar Syed MD Jun 15, 2020 15:04
--- NOTE | 2020-06-15 16:32 | NUR ---
DISCHARGE PLANNING PATIENT HAS BEEN REFERRED TO [facility] P: [phone] ~ [place] F: [phone] S/W [facility] AT [place]. REFERRAL WILL BE REVIEWED AND SHE WILL FOLLOW UP WITH THIS CM WITH AN ANSWER. Addendum: 06/15/20 at 1720 by BERNY GARCÍA LVN LVN CALL BACK RECEIVED FROM [facility] WITH [facility]. PATIENT ACCEPTED FOR ADMISSION. ROOM 28-B SKILLED BLS AMBULANCE TRANSPORTATION SCHEDULED WITH [id number] WITH ETA @ 0975
--- NOTE | 2020-06-15 17:18 | NUR ---
COLLEGE RECRUITER NOTES RECEIVED A CALL FROM MIKAELA PT'S SON IN REGARDS TO DCP. EXPLAIN TO MIKAELA PT CAN NOT RETURN TO [facility] DUE TO COVID-19 STATUS. FURTHER EXPLAINED THAT PT WAS REFERRED TO [facility] IN WHICH HE WILL BE HOUSED TEMPORARILY UNTIL THE PT IS CLEAR TO RETURN TO [facility]. MIKAELA VERBALIZED CONCERNS OF COVID TESTING BEING INACCURATE, I EXPLAINED TO MIKAELA THAT THE HEALTH DEPARTMENT MADE THE DECISION TO FURTHER ISOLATE AT A SISTER FACILITY. MIKAELA VERBALIZED UNDERSTANDING, HOWEVER STILL QUESTIONING THE VALIDITY OF THE TEST. PT TO TRANSFER TO [facility] PENDING HEALTH DEPARTMENT CLEARANCE TO RETURN TO [facility].
--- NOTE | 2020-06-15 17:52 | Cardiology Progress Note ---
Assessment/Plan Assessment/Plan 1.cad status post percutaneous coronary intervention to the right coronary artery. ~ 2.history of Large pericardial effusion, status post pericardiocentesis of 1100 mL. 3.Renal insufficiency. 4.covid + 5.GI bleed / coffee ground emesis dapt agents resumed if bleed will dc again gi input noted no plan for invasive gi procedure yet stool ob neg his stent was placed 12/2019 now 6 mon old since stool ob neg will resume dapt lipids seem ok ekg noted going to snf mlodipine to 10 mg bp is better was on hydralazine 50 mg tid as weell before ekg noted inferolateral t inversion going to snf with covid + status Subjective Subjective in covid isolation i did not see pt personally to avoid unnecessary exposure to covid 19 but reviewed record from rn and other md notations per id note Constitutional: Denies: fever, chills Respiratory: Denies: shortness of breath, dry cough Gastrointestinal/Abdominal: Denies: nausea, vomiting, diarrhea Musculoskeletal: Denies: pain Objective Last 24 Hour Vital Signs Date Time Temp Pulse Resp B/P (MAP) Pulse Ox O2 Delivery O2 Flow Rate FiO2 06/15/20 17:15 69 134/69 06/15/20 16:00 98.1 69 18 134/69 (90) 97 06/15/20 14:10 146/65 06/15/20 12:00 98.2 66 19 146/65 (92) 96 06/15/20 09:00 Room Air 06/15/20 08:27 69 137/86 06/15/20 08:26 69 137/86 06/15/20 08:00 98.1 69 19 137/86 (103) 96 06/15/20 05:14 145/75 06/15/20 04:00 98.2 58 22 141/67 (91) 98 06/15/20 00:00 98.6 59 22 135/63 (87) 99 06/14/20 22:06 156/69 06/14/20 21:00 Room Air 06/14/20 20:37 61 153/65 06/14/20 20:00 98.2 61 22 153/65 (94) 95 Intake and Output 06/14/20 06/15/20 19:00 07:00 Intake Total 550 ml 1090 ml Output Total 350 ml 750 ml Balance 200 ml 340 ml Intake Oral 450 ml IV Total 550 ml 640 ml Output Urine Total 350 ml 750 ml Laboratory Tests Test 06/15/20 04:47 White Blood Count 7.0 K/UL (4.8-10.8) Red Blood Count 2.91 M/UL (4.70-6.10) L Hemoglobin 9.1 G/DL (14.2-18.0) L Hematocrit 28.0 % (42.0-52.0) L Mean Corpuscular Volume 96 FL (80-99) Mean Corpuscular Hemoglobin 31.4 PG (27.0-31.0) H Mean Corpuscular Hemoglobin Concent 32.7 G/DL (32.0-36.0) Red Cell Distribution Width 13.1 % (11.6-14.8) Platelet Count 229 K/UL (150-450) Mean Platelet Volume 5.8 FL (6.5-10.1) L Neutrophils (%) (Auto) 62.2 % (45.0-75.0) Lymphocytes (%) (Auto) 26.4 % (20.0-45.0) Monocytes (%) (Auto) 9.0 % (1.0-10.0) Eosinophils (%) (Auto) 1.9 % (0.0-3.0) Basophils (%) (Auto) 0.5 % (0.0-2.0) Microbiology Date/Time Source Procedure Growth Status 06/14/20 13:15 Nasopharynx SARS-CoV-2 RdRp Gene Assay - Final Complete Objective per pulm note Respiratory: chest wall non-tender Cardiovascular: normal peripheral pulses Abdomen: normal bowel sounds Bob Samuel MD Jun 15, 2020 17:52
--- NOTE | 2020-06-15 19:09 | NUR ---
HAND-OFF: Report given to Jaqui VIRAMONTES. Endorsed that report was given to Marilynn VIRAMONTES at [facility]. Still waiting for ambulance pickup. Endorsed that all paperwork was done and that PIV needs to be removed prior to discharge.
--- NOTE | 2020-06-15 19:10 | NUR ---
NURSE NOTES: Received Patient awake, alert x4 and verbal. No sob,pain,cough and fever at the moment. pt is getting discharge , waiting to the private ambulance. Iv is intact and asymptomatic. Bed is in lowest position,locked, and alarm on. We will keep monitoring the pt.
[2020-06-15] MEDS: Iron Sucrose 100 MG in NS 55 ML IV SCH (21:10)
[2020-06-15] MEDS: D5 1/2NS w/KCL 10meq 1,000 ML IV SCH (21:11)
--- NOTE | 2020-06-15 22:56 | NUR ---
NURSE NOTES: pt left the hospital to assisted with 2 lifeline ad operations intern in stable condition.
--- NOTE | 2020-06-15 23:45 | Progress Note ---
DATE: 06/15/2020 SUBJECTIVE: This is an elderly male came with sepsis, pneumonia. The patient is currently doing fine. COVID is negative. Hemoglobin is fine 9.1. OBJECTIVE: VITAL SIGNS: Stable. CHEST: Bilaterally clear. CARDIOVASCULAR: Regular rhythm. ABDOMEN: Soft. EXTREMITIES: CCE. ASSESSMENT: 1. Anemia. 2. Acute renal failure, resolved. 3. COVID negative. PLAN: Currently continue current treatment. Jacky Bowers M.D. DR: Yuki JOB#: [id number] CC:
--- NOTE | 2020-06-16 10:57 | Diagnostic Imaging Report ---
EXAM: ULTRASOUND US Renal Comp CLINICAL HISTORY: Abdominal pain. COMPARISON: CT 11/28/2019. Ultrasound 12/01/2019 TECHNIQUE: Ultrasound examination of the kidneys includes grayscale images, and color and spectral doppler analysis. FINDINGS: The right kidney measures 11.3 x 5.1 x 6.3 cm and the left kidney measures 8.9 x 5.3 x 5.4 cm. There are bilateral renal cysts. Moderate right hydronephrosis demonstrated. No discrete stone identified. Urinary bladder appears unremarkable. IMPRESSION: SMALL ATROPHIC LEFT KIDNEY. MODERATE RIGHT HYDRONEPHROSIS. BILATERAL RENAL CYSTS.
--- NOTE | 2020-06-19 10:50 | Discharge Summary ---
Discharge Summary Discharge Summary _ DATE OF ADMISSION: 06/09/2020 DATE OF DISCHARGE: 06/15/2020 DISCHARGED BY: Dr. Bowers REASON FOR ADMISSION: 80 years old male with past medical history of ETOH abuse, in remission, ruptured peptic ulcer, status post exploratory laparotomy, history of hep C, hypertension, brought by ambulance due to coffee-ground emesis for 1 day prior to arrival. Laboratory work-up revealed anemia with hemoglobin 9 , hematocrit 28. Evidence of renal failure with BUN 46, creatinine 2.0. Stable LFT. Urinalysis revealed findings consistent with UTI Chest x-ray revealed no acute cardiopulmonary pathology. Stool for occult blood was positive. Patient reported recent colonoscopy; found nonmalignant polyps. Patient was unsure if he had EGD. Last alcoholic beverage was 10 years ago. He denied chest pain, cough, shortness of breath, nausea,, fever dysuria, trauma or falls. In emergency department patient received a liter of fluids, Protonix, Zofran, started on empiric antibiotic and admitted for further management. Rapid COVID-19 by PCR was positive in ED. CONSULTANTS: agency sales director Dr. Samuel pulmonary Dr. Gamez ID specialist Dr. Rodriguez GI specialist Dr. Fitzgerald president practicing urologist Dr. Matthews [facility] COURSE: Patient admitted to isolation room and started on the IV fluids. Given positive COVID-19 infection, GI procedure was on hold. Patient started on PPI twice daily and Carafate. Hemoglobin and hematocrit were closely monitored with goal to keep hemoglobin above 7, prior to the remained at baseline. Prior to discharge hemoglobin 9.1, hematocrit 28. Stool for occult blood was negative. Patient received empiric antibiotic for pneumonia. Urine culture revealed Erin. Patient started on fluconazole. Repeated rapid COVID-19 was negative. Supplemental oxygen provided and titrated to keep pulse oximetry above 92%. Pulmonary toilet provided. Pulse oximetry remained stable on room air. Inflammatory markers revealed CRP 11.9 decreased to 7.0, ferritin within normal limits,. ID specialist recommended continue fluconazole upon discharge for 2 more days. Renal parameters and electrolytes were closely monitored. Electrolytes corrected as needed , nephrotoxins were avoided. Renal ultrasound revealed small atrophic left kidney. Moderate right hydronephrosis , bilateral renal cyst. Creatinine from 2.9 down to 1.6 with IV hydration. Per president practicing urologist patient had acute renal failure superimposed on chronic kidney disease. Echocardiogram demonstrated preserved ejection fraction of 65%. No evidence of left ventricular hypertrophy. No evidence of wall motion abnormality. Patient with history of coronary artery disease, status post percutaneous coronary intervention to the right coronary artery. Patient also had a history of large pericardial effusion, status post pericardiocentesis - 1100 mL. Dual antiplatelet therapy was resumed after bleeding stopped. No further bleeding. However patient will need to be monitored closely, and if bleeding recurs DAPT agents will be discontinued. Lipid panel stable. EKG with inferolateral T wave inversion, troponin x2 was negative. Antihypertensive medication regimen was optimized. Patient clinically stabilized and was ready for discharge back to [facility] facility. Patient will need close monitoring for GI bleeding. Patient will be scheduled as outpatient for GI procedure FINAL DIAGNOSES: COVID-19 infection Acute kidney injury on chronic kidney disease Fungal UTI Upper GI bleeding with coffee-ground emesis-resolved Anemia Hepatitis C Hypertension Diabetes mellitus COPD GERD Schizophrenia Seizure disorder History of pancreatitis Depression DISCHARGE MEDICATIONS: See Medication Reconciliation list. DISCHARGE INSTRUCTIONS: Patient was discharged to the [facility] facility. Follow up with medical doctor at the facility. I have been assigned to dictate discharge summary for this account. I was not involved in the patient's management. Nessa Hughes NP Jun 19, 2020 10:50
== END 2020-06-15 22:56 | DRG 177 ==
LOC: EDBD 11:00 → EMR 12:17 → 4E 12:36 → EDBEDREQ 13:31 → 4E 14:34
DX: U07.1 COVID-19 (principal); J12.89 Other viral pneumonia; K92.2 Gastrointestinal hemorrhage, unspecified; N17.9 Acute kidney failure, unspecified; B37.49 Other urogenital candidiasis; I42.9 Cardiomyopathy, unspecified; J44.9 Chronic obstructive pulmonary disease, unspecified; I11.0 Hypertensive heart disease with heart failure; I50.9 Heart failure, unspecified; I25.10 Atherosclerotic heart disease of native coronary artery without angina pectoris; F10.11 Alcohol abuse, in remission; K21.9 Gastro-esophageal reflux disease without esophagitis; F03.90 Unspecified dementia, unspecified severity, without behavioral disturbance, psychotic disturbance, mood disturbance, and anxiety; D64.9 Anemia, unspecified; S82.852D Displaced trimalleolar fracture of left lower leg, subsequent encounter for closed fracture with routine healing; X58.XXXD Exposure to other specified factors, subsequent encounter; Z88.8 Allergy status to other drugs, medicaments and biological substances; Z95.5 Presence of coronary angioplasty implant and graft; Z22.322 Carrier or suspected carrier of Methicillin resistant Staphylococcus aureus; B19.20 Unspecified viral hepatitis C without hepatic coma; F31.9 Bipolar disorder, unspecified
CPT/HCPCS: 36415; 71045; 76770; 80048; 80053; 80061; 81003; 82140; 82270; 82607; 82728; 82746; 82977; 83036; 83540; 83550; 83690; 83735; 83880; 84100; 84300; 84443; 84484; 84550; 85007; 85025; 85610; 85730; 86140; 86850; 86900; 86901; 87081; 87086; 93005; 93306; 96361; 96365; 96375; 99285; J2405; J7030; U0002